=== PATIENT | female | born 1960 | race Hispanic/Latino ===

== ENCOUNTER 2018-12-28 18:31 | Emergency (ER) | payer OTHER ==
--- OUTSIDE RECORDS SUMMARY | 2018-12-28 18:33 | XMS REPORT | Clinical Summary ---
:1960 Author Organization [facility] Address [address] [place] [address] Care Team Providers Name Role Phone Asked, No Pcp Primary Care Provider Unavailable Allergies Active Allergy Reactions Severity Noted Date Comments Morphine (Pf) GI Intolerance 06/29/2016 Medications No known medications Active Problems Problem Noted Date Cocaine abuse 07/01/2016 Bipolar I disorder, single manic episode, severe, with psychosis 06/30/2016 Social History Tobacco Use Types Packs/Day Years Used Date Never Smoker Tobacco Cessation: Counseling Given: Yes Alcohol Use Drinks/Week oz/Week Comments No Sex Assigned at Date Recorded Not on file Job Start Date Occupation Industry Not on file Not on file Not on file Travel History Travel Start Travel End No recent travel history available. Last Filed Vital Signs Not on file Plan of Treatment Not on file Results Not on fileafter 12/27/2017 Insurance Payer Benefit Plan / Group Subscriber ID Type Phone Address UHC MEDICAID [employer] COMM [employer]+ xxxxxxxxx HMO SAMIR OPTUM BEHAVIOR OPTUM(UBH) SAMIR xxxxxxxxx Behavioral Health TH MEDICAID [facility]ALTHSELECT xxxxxxxxx HMO Advance Directives Patient has advance care planning documents, and code status on file. For more information, please contact:Evelio [address] [place] [address] Code Status Date Activated Date Inactivated Comments Full Code 07/03/2016 11:18 AM 07/06/2016 8:33 PM Code Status decision reached by: Patient
[2018-12-28] MEDS ORDERED: IBUPROFEN 200 MG TAB PO ONE (19:12)
--- NOTE | 2018-12-28 22:44 | ER ---
Nurse's Notes [facility] Name: Janis Henderson Age: 58 yrs Sex: Female : 1960 Arrival Date: 12/28/2018 Time: 18:32 Bed External Waiting Private MD: Rishabh Leal E Diagnosis: Presentation: 12/28 18:54 Presenting complaint: Nonproductive cough, pain with cough, subjective fever, malaise, hb body aches, headache, and N/V x 2 days. Transition of care: patient was not received from another setting of care. Onset of symptoms was December 27, 2018. Risk Assessment: Do you want to hurt yourself or someone else? Patient reports no desire to harm self or others. Care prior to arrival: None. 18:54 Method Of Arrival: Ambulatory hb 18:54 Acuity: JUANCHO 3 hb Historical: - Allergies: 18:56 Morphine; hb - Immunization history:: Adult Immunizations up to date. - Social history:: Smoking status: Patient/guardian denies using tobacco. - Ebola Screening: : No symptoms or risks identified at this time. Assessment: 20:50 Reassessment: Pt was not located in [facility] when called for a room. Called pt's cell aa1 phone number on file to inform her we had her test results but pt did not answer. Asked pt to call ED for results once she receives message. 22:40 Reassessment: Spoke with pt by phone and notified that she is flu positive. Offered for aa1 pt to come back to ED to receive dose of Tamiflu now and prescription for Tamiflu to be filled however pt states she does not feel well enough to come back to the ED tonight and will come by in the morning to mushroom picker a prescription. Informed pt that due to her symptom onset it would be best if she could start the medication tonight. Pt states she will try to come by this evening but will most likely be in the morning. Vital Signs: 18:55 BP 140 / 90; Pulse 103; Resp 20; Temp 101.5(TE); Pulse Ox 97% on R/A; Pain 5/10; hb ED Course: 18:32 Patient arrived in ED. rg4 18:32 Rishabh Leal MD is Private Physician. rg4 18:55 Triage completed. hb 18:56 Arm band placed on. hb 19:01 Antipyretics given from triage as ordered by an ER provider. flu swab sent from triage. hb 20:43 Patient's name was called from ER lobby. No response. aj1 Administered Medications: 19:01 Drug: Motrin 600 mg Route: PO; hb Outcome: 22:43 Eloped from waiting room, before seeing physician Time discovered patient gone: December aa2018 at 20:45 22:45 Patient left the ED. aa1 Signatures: Ayala Green RN RN aj1 Laya Delgado RN RN aa1 Rocio De La O RN RN Ada Samayoa rg4 Corrections: (The following items were deleted from the chart) 22:43 22:43 Eloped from waiting room, before seeing physician denise aaLynn
[2018-12-28 22:49] VITALS: BP 140/90; TEMP 101.5; O2SAT 97
== END 2018-12-28 22:45 | disposition left against medical advice (07) ==
LOC: ER 18:31
DX: Z53.21 Procedure and treatment not carried out due to patient leaving prior to being seen by health care provider (principal)
CPT/HCPCS: 87804; 99282

== ENCOUNTER 2020-05-18 17:49 | Inpatient (IN) | payer OTHER ==
--- OUTSIDE RECORDS SUMMARY | 2020-05-18 17:52 | XMS REPORT | Summary of Care ---
:1960 Author Organization [facility] Address [address] [place] [address] Care Team Providers Name Role Phone Andrea Nogueira Primary Care Provider Hector Terrell DO Biology Instructor Reason for Visit Reason Comments Other cerebrovascular disease Encounter Details Date Type Department Care Team Description 02/29/2020 Telemedicine Visit [facility] Monster Tavera Cerebr ovascular disease (Primary Dx); Neurology-Kvng Huynh MD Type 2 diabetes mellitus with renal delvis festations not at goal n [address] [place] [phone] Allergies Active Allergy Reactions Severity Noted Date Comments Morphine Nausea and/or Vomiting Medium 11/13/2015 documented as of this encounter (statuses as of 03/04/2020) Medications Medication Sig Dispensed Refills Start Date End Date Status Blood-Glucose Meter Use as directed, 1 Kit 0 07/13/2016 Active (BLOOD GLUCOSE DX:E11.9 MONITORING) Kit lancets (BD ULTRA FINE Use as directed, 100 Each 3 07/13/2016 Active LANCETS) 33 gauge Misc TID, DX:E11.9 blood sugar diagnostic Use as directed, 100 Strip 3 07/13/2016 Active (BLOOD GLUCOSE TEST) TID, DX:E11.9 strip ALPRAZolam 2 mg tablet Take 1 mg by 0 Active mouth at bedtime as needed for Sleep. Levothyroxine 88 mcg Take 125 mcg by 0 Active capsule mouth daily. traZODone 150 mg tablet Take 150 mg by 0 Active mouth at bedtime as needed for Sleep. clopidogrel 75 mg Take 1 tablet by 30 tablet 5 05/12/2019 Active tabletIndications: mouth daily. Cerebrovascular accident (CVA), unspecified mechanism atorvastatin 40 mg Take 1 tablet by 30 tablet 2 05/12/2019 Active tabletIndications: mouth at Cerebrovascular bedtime. accident (CVA), unspecified mechanism liraglutide 0.6 mg/0.1 inject 0.6 mg 5 Syringe 10 05/12/2019 Active mL (18 mg/3 mL) under the skin injectionIndications: daily. Acute arterial ischemic stroke, multifocal, posterior circulation, left vortioxetine Take 10 mg by 0 Act jairon (TRINTELLIX) 10 mg Tab mouth daily. linaGLIPtin (TRADJENTA) Take 5 mg by 0 Active 5 mg tablet mouth daily. glipiZIDE 10 mg tablet Take 10 mg by 0 Active mouth 2 (two) times daily before breakfast and dinner. magnesium oxide 420 mg Take 400 mg by 30 tablet 0 11/27/2019 Active TabIndications: mouth 2 (two) Hypokalemia, SHEREEN (acute times daily. kidney injury) pantoprazole 20 mg EC Take 1 tablet by 30 tablet 0 11/27/2019 Active tabletIndications: mouth daily. Hypokalemia, SHEREEN (acute kidney injury) sucralfate (CARAFATE) 1 Take 1 tablet by 120 tablet 0 11/27/19 20 Active gram tabletIndications: mouth 4 (four) Hypokalemia, SHEREEN (acute times daily as kidney injury) needed for Indigestion. aspirin 81 mg chewable Take 1 tablet by 30 tablet 0 01/09/2020 Active tabletIndications: mouth daily. Chronic kidney disease, unspecified CKD stage, 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 losartan 50 mg Take 1 tablet by 30 tablet 0 01/09/2020 Active tabletIndications: mouth daily. Chronic kidney disease, unspecified CKD stage, 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 Insulin Detemir inject 20 Units 10 mL 1 01/09/2020 Active (LEVEMIR FLEXTOUCH under the skin 2 U-100 INSULN) 100 (two) times unit/mL (3 mL) daily. injectionIndications: Chronic kidney disease, unspecified CKD stage, 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 documented as of this encounter (statuses as of 03/04/2020) Active Problems Problem Noted Date Hypokalemia 11/26/2019 Stroke 05/07/2019 Obesity (BMI 30-39.9) 04/29/2017 Pain in both hands 11/10/2016 Trigger finger of right thumb 11/10/2016 Right carotid bruit 09/22/2016 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 06/22/2016 Primary hypothyroidism 03/01/2016 Thyroid cyst 03/01/2016 Thyroid nodule 03/01/2016 Dyslipidemia 03/01/2016 documented as of this encounter (statuses as of 03/04/2020) Resolved Problems Problem Noted Date Resolved Date Uncontrolled type 2 diabetes mellitus with proteinuria or 06/22/2016 albuminuria documented as of this encounter (statuses as of 03/04/2020) Immunizations Name Administration Dates Next Due Influenza Virus Vaccine Quad .5 mL IM 6+ MO 01/09/2020 documented as of this encounter Social History Tobacco Use Types Packs/Day Years Used Date Never Smoker Smokeless Tobacco: Never Used Alcohol Use Drinks/Week oz/Week Comments Yes 0 Standard drinks or equivalent 0.0 Occasional Drinker Sex Assigned at Date Recorded Not on file Job Start Date Occupation Industry Not on file Not on file Not on file Travel History Travel Start Travel End No recent travel history available. documented as of this encounter Last Filed Vital Signs Not on filedocumented in this encounter Progress Notes Monster Tavera MD - 02/29/2020 3:00 PM CDT TELEHEALTH NOTE Verbal consent obtained from Patient: Janis Henderson due to the COVID-19 pandemic for telehealth services provided below. Communication with patient was conducted via Video Call. Location of Patient: in her car Location of Provider: Clinic Date of Service: 02/29/2020 Chief Complaint: cerebravascular disease, and diabetes. HPI: Janis Henderson is a 59 year old female. The patient has not experienced any other focal neurological deficits. She said that she still does have some problem at times where she "walks a little funny". If she gets tired especially, she may notice some slurring of her speech as well. Her blood sugar she says are under better control. She had an admission in December related to hypokalemia. Dr. Soriano has been following her as well, and has done some testing in reference to her hard and says that her heart is in good shape. Past Medical History: Diagnosis Date Cataract Chronic neck and back pain DM (diabetes mellitus) Hyperlipidemia Hypothyroidism Current Outpatient Medications on File Prior to Visit Medication Sig Dispense Refill aspirin 81 mg chewable tablet Take 1 tablet by mouth daily. 30 tablet 0 Insulin Detemir (LEVEMIR FLEXTOUCH U-100 INSULN) 100 unit/mL (3 mL) injection inject 20 Units under the skin 2 (two) times daily. 10 mL 1 losartan 50 mg tablet Take 1 tablet by mouth daily. 30 tablet 0 magnesium oxide 420 mg Tab Take 400 mg by mouth 2 (two) times daily. 30 tablet 0 pantoprazole 20 mg EC tablet Take 1 tablet by mouth daily. 30 tablet 0 sucralfate (CARAFATE) 1 gram tablet Take 1 tablet by mouth 4 (four) times daily as needed for Indigestion. 120 tablet 0 glipiZIDE 10 mg tablet Take 10 mg by mouth 2 (two) times daily before breakfast and dinner. linaGLIPtin (TRADJENTA) 5 mg tablet Take 5 mg by mouth daily. vortioxetine (TRINTELLIX) 10 mg Tab Take 10 mg by mouth daily. liraglutide 0.6 mg/0.1 mL (18 mg/3 mL) injection inject 0.6 mg under the skin daily. 5 Syringe 10 atorvastatin 40 mg tablet Take 1 tablet by mouth at bedtime. 30 tablet 2 clopidogrel 75 mg tablet Take 1 tablet by mouth daily. 30 tablet 5 traZODone 150 mg tablet Take 150 mg by mouth at bedtime as needed for Sleep. ALPRAZolam 2 mg tablet Take 1 mg by mouth at bedtime as needed for Sleep. Levothyroxine 88 mcg capsule Take 125 mcg by mouth daily. blood sugar diagnostic (BLOOD GLUCOSE TEST) strip Use as directed, TID, DX:E11.9 100 Strip 3 Blood-Glucose Meter (BLOOD GLUCOSE MONITORING) Kit Use as directed, DX:E11.9 1 Kit 0 lancets (BD ULTRA FINE LANCETS) 33 gauge Misc Use as directed, TID, DX:E11.9 100 Each 3 No current facility-administered medications on file prior to visit. TELEHEALTH EXAM Alert, oriented times 3. Intact speech administrative receptionist/expression. Eye movements observed. No facial asymmetry Hearing intact to conversation. Arms/legs move symmetrically. No UE/LE ataxia. No tremors. ASSESSMENT/ PLAN Janis Henderson is a 59 year old female with PMH as above presenting with: ICD-10-CM ICD-9-CM 1. Cerebrovascular disease I67.9 437.9 2. 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 She is going to keep us posted if she has any other acute changes. She does understand that trying to prevent future strokes involves risk-management stratification. She is going to remain on Plavix. No further appointments need to be scheduled unless she has other symptoms as per the Dr. Negron directive. After visit summary (AVS ) documentation will be available through [facility] for this encounter. A total of 25 minutes was spent on the Video call, chart review. Medication treatment options/Sideeffects discussed. Workup/Plan of care discussed. Monster Tavera MD documented in this encounter Plan of Treatment Date Type Specialty Care Team Description 03/18/2020 Office Visit Surgery Michelle Carney MD [address] [facility] [address] [place] [address] [phone] Health Maintenance Due Date Last Done Comments PNEUMOCOCCAL 0-64 YEARS COMBINED 1968 SERIES (1 of 1 - PPSV23) DTaP,Tdap,and Td Vaccines (1 - 1973 Tdap) PAP SMEAR 04/27/2007 04/27/2004 Zoster Recombinant Vaccine 2012 (SHINGRIX) (1 of 2) URINE MICROALBUMIN 05/21/2017 05/21/2016, 04/02/2004 EYE EXAM 05/24/2017 05/24/2016 FOOT EXAM 06/22/2017 06/22/2016 Breast Cancer Screening 02/17/2020 02/16/2019 (MAMMOGRAM) HgA1C 05/26/2020 11/26/2019, 05/07/2019, 12/08/2018, Additional history exists LDL-C 01/06/2021 01/07/2020, 05/10/2019, 05/08/2019, Additional history exists CREATININE (SERUM) 01/08/2021 01/09/2020, 01/08/2020, 01/08/2020, Additional history exists COLONOSCOPY 12/08/2028 12/08/2018 HEPATITIS C (HCV) SCREEN Completed 10/29/2016 INFLUENZA VACCINE Completed 01/09/2020 documented as of this encounter Implants Implanted Type Area Delivery Merchandiser Device Shelf Model / Serial Identifier Expiration / Lot Date Lens LENS Left: Eye Yuniel 03/23/2021 [id number] / Implanted: Qty: 1 on 07/22/2016 by Troy Kwok MD at [facility] 2 [id number] / [id number] 2 documented as of this encounter Results Not on filedocumented in this encounter Visit Diagnoses Diagnosis Cerebrovascular disease - Primary Cerebrovascular disease, unspecified 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
--- OUTSIDE RECORDS SUMMARY | 2020-05-18 17:52 | XMS REPORT | Summary of Care ---
:1960 Author Organization [facility] - Health Address [address] [place] [id number] Care Team Providers Name Role Phone Andrea Nogueira Primary Care Provider Hector Terrell DO Body Shop Technician Encounter Details Date Type Department Care Team Description 02/14/2020 Orders Only [facility] Doctor Unassigned, No [address] [facility] [place] [address] [address] [place] [phone] Allergies Active Allergy Reactions Severity Noted Date Comments Morphine Nausea and/or Vomiting Medium 11/13/2015 documented as of this encounter (statuses as of 03/03/2020) Medications Medication Sig Dispensed Refills Start Date [...] as of this encounter (statuses as of 03/03/2020) Active Problems Problem Noted Date Hypokalemia 11/26/2019 Stroke 05/07/2019 Obesity (BMI 30-39.9) 04/29/2017 Pain in both hands 11/10/2016 Trigger finger of right thumb 11/10/2016 Right carotid bruit 09/22/2016 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 06/22/2016 Primary hypothyroidism 03/01/2016 Thyroid cyst 03/01/2016 Thyroid nodule 03/01/2016 Dyslipidemia 03/01/2016 documented as of this encounter (statuses as of 03/03/2020) Resolved Problems Problem Noted Date Resolved Date Uncontrolled type 2 diabetes mellitus with proteinuria or 06/22/2016 albuminuria documented as of this encounter (statuses as of 03/03/2020) Immunizations Name Administration Dates Next Due Influenza [...] Signs Not on filedocumented in this encounter Plan of Treatment Date Type Specialty Care Team Description 03/18/2020 Office Visit Surgery Michelle Carney MD [address] [facility] [address] [place] [address] [phone] Health Maintenance Due Date Last Done Comments [...] of this encounter Implants Implanted Type Area Photostat Operator Device Shelf Model / Serial Identifier Expiration / Lot Date Lens LENS Left: Eye Yuniel 03/23/2021 [id number] / Implanted: Qty: 1 on 07/22/2016 by Troy Kwok MD at [facility] 2 [id number] / [id number] 2 documented as of this encounter Procedures Procedure Name Priority Date/Time Associated Diagnosis Comme nts AUTHORIZATION FOR RELEASE Routine 02/14/2020 12:01 AM OF PHI CDT documented in this encounter Results Not on filedocumented in this encounter Insurance Payer Benefit Plan / Subscriber ID Effective Dates Phone Addre ss Type Group [facility] xxxxxxxxx 2015-Present Medicaid COMM PLAN - PLUS MANAGED MEDICAID documented as of this encounter
--- OUTSIDE RECORDS SUMMARY | 2020-05-18 17:52 | XMS REPORT | Summary of Care ---
:1960 Author Organization [facility] - Health Address [address] [place] [phone] Care Team Providers Name Role Phone Andrea Nogueira Primary Care Provider Hector Terrell DO Machine Clothing Man Encounter Details Date Type Department Care Team Description 03/11/2020 Orders Only [facility] Doctor Unassigned, No [address] [facility] [place] [address] [address] [place] [place] [phone] Allergies Active Allergy Reactions Severity Noted Date Comments Morphine Nausea and/or Vomiting Medium 11/13/2015 documented as of this encounter (statuses as of 03/11/2020) Medications Medication Sig Dispensed Refills Start Date [...] as of this encounter (statuses as of 03/11/2020) Active Problems Problem Noted Date Hypokalemia 11/26/2019 Stroke 05/07/2019 Obesity (BMI 30-39.9) 04/29/2017 Pain in both hands 11/10/2016 Trigger finger of right thumb 11/10/2016 Right carotid bruit 09/22/2016 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 COVID-19 Exposure Response Date Recorded In the last month, have you been in contact with No / Unsure 03/06/2020 3:00 PM CDT someone who was confirmed or suspected to have Coronavirus / COVID-19? documented as of this encounter Last Filed Vital Signs Not on filedocumented in this encounter Plan of Treatment Date Type Specialty Care Team Description 03/11/2020 Appointment Radiology Radiology [address] [place] [id number] 03/18/2020 Office Visit Surgery Michelle Carney MD [address] [facility] [address] [place] [address] [phone] Health Maintenance Due Date Last Done Comments [...] of this encounter Implants Implanted Type Area Data Management Specialist Device Shelf Model / Serial Identifier Expiration / Lot Date Lens LENS Left: Eye Yuniel 03/23/2021 [id number] / Implanted: Qty: 1 on 07/22/2016 by Troy Kwok MD at [facility] 2 [id number] / [id number] 2 documented as of this encounter Procedures Procedure Name Priority Date/Time Associated Diagnosis Comme nts ASSIGNMENT OF BENEFITS Routine 03/11/2020 1:16 PM CDT documented in this encounter Results Not on filedocumented in this encounter Insurance Payer Benefit Plan / Subscriber ID Effective Dates Phone Addre ss Type Group [facility] xxxxxxxxx 2015-Present Medicaid COMM PLAN - PLUS MANAGED MEDICAID documented as of this encounter
--- OUTSIDE RECORDS SUMMARY | 2020-05-18 17:52 | XMS REPORT | Continuity of Care Document ---
:1960 Author Organization [facility] t Address [address] [place] [address] Dr. S[address] [place] [address] Care Team Providers Name Role Phone Asked, Pcp Primary Care Physician Unavailable Brenna SOTELO, S Attending Clinician Doctor Unassigned, Name Attending Clinician Unavailable Jose Antonio ARIZA, S Attending Clinician Delvin ARIZA, L Attending Clinician Problems Condition Condition Condition Status Onset Resolution Last Treating Co mments Source Name Details Category Date Date Treatment Clinician Date Cocaine Cocaine Disease Active [place] abuse abuse 07-01 Methodi 00:00: st 00 Bipolar I Bipolar I Disease Active Julien ston disorder, disorder, 06-30 Meth darnell single single 00:00: st manic manic 00 episode, episode, severe, severe, with with psychosis psychosis Allergies, Adverse Reactions, Alerts Allergy Allergy Status Severity Reaction(s) Onset Inactive Treating Comm ents Source Name Type Date Date Clinician Morphine Propensi Active GI [place] n (Pf) ty to Intolerance 06-29 Metho di adverse 00:00: st reaction 00 s to drug Social History Social Habit Start Date Stop Date Quantity Comments Source Sex Assigned At [facility] ethodist Alcohol intake 2016-06-30 2016-06-30 Current [facility] thodist 00:00:00 00:00:00 non-drinker of alcohol (finding) Smoking Status Start Date Stop Date Source Never smoker [place] [facility] Medications This patient has no known medications. Procedures This patient has no known procedures. Encounters Start End Encounter Admission Attending Care Care Encounter Source Date/Time Date/Time Type Type Clinicians Facility Department ID 2020-05-15 2020-05-15 Telemedici Ceja [facility] [id number] 08:20:16 08:35:16 ne Visit Param Hodge [id number] Surgical [id number] Specialti [id number] [address] [place] 2020-05-13 2020-05-13 Orders Doctor PAYAL [id number] 00:00:00 00:00:00 Only Unassigned, GAMA [id number] [place] [id number] [id number] 2020-05-12 2020-05-12 Emergency [facility] [id number] 01:59:32 07:04:00 Nora Bob [id number] [place] [id number] [place] [id number] 2020-05-08 2020-05-08 [facility] [id number] 10:30:00 23:59:00 Encounter Florencio Bob [id number] [place] [id number] [place] [id number] 2020-05-08 2020-05-08 Orders Doctor MOE [id number] 00:00:00 00:00:00 Only UnassignedGAMA [id number] [place] [id number] [id number] [id number] 2020-05-05 2020-05-05 Telephone [facility] [id number] 00:00:00 00:00:00 Florencio Hodge [id number] Surgical [id number] Specialti [id number] es [address] [place] 2020-04-30 2020-04-30 Office [facility] [id number] 14:40:54 15:09:09 Visit [facility] [id number] Surgical [id number] Specialti [id number] Results This patient has no known results.
--- OUTSIDE RECORDS SUMMARY | 2020-05-18 17:52 | XMS REPORT | Clinical Summary ---
:1960 Author Organization [facility] Address [address] [place] [address] Care Team Providers Name Role Phone Asked, [...] Not on file Results Not on fileafter 05/18/2019 Insurance Payer Benefit Plan / Subscriber ID Effective Phone Address T ype Group Dates UHC MEDICAID UNITEDHC COMM xxxxxxxxx 2016-Pres HMO STAR+ SAMIR ent OPTUM OPTUM(UBH) SAMIR xxxxxxxxx 2016-Pres B ehavioral [facility] Health MEDICAID UHC UNITEDHC xxxxxxxxx 2016-Pres HMO HEALTHSELECT ent Advance Directives For more information, please contact: [phone] Type Date Recorded Patient Web Feeder Explanati on Advance Directives, Living Will and Medical Power of Sorter U[employer]ol[employer] Code Status Date Activated Date Inactivated Comments Full Code 07/03/2016 11:18 AM 07/06/2016 8:33 PM Code Status decision reached by: Patient
--- OUTSIDE RECORDS SUMMARY | 2020-05-18 17:53 | XMS REPORT | Summary of Care ---
:1960 Author Organization [facility] - Health Address [address] [id number] Care Team Providers Name Role Phone Andrea Nogueira Primary Care Provider Hector Terrell DO Manager Education Encounter Details Date Type Department Care Team Description 04/29/2020 Orders Only [facility] Doctor Unassigned, No [address] [facility] [place] [address] [address] [place] [address] Allergies Active Allergy Reactions Severity Noted Date Comments Morphine Nausea and/or Vomiting Medium 11/13/2015 documented as of this encounter (statuses as of 04/29/2020) Medications Medication Sig Dispensed Refills Start Date [...] as of this encounter (statuses as of 04/29/2020) Active Problems Problem Noted Date Hypokalemia 11/26/2019 Stroke 05/07/2019 Obesity (BMI 30-39.9) 04/29/2017 Pain in both hands 11/10/2016 Trigger finger of right thumb 11/10/2016 Right carotid bruit 09/22/2016 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 06/22/2016 Primary hypothyroidism 03/01/2016 Thyroid cyst 03/01/2016 Thyroid nodule 03/01/2016 Dyslipidemia 03/01/2016 documented as of this encounter (statuses as of 04/29/2020) Resolved Problems Problem Noted Date Resolved Date Uncontrolled type 2 diabetes mellitus with proteinuria or 06/22/2016 albuminuria documented as of this encounter (statuses as of 04/29/2020) Immunizations Name Administration Dates Next Due Influenza [...] filedocumented in this encounter Plan of Treatment Health Maintenance Due Date Last Done Comments PNEUMOCOCCAL 0-64 YEARS COMBINED 1968 SERIES (1 of 1 - PPSV23) DTaP,Tdap,and Td Vaccines (1 - 1973 Tdap) PAP SMEAR 04/27/2007 04/27/2004 Zoster Recombinant Vaccine 2012 (SHINGRIX) (1 of 2) URINE MICROALBUMIN 05/21/2017 05/21/2016, 04/02/2004 EYE EXAM 05/24/2017 05/24/2016 FOOT EXAM 06/22/2017 06/22/2016 HgA1C 05/26/2020 11/26/2019, 05/07/2019, 12/08/2018, Additional history exists INFLUENZA VACCINE (#1) 2020 01/09/2020 Depression Screening 08/24/2020 08/24/2019 LDL-C 01/06/2021 01/07/2020, 05/10/2019, 05/08/2019, Additional history exists CREATININE (SERUM) 01/08/2021 01/09/2020, 01/08/2020, 01/08/2020, Additional history exists Breast Cancer Screening 03/11/2021 03/11/2020, 02/16/2019 (MAMMOGRAM) COLONOSCOPY 12/08/2028 12/08/2018 HEPATITIS C (HCV) SCREEN Completed 10/29/2016 documented as of this encounter Implants Implanted Type Area Legal Writing Professor Device Shelf Model / Serial Identifier Expiration / Lot Date Lens LENS Left: Eye Yuniel 03/23/2021 [id number] / Implanted: Qty: 1 on 07/22/2016 by Troy Kwok MD at [facility] 2 [id number] / [id number] documented as of this encounter Procedures Procedure Name Priority Date/Time Associated Diagnosis Comme nts CONSENT/REFUSAL FOR Routine 04/29/2020 3:54 PM CDT DIAGNOSIS AND TREATMENT documented in this encounter Results Not on filedocumented in this encounter Insurance Payer Benefit Plan / Subscriber ID Effective Dates Phone Addre ss Type Group [facility] xxxxxxxxx 2015-Present Medicaid COMM PLAN - PLUS MANAGED MEDICAID documented as of this encounter
--- OUTSIDE RECORDS SUMMARY | 2020-05-18 17:53 | XMS REPORT | Summary of Care ---
:1960 Author Organization [facility] - [facility] Address [address] [place] [id number] Care Team Providers Name Role Phone Andrea Nogueira Primary Care Provider Hector Terrell DO Pasta Maker Reason for Referral Radiology Services (STAT) Status Reason Specialty Diagnoses / Referred By Referred To Procedures Contact Contact New Request Diagnostic Diagnoses Acute pain of left shoulder Dennis, K Radiology Procedures XR SHOULDER 2+ VW LEFT Crissy, PAC [address] [facility] [address] [place] [address] Reason for Visit Reason Comments Shoulder Pain Auth/Cert Status Reason Specialty Diagnoses / Referred By Referred To Procedures Contact Contact Emergency Medicine [facility] Em ergency Dept [address] [place] [address] Fax: Encounter Details Date Type Department Care Team Description 04/29/2020 Emergency ADC-Emergency Dennis, K Crissy, Subluxatio n of left shoulder joint, initial encounter (Primary Dx); Department PAC Acute pain of left shoulder; [address] [place] [address] Dr de la o [address] [place] [address] [facility] [address] [place] [address] Allergies Active Allergy Reactions Severity Noted Date [...] mellitus with renal manifestations not at goal ibuprofen 600 mg Take 1 tablet by 30 tablet 0 04/29/2020 Active tabletIndications: mouth every 6 Subluxation of left (six) hours as shoulder joint, initial needed for Pain encounter (scale 4-6). traMADol 50 mg Take 1 tablet by 20 tablet 0 04/29/2020 Active tabletIndications: mouth every 6 acute pain (six) hours as needed for Pain (scale 4-6). Indications: acute pain documented as of this encounter (statuses as [...] been in contact with No / Unsure 04/29/2020 3:54 PM CDT someone who was confirmed or suspected to have Coronavirus / COVID-19? documented as of this encounter Last Filed Vital Signs Vital Sign Reading Time Taken Comments Blood Pressure 156/96 04/29/2020 7:20 PM CDT Pulse 74 04/29/2020 7:20 PM CDT Temperature 37.3 C (99.1 F) 04/29/2020 4:19 PM CDT Respiratory Rate 16 04/29/2020 7:20 PM CDT Oxygen Saturation 100% 04/29/2020 7:20 PM CDT Inhaled Oxygen Concentration - - Weight 90.7 kg (200 lb) 04/29/2020 4:19 PM CDT Height 165.1 cm (5' 5") 04/29/2020 4:19 PM CDT Body Mass Index 33.28 04/29/2020 4:19 PM CDT documented in this encounter Discharge Instructions AttachmentsThe following attachments cannot be sent through Care Everywhere. Shoulder Instability, Understanding (Palestinian)documented in this encounter Plan of Treatment Health [...] of this encounter Implants Implanted Type Area Cathode Builder Device Shelf Model / Serial Identifier Expiration / Lot Date Lens LENS Left: Eye Yuniel 03/23/2021 [id number] / Implanted: Qty: 1 on 07/22/2016 by Troy Kwok MD at [facility] 2 [id number] / [id number] documented as of this encounter Procedures Procedure Name Priority Date/Time Associated Diagnosis Comme nts BASIC METABOLIC STAT 04/29/2020 7:23 PM Muscle twitch Resu lts for this PANEL (NA, K, CL, CDT procedure are in CO2, GLUCOSE, BUN, the resul ts CREATININE, CA) section. XR SHOULDER 2+ VW STAT 04/29/2020 5:21 PM Acute pain of le ft Results for this LEFT CDT shoulder procedure are i n the results section. NOTICE OF PRIVACY Routine 04/29/2020 3:54 PM PRACTICES CDT documented in this encounter Results BASIC METABOLIC PANEL (NA, K, CL, CO2, GLUCOSE, BUN, CREATININE, CA) (04/29/2020 7:23 PM CDT) NA 134 (L) 135 - 145 [facility] mmol/L [facility] K 3.2 (L) 3.5 - 5.0 [facility] mmol/L [facility] CL 98 98 - 108 mmol/L [facility] CO2 TOTAL 27 23 - 31 mmol/L [facility] AGAP 9 2 - 16 [facility] BUN 17 7 - 23 mg/dL [facility] GLUCOSE 309 (H) 70 - 110 mg/dL [facility] CREATININE 1.19 (H) 0.50 - 1.04 [facility] mg/dL [facility] CALCIUM 8.9 8.6 - 10.6 [facility] mg/dL [facility] eGFR Calculation 46.8 mL/min/1.73m2 [facility] ([facility] Croatian) eGFR Calculation 56.7 mL/min/1.73m2 [place] Specimen Blood - ARM, RIGHT Narrative Performed At Association of Glomerular Filtration Rate (GFR) [facility] and Staging of Kidney Disease* + + +- + | GFR (mL/min/1.73 m2) | With Kidney Damage | Without Kidney Damage + + +- + | >90 | Stage one | Normal + + +- + | 60-89 | Stage two | Decreased GFR + + +- + | 30-59 | Stage three | Stage three + + +- + | 15-29 | Stage four | Stage four + + +- + | <15 (or dialysis) | Stage five | Stage five + + +- + *Each stage assumes the associated GFR level has been in effect for at least three months. Stages 1 to 5, with or without kidney disease, indicate chronic kidney disease. Notes: Determination of stages one and two (with eGFR >59mL/min/1.73 m2) requires estimation of kidney damage for at least three months as defined by structural or functional abnormalities of the kidney, manifested by either: Pathological abnormalities or Markers of kidney damage (including abnormalities in the composition of the blood or urine or abnormalities in imaging tests). Performing Organization Address City/State/Zipcode Phone Number [facility] CLIA: [id number], [address] [place], [place] [address] XR SHOULDER 2+ VW LEFT (04/29/2020 5:21 PM CDT) Specimen Impressions Performed At PACS/VR/DOSE Inferior humeral head subluxation which may relate to joint effusion or capsular ligamentous incompetency. Rotator cuff calcium hydroxyapatite depo sition consistent with calcific tendinopathy. Preliminary Report Dictated by Resident: Cristi Ash I, Mathieu Samayoa MD., have reviewed this study and a gree with the above report. Narrative Performed At EXAM: XR SHOULDER 2+ VW LEFT PACS/VR/DOSE HISTORY: pain COMPARISON: None FINDINGS: Radiographs of the left shoulder demonst rate no acute fracture. Calcium deposits are seen adjacent to the dixie l head. Inferior humeral head subluxation is present. Osteopenia is pr esent. Procedure Note [facility], Radiant Results Inft User - 2019 6:20 PM CDT EXAM: XR SHOULDER 2+ VW LEFT HISTORY: pain COMPARISON: None FINDINGS: Radiographs of the left shoulder demonst rate no acute fracture. Calcium deposits are seen adjacent to the dixie l head. Inferior humeral head subluxation is present. Osteopenia is pr esent. IMPRESSION Inferior humeral head subluxation which may relate to joint effusion or capsular ligamentous incompetency. Rotator cuff calcium hydroxyapatite depo sition consistent with calcific tendinopathy. Preliminary Report Dictated by Resident: Cristi Ash I, Mathieu Samayoa MD., have reviewed is study and agree with the above report. Performing Organization Address City/State/Zipcode Phone Number PACS/VR/DOSE documented in this encounter Visit Diagnoses Diagnosis Subluxation of left shoulder joint, init ial encounter - Primary Acute pain of left shoulder Muscle twitch Abnormal involuntary movements documented in this encounter Administered Medications Medication Order MAR Action Action Date Dose Rate Site KCL (KLOR-CON M20) tablet 40 mEq Given 04/29/2020 8:00 PM CDT 40 mEq 40 mEq, Oral, ONCE, 1 dose, 04/29/20 at 2100, SHON traMADol (ULTRAM) tablet 100 mg Given 04/29/2020 7:19 PM CDT 100 mg 100 mg, Oral, ONCE, 1 dose, Tue04/29/20 at 2015, Routine documented in this encounter Insurance Payer Benefit Plan / Subscriber ID Effective Dates Phone Addre ss Type Group [facility] STAR xxxxxxxxx 2015-Present Medicaid COMM PLAN - PLUS MANAGED MEDICAID documented as of this encounter
--- OUTSIDE RECORDS SUMMARY | 2020-05-18 17:53 | XMS REPORT | Summary of Care ---
:1960 Author Organization [facility] Address [address] [place] [address] Care Team Providers Name Role Phone JeroAndrea Primary Care Provider Hector Terrell DO Cycle Repairer Reason for Visit Radiology Services (Routine) Status Reason Specialty Diagnoses / Referred By Referred To Procedures Contact Contact New Request Diagnostic Diagnoses Visit for screening mammogram Imelda Andrea Radiology Procedures BI SELF-REFERRED SCREENING TOMOSYNTHESIS BILATERAL BI SELF-REFERRED SCREENING TOMOSYNTHESIS RIGHT [address] [facility] [address] [place] [address] Encounter Details Date Type Department Care Team Description 03/11/2020 Hospital Encounter [facility] [place] [facility] Radiolog y Arrived [facility] [address] [facility] [place] [address] [place] [phone] Allergies Active Allergy Reactions Severity Noted Date Comments Morphine Nausea and/or Vomiting Medium 11/13/2015 documented as of this encounter (statuses as of 03/12/2020) Medications Medication Sig Dispensed Refills Start Date [...] as of this encounter (statuses as of 03/12/2020) Active Problems Problem Noted Date Hypokalemia 11/26/2019 Stroke 05/07/2019 Obesity (BMI 30-39.9) 04/29/2017 Pain in both hands 11/10/2016 Trigger finger of right thumb 11/10/2016 Right carotid bruit 09/22/2016 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 documented as of this encounter Last Filed Vital Signs Not on filedocumented in this encounter Plan of Treatment Date Type Specialty Care Team Description 03/18/2020 Office Visit Surgery Michelle Carney MD [address] [facility] [address] [place] [address] [phone] Health Maintenance Due Date Last Done Comments [...] of this encounter Implants Implanted Type Area Asphalt Plant Laborer Device Shelf Model / Serial Identifier Expiration / Lot Date Lens LENS Left: Eye Yuniel 03/23/2021 [id number] / Implanted: Qty: 1 on 07/22/2016 by Troy Kwok MD at [facility] 2 [id number] / [id number] documented as of this encounter Procedures Procedure Name Priority Date/Time Associated Comments Diagnosis BI SELF-REFERRED Routine 03/11/2020 2:45 Visit for screening Results for this SCREENING PM CDT mammogram procedure are i n TOMOSYNTHESIS the results BILATERAL section. documented in this encounter Results BI SELF-REFERRED SCREENING TOMOSYNTHESIS BILATERAL (03/11/2020 2:45 PM CDT) Specimen Narrative Performed At This result has an attachment that is no t available. Examination: PACS BI SELF-REFERRED SCREENING TOMOSYNTHESIS BILATERAL History: Patient is 59 year old and is seen for: Self referre d. Computer-aided detection (CAD) utilized. Comparisons: 02/16/2019 BI SCREENING MAMMOGRAM BILATER AL Findings: The breasts are almost entirely fatty. Left There is a focal asymmetry seen in the upper outer stephania drant of the left breast in the middle depth. Compared to the previous s tudy, there are no significant changes. Bilateral There are vascular calcifications seen in both breasts . Impression: No signs of malignancy. Recommendation: Annual mammographic follow-up - Left Annual mammographic follow-up - Right BI-RADS Category: Both 2 - Benign Performing Organization Address City/State/[facility] [email or web address] Phone Number PACS documented in this encounter Visit Diagnoses Diagnosis Visit for screening mammogram Other screening mammogram documented in this encounter Insurance Payer Benefit Plan / Subscriber ID Effective Dates Phone Addre ss Type Group [facility] STAR xxxxxxxxx 2015-Present Medicaid COMM PLAN - PLUS MANAGED MEDICAID documented as of this encounter
--- OUTSIDE RECORDS SUMMARY | 2020-05-18 17:54 | XMS REPORT | Summary of Care ---
:[address] [facility] Address [address] [place] [address] Care Team Providers Name Role Phone Andrea Nogueira Primary Care Provider Hector Terrell DO Scratch Finisher Reason for Referral MRI/CAT Scan (Routine) Status Reason Specialty Diagnoses / Referred By Referred To Procedures Contact Contact New Request Diagnostic Diagnoses Cerebrovascular accident (CVA) due to thrombosis of left vertebral artery Florencio Hargrove Radiology Procedures MR SHOULDER LEFT WO CONTRAST MD Perez [address] [place] [place] [address] Reason for Visit Reason Comments New Patient lft shoulder dislocation / h fu Encounter Details Date Type Department Care Team Description 04/30/2020 Office Visit [facility] Florencio Hargrove Cerebrovascu lar accident Orthopaedic Surgery- MD Perez (CVA) due to thrombosis Paulino Miranda [address] of left vertebral artery [address] (Primary Dx) [address] [place] [address] Allergies Active Allergy Reactions Severity Noted Date Comments Morphine Nausea and/or Vomiting Medium 11/13/2015 documented as of this encounter (statuses as of 05/02/2020) Medications Medication Sig Dispensed Refills Start Date [...] as of this encounter (statuses as of 05/02/2020) Active Problems Problem Noted Date Hypokalemia 11/26/2019 Stroke 05/07/2019 Obesity (BMI 30-39.9) 04/29/2017 Pain in both hands 11/10/2016 Trigger finger of right thumb 11/10/2016 Right carotid bruit 09/22/2016 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 06/22/2016 Primary hypothyroidism 03/01/2016 Thyroid cyst 03/01/2016 Thyroid nodule 03/01/2016 Dyslipidemia 03/01/2016 documented as of this encounter (statuses as of 05/02/2020) Resolved Problems Problem Noted Date Resolved Date Uncontrolled type 2 diabetes mellitus with proteinuria or 06/22/2016 albuminuria documented as of this encounter (statuses as of 05/02/2020) Immunizations Name Administration Dates Next Due Influenza [...] been in contact with No / Unsure 05/02/2020 9:15 AM CDT someone who was confirmed or suspected to have Coronavirus / COVID-19? documented as of this encounter Last Filed Vital Signs Vital Sign Reading Time Taken Comments Blood Pressure 146/86 04/30/2020 2:51 PM states did n ot take BP CDT Rx today. Pulse 75 04/30/2020 2:51 PM CDT Temperature - - Respiratory Rate - - Oxygen Saturation - - Inhaled Oxygen - - Concentration Weight 90.7 kg (200 lb) 04/30/2020 2:47 PM CDT Height 165.1 cm (5' 5") 04/30/2020 2:47 PM CDT Body Mass Index 33.28 04/30/2020 2:47 PM CDT documented in this encounter Progress Notes Florencio Hargrove MD - 04/30/2020 3:15 PM CDT Cc: Chief Complaint Patient presents with New Patient lft shoulder dislocation / hfu Vitals: 04/30/20 1447 BP: (!) 149/87 Pulse: 78 Weight: 90.7 kg (200 lb) Height: 65" (165.1 cm) [facility] [address] [place] [address] Incident occurred: yesterday Incident location: unknown Injury mechanism: none Pain location: left shoulder DME status: sling Radiology status: epic Stated no specific injury, shoulder is dislocated and went to ER, did not put shoulder back in place. All Vitals taken, allergies and all medications reviewed, fall risk assessed. Pain level 10. Sophie Randy 04/30/2020 2:48 PM Janis Henderson is a 59 year old female. Shoulder Pain The pain is present in the left shoulder. This is a new problem. The current episode started yesterday. There has been no history of extremity trauma. The problem occurs constantly. The problem has been waxing and waning. The quality of the pain is described as aching and burning. The pain is at a severity of 6/10. The pain is moderate. Associated symptoms include an inability to bear weight and a limited range of motion. The symptoms are aggravated by activity. She has tried NSAIDS and movement forthe symptoms. The treatment provided no relief. Allergies Janis is allergic to morphine. Medications Outpatient Medications Prior to Visit Medication Sig Dispense Refill ibuprofen 600 mg tablet Take 1 tablet by mouth every 6 (six) hours as needed for Pain (scale 4-6). 30 tablet 0 traMADol 50 mg tablet Take 1 tablet by mouth every 6 (six) hours as needed for Pain (scale 4-6).Indications: acute pain 20 tablet 0 aspirin 81 mg chewable tablet Take 1 [...] directed, TID, DX:E11.9 100 Each 3 No facility-administered medications prior to visit. Histories Past Medical History: Diagnosis Date Cataract Chronic neck and back pain DM (diabetes mellitus) Hyperlipidemia Hypothyroidism Past Surgical History: Procedure Laterality Date CERVICAL EPIDURAL STEROID INJECTION N/A 11/17/2015 Surgeon: Kraig Faulkner MD; Location: [facility] CERVICAL EPIDURAL STEROID INJECTION N/A 11/24/2015 Surgeon: Kraig Faulkner MD; Location: [facility] OR [facility] CERVICAL EPIDURAL STEROID INJECTION N/A 12/01/2015 Surgeon: Kraig Faulkner MD; Location: [facility] OR [facility] SECTION X 3 CHOLECYSTECTOMY KNEE ARTHROSCOPY Right X 2 LAPAROSCOPIC APPENDECTOMY ORAL SURGERY PROCEDURE [place] teeth extraction PHACOEMULSIFICATION OF CATARACT WITH INTRAOCULAR LENS IMPLANT Left 07/22/2016 Surgeon: Troy Kwok MD; Location: [facility] Social History Socioeconomic History Marital status: Spouse name: Not on file Number of children: Not on file Years of education: Not on file Highest education level: Not on file Occupational History Not on file Social Needs Financial resource strain: Not on file Food insecurity: Worry: Not on file Inability: Not on file Transportation needs: Medical: Not on file Non-medical: Not on file Tobacco Use Smoking status: Never Smoker Smokeless tobacco: Never Used Substance and Sexual Activity Alcohol use: Yes Alcohol/week: 0.0 standard drinks Comment: Occasional Drinker Drug use: No Sexual activity: Not on file Lifestyle Physical activity: Days per week: Not on file Minutes per session: Not on file Stress: Not on file Relationships Social connections: Talks on phone: Not on file Gets together: Not on file Attends episcopalian service: Not on file Active member of club or organization: Not on file Attends meetings of clubs or organizations: Not on file Relationship status: Not on file Intimate partner violence: Fear of current or ex partner: Not on file Emotionally abused: Not on file Physically abused: Not on file Forced sexual activity: Not on file Other Topics Concern Not on file Social History Narrative , 3 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 HENT: Negative. Eyes: Negative. Respiratory: Negative. Cardiovascular: Negative. Gastrointestinal: Negative. Genitourinary: Negative. Musculoskeletal: Positive for gait problem and joint swelling. Skin: Negative. Psychiatric/Behavioral: Negative. Endocrine: Endocrine negative Vital Signs BP (!) 149/87 | Pulse 78 | Ht 65" (165.1 cm) | Wt 90.7 kg (200 lb) | BMI 33.28 kg/m Physical Exam Musculoskeletal: Positive Lang Positive Neer General: Well-developed well-nourished oriented to person place and time HEENT normocephalic atraumatic atraumatic pupils equal round reactive to light extraocular muscles intact Cervical thoracic and lumbar spine without focal deficit normal kyphosis and lordosis Chest clear to auscultation and percussion Cardiovascular regular rate and rhythm without gallop rub or murmur soft without organomegaly Normal bowel sounds Neurologic: Focal myotome or dermatomal deficits Vascular: Intact symmetrical bilateral upper and lower extremities Skin without stasis varicosities or breakdown Extremities without cyanosis clubbing or edema Lymphatics no peripheral lymphedema Psych normal mood and affect. Neurovascular function is intact. To include brisk capillary refill warm pink skin active motor function and sensory function intact. Nursing note and vitals reviewed. EXAM: XR SHOULDER 2+ VW LEFT HISTORY: pain COMPARISON: None FINDINGS: Radiographs of the left shoulder demonstrate no acute fracture. Calcium deposits are seen adjacent to the humeral head. Inferior humeral head subluxation is present. Osteopenia is present. IMPRESSION Inferior humeral head subluxation which may relate to joint effusion or capsular ligamentous incompetency. Rotator cuff calcium hydroxyapatite deposition consistent with calcific tendinopathy. Preliminary Report Dictated by Resident: Cristi Ash I, Mathieu Samayoa MD., have reviewed this study and agree with the above report. Assessment/Plan Left Shoulder Pain MRI of the left shoulder. Follow up within ten days for results. documented in this encounter Plan of Treatment Date Type Specialty Care Team Description 05/08/2020 Appointment Radiology Florencio Hargrove MD [address] [phone] 05/14/2020 Appointment Radiology Florencio Hargrove MD [address] [phone] Name Type Priority Associated Diagnoses Order S chedule MR SHOULDER LEFT WO IMAGING Routine Cerebrovascular accid ent Expected: CONTRAST (CVA) due to thrombosis of 0 04/30/2020, Expires: left vertebral artery 2020 Health Maintenance Due Date Last Done Comments [...] 01/06/2021 01/07/2020, 05/10/2019, 05/08/2019, Additional history exists Breast Cancer Screening 03/11/2021 03/11/2020, 02/16/2019 (MAMMOGRAM) CREATININE (SERUM) 04/29/2021 04/29/2020, 01/09/2020, 01/08/2020, Additional history exists COLONOSCOPY 12/08/2028 12/08/2018 HEPATITIS C (HCV) SCREEN Completed 10/29/2016 documented as of this encounter Implants Implanted Type Area Steam And Gas Turbine Assembler Device Shelf Model / Serial Identifier Expiration / Lot Date Lens LENS Left: Eye Yuniel 03/23/2021 [id number] / Implanted: Qty: 1 on 07/22/2016 by Troy Kwok MD at [facility] 2 [id number] / [id number] 2 documented as of this encounter Results Not on filedocumented in this encounter Visit Diagnoses Diagnosis Cerebrovascular accident (CVA) due to th rombosis of left vertebral artery - Primary documented in this encounter Insurance Payer Benefit Plan / Subscriber ID Effective Dates Phone Addre ss Type Group [facility] xxxxxxxxx 2015-Present Medicaid COMM PLAN - PLUS MANAGED MEDICAID documented as of this encounter
--- OUTSIDE RECORDS SUMMARY | 2020-05-18 17:54 | XMS REPORT | Summary of Care ---
:1960 Author Organization [facility] Address [address] [place] [address] Care Team Providers Name Role Phone Andrea Nogueira Primary Care Provider Hector Terrell DO Electrophysiology Scientist Reason for Referral MRI/CAT Scan (Routine) Status Reason Specialty Diagnoses / Referred By Referred To Procedures Contact Contact New Request Diagnostic Diagnoses Chronic left shoulder pain Florencio Hargrove Radiology Procedures MR SHOULDER LEFT WO KELSIE Todd MD [address] [place] [address] [place] [address] Reason for Visit Reason Comments Orders LT Shoulder MRI - [facility] Encounter Details Date Type Department Care Team Description 05/02/2020 Telephone [facility] Orthopaedic Florencio Hargrove (LT Shoulder MRI Surgery- Paulino Todd MD - [facility]) [address], [address] [place] [address] [place], [place] [phone] [address] Allergies Active Allergy Reactions Severity Noted [...] been in contact with No / Unsure 04/30/2020 3:51 PM CDT someone who was confirmed or suspected to have Coronavirus / COVID-19? documented as of this encounter Last Filed Vital Signs Not on filedocumented in this encounter Plan of Treatment Date Type Specialty Care Team Description 05/14/2020 Appointment Radiology Florencio Hargrove MD [address] [phone] Name Type Priority Associated Diagnoses Order S chedule MR SHOULDER LEFT WO IMAGING Routine Chronic left shoulder Expected: 05/02/2020, CONTRAST pain Expires: 2020 Health Maintenance Due Date Last Done [...] of this encounter Implants Implanted Type Area Washing Machine Loader Device Shelf Model / Serial Identifier Expiration / Lot Date Lens LENS Left: Eye Yuniel 03/23/2021 [id number] / Implanted: Qty: 1 on 07/22/2016 by Troy Kwok MD at [facility] 2 [id number] / [id number] 2 documented as of this encounter Results Not on filedocumented in this encounter Visit Diagnoses Diagnosis Chronic left shoulder pain - Primary Pain in joint, shoulder region documented in this encounter Insurance Payer Benefit Plan / Subscriber ID Effective Dates Phone Addre ss Type Group [facility] xxxxxxxxx 2015-Present Medicaid COMM PLAN - PLUS MANAGED MEDICAID documented as of this encounter
--- OUTSIDE RECORDS SUMMARY | 2020-05-18 17:55 | XMS REPORT | Summary of Care ---
:[address] [facility] Address [address] [place] [address] Care Team Providers Name Role Phone Andrea Nogueira Primary Care Provider Hector Terrell DO Mechanical Engineering Teacher Reason for Visit Reason Comments Notification The patient is requesting pa in medication. She is not scheduled for an MRI until 05/14/20 and she's out Encounter Details Date Type Department Care Team Description 05/05/2020 Telephone [facility] Orthopaedic Florencio Hargrove otification (The Surgery- Paulino Todd MD patient is requesting [address], [address] pain medication. She is [address] [place] [address] [place], [place] until 05/14/20 and she's [phone] [address] out ) [phone] Allergies Active Allergy Reactions Severity Noted Date Comments Morphine Nausea and/or Vomiting Medium 11/13/2015 documented as of this encounter (statuses as of 05/06/2020) Medications Medication Sig Dispensed Refills Start Date [...] for Pain (scale 4-6). Indications: acute pain diclofenac 75 mg EC Take 1 tablet by 60 tablet 1 05/06/2020 Active tabletIndications: mouth 2 (two) Chronic left shoulder times daily with pain meals. 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 06/22/2016 Primary hypothyroidism 03/01/2016 Thyroid cyst 03/01/2016 Thyroid nodule 03/01/2016 Dyslipidemia 03/01/2016 documented as of this encounter (statuses as of 05/06/2020) Resolved Problems Problem Noted Date Resolved Date Uncontrolled type 2 diabetes mellitus with proteinuria or 06/22/2016 albuminuria documented as of this encounter (statuses as of 05/06/2020) Immunizations Name Administration Dates Next Due Influenza [...] 05/08/2020 Appointment Radiology Florencio Hargrove MD [address] [phone] Health Maintenance Due Date Last Done Comments [...] of this encounter Implants Implanted Type Area Head Of Global Strategic Partnerships Device Shelf Model / Serial Identifier Expiration / Lot Date Lens LENS Left: Eye Yuniel 03/23/2021 [id number] / Implanted: Qty: 1 on 07/22/2016 by Troy Kwok MD at [facility] 2 [id number] / [id number] 2 documented as of this encounter Results Not on filedocumented in this encounter Visit Diagnoses Diagnosis Chronic left shoulder pain - Primary Pain in joint, shoulder region documented in this encounter Insurance Payer Benefit Plan / Subscriber ID Effective Dates Phone Addre ss Type Group [facility] xxxxxxxxx 2015-Present Medicaid COMM PLAN - PLUS MANAGED MEDICAID documented as of this encounter
--- OUTSIDE RECORDS SUMMARY | 2020-05-18 17:55 | XMS REPORT | Summary of Care ---
:1960 Author Organization [facility] - Health Address [address] [place] [address] Care Team Providers Name Role Phone Andrea Nogueira Primary Care Provider Hector Terrell DO Roughener Encounter Details Date Type Department Care Team Description 05/08/2020 Orders Only [facility] Doctor Unassigned, No [address] [facility] [place] [address] [address] [phone] Allergies Active Allergy Reactions Severity Noted Date Comments Morphine Nausea and/or Vomiting Medium 11/13/2015 documented as of this encounter (statuses as of 05/08/2020) Medications Medication Sig Dispensed Refills Start Date [...] as of this encounter (statuses as of 05/08/2020) Active Problems Problem Noted Date Hypokalemia 11/26/2019 Stroke 05/07/2019 Obesity (BMI 30-39.9) 04/29/2017 Pain in both hands 11/10/2016 Trigger finger of right thumb 11/10/2016 Right carotid bruit 09/22/2016 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 06/22/2016 Primary hypothyroidism 03/01/2016 Thyroid cyst 03/01/2016 Thyroid nodule 03/01/2016 Dyslipidemia 03/01/2016 documented as of this encounter (statuses as of 05/08/2020) Resolved Problems Problem Noted Date Resolved Date Uncontrolled type 2 diabetes mellitus with proteinuria or 06/22/2016 albuminuria documented as of this encounter (statuses as of 05/08/2020) Immunizations Name Administration Dates Next Due Influenza [...] 05/08/2020 Appointment Radiology Florencio Hargrove MD [address] [phone] Health Maintenance Due Date Last Done [...] of this encounter Implants Implanted Type Area Applications Support Analyst Device Shelf Model / Serial Identifier Expiration / Lot Date Lens LENS Left: Eye Yuniel 03/23/2021 [id number] / Implanted: Qty: 1 on 07/22/2016 by Troy Kwok MD at [facility] 2 [id number] / [id number] 2 documented as of this encounter Procedures Procedure Name Priority Date/Time Associated Diagnosis Comme nts ASSIGNMENT OF BENEFITS Routine 05/08/2020 10:29 AM CDT documented in this encounter Results Not on filedocumented in this encounter Insurance Payer Benefit Plan / Subscriber ID Effective Dates Phone Addre ss Type Group [facility] xxxxxxxxx 2015-Present Medicaid COMM PLAN - PLUS MANAGED MEDICAID documented as of this encounter
--- OUTSIDE RECORDS SUMMARY | 2020-05-18 17:55 | XMS REPORT | Summary of Care ---
:1960 Author Organization [facility] Address [address] [place] [address] Care Team Providers Name Role Phone Andrea Nogueira Primary Care Provider Hector Terrell DO Filling Layer Up Reason for Referral MRI/CAT Scan (Routine) Status Reason Specialty Diagnoses / Referred By Referred To Procedures Contact Contact New Request Diagnostic Diagnoses Cerebrovascular accident (CVA) due to thrombosis of left vertebral artery Florencio Hargrove Radiology Procedures MR SHOULDER LEFT WO CONTRAST MD Perez [address] [place] [place] [address] Reason for Visit Reason Comments New Patient lft shoulder dislocation / h fu Encounter Details Date Type Department Care Team Description 04/30/2020 Office Visit [facility] Florencio Hargrove Cerebrovascu lar accident Orthopaedic Surgery- MD Perez (CVA) due to thrombosis Paulino Miranda [address] of left vertebral artery [address] (Primary Dx[address] [place] [phone] Allergies Active Allergy Reactions [...] kg (200 lb) Height: 65" (165.1 cm) [facility] [address] [place] [address] Incident occurred: yesterday Incident location: unknown Injury [...] N/A 11/17/2015 Surgeon: Kraig Faulkner MD; Location: [facility] CERVICAL EPIDURAL STEROID INJECTION N/A 11/24/2015 Surgeon: Kraig Faulkner MD; Location: [facility] CERVICAL EPIDURAL STEROID INJECTION N/A 12/01/2015 Surgeon: Kraig Faulkner MD; Location: [facility] SECTION X 3 CHOLECYSTECTOMY KNEE ARTHROSCOPY Right X 2 LAPAROSCOPIC APPENDECTOMY ORAL SURGERY PROCEDURE [place] teeth extraction PHACOEMULSIFICATION OF CATARACT WITH INTRAOCULAR LENS IMPLANT Left 07/22/2016 Surgeon: Troy Kwok MD; Location: [facility] Social History Socioeconomic History Marital status: Spouse [...] file Gets together: Not on file Attends voodoo service: Not on file Active member of [...] Appointment Radiology Florencio Hargrove MD [address] [phone] 05/14/2020 Appointment Radiology Florencio Hargrove MD [address] [address] [phone] Name Type Priority Associated Diagnoses Order S [...] of this encounter Implants Implanted Type Area Formulation Technician Device Shelf Model / Serial Identifier Expiration / Lot Date Lens LENS Left: Eye Yuniel 03/23/2021 [id number] / Implanted: Qty: 1 on 07/22/2016 by Troy Kwok MD at [facility] 2 [id number] / [id number] 2 documented as of this encounter Results Not on filedocumented in this encounter Visit Diagnoses Diagnosis Cerebrovascular accident (CVA) due to th rombosis of left vertebral artery - Primary documented in this encounter Insurance Payer Benefit Plan / Subscriber ID Effective Dates Phone Addre ss Type Group [facility] xxxxxxxxx 2015-Present Medicaid COMM PLAN - PLUS MANAGED MEDICAID documented as of this encounter
--- OUTSIDE RECORDS SUMMARY | 2020-05-18 17:55 | XMS REPORT | Summary of Care ---
:1960 Author Organization [facility] Address [address] [place] [address] Care Team Providers Name Role Phone Andrea Nogueira Primary Care Provider Hector Terrell DO Non Clinical Advisor Reason for Referral MRI/CAT Scan (Routine) Status Reason Specialty Diagnoses / Referred By Referred To Procedures Contact Contact Closed Diagnostic Diagnoses Chronic left shoulder pain Chronic left shoulder pain Florencio Hargrove Radiology Procedures MR SHOULDER LEFT WO CONTRAST CHG MRI, JOINT UPPER EXTREM MR SHOULDER LEFT WO CONTRAST MD Perez [address] [place] [address] Reason for Visit MRI/CAT Scan (Routine) Status Reason Specialty Diagnoses / Referred By Referred To Procedures Contact Contact Closed Diagnostic Diagnoses Chronic left shoulder pain Chronic left shoulder pain Florencio Hargrove Radiology Procedures MR SHOULDER LEFT WO CONTRAST CHG MRI, JOINT UPPER EXTREM MR SHOULDER LEFT WO CONTRAST MD Perez [address] [place] [address] [place] [address] Encounter Details Date Type Department Care Team Description 05/08/2020 Hospital Encounter [facility] Paola Hargrove, Jewel COTTON MD [address] [place] [address] Dr [place] [address] [address] [phone] [place] [phone] Allergies Active Allergy Reactions Severity Noted Date Comments Morphine Nausea and/or Vomiting Medium 11/13/2015 documented as of this encounter (statuses as of 05/09/2020) Medications Medication Sig Dispensed Refills Start Date [...] as of this encounter (statuses as of 05/09/2020) Active Problems Problem Noted Date Hypokalemia 11/26/2019 Stroke 05/07/2019 Obesity (BMI 30-39.9) 04/29/2017 Pain in both hands 11/10/2016 Trigger finger of right thumb 11/10/2016 Right carotid bruit 09/22/2016 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 06/22/2016 Primary hypothyroidism 03/01/2016 Thyroid cyst 03/01/2016 Thyroid nodule 03/01/2016 Dyslipidemia 03/01/2016 documented as of this encounter (statuses as of 05/09/2020) Resolved Problems Problem Noted Date Resolved Date Uncontrolled type 2 diabetes mellitus with proteinuria or 06/22/2016 albuminuria documented as of this encounter (statuses as of 05/09/2020) Immunizations Name Administration Dates Next Due Influenza [...] of this encounter Implants Implanted Type Area Knockdown Man Device Shelf Model / Serial Identifier Expiration / Lot Date Lens LENS Left: Eye Yuniel 03/23/2021 [id number] / Implanted: Qty: 1 on 07/22/2016 by Troy Kwok MD at [facility] 2 [id number] / [id number] documented as of this encounter Procedures Procedure Name Priority Date/Time Associated Diagnosis Comme nts MR SHOULDER LEFT WO Routine 05/08/2020 11:32 AM Chronic left R esults for this CONTRAST CDT shoulder pain procedure are in the results section. documented in this encounter Results MR SHOULDER LEFT WO CONTRAST (05/08/2020 11:32 AM CDT) Specimen Narrative Performed At HISTORY: Pain in the left shoulder. PACS/VR/DOSE TECHNIQUE: MR imaging of the left shoulder was done in multiple projections using 1.5T MR unit and standard protocol . FINDINGS: Comparison is made with 04/29/20 left shoulder radiographs. Small glenohumeral joint effusion noted. Small amount of fluid is seen in the subdeltoid/subacromial bursa. Supraspinatus tendon showed abnormal morphology as wel l as signal intensity due to swelling of the tendon, partial thickness tear in the deep fibers of the tendon as well as calcifications wit hin the tendon. Infraspinatus tendon is also diffusely s wollen. Minimal swelling of the upper subscapularis tendon fibers noted. Long head of the biceps tendon is locate d in the intertubercular groove region surrounded by fluid. Its superior anchor show degenerative signal without tear. The rest of the labrum is intact. Several subchondral degenerative cystic lesions are seen in the head of the humerus around greater tuberosity region surrounded by marrow edema. Impingement noted on the subscapularis t endon in the subcoracoid recess region. AC joint showed hypertrophic deg enerative arthrosis without impingement. Impingement is noted, however, by downslo ping lateral edge of the acromion. CONCLUSIONS: 1. Partial thickness tear in the deep fi bers of anterior supraspinatus, diffuse swelling of the supraspinatus, i nfraspinatus and upper subscapularis tendon fibers with spotty calcifications noted in the anterior supraspinatus secondary to founder and president vignesh calcific tendinitis. 2. Small left glenohumeral joint effusion, mild degene rative changes in the inferior glenohumeral joint, hypertrophic degenerative AC joint arthrosis without impingement. 3. Mild impingement on the subscapularis in the subcor acoid recess region and mild impingement by downsloping late ral edge of the acromion. Procedure Note [facility], Radiant Results Inft User - 2019 11:41 AM CDT HISTORY: Pain in the left shoulder. TECHNIQUE: MR imaging of the left should er was done in multiple projections using 1.5T MR unit and standard protocol . FINDINGS: Comparison is made with 04/29/20 left shoulder radiographs. Small glenohumeral joint effusion noted. Small amount of fluid is seen in the subdeltoid/subacromial bursa. Supraspinatus tendon showed abnormal mor phology as well as signal intensity due to swelling of the tendon, partial t hickness tear in the deep fibers of the tendon as well as calcifications wit hin the tendon. Infraspinatus tendon is also diffusely s wollen. Minimal swelling of the upper subscapularis tendon fibers noted. Long head of the biceps tendon is locate d in the intertubercular groove region surrounded by fluid. Its superior anchor show degenerative signal without tear. The rest of the labrum is intact. Several subchondral degenerative cystic lesions are seen in the head of the humerus around greater tuberosity region surrounded by marrow edema. Impingement noted on the subscapularis t endon in the subcoracoid recess region. AC joint showed hypertrophic deg enerative arthrosis without impingement. Impingement is noted, howev er, by downsloping lateral edge of the acromion. CONCLUSIONS: 1. Partial thickness tear in the deep fi bers of anterior supraspinatus, diffuse swelling of the supraspinatus, i nfraspinatus and upper subscapularis tendon fibers with spotty calcifications noted in the anterior supraspinatus secondary to founder and president vignesh calcific tendinitis. 2. Small left glenohumeral joint effusio n, mild degenerative changes in the inferior glenohumeral joint, hypertrophi c degenerative AC joint arthrosis without impingement. 3. Mild impingement on the subscapularis in the subcoracoid recess region and mild impingement by downsloping late ral edge of the acromion. Performing Organization Address City/State/Zipcode Phone Number PACS/VR/DOSE documented in this encounter Visit Diagnoses Diagnosis Chronic left shoulder pain Pain in joint, shoulder region documented in this encounter Insurance Payer Benefit Plan / Subscriber ID Effective Dates Phone Addre ss Type Group [facility] xxxxxxxxx 2015-Present Medicaid COMM PLAN - PLUS MANAGED MEDICAID documented as of this encounter
--- OUTSIDE RECORDS SUMMARY | 2020-05-18 17:56 | XMS REPORT | Summary of Care ---
:1960 Author Organization [facility] Address [address] [place] [address] Care Team Providers Name Role Phone Hector Terrell DO Gym Teacher Atmichael Primary Care Provider Reason for Visit Reason Comments Shoulder Pain Encounter Details Date Type Department Care Team Description 05/15/2020 Telemedicine Visit [facility] Terrance Hargrove MD [address] [place] [address] Calcific tendinitis Orthopaedic Surgery- Param Ceja, DEEPAK [address] [place] [address] of left shoulder [place] (Primary Dx) [address] [place] [address] Allergies Active Allergy Reactions Severity Noted Date Comments Morphine Nausea and/or Vomiting Medium 11/13/2015 documented as of this encounter (statuses as of 05/15/2020) Medications Medication Sig Dispensed Refills Start Date [...] left shoulder times daily with pain meals. cefdinir 300 mg Take 1 capsule 14 capsule 0 05/12/2020 Active capsuleIndications: by mouth 2 (two) Acute cystitis without times daily. hematuria benzonatate 200 mg Take 1 capsule 21 capsule 0 05/12/2020 Active capsuleIndications: by mouth 3 COVID-19 virus (three) times infection daily as needed for Cough. 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 documented as of this encounter Last Filed Vital Signs Not on filedocumented in this encounter Progress Notes Param Ceja PAC - 05/15/2020 8:00 AM CDT TELEHEALTH NOTE Verbal consent obtained from Patient: Janis Henderson for telehealth services provided below. Communication with patient was conducted via Video Call. Location of Patient: Home Location of Provider: Office Date of Service: 05/15/2020 Chief Complaint: She tested positive for covid 19 so she is quarantined and we are doing a telehealth visit today, he had an MRI that was performed last we will review the results today The last office visit she saw Dr. Hargrove x-rays revealed Inferior humeral head subluxation which may relate to joint effusion or capsular ligamentous incompetency. Rotator cuff calcium hydroxyapatite deposition consistent with calcific tendinopathy. MRI was ordered HPI: Janis Henderson is a 59 year old female with Past Medical History: Diagnosis Date Cataract Chronic neck and back pain CVA (cerebral vascular accident) DM (diabetes mellitus) Hyperlipidemia Hypothyroidism Social history: No smoking Family history: Noncontributory MEDICATIONS: No outpatient medications have been marked as taking for the 05/15/20 encounter (Appointment) with Param Ceja PAC. ROS Review of Systems Constitutional: Fever, Covid 19 positive HENT: Negative. Eyes: Negative. Respiratory: Cough Cardiovascular: Negative. Gastrointestinal: Negative. Genitourinary: Negative. Musculoskeletal: Positive for left shoulder pain Skin: Negative. Neurological: Negative. Psychiatric/Behavioral: Negative. Endocrine: Negative TELEHEALTH EXAM Gen.-No acute distress, Neck voice sounds normal Pulmonary-breathing does not sound strained Psychiatric- normal sounding affect Neurological- answers questions appropriately Musculoskeletal HISTORY: Pain in the left shoulder. TECHNIQUE: MR imaging of the left shoulder was done in multiple projections using 1.5T MR unit and standard protocol. FINDINGS: Comparison is made with 04/29/2020 left shoulder radiographs. Small glenohumeral joint effusion noted. Small amount of fluid is seen in the subdeltoid/subacromial bursa. Supraspinatus tendon showed abnormal morphology as well as signal intensity due to swelling of the tendon, partial thickness tear in the deep fibers of the tendon as well as calcifications within the tendon. Infraspinatus tendon is also diffusely swollen. Minimal swelling of the upper subscapularis tendon fibers noted. Long head of the biceps tendon is located in the intertubercular groove region surrounded by fluid. Its superior anchor show degenerative signal without tear. The rest of the labrum is intact. Several subchondral degenerative cystic lesions are seen in the head of the humerus around greater tuberosity region surrounded by marrow edema. Impingement noted on the subscapularis tendon in the subcoracoid recess region. AC joint showed hypertrophic degenerative arthrosis without impingement. Impingement is noted, however, by downsloping lateral edge of the acromion. CONCLUSIONS: 1. Partial thickness tear in the deep fibers of anterior supraspinatus, diffuse swelling of the supraspinatus, infraspinatus and upper subscapularis tendon fibers with spotty calcifications noted in the anterior supraspinatus secondary to chronic calcific tendinitis. 2. Small left glenohumeral joint effusion, mild degenerative changes in the inferior glenohumeral joint, hypertrophic degenerative AC joint arthrosis without impingement. 3. Mild impingement on the subscapularis in the subcoracoid recess region and mild impingement by downsloping lateral edge of the acromion. ASSESSMENT/ PLAN Janis Henderson is a 59 year old female with PMH as above presenting with: She has calcific tendinitis she does not have severe arthritic change or complete rotator cuff tear MRI results were reviewed with Dr. Hargrove in the next step for her would be a cortisone injection in her shoulder but she cannot do that right now because she is sick with Covid 19 once she is recovered with 2 negative tests if her shoulder still hurting her she can come in for a cortisone injection. There are no diagnoses linked to this encounter. After visit summary (AVS ) documentation will be available through [facility] for this encounter. A total of 10 minutes was spent on the Video Call with the patient. DEEPAK Loza documented in this encounter Plan of Treatment Health [...] this encounter Implants Implanted Type Area Data Manager Device Shelf Model / Serial Identifier Expiration / Lot Date Lens LENS Left: Eye Yuniel 03/23/2021 [id number] / Implanted: Qty: 1 on 07/22/2016 by Troy Kwok MD at [facility] 2 [id number] / [id number] documented as of this encounter Results Not on filedocumented in this encounter Visit Diagnoses Diagnosis Calcific tendinitis of left shoulder - P rimary Calcifying tendinitis of shoulder documented in this encounter Additional Health Concerns Infection Onset Date Last Indicated Resolved Time COVID-19 Confirmed 05/12/2020 05/12/2020 documented as of this encounter Insurance Payer Benefit Plan / Subscriber ID Effective Dates Phone Addre ss Type Group [facility] xxxxxxxxx 2015-Present Medicaid COMM PLAN - PLUS MANAGED MEDICAID documented as of this encounter
--- OUTSIDE RECORDS SUMMARY | 2020-05-18 17:56 | XMS REPORT | Summary of Care ---
:1960 Author Organization [facility] Address [address] [place] [id number] Care Team Providers Name Role Phone Hector Terrell DO Modeling Agent [facility] Primary [facility] Provider Reason for Referral Radiology Services (STAT) Status Reason Specialty Diagnoses / Referred By Referred To Procedures Contact Contact New Request Diagnostic Diagnoses Suspected Covid-19 Virus Infection Nora Brady Radiology Procedures XR CHEST 1 VW COVID XR CHEST 1 VW MD Candice [address] [address] Reason for Visit Reason Comments Cough Fever Auth/Cert Status Reason Specialty Diagnoses / Referred By Referred To Procedures Contact Contact Emergency Medicine [facility] Em ergency Dept [address] [place], [place] [address] Fax: Encounter Details Date Type Department Care Team Description 05/12/2020 Emergency ADC-Emergency Nora Brady, Acute cys titis without hematuria (Primary Dx); Department Suspected Covid-19 Virus Infection; [address] [place] [address] Dr de la o 301 [facility] COVID-19 virus infection [id number] [place] [address] [phone] Allergies Active Allergy Reactions Severity Noted Date Comments Morphine Nausea and/or Vomiting Medium 11/13/2015 documented as of this encounter (statuses as of 05/12/2020) Medications Medication Sig Dispensed Refills Start Date [...] as of this encounter (statuses as of 05/12/2020) Active Problems Problem Noted Date Hypokalemia 11/26/2019 Stroke 05/07/2019 Obesity (BMI 30-39.9) 04/29/2017 Pain in both hands 11/10/2016 Trigger finger of right thumb 11/10/2016 Right carotid bruit 09/22/2016 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 06/22/2016 Primary hypothyroidism 03/01/2016 Thyroid cyst 03/01/2016 Thyroid nodule 03/01/2016 Dyslipidemia 03/01/2016 documented as of this encounter (statuses as of 05/12/2020) Resolved Problems Problem Noted Date Resolved Date Uncontrolled type 2 diabetes mellitus with proteinuria or 06/22/2016 albuminuria documented as of this encounter (statuses as of 05/12/2020) Immunizations Name Administration Dates Next Due Influenza [...] Sign Reading Time Taken Comments Blood Pressure 167/99 05/12/2020 1:57 AM CDT Pulse 109 05/12/2020 1:57 AM CDT Temperature 37 C (98.6 F) 05/12/2020 6:16 AM CDT Respiratory Rate 18 05/12/2020 1:57 AM CDT Oxygen Saturation 97% 05/12/2020 1:57 AM CDT Inhaled Oxygen Concentration - - Weight 90.7 kg (200 lb) 05/12/2020 1:57 AM CDT Height 165.1 cm (5' 5") 05/12/2020 1:57 AM CDT Body Mass Index 33.28 05/12/2020 1:57 AM CDT documented in this encounter Discharge Instructions Nora Mojica MD - 05/12/2020 DIAGNOSIS Diagnoses that have been ruled out: None Diagnoses that are still under consideration: None Final diagnoses: Suspected Covid-19 Virus Infection Acute cystitis without hematuria COVID-19 virus infection NO LIFE-THREATENING FINDINGS ON TODAY'S EXAM. PROCEDURES IN THE ER TODAY: Orders Placed This Encounter Procedures XR CHEST 1 VW COVID URINALYSIS COVID-19 (ID NOW RAPID TESTING) MEDICATIONS ADMINISTERED IN THE ER TODAY AND DISCHARGE MEDICATIONS: Orders Placed This Encounter Medications acetaminophen (TYLENOL) tablet 1,000 mg cefTRIAXone (ROCEPHIN) injection 1,000 mg guaiFENesin 100 mg/5 mL solution 200 mg cefdinir 300 mg capsule benzonatate 200 mg capsule FOLLOW-UP RECOMMENDATIONS: RECOMMEND FOLLOW-UP WITH A PRIMARY CARE PROVIDER OR SPECIALIST IN 2-5 DAYS, ESPECIALLY IF NO IMPROVEMENT IN SYMPTOMS. MAY FOLLOW-UP WITH A PROVIDER OF YOUR CHOICE, SUCH : 1. A PHYSICIAN OF YOUR CHOICE 2. [facility], . LOCATIONS IN [facility] 3. [facility], [address], [place]; [phone] OR, IF YOU WISH TO FOLLOW-UP WITHIN THE [facility], MAY TRY THESE OPTIONS (CLINIC APPOINTMENTS AVAILABLE ON [id number] BASIS): 1. SCHEDULE AN APPOINTMENT ONLINE AT [facility] 2. OR CALL THE [facility] AT OR 3. OR CALL YOUR [facility] PHYSICIAN'S OFFICE DIRECTLY IF YOU ARE ALREADY AN ESTABLISHED [facility] PATIENT. RETURN TO ER FOR WORSENING OF SYMPTOMS AttachmentsThe following attachments cannot be sent through Care Everywhere. Urinary Tract Infections (UTIs), Understanding (Equatorial [place])Coronavirus Disease 2019: Caring for Yourself and Others ([place])Coronavirus Disease 2019 (COVID- 19) ([place])documented in this encounter Plan of Treatment Date Type Specialty Care Team Description 05/15/2020 Office Visit Orthopedic Surgery Terrance Hargrove MD [address] [phone] Health Maintenance Due Date Last Done [...] of this encounter Implants Implanted Type Area Lamp Stack Developer Device Shelf Model / Serial Identifier Expiration / Lot Date Lens LENS Left: Eye Yuniel 03/23/2021 [id number] / Implanted: Qty: 1 on 07/22/2016 by Troy Kwok MD at [facility] 2 [id number] / [id number] documented as of this encounter Procedures Procedure Name Priority Date/Time Associated Comments Diagnosis URINALYSIS STAT 05/12/2020 4:39 AM Suspected Covid-19 Re sults for this CDT Virus Infection procedure ar e in the results section. COVID-19 (ID NOW STAT 05/12/2020 4:31 AM Suspected Covid-1 9 Results for this RAPID TESTING) CDT Virus Infection procedure are in the results section. XR CHEST 1 VW COVID STAT 05/12/2020 3:55 AM Suspected Covi d-19 Results for this CDT Virus Infection procedure ar e in the results section. NOTICE OF PRIVACY Routine 05/12/2020 1:13 AM PRACTICES CDT CONSENT/REFUSAL FOR Routine 05/12/2020 1:12 AM DIAGNOSIS AND CDT TREATMENT documented in this encounter Results URINALYSIS (05/12/2020 4:39 AM CDT) Pathologist Sig nature APPEARANCE Hazy (A) Clear [facility] COLOR Yellow Yellow [facility] PH 5.0 4.8 - 8.0 [facility] SP GRAVITY 1.021 1.003 - 1.030 [facility] GLU U QUAL 500 mg/dL (A) Normal [facility] BLOOD 1+ (A) Negative [facility] KETONES Negative Negative [facility] PROTEIN 500 mg/dL (A) Negative [facility] UROBILIN Normal Normal [facility] BILIRUBIN Negative Negative [facility] NITRITE Positive (A) Negative [facility] LEUK ZOE Negative Negative [facility] RBC/HPF 6 (H) 0 - 3 HPF [facility] WBC/HPF 12 (H) 0 - 5 HPF [facility] BACTERIA Few (A) Negative [facility] MUCOUS Slight (A) Negative LPF [facility] SQ EPITH 1 HPF [facility] Specimen Urine - URINE, CLEAN CATCH Performing Organization Address City/[facility]/Zipcode Phone Number [facility] CLIA: [id number], [address] [place] [phone] COVID-19 (ID NOW RAPID TESTING) (05/12/2020 4:31 AM CDT) SARS-CoV-2 Rapid ID Positive (A) Not Detected [facility] Specimen Swab - NASOPHARYNGEAL SWAB Narrative Performed At ID NOW COVID-19 Assay is an isothermal nucleic [facility] acid amplification test intended for the qualitative detection of nucleic acid from SARS-CoV-2 viral RNA in nasopharyngeal (COMMUNITY OUTREACH WORKER) specimens. It is used under Emergency Use Authorization (EUA) by FDA. The limit of detection (LOD) of the assay is 125 Genome Equivalents/mL. A positive result is indicative of the presence of SARS-CoV-2 RNA. Clinical correlation with patient history and other diagnostic information is necessary to determine patient infection status. A negative (Not Detected) result does not preclude SARS-CoV-2 infection. In patients with clinical symptoms and other tests that are consistent with SARS-CoV-2 infection, negative results should be treated as presumptive negative and a new specimen should be tested with alternative PCR molecular test. Invalid: Please collect a new specimen for repeat patient testing if clinically indicated. Performing Organization Address City/[facility]/Zipcode Phone Number [facility] CLIA: [id number], [address] [place], [place] [address] XR CHEST 1 VW COVID (05/12/2020 3:55 AM CDT) Specimen Impressions Performed At PACS/VR/DOSE No acute cardiac pulmonary abnormality. Disclaimer: Generally, the findings on c hest imaging in COVID-19 are not specific, and overlap with other infecti ons, including influenza, H1N1, SARS and MERS. According to the Centers for Disease Control (CDC) and the [employer], viral testing remains the only specific method of diagnosis even if CXR or CT findings are suggestiv e of COVID-19. Preliminary Report Dictated by Resident: Darell Bell MD., have reviewed this study and agree with the above report. Narrative Performed At PROCEDURE: CHEST XRAY , PACS/VR/DOSE CLINICAL INDICATION: Fever, Cough, SOB COMPARISON: Chest x-ray 10/05/2019 FINDINGS: The lungs are clear. No focal consolidat ion, pleural effusion or pneumothorax The cardiac silhouette is normal in size . No acute bony abnormality. Cholecystectomy clips are seen. Procedure Note [facility], Radiant Results Inft User - 2019 7:03 AM CDT PROCEDURE: CHEST XRAY , CLINICAL INDICATION: Fever, Cough, SOB COMPARISON: Chest x-ray 10/05/2019 FINDINGS: The lungs are clear. No focal consolidat ion, pleural effusion or pneumothorax The cardiac silhouette is normal in size . No acute bony abnormality. Cholecystectomy clips are seen. IMPRESSION No acute cardiac pulmonary abnormality. Disclaimer: Generally, the findings on c hest imaging in COVID-19 are not specific, and overlap with other infecti ons, including influenza, H1N1, SARS and MERS. According to the Centers for Disease Con trol (CDC) and the [employer], viral testing remains the only specific method of diagnosis even if CXR or CT findings are suggestiv e of COVID-19. Preliminary Report Dictated by Resident: Darell Bell MD., have r eviewed this study and agree with the above report. Performing Organization Address City/State/Zipcode Phone Number PACS/VR/DOSE documented in this encounter Visit Diagnoses Diagnosis Acute cystitis without hematuria - Prima ry Acute cystitis Suspected Covid-19 Virus Infection COVID-19 virus infection documented in this encounter Administered Medications Medication Order MAR Action Action Date Dose Rate Site acetaminophen (TYLENOL) tablet Given 05/12/2020 4:32 AM CDT 1,0 00 mg 1,000 mg 1,000 mg, Oral, ONCE, 1 dose, 05/12/20 at 0445, Routine cefTRIAXone (ROCEPHIN) Given 05/12/2020 7:03 AM 1,000 mg Right Dorsogluteal-IM injection 1,000 mg CDT 1,000 mg, Intramuscular, ONCE, 1 dose, 05/12/20 at 0715, SHON, Reason for Anti-Infective: Documented Infection, Documented Infection Site: Urine, Duration of Therapy: Other (see Comments) guaiFENesin 100 mg/5 mL solution 200 mg Given 05/12/2020 7:02 AM CDT 200 mg 200 mg, Oral, ONCE, 1 dose, 05/12/20 at 0730, Routine documented in this encounter Additional Health Concerns Infection Onset Date Last Indicated Resolved Time COVID-19 Rule Out 05/12/2020 05/12/2020 05/12/2020 5: 31 AM CDT COVID-19 Confirmed 05/12/2020 05/12/2020 documented as of this encounter Insurance Payer Benefit Plan / Subscriber ID Effective Dates Phone Addre ss Type Group [facility] xxxxxxxxx 2015-Present Medicaid COMM PLAN - PLUS MANAGED MEDICAID documented as of this encounter
--- OUTSIDE RECORDS SUMMARY | 2020-05-18 17:56 | XMS REPORT | Summary of Care ---
:1960 Author Organization [facility] - Health Address [address] [place] [address] Care Team Providers Name Role Phone Hector Terrell DO Front Desk Imelda Primary Care Provider Encounter Details Date Type Department Care Team Description 05/13/2020 Orders Only [facility] Doctor Unassigned, No [address] [facility] [place] [address] [address] [phone] Allergies Active Allergy Reactions Severity Noted Date Comments Morphine Nausea and/or Vomiting Medium 11/13/2015 documented as of this encounter (statuses as of 05/13/2020) Medications Medication Sig Dispensed Refills Start Date [...] as of this encounter (statuses as of 05/13/2020) Active Problems Problem Noted Date Hypokalemia 11/26/2019 Stroke 05/07/2019 Obesity (BMI 30-39.9) 04/29/2017 Pain in both hands 11/10/2016 Trigger finger of right thumb 11/10/2016 Right carotid bruit 09/22/2016 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 06/22/2016 Primary hypothyroidism 03/01/2016 Thyroid cyst 03/01/2016 Thyroid nodule 03/01/2016 Dyslipidemia 03/01/2016 documented as of this encounter (statuses as of 05/13/2020) Resolved Problems Problem Noted Date Resolved Date Uncontrolled type 2 diabetes mellitus with proteinuria or 06/22/2016 albuminuria documented as of this encounter (statuses as of 05/13/2020) Immunizations Name Administration Dates Next Due Influenza [...] Date Type Specialty Care Team Description 05/15/2020 Telemedicine Visit Orthopedic Surgery Florencio Hargrove MD [address] [place] [address] Param Ceja, DEEPAK [address] [place] [address] Health Maintenance Due Date Last Done Comments [...] of this encounter Implants Implanted Type Area Inclusion Internship Device Shelf Model / Serial Identifier Expiration / Lot Date Lens LENS Left: Eye Yuniel 03/23/2021 [id number] / Implanted: Qty: 1 on 07/22/2016 by Troy Kwok MD at [facility] 2 [id number] / [id number] 2 documented as of this encounter Procedures Procedure Name Priority Date/Time Associated Diagnosis Comme nts REFERRAL- Routine 05/13/2020 12:01 AM CDT REQUEST/RESPONSE documented in this encounter Results Not on filedocumented in this encounter Additional Health Concerns Infection Onset Date Last Indicated Resolved Time COVID-19 Confirmed 05/12/2020 05/12/2020 documented as of this encounter Insurance Payer Benefit Plan / Subscriber ID Effective Dates Phone Addre ss Type Group [facility] xxxxxxxxx 2015-Present Medicaid COMM PLAN - PLUS MANAGED MEDICAID documented as of this encounter
--- NOTE | 2020-05-18 18:48 | RAD REPORT ---
EXAM DESCRIPTION: Lupe Single View05/18/2020 6:28 pm CLINICAL HISTORY: Shortness of breath COMPARISON: 2017 FINDINGS: Moderate bilateral patchy lung opacities The heart is normal size IMPRESSION: Moderate bilateral patchy lung opacities probably pneumonia
[2020-05-18 19:17] LABS: Absolute Lymphocytes (CBC) 1.1 K/uL (0.7-4.9); Basophils % 0.5 % (0-1.3); Hematocrit 28.5 % (36.0-45.0); Lymphocytes % 20.8 % (15.3-44.8)
[2020-05-18 19:20] LABS: Protime INR 1.18
[2020-05-18] MEDS ORDERED: METHYLPREDNISOLONE 125 MG INJ ONE (19:31)
[2020-05-18] MEDS ORDERED: AZITHROMYCIN 250 MG TAB ONE (19:31)
[2020-05-18] MEDS ORDERED: CEFTRIAXONE/SWI 1gm 1 GM/10 ML SYR ONE (19:31)
[2020-05-18 19:34] LABS: ALT/SGPT 23 U/L (12-78); AST/SGOT 42 U/L (15-37); Albumin 2.4 g/dL (3.4-5.0); Alkaline Phosphatase 121 U/L (45-117); BUN Blood Urea Nitrogen 14 mg/dL (7-18); Bicarbonate 26 mmol/L (21-32); Bilirubin Direct 0.2 mg/dL (0-0.2); Bilirubin Total 0.5 mg/dL (0.2-1.0); Glucose Level 179 mg/dL (74-106); Magnesium 1.8 mg/dL (1.8-2.4); NT PRO-BNP 614 pg/mL (<125); Potassium 3.2 mmol/L (3.5-5.1); Protein, Total 7.1 g/dL (6.4-8.2); Sodium Level 135 mmol/L (136-145); Troponin (Emerg Dept Use Only) < 0.02 ng/mL (0.0-0.045)
--- NOTE | 2020-05-18 19:43 | ER ---
Nurse's Notes [facility] Name: Janis Henderson Age: 59 yrs Sex: Female : 1960 Arrival Date: 05/18/2020 Time: 17:59 Bed 8 Private MD: Diagnosis: Viral Respiratory Infection;Hypoxia Presentation: 05/18 18:00 Chief complaint: EMS states: DX WITH COVID RECENTLY, NOW WITH INCREASED DYSPNEA. bp Coronavirus screen: Patient reports a cough. Patient reports shortness of breath or difficulty breathing. Patient reports a measured and/or subjective temperature greater than 100.4F. Patient reports contact with known and/or suspected case of COVID-19. Patient instructed to continue to wear a mask when interacting with others. Patient moved to private room, placed in contact and droplet isolation with eye protection until further assessment. Ebola Screen: No symptoms or risks identified at this time. Initial Sepsis Screen: Does the patient meet any 2 criteria? No. Patient's initial sepsis screen is negative. Does the patient have a suspected source of infection? No. Patient's initial sepsis screen is negative. Risk Assessment: Do you want to hurt yourself or someone else? Patient reports no desire to harm self or others. Onset of symptoms is unknown. 18:00 Method Of Arrival: EMS: [facility] bp 18:00 Acuity: JUANCHO 2 bp Triage Assessment: 18:00 General: Appears distressed, uncomfortable, obese, Behavior is cooperative, appropriate bp for age, anxious. Pain: Denies pain. EENT: No deficits noted. Neuro: Level of Consciousness is awake, alert, obeys commands, Oriented to person, place, time, situation, Appropriate for age Wax Ball Knock Out Worker are weak on left RESIDUAL LEFT PARASTHESIA FROM CVA. Cardiovascular: Rhythm is regular. Respiratory: Reports shortness of breath cough that is. GI: No signs and/or symptoms were reported involving the gastrointestinal system. : No signs and/or symptoms were reported regarding the genitourinary system. Derm: No deficits noted. Musculoskeletal: No deficits noted. Historical: - Allergies: 18:03 Morphine; bp - Home Meds: 20:00 levothyroxine oral [Active]; atorvastatin 40 mg oral tab [Active]; losartan 25 mg oral mg2 tab [Active]; Tradjenta 5 mg oral tab [Active]; sucralfate 1 gram Oral tab [Active]; Plavix 75 mg Oral tab [Active]; - PMHx: 18:03 Anxiety; chronic neck/back pain; Depression; Diabetes - NIDDM; Hypertension; bp Hypothyroidism; VASCULAR DEMENTIA; CVA; - PSHx: 20:00 Appendectomy; Cholecystectomy; knee sx; ; mg2 - Immunization history:: Adult Immunizations up to date. - Social history:: Smoking status: Patient denies any tobacco usage or history of. Screenin:03 Abuse screen: Denies threats or abuse. Denies injuries from another. Nutritional bp screening: No deficits noted. Tuberculosis screening: No symptoms or risk factors identified. Fall Risk None identified. Assessment: 18:00 General: SEE TRIAGE NOTE. bp 19:42 Reassessment: Patient appears in no apparent distress at this time. Patient and/or mg2 family updated on plan of care and expected duration. Pain level reassessed. Patient is alert, oriented x 3, equal unlabored respirations, skin warm/dry/pink. 21:31 Reassessment: Patient appears in no apparent distress at this time. Patient and/or mg2 family updated on plan of care and expected duration. Pain level reassessed. Patient is alert, oriented x 3, equal unlabored respirations, skin warm/dry/pink. Vital Signs: 18:00 BP 156 / 80; Pulse 89; Resp 20; Temp 99.7; Pulse Ox 96% on R/A; bp 18:00 Pulse Ox 85% on R/A; bp 19:42 BP 138 / 87; Pulse 88; Resp 18; Temp 99.5; Pulse Ox 95% on 2 lpm NC; mg2 20:30 BP 155 / 68; Pulse 80; Resp 18; Pulse Ox 97% on 2 lpm NC; mg2 21:30 BP 155 / 79; Pulse 80; Resp 18; Pulse Ox 97% on 2 lpm NC; mg2 ED Course: 17:59 Patient arrived in ED. bp 18:00 Arm band placed on. bp 18:00 Oxygen administration via nasal cannula \T\ 3L/min. bp 18:01 Triage completed. bp 18:03 Patient has correct armband on for positive identification. Bed in low position. Call bp light in reach. Side rails up X2. 18:05 Marcello Leal PA is PHCP. neha 18:05 Edward Horan MD is Attending Physician. [facility] 18:18 Jose David Rodarte, RN is Primary Nurse. bp 18:23 XRAY Chest (1 view) Sent. ls4 18:28 XRAY Chest (1 view) In Process Unspecified. EDMS 18:58 Initial lab(s) drawn, by ED staff, sent to lab. EKG done, by ED staff, reviewed by Marcello DIAZ. 19:00 Inserted saline lock: 22 gauge in right forearm, using aseptic technique. Blood bp collected. 19:42 David Murillo is Hospitalizing Provider. [facility] 21:31 Door closed. Assisted to bedside commode. mg2 21:31 No provider procedures requiring assistance completed. Patient admitted, IV remains in mg2 place. 05/19 05:05 Inserted saline lock: 20 gauge in right antecubital area, using aseptic technique. ds4 Blood collected. 07:13 Primary Nurse role handed off by Jose David Rodarte RN sv 08:05 Cristiana Crisostomo RN is Primary Nurse. 19:09 Primary Nurse role handed off by Cristiana Crisostomo, CICI Administered Medications: 05/18 19:41 Drug: SOLU-Medrol 125 mg Route: IVP; Site: right forearm; [facility] 05/19 02:48 Follow up: Response: No adverse reaction mg2 05/18 19:41 Drug: Rocephin - (cefTRIAXone) 1 grams Route: IVPB; Infused Over: 30 mins; Site: right mg2 forearm; 05/19 02:47 Follow up: Response: No adverse reaction; IV Status: Completed infusion mg2 05/18 19:41 Drug: AZITHromycin 500 mg Route: PO; [facility] [place] 05/19 02:47 Follow up: Response: No adverse reaction mg2 Outcome: 05/18 19:42 Decision to Hospitalize by Provider. [facility] 22:00 Admitted to ER Hold. Please see [facility] for further documentation. [facility] [place] 05/19 23:18 Patient left the ED. bb Signatures: Dispatcher [employer] EDMS Cristiana Crisostomo, RN RN Marcello Chaparro PA PA Trinh Crowe RN RN bb Linwood Nichols ds4 Jaqueline Robles Jose David Knott, RN Khai Yanez RN RN [facility] [place] Nasreen Lopez RN RN ls4
--- NOTE | 2020-05-18 19:43 | EDPHYS ---
Physician Documentation [facility] Name: Janis Henderson Age: 59 yrs Sex: Female : 1960 Arrival Date: 05/18/2020 Time: 17:59 Bed 8 Private MD: ED Physician Edward Horan HPI: 05/18 18:07 This 59 yrs old Female presents to ER via EMS with complaints of General jmm Weakness, COVID +. 18:07 The patient or guardian reports cough. Onset: The symptoms/episode began/occurred jmm gradually, 4 day(s) ago. Modifying factors: The symptoms are alleviated by nothing. the symptoms are aggravated by nothing. Associated signs and symptoms: Pertinent positives:. This is a 59 year old female with a history of dm, cva that presents to the ED with complaints of cough, shortness of breath worsening over the past 4 days. Patient recently diagnosed with COVID 19. is currently being hospitalized. . Historical: - Allergies: 18:03 Morphine; bp - Home Meds: 20:00 levothyroxine oral [Active]; atorvastatin 40 mg oral tab [Active]; losartan 25 mg oral mg2 tab [Active]; Tradjenta 5 mg oral tab [Active]; sucralfate 1 gram Oral tab [Active]; Plavix 75 mg Oral tab [Active]; - PMHx: 18:03 Anxiety; chronic neck/back pain; Depression; Diabetes - NIDDM; Hypertension; bp Hypothyroidism; VASCULAR DEMENTIA; CVA; - PSHx: 20:00 Appendectomy; Cholecystectomy; knee sx; ; mg2 - Immunization history:: Adult Immunizations up to date. - Social history:: Smoking status: Patient denies any tobacco usage or history of. ROS: 18:07 Cardiovascular: Negative for chest pain, palpitations, and edema. jmm 18:07 Constitutional: Positive for body aches, fever. 18:07 Respiratory: Positive for cough, shortness of breath. 18:07 All other systems are negative. Exam: 18:07 Constitutional: This is a well developed, well nourished patient who is awake, alert, jmm and in no acute distress. Head/Face: atraumatic. Eyes: EOMI, no conjunctival erythema appreciated ENT: Moist Mucus Membranes Neck: Trachea midline, Supple Chest/axilla: Normal chest wall appearance and motion. Cardiovascular: Regular rate and rhythm. No edema appreciated Respiratory: Normal respirations, no respiratory distress appreciated Back: Normal ROM Skin: General appearance color normal MS/ Extremity: Moves all extremities, no obvious deformities appreciated, no edema noted to the lower extremities 18:07 Neuro: Orientation: is normal, Mentation: is normal, Memory: is normal. 18:07 Psych: Behavior/mood is pleasant, cooperative. Vital Signs: 18:00 BP 156 / 80; Pulse 89; Resp 20; Temp 99.7; Pulse Ox 96% on R/A; bp 18:00 Pulse Ox 85% on R/A; bp 19:42 BP 138 / 87; Pulse 88; Resp 18; Temp 99.5; Pulse Ox 95% on 2 lpm NC; mg2 20:30 BP 155 / 68; Pulse 80; Resp 18; Pulse Ox 97% on 2 lpm NC; mg2 21:30 BP 155 / 79; Pulse 80; Resp 18; Pulse Ox 97% on 2 lpm NC; mg2 MDM: 18:09 Patient medically screened. [facility] 18:24 Data reviewed: vital signs, nurses notes. Counseling: I had a detailed discussion with neha the patient and/or guardian regarding: the historical points, exam findings, and any diagnostic results supporting the discharge/admit diagnosis, the need for outpatient follow up, to return to the emergency department if symptoms worsen or persist or if there are any questions or concerns that arise at home. ED course: Patient will be admitted due to hypoxia. 19:41 ED course: I discussed the patient with Dr. Murillo whom will accepted admission. [facility] 05/18 18:07 Order name: Basic Metabolic Panel; Complete Time: 19:35 [facility] 05/18 18:07 Order name: CBC with Diff; Complete Time: 19:33 [facility] 05/18 18:07 Order name: LFT's; Complete Time: 19:35 [facility] 05/18 18:07 Order name: Magnesium; Complete Time: 19:35 [facility] 05/18 18:07 Order name: NT PRO-BNP; Complete Time: 19:35 [facility] 05/18 18:07 Order name: PT-INR; Complete Time: 19:33 [facility] 05/18 18:07 Order name: Troponin (emerg Dept Use Only); Complete Time: 19:35 [facility] 05/18 18:07 Order name: Procalcitonin; Complete Time: 19:43 [facility] 05/18 18:07 Order name: Blood Culture Adult (2) [facility] 05/18 18:07 Order name: Lactate; Complete Time: 19:33 [facility] 05/19 02:46 Order name: Glucose, Ancillary Testing; Complete Time: 02:51 [facility] 05/19 05:29 Order name: CBC with Automated Diff; Complete Time: 15:23 [facility] 05/19 05:30 Order name: Protime (+INR); Complete Time: 15:23 [facility] 05/19 05:31 Order name: Basic Metabolic Panel; Complete Time: 15:23 [facility] 05/18 18:07 Order name: XRAY Chest (1 view); Complete Time: 18:50 [facility] 05/19 05:31 Order name: Phosphorus; Complete Time: 15:23 [facility] 05/19 05:31 Order name: Magnesium; Complete Time: 15:23 [facility] 05/19 07:53 Order name: Glucose, Ancillary Testing; Complete Time: 15:23 [facility] 05/19 09:25 Order name: C-Reactive Protein; Complete Time: 15:23 [facility] 05/19 12:08 Order name: Glucose, Ancillary Testing; Complete Time: 15:23 [facility] 05/19 12:25 Order name: Urine Dipstick--Ancillary (enter results) [place] 05/19 13:13 Order name: Urine Dipstick-Ancillary; Complete Time: 15:23 [facility] 05/19 13:54 Order name: Urinalysis; Complete Time: 15:23 [facility] 05/19 13:57 Order name: Urine Microscopic Only; Complete Time: 15:23 [facility] 05/19 16:55 Order name: Glucose, Ancillary Testing; Complete Time: 17:32 [facility] 05/19 21:52 Order name: CT; Complete Time: 21:56 [facility] 05/19 22:52 Order name: RAD; Complete Time: 23:06 [facility] 05/18 18:07 Order name: EKG; Complete Time: 18:08 [facility] 05/18 18:07 Order name: Cardiac monitoring; Complete Time: 18:18 [facility] 05/18 18:07 Order name: EKG - Nurse/Tech; Complete Time: 18:57 [facility] 05/18 18:07 Order name: IV Saline Lock; Complete Time: 19:14 [facility] 05/18 18:07 Order name: Labs collected and sent; Complete Time: 19:14 [facility] 05/18 18:07 Order name: O2 Per Protocol; Complete Time: 18:18 [facility] 05/18 18:07 Order name: O2 Sat Monitoring; Complete Time: 18:18 [facility] Administered Medications: 19:41 Drug: SOLU-Medrol 125 mg Route: IVP; Site: right forearm; [facility] 05/19 02:48 Follow up: Response: No adverse reaction [facility] 05/18 19:41 Drug: Rocephin - (cefTRIAXone) 1 grams Route: IVPB; Infused Over: 30 mins; Site: right mg2 forearm; 05/19 02:47 Follow up: Response: No adverse reaction; IV Status: Completed infusion [facility] 05/18 19:41 Drug: AZITHromycin 500 mg Route: PO; [facility] 05/19 02:47 Follow up: Response: No adverse reaction mg2 Disposition: 05/20 06:14 Co-signature as Attending Physician, Edward Horan MD I agree with the assessment and [facility] plan of care. Disposition: 05/18/20 19:42 Hospitalization ordered by David Murillo for Inpatient Admission. Preliminary diagnosis are Viral Respiratory Infection, Hypoxia. - Bed requested for Telemetry/MedSurg (Inpatient). - Status is Inpatient Admission. bb - Condition is Stable. - Problem is new. - Symptoms are unchanged. Signatures: Dispatcher [employer] EDEdward Wallace MD MD cha Mickail, Joel, PA PA jmm Ballard, Brenda, RN RN bb Garcia, Cindy, RN RN Jose David Rodarte RN RN Khai Shaver RN RN mg2 Corrections: (The following items were deleted from the chart) 05/18 22:00 19:42 Hospitalization Ordered by David Murillo for Inpatient Admission. Preliminary cg diagnosis is Viral Respiratory Infection; Hypoxia. Bed requested for Telemetry/MedSurg (Inpatient). Status is Inpatient Admission. Condition is Stable. Problem is new. Symptoms are unchanged. [facility] 05/19 21:06 05/18 22:00 05/18/2020 19:42 Hospitalization Ordered by David Murillo for Inpatient cg Admission. Preliminary diagnosis is Viral Respiratory Infection; Hypoxia. Bed requested for [facility] ER HOLD. Status is Inpatient Admission. Condition is Stable. Problem is new. Symptoms are unchanged. 05/19 21:29 21:06 05/18/2020 19:42 Hospitalization Ordered by David Murillo for Inpatient cg Admission. Preliminary diagnosis is Viral Respiratory Infection; Hypoxia. Bed requested for Telemetry/MedSurg (Inpatient). Status is Inpatient Admission. Condition is Stable. Problem is new. Symptoms are unchanged. cg 23:18 21:29 05/18/2020 19:42 Hospitalization Ordered by David Murillo for Inpatient bb Admission. Preliminary diagnosis is Viral Respiratory Infection; Hypoxia. Bed requested for Telemetry/MedSurg (Inpatient). Status is Inpatient Admission. Condition is Stable. Problem is new. Symptoms are unchanged. cg
--- NOTE | 2020-05-18 22:32 | P.HP ---
Certification for Inpatient Patient admitted to: Inpatient With expected LOS: >2 Midnights Practitioner: I am a practitioner with admitting privileges, knowledge of patient current condition, hospital course, and medical plan of care. Services: Services provided to patient in accordance with Admission requirements found in Title 42 Section 412.3 of the Code of Federal Regulations Patient History Date of Service: 05/18/20 Reason for admission: Cough and shortness of breath History of Present Illness: 59-year-old woman with a history of diabetes mellitus presented emergency de partment with a complaint of progressive shortness of breath and nonproductive cough as well as intermittent fever. Patient tested positive for COVID 19 1 week ago. Chest x-ray in the ED demonstrated bilateral infiltrate. Patient was hypoxic with oxygen saturation of 85% on presentation. Allergies Morphine Allergy (Uncoded 10/01/15 15:37) Unknown Home Medications: Acetaminophen [Tylenol Extra Strength*] 500 mg PO Q6HP PRN 10/04/13 Insulin Glargine Human [Lantus*] 22 unit SQ BEDTIME 10/04/13 Levothyroxine Sodium [Tirosint] 13 mcg PO DAILY 10/04/13 Metformin HCl [Glucophage] 1,000 mg PO BID 10/04/13 Ciprofloxacin HCl [Cipro] 500 mg PO BID #10 tablet 10/06/13 Hydrocodone 7.5/APAP 325 [[place] 7.5/325 mg*] 1 tab PO Q4HP PRN #30 tab 10/06/13 Ondansetron [Zofran (Odt)*] 4 mg PO Q6H PRN #20 tab 10/06/13 metroNIDAZOLE [Flagyl*] 500 mg PO Q8H #15 tablet 10/06/13 - Past Medical/Surgical History Diabetic: Yes -: Appendicitis -: DMII -: Hypothyroid -: 3 C-sections, 1980, 84, 89 -: [place], 1986 -: 2 knee surgeries, 1979 -: [place], 10/04/13 - Family History Family History: Reviewed- Non-Contributory - Social History Alcohol use: No CD- Drugs: No Caffeine use: Yes Review of Systems Other: Except as documented, all other systems reviewed and negative. Physical Examination - Physical Exam General: Alert, In no apparent distress, Oriented x3 HEENT: PERRLA, Mucous membr. moist/pink, Sclerae nonicteric Neck: Supple, JVD not distended Respiratory: Clear to auscultation bilaterally, Normal air movement Cardiovascular: No edema, Regular rate/rhythm, Normal S1 S2 Capillary refill: <2 Seconds Gastrointestinal: Normal bowel sounds, Non-distended, No tenderness Musculoskeletal: No swelling, No erythema Integumentary: No rashes Neurological: Normal strength at 5/5 x4 extr, Cranial nerves 3-12 intact - Studies Laboratory Data (last 24 hrs) 05/18/20 19:00: PT 13.9 H, INR 1.18 05/18/20 19:00: WBC 5.1, Hgb 9.9 L, Hct 28.5 L, Plt Count 206 05/18/20 19:00: Sodium 135 L, Potassium 3.2 L, BUN 14, Creatinine 1.27, Glucose 179 H, Magnesium 1.8, Total Bilirubin 0.5, AST 42 H, ALT 23, Alkaline Phosphatase 121 H Assessment and Plan - Problems (Diagnosis) (1) Pneumonia due to COVID-19 virus Current Visit: Yes Status: Acute (2) DM type 2 (diabetes mellitus, type 2) Current Visit: Yes Status: Acute (3) Acute respiratory failure with hypoxia Current Visit: Yes Status: Acute (4) Anemia Current Visit: Yes Status: Acute - Plan Admit to the medical floor. Supplemental oxygen. Start IV dexamethasone. Pulmonary Consult Intermittent lasix Lantus insulin and insulin sliding scale for glucose management. Monitor CBC, renal function and electrolytes. Potassium replacement. Assess for home oxygen on discharge. - Advance Directives Does patient have a Living Will: No Does patient have a Durable POA for Healthcare: No
[2020-05-18] MEDS ORDERED: ACETAMINOPHEN 500 MG TAB PO PRN (22:44)
[2020-05-19] MEDS ORDERED: dexAMETHasone 10 MG/ML VIAL IV SCH (01:00)
[2020-05-19] MEDS ORDERED: dexAMETHasone 4 MG/ML VIAL ONE (02:39)
[2020-05-19] MEDS: INSULIN -REGULAR HUMAN 50 UNIT/0.5 ML ML SQ SCH ×5 (04:47→23:35)
[2020-05-19 05:28] LABS: Absolute Lymphocytes (CBC) 0.7 K/uL (0.7-4.9); Basophils % 0.2 % (0-1.3); Hematocrit 30.7 % (36.0-45.0); Lymphocytes % 17.2 % (15.3-44.8); MPV 10.2 fL (7.6-11.3); Protime INR 1.1; RBC Red Blood Cell Count 3.79 M/uL (3.86-4.86)
[2020-05-19 05:31] LABS: Phosphorus 3.2 mg/dL (2.5-4.9); Potassium 3.8 mmol/L (3.5-5.1)
[2020-05-19] MEDS ORDERED: POTASSIUM 25 MEQ EFFERV TAB PO ONE (06:36)
[2020-05-19] MEDS ORDERED: POTASSIUM 25 MEQ EFFERV TAB ONE (06:58)
[2020-05-19] MEDS ORDERED: ONDANSETRON 4 MG/2 ML VIAL ONE ×2 (07:31→07:32)
[2020-05-19] MEDS: ONDANSETRON 4 MG/2 ML VIAL IV PRN ×2 (07:40→23:19)
[2020-05-19] MEDS ORDERED: ENOXAPARIN 100 MG/ML SYR SQ ONE ×2 (08:24→20:45)
[2020-05-19] MEDS ORDERED: METHYLPREDNISOLONE 40 MG INJ ONE ×2 (08:24→20:44)
[2020-05-19] MEDS ORDERED: INSULIN -REGULAR HUMAN 50 UNIT/0.5 ML ML ONE ×3 (08:24→17:27)
[2020-05-19] MEDS ORDERED: PROMETHAZINE INJ 25 MG/ML AMP ONE (08:35)
[2020-05-19] MEDS ORDERED: PROMETHAZINE INJ 25 MG/ML AMP IV ONE (08:40)
[2020-05-19] MEDS: METHYLPREDNISOLONE 40 MG INJ IV SCH ×2 (08:42→21:00)
[2020-05-19] MEDS: THIAMINE 200 MG/2 ML INJ IVP SCH (08:42)
[2020-05-19] MEDS: ZINC SULFATE 220 MG CAP PO SCH (08:42)
[2020-05-19] MEDS: ASCORBIC ACID 500 MG TABLET PO SCH ×3 (08:42→21:00)
[2020-05-19] MEDS: VITAMIN D 1000 UNIT TAB PO SCH (08:42)
[2020-05-19] MEDS: ENOXAPARIN 100 MG/ML SYR SQ SCH ×2 (08:42→22:00)
[2020-05-19] MEDS ORDERED: PROMETHAZINE INJ 25 MG/ML AMP IV PRN (08:44)
[2020-05-19] MEDS ORDERED: INSULIN GLARGINE 100 UNITS/ML SQ ONE (08:44)
[2020-05-19] MEDS ORDERED: ENOXAPARIN 40 MG/0.4 ML SQ SCH (09:00)
--- NOTE | 2020-05-19 11:11 | P.PN ---
Subjective Date of Service: 05/19/20 Chief Complaint: Cough and shortness of breath Subjective: Improving <Hardy Reyes - Last Filed: 05/19/20 11:05> Date of Service: 05/19/20 <Jose Spear - Last Filed: 05/19/20 15:18> Review of Systems 10-point ROS is otherwise unremarkable Respiratory: Cough, Shortness of Breath Gastrointestinal: Nausea, Vomiting <Hardy Reyes - Last Filed: 05/19/20 11:05> Physical Examination - Vital Signs Temperature: 96.5 F Blood Pressure: 159/83 Pulse: 71 Respirations: 13 Pulse Ox (%): 82 - Physical Exam General: Alert, In no apparent distress, Oriented x3 HEENT: Atraumatic, Normocephalic, PERRLA, Other (Mucous membranes dry) Neck: Supple Respiratory: Clear to auscultation bilaterally, Normal air movement Cardiovascular: No edema, Normal S1 S2 Capillary refill: <2 Seconds Gastrointestinal: Normal bowel sounds, Soft and benign Musculoskeletal: No swelling, No contractures, No erythema Integumentary: No significant lesion, No erythema Neurological: Normal gait, Normal speech, Normal strength at 5/5 x4 extr - Studies Laboratory Data (last 24 hrs) 05/18/20 19:00: PT 13.9 H, INR 1.18 05/18/20 19:00: WBC 5.1, Hgb 9.9 L, Hct 28.5 L, Plt Count 206 05/18/20 19:00: Sodium 135 L, Potassium 3.2 L, BUN 14, Creatinine 1.27, Glucose 179 H, Magnesium 1.8, Total Bilirubin 0.5, AST 42 H, ALT 23, Alkaline Phosphatase 121 H <Hardy Reyes - Last Filed: 05/19/20 11:05> - Studies Laboratory Data (last 24 hrs) 05/18/20 19:00: PT 13.9 H, INR 1.18 05/18/20 19:00: WBC 5.1, Hgb 9.9 L, Hct 28.5 L, Plt Count 206 05/18/20 19:00: Sodium 135 L, Potassium 3.2 L, BUN 14, Creatinine 1.27, Glucose 179 H, Magnesium 1.8, Total Bilirubin 0.5, AST 42 H, ALT 23, Alkaline Phosph atase 121 H <Jose Spear - Last Filed: 05/19/20 15:18> Assessment & Plan Discharge Plan: Home Plan to discharge in: 24 Hours - Code Status/Comfort Care Code Status Assessed: No Physician Review Additional Text: Assessment Acute respiratory failure with hypoxia secondary to COVID pneumonia Nausea, vomiting, dehydration secondary to COVID Diabetes mellitus type 8-vglejee-kptblteyl Plan Acute respiratory failure with hypoxia secondary to COVID pneumonia: Patient doing well this morning on 3-4 L per nasal cannula. Continue with mild shortness of breath. Will continue with MATH protocol including steroids, supplements, full anticoagulation with Lovenox 1 milligram/kilogram twice daily. Will have patient evaluated for home oxygen. Nausea, vomiting, dehydration secondary to COVID: Continue with as needed Zofran and Phenergan. Diet as tolerated. Will re-evaluate later today, possible discharge if we can set up home oxygen and she is doing well. is admitted on the 4th floor. Diabetes mellitus type 1-gpqpclo-ezrzqfeil: Have started with Lantus 10 units subcutaneous once daily in addition to sliding scale therapy. Critical Care: No Time Spent Managing Pts Care (In Minutes): 55 <Hardy Reyes - Last Filed: 05/19/20 11:05> Physician Review Additional Text: Patient was seen and examined and findings were discussed Agree with the assessment and plan as documented by the BECKY <Jose Spear - Last Filed: 05/19/20 15:18>
[2020-05-19 13:13] LABS: Urine Blood 2+ (NEG); Urine Glucose 3+ (NEG); Urine Protein 3+ (NEG); Urine Specific Gravity 1.025 (1.005-1.030); Urine pH 5.5 (5.0-7.0)
[2020-05-19 13:19] LABS: Urine Appearance CLEAR; Urine Bilirubin NEGATIVE (NEG); Urine Blood 2+ (NEG); Urine Color YELLOW; Urine Glucose 3+ (NEG); Urine Protein 3+ (NEG); Urine Specific Gravity 1.025 (1.005-1.030)
[2020-05-19 13:53] LABS: Urine Microscopic Reflex ORDER UMIC
[2020-05-19 13:56] LABS: Urine Bacteria NONE SEEN /HPF (<20); Urine Culture Reflex Order NOT NEEDED
[2020-05-19 13:57] LABS: Urine Mucus 1+ /HPF (NONE SEEN)
[2020-05-19] MEDS ORDERED: HYDROCODONE/APAP 7.5/325 MG TAB PO PRN (17:14)
[2020-05-19] MEDS ORDERED: MELATONIN 3 MG TABLET PO ONE (20:58)
[2020-05-19] MEDS ORDERED: ASCORBIC ACID 500 MG TABLET ONE (20:59)
[2020-05-19] MEDS ORDERED: MELATONIN 3 MG TABLET PO SCH (21:00)
--- NOTE | 2020-05-19 21:44 | RAD REPORT ---
EXAM DESCRIPTION: CT - Head Brain Wo Cont - 05/19/2020 9:38 pm CLINICAL HISTORY: DIZZINESS Headache, drowsiness COMPARISON: No comparisons TECHNIQUE: All CT scans are performed using dose optimization technique as appropriate and may inclu de automated exposure control or mA/KV adjustment according to patient size. FINDINGS: No intracranial hemorrhage, hydrocephalus or extra-axial fluid collection.No areas of brai n edema or evidence of midline shift. The paranasal sinuses and mastoids are clear. The calvarium is intact. Mild vertebral atherosclerosis . IMPRESSION: No acute intracranial abnormality.
--- NOTE | 2020-05-19 22:50 | RAD REPORT ---
EXAM DESCRIPTION: RAD - Shoulder Right 2 View - 05/19/2020 10:20 pm CLINICAL HISTORY: fall, shoulder pain COMPARISON: No comparisons FINDINGS: Diffuse osteopenia is seen. Mild AC joint and glenohumeral joint arthritic changes are pre sent. No acute fracture seen. Moderate opacities are identified in the right lung.
[2020-05-20 01:16] VITALS: BMI 33.5
[2020-05-20 06:12] LABS: Absolute Lymphocytes (CBC) 0.9 K/uL (0.7-4.9); Basophils % 0.2 % (0-1.3); Hematocrit 30.6 % (36.0-45.0); Lymphocytes % 6.8 % (15.3-44.8); MPV 10.1 fL (7.6-11.3)
[2020-05-20 06:41] LABS: C-Reactive Protein 40.8 mg/L (<3.00); Ferritin 364.3 ng/mL (8-388); Potassium 3.2 mmol/L (3.5-5.1)
[2020-05-20] MEDS: INSULIN -REGULAR HUMAN 50 UNIT/0.5 ML ML SQ SCH ×2 (07:30→11:25)
[2020-05-20] MEDS: ENOXAPARIN 100 MG/ML SYR SQ SCH (07:32)
[2020-05-20] MEDS: VITAMIN D 1000 UNIT TAB PO SCH (07:32)
[2020-05-20] MEDS: ZINC SULFATE 220 MG CAP PO SCH (07:32)
[2020-05-20] MEDS: THIAMINE 200 MG/2 ML INJ IVP SCH (07:32)
[2020-05-20] MEDS: METHYLPREDNISOLONE 40 MG INJ IV SCH (07:32)
[2020-05-20] MEDS: ASCORBIC ACID 500 MG TABLET PO SCH ×2 (07:32→13:40)
[2020-05-20] MEDS ORDERED: POTASSIUM CL SA 10 MEQ TAB PO ONE (08:00)
[2020-05-20] MEDS ORDERED: INSULIN GLARGINE 100 UNITS/ML SQ SCH (08:00)
[2020-05-20 08:59] LABS: Blood Morphology Comment NOT SEEN (NOT SEEN); Platelet Estimate ADEQ; Urine White Blood Cell Casts OK
[2020-05-20 12:00] VITALS: BP 118/65; TEMP 97.3
[2020-05-20 12:26] VITALS: O2SAT 92
--- NOTE | 2020-05-20 13:37 | P.DS ---
Admission Date: 05/18/20 Discharge Date: 05/21/20 Disposition: ROUTINE DISCHARGE Discharge Condition: GOOD Reason for Admission: Cough and shortness of breath Brief History of Present Illness: 59-year-old woman with a history of diabetes mellitus presented emergency department with a complaint of progressive shortness of breath and nonproductive cough as well as intermittent fever. Patient tested positive for COVID 19 1 week ago. Chest x-ray in the ED demonstrated bilateral infiltrate. Patient was hypoxic with oxygen saturation of 85% on presentation. Hospital Course: Acute respiratory failure with hypoxia secondary to COVID pneumonia Nausea, vomiting, dehydration secondary to COVID Diabetes mellitus type 4-qsbleho-azfrrneqo Course Patient was admitted and was started on IV steroids along with oxygen supplementation and other nutritional supplements . Pulmonology was also consulted. Patient was also started on anticoagulation. Oxygen supplementat ion was weaned down and social media strategist were consulted for home oxygen. Acute respiratory failure with hypoxia secondary to COVID pneumonia: Patient doing well this morning on 3-4 L per nasal cannula. Continue with mild shortness of breath. Will continue with MATH protocol including steroids, supplements, full anticoagulation with Lovenox 1 milligram/kilogram twice daily. Will have patient evaluated for home oxygen. Nausea, vomiting, dehydration secondary to COVID: Continue with as needed Zofran and Phenergan. Diet as tolerated. Will re-evaluate later today, possible discharge if we can set up home oxygen and she is doing well. is admitted on the 4th floor. Diabetes mellitus type 4-euyeibp-kcgmprtjj: Have started with Lantus 10 units subcutaneous once daily in addition to sliding scale therapy. Patient responded well to the treatment and wanted to go home and is being discharged home today in a stable condition with advice to follow up with PCP in 1 week and also with pulmonology in 1-2 weeks Vital Signs/Physical Exam: Temp Pulse Resp BP Pulse Ox 97.3 F 65 20 118/65 97 05/20/20 12:00 05/20/20 12:00 05/20/20 12:05/20/20 12:05/20/20 12:00 General: Alert, In no apparent distress HEENT: Atraumatic, Normocephalic Neck: Supple Respiratory: Clear to auscultation bilaterally Cardiovascular: Regular rate/rhythm, Normal S1 S2 Capillary refill: <2 Seconds Gastrointestinal: Soft and benign, W/out hepatosplenomegaly Musculoskeletal: No clubbing, No swelling Integumentary: No rashes, No breakdown Lymphatics: No axilla or inguinal lymphadenopathy Laboratory Data at Discharge: WBC 13.4 K/uL (4.3-10.9) H D 05/20/20 05:46 Hgb 10.6 g/dL (12.0-15.0) L 05/20/20 05:46 Hct 30.6 % (36.0-45.0) L 05/20/20 05:46 Plt Count 261 K/uL (152-406) 05/20/20 05:46 PT 13.0 SECONDS (9.5-12.5) H 05/19/20 05:07 INR 1.10 05/19/20 05:07 Sodium 131 mmol/L (136-145) L 05/20/20 05:46 Potassium 3.2 mmol/L (3.5-5.1) L 05/20/20 05:46 BUN 27 mg/dL (7-18) H 05/20/20 05:46 Creatinine 1.36 mg/dL (0.55-1.3) H 05/20/20 05:46 Glucose 355 mg/dL (74-106) H 05/20/20 05:46 Phosphorus 3.2 mg/dL (2.5-4.9) 05/19/20 05:07 Magnesium 2.0 mg/dL (1.8-2.4) 05/19/20 05:07 Total Bilirubin 0.5 mg/dL (0.2-1.0) 05/18/20 19:00 AST 42 U/L (15-37) H 05/18/20 19:00 ALT 23 U/L (12-78) 05/18/20 19:00 Alkaline Phosphatase 121 U/L (45-117) H 05/18/20 19:00 Home Medications: Atorvastatin Calcium 1 tab PO BEDTIME 05/19/20 Clopidogrel Bisulfate [Plavix] 1 tab PO DAILY 05/19/20 Levothyroxine [Synthroid*] 1 tab PO DAILY 05/19/20 Linagliptin [Tradjenta] 1 tab PO DAILY 05/19/20 Losartan Potassium 1 tab PO DAILY 05/19/20 Sucralfate [Carafate*] 1 tab PO QID 05/19/20 Trazodone [Desyrel*] 1 tab PO BEDTIME 05/19/20 Vortioxetine Hydrobromide [Trintellix] 1 tab PO DAILY 05/19/20 Ascorbic Acid [Vitamin C*] 500 mg PO TID #30 tablet 05/20/20 Benzonatate [Tessalon Perle] 100 mg PO TID #20 cap 05/20/20 Cholecalciferol (Vitamin D3) [Vitamin D 1000 Iu Tab*] 2,000 unit PO DAILY #30 tab 05/20/20 Guaif/Dm [Robitussin Dm] 10 ml PO Q4H PRN #120 ucup 05/20/20 Methylprednisolone [Medrol dosepack] 4 mg PO DIRECTED #1 rosangela 05/20/20 Zinc Sulfate [Zinc Sulfate*] 220 mg PO DAILY #30 cap 05/20/20 New Medications: Methylprednisolone [Medrol dosepack] 4 mg PO DIRECTED #1 rosangela Guaif/Dm [Robitussin Dm] 10 ml PO Q4H PRN #120 ucup PRN Reason: Cough Benzonatate [Tessalon Perle] 100 mg PO TID #20 cap Ascorbic Acid [Vitamin C*] 500 mg PO TID #30 tablet Cholecalciferol (Vitamin D3) [Vitamin D 1000 Iu Tab*] 2,000 unit PO DAILY #30 tab Zinc Sulfate [Zinc Sulfate*] 220 mg PO DAILY #30 cap Followup: Walter Javier MD [ACTIVE - CAN ADMIT] - Time spent managing pt's care (in minutes): 40
[2020-05-20] MEDS ORDERED: BENZONATATE 100 MG CAP PO PRN (14:00)
[2020-05-20] MEDS ORDERED: GUAIFENESIN/CODEINE 5ML UCUP PO PRN (14:00)
== END 2020-05-20 14:28 | disposition home or self-care (01) | DRG 177 ==
LOC: ER 17:49 → ERHOLD 21:57 → 4TH 05-19 22:40
PROVIDERS: ADMIT Internal Medicine; ATTEND Family Medicine
PROC: 8E0ZXY6 Isolation (ICD-10-PCS; principal; 2020-05-18)
DX: U07.1 COVID-19 (principal); J12.89 Other viral pneumonia; J96.01 Acute respiratory failure with hypoxia; E11.9 Type 2 diabetes mellitus without complications; D64.9 Anemia, unspecified; E86.0 Dehydration; E03.9 Hypothyroidism, unspecified; Z79.4 Long term (current) use of insulin; Z88.5 Allergy status to narcotic agent; Z79.891 Long term (current) use of opiate analgesic; Z79.899 Other long term (current) drug therapy; Z79.890 Hormone replacement therapy; Z90.49 Acquired absence of other specified parts of digestive tract
CPT/HCPCS: 36415; 70450; 71045; 80048; 80076; 81003; 81015; 82728; 82947; 83605; 83735; 83880; 84100; 84132; 84145; 84484; 85025; 85610; 86140; 87040; 93005; 96365; 96366; 96375; 99285; J0696; J1650; J1815; J2405; J2550; J2920; J2930; J3411

== ENCOUNTER 2020-05-23 21:31 | Inpatient (IN) | payer OTHER ==
--- OUTSIDE RECORDS SUMMARY | 2020-05-23 21:33 | XMS REPORT | Continuity of Care Document ---
:1960 Author Organization [facility] t Address [address] [place] [address] [address] [place] [address] Care Team Providers Name Role Phone Asked, Pcp Primary Care Physician Unavailable Brenna SOTELO, S Attending Clinician Doctor Unassigned, Name Attending Clinician Unavailable Jose Antonio ARIZA, S Attending Clinician Delvin ARIZA, L Attending Clinician Problems Condition Condition Condition Status Onset Resolution Last Treating Co mments Source Name Details Category Date Date Treatment Clinician Date Cocaine Cocaine Disease Active [place] abuse abuse 07-01 Methodi 00:00: st 00 [...] Date Quantity Comments Source Sex Assigned At [facility] ethodist Alcohol intake 2016-06-30 2016-06-30 Current [facility] thodist 00:00:00 00:00:00 non-drinker of alcohol (finding) Smoking Status Start Date Stop Date Source Never smoker [facility] Medications This patient has no known medications. Procedures This patient has no known procedures. Encounters Start End Encounter Admission Attending Care Care Encounter Source Date/Time Date/Time Type Type Clinicians Facility Department ID 2020-05-15 2020-05-15 Tele[facility] Ce[facility] [id number] 08:20:16 08:35:16 ne Visit Param Hodge [id number] Surgical [id number] Specialti [id number] [address] [place] 2020-05-13 2020-05-13 Orders Doctor PAYAL [id number] 00:00:00 00:00:00 Only Unassigned, GAMA [id number] [place] [id number] 2020-05-12 2020-05-12 Emergency [facility] [id number] 01:59:32 07:04:00 Nora Bob [id number] [place] [id number] [place] [id number] 2020-05-08 2020-05-08 [facility] [id number] 10:30:00 23:59:00 Encounter Florencio Bob [id number] [place] [id number] [place] [id number] 2020-05-08 2020-05-08 Orders Doctor MOE [id number] 00:00:00 00:00:00 Only UnassignedGAMA [id number] [place] [id number] 2020-05-05 2020-05-05 Telephone [facility] [id number] 00:00:00 00:00:00 Florencio Hodge [id number] Surgical [id number] Specialti [id number] [address] [place] 2020-04-30 2020-04-30 Office [facility] [id number] 14:40:54 15:09:09 Visit [facility] [id number] Surgical [id number] Specialti [id number] [address] Results This patient has no known results.
--- OUTSIDE RECORDS SUMMARY | 2020-05-23 21:33 | XMS REPORT | Clinical Summary ---
:1960 Author Organization [facility] Address [address] [place] [address] Care Team Providers Name Role Phone Asked, [...] Not on file Results Not on fileafter 05/23/2019 Insurance Payer Benefit Plan / Subscriber ID Effective Phone Address T ype Group Dates UHC MEDICAID UNITED[employer] COMM xxxxxxxxx 2016-Pres HMO STAR+ SAMIR ent OPTUM OPTUM(UBH) SAMIR xxxxxxxxx 2016-Pres [facility] Health MEDICAID UHC UNITEDHC xxxxxxxxx 2016-Pres HMO [employer] ent Advance Directives For more information, please contact: [phone] Type Date Recorded Patient Cable Installer Explanati on Advance Directives, Living Will and Medical Power of Registered Nurse Maternity Code Status Date Activated Date Inactivated Comments Full Code 07/03/2016 11:18 AM 07/06/2016 8:33 PM Code Status decision reached by: Patient
[2020-05-23 21:57] LABS: Absolute Lymphocytes (CBC) 1.4 K/uL (0.7-4.9); Hematocrit 34.1 % (36.0-45.0); Lymphocytes % 8.9 % (15.3-44.8); MPV 9.4 fL (7.6-11.3); RBC Red Blood Cell Count 4.27 M/uL (3.86-4.86)
[2020-05-23 22:03] LABS: Protime INR 1.1
[2020-05-23] MEDS ORDERED: ONDANSETRON 4 MG/2 ML VIAL ONE (22:03)
[2020-05-23] MEDS ORDERED: NA CHLORIDE 0.9% 1,000 ML ONE (22:04)
[2020-05-23] MEDS ORDERED: ALBUTEROL INHALER 60 PUFF/8 GM IH ONE (22:04)
[2020-05-23 22:55] LABS: ALT/SGPT 26 U/L (12-78); AST/SGOT 28 U/L (15-37); Albumin 2.3 g/dL (3.4-5.0); Alkaline Phosphatase 91 U/L (45-117); BUN Blood Urea Nitrogen 19 mg/dL (7-18); Bicarbonate 24 mmol/L (21-32); Bilirubin Direct 0.2 mg/dL (0-0.2); Bilirubin Total 0.7 mg/dL (0.2-1.0); CKMB Creatine Kinase MB 2.7 ng/mL (0.3-3.6); Creatine Phosphokinase 238 U/L (26-192); Glucose Level 222 mg/dL (74-106); Lipase 85 U/L (73-393); Magnesium 1.8 mg/dL (1.8-2.4); NT PRO-BNP 632 pg/mL (<125); Protein, Total 7.1 g/dL (6.4-8.2); Sodium Level 135 mmol/L (136-145); Troponin (Emerg Dept Use Only) < 0.02 ng/mL (0.0-0.045)
[2020-05-23] MEDS ORDERED: AZITHROMYCIN 500 MG INJ IVPB ONE (22:56)
[2020-05-23] MEDS ORDERED: CEFTRIAXONE/SWI 1gm 1 GM/10 ML SYR ONE (22:56)
[2020-05-23] MEDS ORDERED: NA CHLORIDE 0.9% 250 ML ONE (22:56)
[2020-05-23 22:58] LABS: Potassium 2.5 mmol/L (3.5-5.1)
--- NOTE | 2020-05-23 23:33 | ER ---
Nurse's Notes [facility] Name: Janis Henderson Age: 59 yrs Sex: Female : 1960 Arrival Date: 05/23/2020 Time: 21:[address] Private MD: Diagnosis: COVID Pneumonia;Hypoxia;Hypokalemia Presentation: 05/23 21:35 Chief complaint: EMS states: they were toned out for report of pt with respiratory bb distress, COVID positive, pt sats 78% on their arrival. Coronavirus screen: Client reports previous positive COVID test result. Ebola Screen: No symptoms or risks identified at this time. Risk Assessment: Do you want to hurt yourself or someone else? Patient reports no desire to harm self or others. Onset of symptoms was May 23, 2020. 21:35 Method Of Arrival: EMS: [facility] bb 21:35 Acuity: JUANCHO 2 bb 21:38 Care prior to arrival: Oxygen administered. via nasal cannula. bb 21:39 Initial Sepsis Screen: Does the patient meet any 2 criteria? Yes Does the patient have bb a suspected source of infection? Yes: Productive cough/pneumonia. Triage Assessment: 21:45 Respiratory: Onset: The symptoms/episode began/occurred gradually, the patient has rr5 moderate shortness of breath. Historical: - Allergies: 21:38 Morphine; bb - Home Meds: 21:38 atorvastatin 40 mg Oral tab [Active]; Glipizide Oral [Active]; levothyroxine oral bb [Active]; Lexapro Oral [Active]; lisinopril Oral [Active]; losartan 25 mg Oral tab [Active]; Plavix 75 mg Oral tab [Active]; sucralfate 1 gram Oral tab [Active]; Tradjenta 5 mg Oral tab [Active]; Xanax Oral [Active]; - PMHx: 21:38 Anxiety; chronic neck/back pain; CVA; Depression; Diabetes - NIDDM; Hypertension; bb Hypothyroidism; VASCULAR DEMENTIA; COVID; - PSHx: 21:38 Appendectomy; Cholecystectomy; knee sx; ; bb - Immunization history:: Adult Immunizations unknown. - Social history:: Smoking status: Patient denies any tobacco usage or history of. Screenin:03 Abuse screen: Denies threats or abuse. Denies injuries from another. Nutritional rr5 screening: No deficits noted. Tuberculosis screening: No symptoms or risk factors identified. Fall Risk IV access (20 points). Total Ramirez Fall Scale indicates No Risk (0-24 pts). Assessment: 21:45 General: Appears in no apparent distress. uncomfortable, ill, Behavior is calm, rr5 cooperative, appropriate for age. Pain: Denies pain. Neuro: Level of Consciousness is awake, alert, obeys commands, Oriented to person, place, time, situation. Cardiovascular: Capillary refill < 3 seconds Patient's skin is warm and dry. Rhythm is sinus rhythm. Respiratory: Airway is patent Respiratory effort is even, labored, Respiratory pattern is regular, symmetrical, tachypnea Breath sounds with wheezes. GI: Reports nausea, vomiting. : No signs and/or symptoms were reported regarding the genitourinary system. EENT: No signs and/or symptoms were reported regarding the EENT system. Derm: Skin is intact, is healthy with good turgor, Skin temperature is warm. Musculoskeletal: Circulation, motion, and sensation intact. Capillary refill < 3 seconds. 22:30 Reassessment: Patient appears in no apparent distress at this time. Patient is alert, rr5 oriented x 3, equal unlabored respirations, skin warm/dry/pink. Patient states symptoms have improved. 23:10 Reassessment: Patient appears in no apparent distress at this time. assisted to bedside rr5 commode positive BM small in amount soft formed brown. 23:40 Reassessment: Patient appears in no apparent distress at this time. Patient is alert, rr5 oriented x 3, equal unlabored respirations, skin warm/dry/pink. back from CT scan. 05/24 00:50 Reassessment: Patient appears in no apparent distress at this time. Patient is alert, rr5 oriented x 3, equal unlabored respirations, skin warm/dry/pink. for admission awaiting for in patient orders. 01:15 Reassessment: follow up to hospitalist for the in patient orders. rr5 01:20 Reassessment: Patient appears in no apparent distress at this time. assisted on bedside rr5 commode. positive urine scanty in amount. Vital Signs: 05/23 21:41 BP 156 / 77; Pulse 83; Resp 27; Temp 98.9; Pulse Ox 90% ; Weight 91.17 kg; rv 21:41 Pulse Ox 90% on 4 lpm NC; rr5 22:04 BP 162 / 77; Pulse 89; Resp 29; Pulse Ox 94% on 6 lpm NC; rr5 23:00 BP 151 / 92; Pulse 80; Resp 23; Pulse Ox 93% on 6 lpm NC; rr5 05/24 00:00 BP 145 / 98; Pulse 83; Resp 24; Temp 98.7; Pulse Ox 92% on 6 lpm NC; rr5 01:25 BP 165 / 81; Pulse 77; Resp 23; Temp 99; Pulse Ox 95% on 6 lpm NC; rr5 05/23 21:41 increased to 6 liters rr5 ED Course: 21:33 Patient arrived in ED. cf2 21:35 Norm Spears MD is Attending Physician. mh7 21:36 Triage completed. bb 21:38 Arm band placed on Patient placed in an exam room, on a stretcher, on oxygen, on pulse bb oximetry. 21:45 Inserted saline lock: 18 gauge in left wrist, using aseptic technique. Blood collected. rv 21:45 Initial lab(s) drawn, by ED staff, sent to lab. First set of blood cultures drawn rv mignon mccabe. 21:50 Patient has correct armband on for positive identification. Placed in gown. Bed in low rr5 position. Call light in reach. Side rails up X2. library monitor on. Pulse ox on. NIBP on. 22:03 Mignon Jackson RN is Primary Nurse. rr5 22:17 Notified ED physician of a critical lab result(s). D dimer 3388. rr5 22:38 Chest Single View XRAY In Process Unspecified. EDMS 22:58 Notified ED physician of a critical lab result(s). Potassium of 2.5. Dr Spears notified.bb 23:30 Jes Springer MD is Hospitalizing Provider. mh7 23:46 No provider procedures requiring assistance completed. Patient admitted, IV remains in rr5 place. intact, No redness/swelling at site. 05/24 00:23 CT Chest For PE Angio In Process Unspecified. EDMS Administered Medications: 05/23 22:30 Drug: Albuterol HFA Inhaler 2 puffs Route: Inhalation; rr5 05/24 01:32 Follow up: Response: Marked relief of symptoms rr5 05/23 22:50 Drug: Rocephin - (cefTRIAXone) 1 grams Route: IVPB; Infused Over: 30 mins; Site: left rr5 wrist; 23:05 Follow up: Response: No adverse reaction; IV Status: Completed infusion; IV Intake: [id number] 23:07 Dru mg of (Zithromax 500 mg, NS 0.9% 250 ml) Route: IVPB; Infused Over: 1 hrs; rr5 Site: left wrist; 05/24 00:21 Follow up: Response: No adverse reaction; IV Status: Completed infusion; IV Intake: rr5 250ml 05/23 23:37 Drug: Decadron - Dexamethasone 10 mg Route: IVP; Site: left wrist; rv 05/24 00:22 Follow up: Response: No adverse reaction rr5 05/23 23:37 Drug: Potassium Chloride 40 mEq Route: PO; rv 05/24 00:22 Follow up: Response: No adverse reaction rr5 Intake: 05/23 23:05 IV: 10ml; Total: 10ml. rr5 05/24 00:21 IV: 250ml; Total: 260ml. rr5 Outcome: 05/23 23:31 Decision to Hospitalize by Provider. [facility] 05/24 01:25 Admitted to ICU accompanied by nurse, via stretcher, room 8, with oxygen, on monitor, rr5 with chart, Report called to neeraj Condition: stable Instructed on the need for admit. 02:02 Patient left the ED. rr5 Signatures: Dispatcher [employer] Trinh Gonzalez RN RN Miguel Angel Morales RN RN Mignon Jackson RN RN rr5 Florentino Khalil 2 Norm Spears MD MD 7
--- NOTE | 2020-05-23 23:33 | EDPHYS ---
Physician Documentation [facility] Name: Janis Henderson Age: 59 yrs Sex: Female : 1960 Arrival Date: 05/23/2020 Time: 21:[address] Private MD: ED Physician Norm Spears HPI: 05/23 22:10 This 59 yrs old Female presents to ER via EMS with complaints of Breathing mh7 Difficulty. 22:10 The patient has shortness of breath at rest. Onset: The symptoms/episode began/occurred mh7 today. Duration: The symptoms are continuous, and are steadily getting worse. The patient's shortness of breath is aggravated by nothing, is alleviated by nothing. Associated signs and symptoms: Pertinent positives: non-productive cough, nausea, Pertinent negatives: chest pain, diaphoresis, dizziness, fever, hemoptysis, loss of consciousness, numbness in extremities, visual changes, vomiting. Severity of symptoms: At their worst the symptoms were severe just prior to arrival, today, in the emergency department the symptoms have improved moderately. The patient has experienced a previous episode, approximately 4 days ago. The patient has been recently been admitted at [facility], was discharged earlier this week. Patient tested positive for COVID 19 this week and was admitted for SOB. She was discharged 3 days ago from the hospital. She had worsening SOB today. EMS was called and found patient O2 sat of 78%. Symptoms improved with oxygen.. Historical: - Allergies: 21:38 Morphine; bb - Home Meds: 21:38 atorvastatin 40 mg Oral tab [Active]; Glipizide Oral [Active]; levothyroxine oral bb [Active]; Lexapro Oral [Active]; lisinopril Oral [Active]; losartan 25 mg Oral tab [Active]; Plavix 75 mg Oral tab [Active]; sucralfate 1 gram Oral tab [Active]; Tradjenta 5 mg Oral tab [Active]; Xanax Oral [Active]; - PMHx: 21:38 Anxiety; chronic neck/back pain; CVA; Depression; Diabetes - NIDDM; Hypertension; bb Hypothyroidism; VASCULAR DEMENTIA; COVID; - PSHx: 21:38 Appendectomy; Cholecystectomy; knee sx; ; bb - Immunization history:: Adult Immunizations unknown. - Social history:: Smoking status: Patient denies any tobacco usage or history of. ROS: 22:10 Constitutional: Negative for fever, chills, and weight loss, Eyes: Negative for injury, mh7 pain, redness, and discharge, ENT: Negative for injury, pain, and discharge, Neck: Negative for injury, pain, and swelling, Cardiovascular: Negative for chest pain, palpitations, and edema, Back: Negative for injury and pain, : Negative for injury, bleeding, discharge, and swelling, MS/Extremity: Negative for injury and deformity, Skin: Negative for injury, rash, and discoloration, Neuro: Negative for headache, weakness, numbness, tingling, and seizure, Psych: Negative for depression, anxiety, suicide ideation, homicidal ideation, and hallucinations, Allergy/Immunology: Negative for hives, rash, and allergies, Endocrine: Negative for neck swelling, polydipsia, polyuria, polyphagia, and marked weight changes, Hematologic/Lymphatic: Negative for swollen nodes, abnormal bleeding, and unusual bruising. Exam: 22:10 Head/Face: Normocephalic, atraumatic. Eyes: Pupils equal round and reactive to light, mh7 extra-ocular motions intact. Lids and lashes normal. Conjunctiva and sclera are non-icteric and not injected. Cornea within normal limits. Periorbital areas with no swelling, redness, or edema. ENT: Nares patent. No nasal discharge, no septal abnormalities noted. Tympanic membranes are normal and external auditory canals are clear. Oropharynx with no redness, swelling, or masses, exudates, or evidence of obstruction, uvula midline. Mucous membranes moist. Neck: Trachea midline, no thyromegaly or masses palpated, and no cervical lymphadenopathy. Supple, full range of motion without nuchal rigidity, or vertebral point tenderness. No Meningismus. Chest/axilla: Normal chest wall appearance and motion. Nontender with no deformity. No lesions are appreciated. Cardiovascular: Regular rate and rhythm with a normal S1 and S2. No gallops, murmurs, or rubs. Normal PMI, no JVD. No pulse deficits. 22:10 Abdomen/GI: Soft, non-tender, with normal bowel sounds. No distension or tympany. No guarding or rebound. No evidence of tenderness throughout. Back: No spinal tenderness. No costovertebral tenderness. Full range of motion. Skin: Warm, dry with normal turgor. Normal color with no rashes, no lesions, and no evidence of cellulitis. MS/ Extremity: Pulses equal, no cyanosis. Neurovascular intact. Full, normal range of motion. Neuro: Awake and alert, GCS 15, oriented to person, place, time, and situation. Cranial nerves II-XII grossly intact. Motor strength 5/5 in all extremities. Sensory grossly intact. Cerebellar exam normal. Normal gait. Psych: Awake, alert, with orientation to person, place and time. Behavior, mood, and affect are within normal limits. 22:10 Constitutional: The patient appears alert, awake, obviously ill, uncomfortable. 22:10 Respiratory: mild respiratory distress is noted, Respirations: tachypnea, that is moderate, Breath sounds: rhonchi, that are moderate, are scattered, Respiratory rate: 29 23:38 ECG was reviewed by the Attending Physician. [facility] Vital Signs: 21:41 BP 156 / 77; Pulse 83; Resp 27; Temp 98.9; Pulse Ox 90% ; Weight 91.17 kg; rv 21:41 Pulse Ox 90% on 4 lpm NC; rr5 22:04 BP 162 / 77; Pulse 89; Resp 29; Pulse Ox 94% on 6 lpm NC; rr5 23:00 BP 151 / 92; Pulse 80; Resp 23; Pulse Ox 93% on 6 lpm NC; rr5 08/01 00:00 BP 145 / 98; Pulse 83; Resp 24; Temp 98.7; Pulse Ox 92% on 6 lpm NC; rr5 01:25 BP 165 / 81; Pulse 77; Resp 23; Temp 99; Pulse Ox 95% on 6 lpm NC; rr5 05/23 21:41 increased to 6 liters rr5 MDM: 21:35 Patient medically screened. [facility] 23:29 Differential diagnosis: Anemia asthma, Bronchitis CHF exacerbation, Chronic Obstructive 7 Pulmonary Disease Myocardial Infarction pneumonia, Pneumothorax pulmonary edema, Pulmonary Embolism. Antibiotic administration: Rocephin and Zithromax given. Data reviewed: vital signs, nurses notes, EMS record, old medical records, lab test result(s), CBC, electrolytes, EKG, radiologic studies, plain films. Data interpreted: Pulse oximetry: on 6L(s) per nasal canula, is 93 %. Interpretation: hypoxia. Plan: O2 by NC applied. Counseling: I had a detailed discussion with the patient and/or guardian regarding: the historical points, exam findings, and any diagnostic results supporting the discharge/admit diagnosis, the presence of at least one elevated blood pressure reading (>120/80) during this emergency department visit, lab results, radiology results, the need for further work-up and treatment in the hospital. 05/24 06:05 Response to treatment: the patient's symptoms have markedly improved after treatment. 05/23 21:36 Order name: Blood Culture Adult (2) 05/23 21:36 Order name: BMP; Complete Time: 23:22 05/23 21:36 Order name: CBC with Diff; Complete Time: 22:18 05/23 21:36 Order name: Ckmb; Complete Time: 23:22 05/23 21:36 Order name: CPK; Complete Time: 23:22 05/23 21:36 Order name: D-Dimer; Complete Time: 22:18 [facility] 05/23 21:36 Order name: Hepatic Function; Complete Time: 23:22 05/23 21:36 Order name: Lipase; Complete Time: 23:22 05/23 21:36 Order name: Magnesium; Complete Time: 23:22 05/23 21:36 Order name: NT PRO-BNP; Complete Time: 23:22 05/23 21:36 Order name: PT-INR; Complete Time: 22:18 05/23 21:36 Order name: Ptt, Activated; Complete Time: 22:18 [facility] 05/23 21:36 Order name: Troponin (emerg Dept Use Only); Complete Time: 23:22 [facility] 05/24 01:16 Order name: Comprehensive Metabolic Panel [facility] 05/24 01:16 Order name: Comprehensive Metabolic Panel [facility] 05/24 01:16 Order name: Lactate EDVT 05/24 01:16 Order name: Lactate EDMS 05/24 01:16 Order name: Lipid Profile EDMS 05/24 01:16 Order name: Lipid Profile [facility]VT 05/24 01:16 Order name: Magnesium EDMS 05/24 01:16 Order name: Magnesium EDMS 05/24 01:16 Order name: NT PRO-BNP [facility] 05/24 01:16 Order name: NT PRO-BNP EDMS 05/24 01:16 Order name: Phosphorus [facility] 05/24 01:16 Order name: Phosphorus [facility] 05/24 01:16 Order name: Protime (+INR) [facility] 05/24 01:16 Order name: Protime (+INR) [facility] 05/24 01:16 Order name: PTT, Activated Partial Thromb [facility] 05/24 01:16 Order name: PTT, Activated Partial Thromb [facility] 05/24 01:16 Order name: Troponin I [facility] 05/23 21:36 Order name: EKG; Complete Time: 21:37 [facility] 05/23 21:36 Order name: Cardiac monitoring; Complete Time: 22:08 [facility] 05/23 21:36 Order name: EKG - Nurse/Tech; Complete Time: 22:08 [facility] 05/23 21:36 Order name: IV Saline Lock; Complete Time: 22:08 [facility] 05/23 21:36 Order name: Labs collected and sent; Complete Time: 22:08 [facility] 05/23 21:36 Order name: O2 Per Protocol; Complete Time: 22:08 [facility] 05/23 21:36 Order name: O2 Sat Monitoring; Complete Time: 22:08 [facility] 05/23 21:36 Order name: Chest Single View XRAY [facility] 05/23 23:23 Order name: CT Chest For PE Angio [facility] 05/24 01:16 Order name: Troponin I [facility] 05/24 01:16 Order name: Troponin I [facility] 05/24 01:16 Order name: Troponin I [facility] 05/24 01:16 Order name: NPO EDVT EC/31 23:38 Rate is 86 beats/min. Rhythm is regular, Normal Sinus Rhythm. QRS [place] is Normal. [place] mh7 interval is normal. QRS interval is normal. QT interval is prolonged at 485 msec. No Q waves. T waves are Inverted in leads I, II, aVL, V4, V5, V6. No ST changes noted. Clinical impression: Abnormal EKG without significant change. Administered Medications: 22:30 Drug: Albuterol HFA Inhaler 2 puffs Route: Inhalation; 5 05/24 01:32 Follow up: Response: Marked relief of symptoms [facility] 05/23 22:50 Drug: Rocephin - (cefTRIAXone) 1 grams Route: IVPB; Infused Over: 30 mins; Site: left rr5 wrist; 23:05 Follow up: Response: No adverse reaction; IV Status: Completed infusion; IV Intake: [id number] 23:07 Dru mg of (Zithromax 500 mg, NS 0.9% 250 ml) Route: IVPB; Infused Over: 1 hrs; rr5 Site: left wrist; 05/24 00:21 Follow up: Response: No adverse reaction; IV Status: Completed infusion; IV Intake: rr5 250ml 05/23 23:37 Drug: Decadron - Dexamethasone 10 mg Route: IVP; Site: left wrist; rv 05/24 00:22 Follow up: Response: No adverse reaction rr5 05/23 23:37 Drug: Potassium Chloride 40 mEq Route: PO; rv 05/24 00:22 Follow up: Response: No adverse reaction rr5 Disposition: 06:05 Co-signature as Attending Physician, Norm Spears MD. [facility] Disposition: 05/23/20 23:31 Hospitalization ordered by Jes Springer for Inpatient Admission. Preliminary diagnosis are COVID Pneumonia, Hypoxia, Hypokalemia. - Bed requested for Intensive Care Unit. - Status is Inpatient Admission. rr5 - Condition is Fair. - Problem is an ongoing problem. - Symptoms have improved. Signatures: Dispatcher [employer] EDMS Cori Medina RN RN Trinh Hester RN RN Miguel Angel Morales, RN CICI Sathish Jackson RN RN 5 Norm Spears MD MD 7 Corrections: (The following items were deleted from the chart) 05/23 23:44 23:31 Hospitalization Ordered by Jes Springer MD for Inpatient Admission. Preliminary diagnosis is COVID Pneumonia; Hypoxia; Hypokalemia. Bed requested for Telemetry/MedSurg (Inpatient). Status is Inpatient Admission. Condition is Fair. Problem is an ongoing problem. Symptoms have improved. 7 05/24 02:02 05/23 23:44 05/23/2020 23:31 Hospitalization Ordered by Jes Springer MD for Inpatient rr5 Admission. Preliminary diagnosis is COVID Pneumonia; Hypoxia; Hypokalemia. Bed requested for Intensive Care Unit. Status is Inpatient Admission. Condition is Fair. Problem is an ongoing problem. Symptoms have improved.
[2020-05-23] MEDS ORDERED: dexAMETHasone 10 MG/ML VIAL ONE (23:40)
[2020-05-23] MEDS ORDERED: POTASSIUM CL SA 10 MEQ TAB PO ONE (23:44)
[2020-05-24] MEDS ORDERED: ONDANSETRON 4 MG/2 ML VIAL IV PRN (01:05)
[2020-05-24] MEDS ORDERED: ACETAMINOPHEN 500 MG TAB PO PRN (01:05)
[2020-05-24] MEDS ORDERED: ALBUTEROL INHALER 60 PUFF/8 GM IH PRN (04:34)
[2020-05-24] MEDS ORDERED: KCL 20 MEQ/100 mL IVPB 20 MEQ/100 ML BAG IV SCH ×2 (05:00→09:00)
[2020-05-24 05:38] LABS: Absolute Lymphocytes (CBC) 0.7 K/uL (0.7-4.9); MPV 9.4 fL (7.6-11.3); RBC Red Blood Cell Count 3.84 M/uL (3.86-4.86)
[2020-05-24 06:20] LABS: ALT/SGPT 20 U/L (12-78); AST/SGOT 21 U/L (15-37); Alkaline Phosphatase 85 U/L (45-117); BUN Blood Urea Nitrogen 17 mg/dL (7-18); Bicarbonate 27 mmol/L (21-32); Bilirubin Total 0.4 mg/dL (0.2-1.0); Ferritin 481.2 ng/mL (8-388); Glucose Level 298 mg/dL (74-106); Magnesium 1.9 mg/dL (1.8-2.4); NT PRO-BNP 583 pg/mL (<125); Phosphorus 3.6 mg/dL (2.5-4.9); Potassium 3.2 mmol/L (3.5-5.1); Protein, Total 6.6 g/dL (6.4-8.2); Sodium Level 135 mmol/L (136-145); Troponin I < 0.02 ng/mL (0.0-0.045)
[2020-05-24] MEDS ORDERED: POTASSIUM 25 MEQ EFFERV TAB PO ONE (08:00)
[2020-05-24] MEDS ORDERED: POTASSIUM CL SA 10 MEQ TAB PO ONE (08:57)
[2020-05-24] MEDS ORDERED: dexAMETHasone 10 MG/ML VIAL IV SCH (09:00)
[2020-05-24] MEDS: FUROSEMIDE 40 MG/4 ML VIAL IV SCH ×2 (09:15→17:11)
[2020-05-24] MEDS: ZINC SULFATE 220 MG CAP PO SCH (09:20)
[2020-05-24] MEDS: CEFTRIAXONE/SWI 1gm 1 GM/10 ML SYR IV SCH ×2 (09:20→20:23)
[2020-05-24] MEDS: ENOXAPARIN 40 MG/0.4 ML SQ SCH (09:20)
[2020-05-24 10:36] LABS: Blood Morphology Comment NOT SEEN (NOT SEEN); Platelet Estimate INCR
[2020-05-24] MEDS ORDERED: D50W 25 GM/50 ML SYRINGE/VIAL IV PRN (15:05)
[2020-05-24] MEDS ORDERED: GLUCAGON 1 MG/VIAL IM PRN (15:05)
[2020-05-24] MEDS: dexAMETHasone 4 MG/ML VIAL IV SCH (17:11)
[2020-05-24] MEDS: INSULIN -REGULAR HUMAN 50 UNIT/0.5 ML ML SQ SCH ×2 (17:12→20:23)
[2020-05-24] MEDS: AZITHROMYCIN IV 500 MG in NA CHLORIDE 0.9% 250 ML IVPB SCH (20:23)
[2020-05-24] MEDS ORDERED: TRAZODONE 150 MG TAB PO SCH (23:54)
--- NOTE | 2020-05-25 00:32 | P.HP ---
Certification for Inpatient Patient admitted to: Inpatient With expected LOS: >2 Midnights Patient will require the following post-hospital care: None Practitioner: I am a practitioner with admitting privileges, knowledge of patient current condition, hospital course, and medical plan of care. Services: Services provided to patient in accordance with Admission requirements found in Title 42 Section 412.3 of the Code of Federal Regulations Patient History Date of Service: 05/24/20 Reason for admission: Recurrent respiratory failure from COVID-19 pneumonia History of Present Illness: Patient is a 59-year-old female came to the hospital with difficulty breathing. Patient was recently discharged from the hospital on home oxygen. She continued to get worse when she got home so she came back into the ER for further evaluation. In the emergency room patient was satting 80% on room air. We started oxygen and her O2 sats are improved at 92%. She is requiring 6 L of oxygen to keep for signs okay. She will need further evaluation at this time and she will be admitted to ICU. Continue IV steroids. Allergies Morphine Allergy (Mild, Uncoded 05/24/20 01:38) Itching/Hives/Rash Home Medications: Atorvastatin Calcium 1 tab PO BEDTIME 05/19/20 Levothyroxine [Synthroid*] 1 tab PO DAILY 05/19/20 Linagliptin [Tradjenta] 1 tab PO DAILY 05/19/20 Losartan Potassium 25 mg PO DAILY 05/19/20 Vortioxetine Hydrobromide [Trintellix] 1 tab PO DAILY 05/19/20 Methylprednisolone [Medrol dosepack] 4 mg PO DIRECTED #1 rosangela 05/20/20 ALPRAZolam [Xanax*] 1 mg PO TID 05/24/20 Benzonatate [Tessalon Perle] 200 mg PO TID 05/24/20 Clopidogrel Bisulfate [Plavix*] 75 mg PO DAILY 05/24/20 Insulin Detemir [Levemir Flextouch] 20 units SQ BIDWM 05/24/20 Trazodone [Desyrel] 150 mg PO BEDTIME 05/24/20 glipiZIDE [Glipizide] 10 mg PO BIDWM 05/24/20 - Past Medical/Surgical History Has patient received pneumonia vaccine in the past: No Diabetic: Yes -: Anxiety -: CVA -: Hypothyroid -: Depression -: HTN -: Diabetes -: Neuropathy -: Vascular dementia -: Chronic neck/back pain -: 3 C-sections, 1980, 84, 89 -: Vicki, 1986 -: 2 knee surgeries, 1979 -: Sherrie lagunas, 10/04/13 - Family History Father Family History: Reviewed- Non-Contributory - Social History Smoking Status: Never smoker Alcohol use: No CD- Drugs: No Caffeine use: Yes Place of Residence: Home Review of Systems 10-point ROS is otherwise unremarkable Physical Examination - Vital Signs Temperature: 97.7 F Blood Pressure: 155/68 Pulse: 63 Respirations: 20 Pulse Ox (%): 93 - Physical Exam General: Alert, In no apparent distress, Oriented x3 HEENT: Atraumatic, PERRLA, Mucous membr. moist/pink, EOMI, Sclerae nonicteric Neck: Supple, 2+ carotid pulse no bruit, No LAD, Without JVD or thyroid abnormality Respiratory: Diminished, Crackles/rales, Expiratory wheezes Cardiovascular: Regular rate/rhythm, Normal S1 S2, Systolic murmur Gastrointestinal: Normal bowel sounds, Soft and benign, Non-distended, No tenderness Musculoskeletal: No clubbing, No swelling, No tenderness Integumentary: No rashes Neurological: Normal gait, Normal speech, Normal strength at 5/5 x4 extr, Normal tone, Normal affect Lymphatics: No axilla or inguinal lymphadenopathy Assessment & Plan - Problems (Diagnosis) (1) Acute respiratory failure with hypoxia Current Visit: No Status: Acute (2) DM type 2 (diabetes mellitus, type 2) Current Visit: No Status: Acute (3) Pneumonia due to COVID-19 virus Current Visit: No Status: Acute - Plan 1. Continue with IV antibiotics 2. COVID-19 pneumonia treatment at this time 3. Repeat chest x-ray if symptoms are progressively worsening 4. O2 per protocol 5. Pulmonary consultation 6. Continue with albuterol inhaler therapy; IV dexamethasone; zinc and vitamin-C 7. O2 per protocol 8. Monitor LFTs 9. Repeat labs including D-dimer, ferritin, and CRP and LFTs 10. GI and DVT prophylaxis Discharge Plan: Home Plan to discharge in: Greater than 2 days - Advance Directives Does patient have a Living Will: No Does patient have a Durable POA for Healthcare: No - Code Status/Comfort Care Code Status Assessed: Yes Code Status: Full Code Critical Care: No Time Spent Managing PTS Care (In Minutes): 45
[2020-05-25] MEDS: dexAMETHasone 4 MG/ML VIAL IV SCH ×3 (00:39→16:22)
[2020-05-25] MEDS: FUROSEMIDE 40 MG/4 ML VIAL IV SCH (00:39)
[2020-05-25] MEDS: ALPRAZOLAM 1 MG TABLET PO SCH ×4 (00:39→20:30)
[2020-05-25 07:39] LABS: Absolute Lymphocytes (CBC) 0.8 K/uL (0.7-4.9); Basophils % 0.5 % (0-1.3); Hematocrit 29.1 % (36.0-45.0); Lymphocytes % 9.2 % (15.3-44.8); MPV 9.6 fL (7.6-11.3)
[2020-05-25 07:47] LABS: Protime INR 1.04
[2020-05-25 07:51] LABS: ALT/SGPT 17 U/L (12-78); AST/SGOT 16 U/L (15-37); Albumin 1.9 g/dL (3.4-5.0); Alkaline Phosphatase 75 U/L (45-117); BUN Blood Urea Nitrogen 22 mg/dL (7-18); Bicarbonate 26 mmol/L (21-32); Bilirubin Total 0.3 mg/dL (0.2-1.0); Glucose Level 253 mg/dL (74-106); HDL Cholesterol 41 mg/dL (40-60); LDL Cholesterol, Calculated 79 (<130); Magnesium 1.9 mg/dL (1.8-2.4); NT PRO-BNP 744 pg/mL (<125); Phosphorus 3.4 mg/dL (2.5-4.9); Potassium 3.3 mmol/L (3.5-5.1); Protein, Total 6.1 g/dL (6.4-8.2); Sodium Level 137 mmol/L (136-145); Troponin I < 0.02 ng/mL (0.0-0.045)
[2020-05-25] MEDS ORDERED: INSULIN DETEMIR 20 UNIT SQ SCH (08:00)
[2020-05-25] MEDS: INSULIN GLARGINE 100 UNITS/ML SQ SCH ×2 (08:00→16:19)
[2020-05-25] MEDS: glipiZIDE 5 MG TAB PO SCH ×2 (08:00→16:24)
[2020-05-25] MEDS ORDERED: HOME MED 1 EA UNK (Losartan Potassium [Losartan Potassium] 1 TAB) PO SCH (09:00)
[2020-05-25] MEDS ORDERED: HOME MED 1 EA UNK (Vortioxetine Hydrobromide [Trintellix] 1 TAB) PO SCH (09:00)
[2020-05-25] MEDS: CEFTRIAXONE/SWI 1gm 1 GM/10 ML SYR IV SCH ×2 (09:00→20:31)
[2020-05-25] MEDS: HOME MED 1 EA UNK (Vortioxetine Hydrobromide [Trintellix] 10 MG) PO SCH (09:00)
[2020-05-25] MEDS: INSULIN -REGULAR HUMAN 50 UNIT/0.5 ML ML SQ SCH ×4 (09:12→20:31)
[2020-05-25] MEDS: ZINC SULFATE 220 MG CAP PO SCH (09:52)
[2020-05-25] MEDS: ENOXAPARIN 40 MG/0.4 ML SQ SCH (09:52)
[2020-05-25] MEDS: LOSARTAN POTASSIUM 50 MG TABLET PO SCH (09:53)
[2020-05-25] MEDS: CLOPIDOGREL 75 MG TABLET PO SCH (09:53)
[2020-05-25] MEDS: LEVOTHYROXINE SOD 0.125 MG TAB PO SCH (09:54)
[2020-05-25] MEDS: BENZONATATE 100 MG CAP PO SCH ×3 (09:54→20:30)
[2020-05-25] MEDS ORDERED: POTASSIUM CL SA 10 MEQ TAB PO ONE (15:36)
[2020-05-25] MEDS: AZITHROMYCIN IV 500 MG in NA CHLORIDE 0.9% 250 ML IVPB SCH (20:30)
[2020-05-25] MEDS: ATORVASTATIN 40 MG TAB PO SCH (20:31)
[2020-05-25] MEDS: TRAZODONE 50 MG TABLET PO SCH (20:31)
[2020-05-26] MEDS: dexAMETHasone 4 MG/ML VIAL IV SCH ×3 (01:46→22:44)
--- NOTE | 2020-05-26 02:49 | P.PN ---
Subjective Date of Service: 05/25/20 Patient very lethargic this morning.; she received trazodone 150 mg last night. She says that was normal home dosage. However because she is so lethargic this morning, I will cut her doses down. Review of Systems 10-point ROS is otherwise unremarkable Physical Examination - Vital Signs Temperature: 97.4 F Blood Pressure: 115/65 Pulse: 86 Respirations: 18 Pulse Ox (%): 95 - Physical Exam General: Alert, In no apparent distress, Oriented x3 Respiratory: Diminished, Rhonchi/gurgles Cardiovascular: Regular rate/rhythm, Normal S1 S2, No murmurs Gastrointestinal: Normal bowel sounds, Soft and benign, Non-distended, No tenderness Musculoskeletal: No clubbing, No swelling Neurological: Normal strength at 5/5 x4 extr, Sensation intact, Cranial nerves 3-12 intact Assessment & Plan - Problems (Diagnosis) (1) Acute respiratory failure with hypoxia Current Visit: No Status: Acute (2) DM type 2 (diabetes mellitus, type 2) Current Visit: No Status: Acute (3) Pneumonia due to COVID-19 virus Current Visit: No Status: Acute - Plan 1. Continue with current plan of care with IV steroids and IV antibiotics. Appreciate Pulmonary consultation. Continue with supportive care with pain, vitamin-C,. Continue with oxygen per protocol. Appreciate Pulmonary consultation. Albuterol inhaler papular and. Continue with IV dexamethasone as well. Anticipate transfer to the floor if patient keeps improving over the next 24-48 hr and we can wean oxygen flow rate. 2. GI and DVT prophylax Plan to discharge in: 48 Hours - Advance Directives Does patient have a Living Will: No Does patient have a Durable POA for Healthcare: No - Code Status/Comfort Care Code Status: Full Code Critical Care: No Time Spent Managing PTS Care (In Minutes): 30
--- NOTE | 2020-05-26 03:00 | P.PN ---
Subjective Date of Service: 05/26/20 Patient continues to improve. No new complaints. Weaning down oxygenation. Out of bed and ambulate and recheck oxygen today. When able to maintain O2 sats greater than 94% then possible discharge. She is still not awake as I would like; may need to wean back off the anxiolytics Review of Systems 10-point ROS is otherwise unremarkable Physical Examination - Vital Signs Temperature: 97.4 F Blood Pressure: 115/65 Pulse: 86 Respirations: 18 Pulse Ox (%): 95 - Physical Exam General: Alert, In no apparent distress, Oriented x3 Respiratory: Diminished, Rhonchi/gurgles Cardiovascular: Regular rate/rhythm, Normal S1 S2, No murmurs Gastrointestinal: Normal bowel sounds, Soft and benign, Non-distended, No tenderness Musculoskeletal: No clubbing, No swelling, No tenderness Neurological: Sensation intact, Cranial nerves 3-12 intact - Studies Medications List Reviewed: Yes Assessment & Plan - Problems (Diagnosis) (1) Acute respiratory failure with hypoxia Current Visit: No Status: Acute (2) DM type 2 (diabetes mellitus, type 2) Current Visit: No Status: Acute (3) Pneumonia due to COVID-19 virus Current Visit: No Status: Acute - Plan Patient's symptoms slowly improving. Will do ambulation and see if patient's O2 sats decreased. It able to maintain O2 sats greater than 94% at 4-5 L then we can possibly discharge. If patient's oxygen saturations drop on ambulation or exertion then we will continue with hospital care but patient may be able to go to medical-surgical floor. 1. Continue with IV steroids and IV antibiotics. Continue with supportive care with zinc & vitamin-C. Continue with oxygen per protocol. Appreciate Pulmonary consultation. Albuterol inhaler. Continue with IV dexamethasone as well- slowly start weaning down as long as oxygenation and CRP levels are stable. Anticipate transfer to the floor if patient keeps improving over the next 24hr and we can wean oxygen flow rate. 2. GI and DVT prophylax - Advance Directives Does patient have a Living Will: No Does patient have a Durable POA for Healthcare: No - Code Status/Comfort Care Code Status: Full Code Critical Care: No Time Spent Managing PTS Care (In Minutes): 30
[2020-05-26] MEDS: INSULIN -REGULAR HUMAN 50 UNIT/0.5 ML ML SQ SCH ×4 (07:30→23:00)
[2020-05-26] MEDS: INSULIN GLARGINE 100 UNITS/ML SQ SCH ×2 (08:11→18:01)
[2020-05-26] MEDS: glipiZIDE 5 MG TAB PO SCH ×2 (08:14→17:57)
[2020-05-26] MEDS: CEFTRIAXONE/SWI 1gm 1 GM/10 ML SYR IV SCH ×2 (09:00→22:47)
[2020-05-26] MEDS: HOME MED 1 EA UNK (Vortioxetine Hydrobromide [Trintellix] 10 MG) PO SCH (09:00)
[2020-05-26] MEDS: ENOXAPARIN 40 MG/0.4 ML SQ SCH (09:00)
[2020-05-26] MEDS: ZINC SULFATE 220 MG CAP PO SCH (09:00)
[2020-05-26] MEDS: LOSARTAN POTASSIUM 50 MG TABLET PO SCH (09:00)
[2020-05-26] MEDS: LEVOTHYROXINE SOD 0.125 MG TAB PO SCH (09:00)
[2020-05-26] MEDS: BENZONATATE 100 MG CAP PO SCH ×3 (09:00→22:47)
[2020-05-26] MEDS: CLOPIDOGREL 75 MG TABLET PO SCH (09:00)
[2020-05-26] MEDS: ALPRAZOLAM 1 MG TABLET PO SCH ×3 (09:00→22:48)
--- NOTE | 2020-05-26 11:14 | RAD REPORT ---
EXAM DESCRIPTION: Chest Single View CLINICAL HISTORY: 59 years Female SOB COMPARISON: None TECHNIQUE: AP view of the chest was obtained. FINDINGS: Cardiac size is within normal limits. Central vessels are obscured. Extensive airspace opacities lung villafana bilaterally with ill-defined nodularity noted. No effusion on right. Possible small effusion on left. No pneumothorax. IMPRESSION: Extensive bilateral infiltrates with nodular component noted. Inflammatory process is qu estioned. Underlying neoplasm not excluded. Electronically signed by: Stephanie Garcia MD 05/24/2020 12:30 AM CDT Due to temporary technical issues with the PACS/Fluency reporting system, reports are being signed by the in house radiologist without review as a courtesy to ensure prompt reporting. The interpreting r adiologist is fully responsible for the content of the report.
--- NOTE | 2020-05-26 11:32 | RAD REPORT ---
EXAM DESCRIPTION: Chest For Pe Angio CLINICAL HISTORY: 59 years Female PE COMPARISON: None TECHNIQUE: Images were obtained in axial, sagittal, and coronal planes. Intravenous contrast was adm inistered. 3-D MIP imaging was performed. This exam was performed according to our departmental dose-optimization program which includes use of Automated Exposure Control, adjustment of the mA and/or kV according to patient size and/or use o f iterative reconstruction technique. . FINDINGS: No filling defects pulmonary arteries bilaterally. Aortic root is dilated measuring 4 cm i n anterior posterior dimension. No evidence for dissection. No pericardial or pleural effusions bilaterally. 1.6 cm lymph node aorticopulmonary window. 1.8 cm right paratracheal lymph node. Extensive airspace attenuation lung villafana bilaterally with peripheral distribution. Ill-defined nodu larity noted. No acute osseous abnormality. Prior cholecystectomy. Spleen is enlarged measuring 13 cm in anterior posterior dimension. IMPRESSION: No evidence for pulmonary embolus. Dilated aortic root with no evidence for aortic dissection. Extensive bilateral infiltrates. The findings could be consistent with but not specific for atypical pneumonia including viral infection. Electronically signed by: Stephanie Garcia MD 05/24/2020 12:37 AM CDT Due to temporary technical issues with the PACS/Fluency reporting system, reports are being signed by the in house radiologist without review as a courtesy to ensure prompt reporting. The interpreting r adiologist is fully responsible for the content of the report.
[2020-05-26] MEDS: TRAZODONE 50 MG TABLET PO SCH (22:44)
[2020-05-26] MEDS: ATORVASTATIN 40 MG TAB PO SCH (22:44)
[2020-05-26] MEDS: AZITHROMYCIN IV 500 MG in NA CHLORIDE 0.9% 250 ML IVPB SCH (22:48)
[2020-05-27] MEDS: ALBUTEROL INHALER 60 PUFF/8 GM IH SCH ×5 (04:43→18:00)
[2020-05-27 05:00] VITALS: BMI 33.3
[2020-05-27] MEDS: INSULIN -REGULAR HUMAN 50 UNIT/0.5 ML ML SQ SCH ×4 (07:30→21:08)
[2020-05-27] MEDS: glipiZIDE 5 MG TAB PO SCH ×3 (08:00→18:21)
[2020-05-27] MEDS ORDERED: FUROSEMIDE 20 MG/ 2ML VIAL IV ONE (08:35)
[2020-05-27] MEDS: ALPRAZOLAM 1 MG TABLET PO SCH ×3 (09:00→20:47)
[2020-05-27] MEDS: HOME MED 1 EA UNK (Vortioxetine Hydrobromide [Trintellix] 10 MG) PO SCH (09:00)
[2020-05-27] MEDS: BENZONATATE 100 MG CAP PO SCH ×3 (09:00→20:47)
[2020-05-27 09:06] LABS: Albumin 1.8 g/dL (3.4-5.0); Bilirubin Total 0.2 mg/dL (0.2-1.0); C-Reactive Protein 11.4 mg/L (<3.00); Ferritin 214.9 ng/mL (8-388); Magnesium 1.9 mg/dL (1.8-2.4); Phosphorus 2.5 mg/dL (2.5-4.9); Potassium 3.8 mmol/L (3.5-5.1); Protein, Total 5.9 g/dL (6.4-8.2)
[2020-05-27] MEDS: ENOXAPARIN 40 MG/0.4 ML SQ SCH (10:20)
[2020-05-27] MEDS: dexAMETHasone 4 MG/ML VIAL IV SCH ×2 (10:21→20:48)
[2020-05-27] MEDS: CEFTRIAXONE/SWI 1gm 1 GM/10 ML SYR IV SCH ×2 (10:21→20:47)
[2020-05-27] MEDS: LEVOTHYROXINE SOD 0.125 MG TAB PO SCH (10:22)
[2020-05-27] MEDS: ZINC SULFATE 220 MG CAP PO SCH (10:22)
[2020-05-27] MEDS: LOSARTAN POTASSIUM 50 MG TABLET PO SCH (10:22)
[2020-05-27] MEDS: CLOPIDOGREL 75 MG TABLET PO SCH (10:22)
[2020-05-27] MEDS: INSULIN GLARGINE 100 UNITS/ML SQ SCH ×2 (10:24→17:36)
--- NOTE | 2020-05-27 11:37 | P.PN ---
Subjective Date of Service: 05/27/20 Chief Complaint: Recurrent respiratory failure from COVID-19 pneumonia Subjective: Improving (Patient is more alert and awake. She is responding appropriately to questions. However, she still very lethargic. Her drowsiness has improved. She has been weaned down O2 to 3L via NC.) Physical Examination - Vital Signs Temperature: 97.4 F Blood Pressure: 104/66 Pulse: 65 Respirations: 11 Pulse Ox (%): 90 - Physical Exam General: In no apparent distress, Cooperative, Other (Lethargic) HEENT: Atraumatic, Normocephalic, EOMI Neck: Supple Respiratory: Crackles/rales Cardiovascular: No edema, Normal pulses, Regular rate/rhythm, Normal S1 S2 Gastrointestinal: Normal bowel sounds, Soft and benign, Non-distended, No tenderness Musculoskeletal: No clubbing, No swelling, No contractures, No erythema, No tenderness, No warmth Integumentary: No rashes, No breakdown, No significant lesion, No tenderness/swelling, No erythema, No warmth, No cyanosis Neurological: Normal speech, Sensation intact, Normal affect - Studies Medications List Reviewed: Yes Assessment & Plan - Problems (Diagnosis) (1) Acute respiratory failure with hypoxia Current Visit: No Status: Acute (2) DM type 2 (diabetes mellitus, type 2) Current Visit: No Status: Acute (3) Pneumonia due to COVID-19 virus Current Visit: No Status: Acute Physician Review Additional Text: Assessment Patient is a 59-year-old female with a past medical history uncontrolled type 2 diabetes currently admitted in the ICU with acute hypoxemic respiratory failure secondary to COVID 19 pneumonia. SHE IS PROGRESSING WELL AND HAS BEEN WEAN DOWN OXYGEN. Today is the 1st day where patient's clinical status has looked favorable. She is still severely hyperglycemic and requiring uptitration of her insulin regimen Acute hypoxemic respiratory failure COVID 19 PNA Insulin dependent diabetes mellitus PLAN: Patient will need 1 more day of hospitalization given high risk for readmissions Continue supplemental oxygen via nasal cannula, wean down oxygen as tolerated Home oxygen has been set up already Continue dexamethasone and antibiotics Also Continue vitamin-B 1 and vitamin C along with zinc Switch from a prophylactic Lovenox to full dose oral systemic anti coagulation Recheck inflammatory markers, d-dimers and BNP. Adjust as indicated Adjustment insulin regimen for dexamethasone-induced hyperglycemia
[2020-05-27] MEDS ORDERED: NPH (HUMAN) 100 UNITS/ML INSULIN SQ ONE (12:00)
[2020-05-27 12:26] LABS: C-Reactive Protein 12.3 mg/L (<3.00)
[2020-05-27] MEDS: APIXABAN 5 MG TABLET PO SCH (13:53)
[2020-05-27] MEDS ORDERED: POTASSIUM CL SA 10 MEQ TAB PO ONE (20:00)
[2020-05-27] MEDS: AZITHROMYCIN IV 500 MG in NA CHLORIDE 0.9% 250 ML IVPB SCH (20:46)
[2020-05-27] MEDS: TRAZODONE 50 MG TABLET PO SCH (20:47)
[2020-05-27] MEDS: POTASS/SODIUM PHOSPHATE 1 PKT POWD.PACK PO SCH ×2 (20:48→22:41)
[2020-05-27] MEDS: ATORVASTATIN 40 MG TAB PO SCH (20:48)
[2020-05-28] MEDS: POTASS/SODIUM PHOSPHATE 1 PKT POWD.PACK PO SCH (00:26)
[2020-05-28] MEDS ORDERED: POTASS/SODIUM PHOSPHATE 1 PKT POWD.PACK ONE (00:35)
[2020-05-28] MEDS: ALBUTEROL INHALER 60 PUFF/8 GM IH SCH ×2 (00:37→05:24)
[2020-05-28 05:51] VITALS: BP 141/70; TEMP 97.3
[2020-05-28 06:00] LABS: Phosphorus 3.7 mg/dL (2.5-4.9); Potassium 3.9 mmol/L (3.5-5.1)
[2020-05-28] MEDS: INSULIN -REGULAR HUMAN 50 UNIT/0.5 ML ML SQ SCH (07:30)
[2020-05-28] MEDS: INSULIN GLARGINE 100 UNITS/ML SQ SCH (08:00)
[2020-05-28] MEDS: glipiZIDE 5 MG TAB PO SCH (08:00)
[2020-05-28] MEDS: CLOPIDOGREL 75 MG TABLET PO SCH (08:16)
[2020-05-28] MEDS: LOSARTAN POTASSIUM 50 MG TABLET PO SCH (08:16)
[2020-05-28] MEDS: CEFTRIAXONE/SWI 1gm 1 GM/10 ML SYR IV SCH (08:16)
[2020-05-28] MEDS: APIXABAN 5 MG TABLET PO SCH (08:16)
[2020-05-28] MEDS: LEVOTHYROXINE SOD 0.125 MG TAB PO SCH (08:16)
[2020-05-28] MEDS: BENZONATATE 100 MG CAP PO SCH (08:16)
[2020-05-28] MEDS: dexAMETHasone 4 MG/ML VIAL IV SCH (08:16)
[2020-05-28] MEDS: ZINC SULFATE 220 MG CAP PO SCH (08:17)
[2020-05-28] MEDS: HOME MED 1 EA UNK (Vortioxetine Hydrobromide [Trintellix] 10 MG) PO SCH (08:17)
[2020-05-28] MEDS: ALPRAZOLAM 1 MG TABLET PO SCH (08:17)
--- NOTE | 2020-05-28 09:16 | RAD REPORT ---
EXAM DESCRIPTION: CHEST, ONE VIEW XR CLINICAL HISTORY: Picc line placement COMPARISON: 05/23/2020 TECHNIQUE: AP Chest. FINDINGS: Left subclavian PICC line is positioned in the inferior aspect of the superior vena cava. No pneumothorax. Significant scattered patchy bilateral parenchymal opacities are stable. No pneumothorax or pleural f luid. Heart is normal in size. Normal cardiomediastinal contours. No pulmonary edema. Unremarkable soft tissues. Bones appear intact. IMPRESSION: 1. Left subclavian PICC line placed without complication. 2. Stable multifocal bilateral pulmonary infiltrates. Electronically signed by: Thu Ronquillo DO 05/27/2020 2:59 AM CDT Due to temporary technical issues with the PACS/Fluency reporting system, reports are being signed by the in house radiologist without review as a courtesy to ensure prompt reporting. The interpreting r adiologist is fully responsible for the content of the report.
[2020-05-28 09:22] VITALS: O2SAT 90
--- NOTE | 2020-05-28 11:00 | P.DS ---
Admission Date: 05/24/20 Discharge Date: 05/28/20 Reason for Admission: Recurrent respiratory failure from COVID-19 pneumonia - Problems (1) Acute respiratory failure with hypoxia Current Visit: No Status: Acute (2) DM type 2 (diabetes mellitus, type 2) Current Visit: No Status: Acute (3) Pneumonia due to COVID-19 virus Current Visit: No Status: Acute Hospital Course: Patient is a 59-year-old female with type II DM, neurovascular dementia and anxiety who was admitted for acute hypoxemic respiratory failure secondary to COVID 19 pneumonia. She was in the ICU. She responded to systemic steroids, full-dose anti coagulation and multi-vitamins. Her oxygen requirement has gone down. She will still need to be discharge on home oxygen. Vital Signs/Physical Exam: Temp Pulse Resp BP Pulse Ox 97.3 F 61 18 141/70 H 94 05/28/20 04:00 05/28/20 04:00 05/28/20 04:00 05/28/20 04:00 05/28/20 04:00 General: Alert, In no apparent distress, Cooperative HEENT: Atraumatic, Normocephalic, EOMI Neck: Supple Respiratory: Clear to auscultation bilaterally, Normal air movement Musculoskeletal: No clubbing, No swelling, No contractures, No erythema, No tenderness, No warmth Integumentary: No rashes, No breakdown, No significant lesion, No tenderness/swelling, No erythema, No warmth, No cyanosis Neurological: Normal speech, Sensation intact, Normal affect Laboratory Data at Discharge: WBC 9.0 K/uL (4.3-10.9) D 05/25/20 07:20 Hgb 10.2 g/dL (12.0-15.0) L 05/25/20 07:20 Hct 29.1 % (36.0-45.0) L 05/25/20 07:20 Plt Count 405 K/uL (152-406) 05/25/20 07:20 PT 12.3 SECONDS (9.5-12.5) 05/25/20 07:20 INR 1.04 05/25/20 07:20 APTT 27.3 SECONDS (24.3-36.9) 05/25/20 07:20 Sodium 141 mmol/L (136-145) 05/28/20 05:20 Potassium 3.9 mmol/L (3.5-5.1) 05/28/20 05:20 BUN 22 mg/dL (7-18) H 05/28/20 05:20 Creatinine 0.88 mg/dL (0.55-1.3) 05/28/20 05:20 Glucose 198 mg/dL (74-106) H 05/28/20 05:20 Phosphorus 3.7 mg/dL (2.5-4.9) 05/28/20 05:20 Magnesium 1.9 mg/dL (1.8-2.4) 05/27/20 08:10 Total Bilirubin 0.2 mg/dL (0.2-1.0) 05/27/20 08:10 AST 12 U/L (15-37) L 05/27/20 08:10 ALT 14 U/L (12-78) 05/27/20 08:10 Alkaline Phosphatase 66 U/L (45-117) 05/27/20 08:10 Troponin I < 0.02 ng/mL (0.0-0.045) 05/27/20 04:40 Triglycerides 146 mg/dL (<150) 05/25/20 07:20 Cholesterol 149 mg/dL (<200) 05/25/20 07:20 HDL Cholesterol 41 mg/dL (40-60) 05/25/20 07:20 Cholesterol/HDL Ratio 3.63 05/25/20 07:20 Lipase 85 U/L (73-393) 05/23/20 21:45 Home Medications: Atorvastatin Calcium 40 mg PO BEDTIME 05/19/20 Levothyroxine [Synthroid*] 0.125 mg PO DAILY 05/19/20 Linagliptin [Tradjenta] 5 mg PO DAILY 05/19/20 Losartan Potassium 25 mg PO DAILY 05/19/20 Vortioxetine Hydrobromide [Trintellix] 10 mg PO DAILY 05/19/20 ALPRAZolam [Xanax*] 1 mg PO TID 05/24/20 Benzonatate [Tessalon Perle*] 200 mg PO TID 05/24/20 Clopidogrel Bisulfate [Plavix*] 75 mg PO DAILY 05/24/20 Insulin Detemir [Levemir Flextouch] 20 units SQ BIDWM 05/24/20 Trazodone [Desyrel*] 150 mg PO BEDTIME 05/24/20 glipiZIDE [Glipizide] 10 mg PO BIDWM 05/24/20 Apixaban [Eliquis] 5 mg PO BID #28 tablet 05/28/20 Ascorbic Acid [Vitamin C] 500 mg PO DAILY #14 tablet 05/28/20 Trazodone [Desyrel*] 50 mg PO BEDTIME tablet 05/28/20 Zinc Sulfate [Zinc Sulfate*] 220 mg PO DAILY #14 cap 05/28/20 predniSONE [Deltasone] 20 mg PO BID #14 tab 05/28/20 New Medications: Apixaban [Eliquis] 5 mg PO BID #28 tablet predniSONE [Deltasone] 20 mg PO BID #14 tab Ascorbic Acid [Vitamin C] 500 mg PO DAILY #14 tablet Zinc Sulfate [Zinc Sulfate*] 220 mg PO DAILY #14 cap Followup: Stephanie Nogueira MD [COURTESY - CAN ADMIT] -
== END 2020-05-28 11:20 | disposition home or self-care (01) | DRG 177 ==
LOC: ER 21:31 → ERHOLD 05-24 01:19 → 3RD-ICU 05-24 01:23 → 4TH 05-27 18:30
PROVIDERS: ADMIT Hospitalist; ATTEND Internal Medicine
PROC: 02HV33Z Insertion of Infusion Device into Superior Vena Cava, Percutaneous Approach (ICD-10-PCS; principal; 2020-05-27)
DX: U07.1 COVID-19 (principal); J12.89 Other viral pneumonia; J96.01 Acute respiratory failure with hypoxia; F03.90 Unspecified dementia, unspecified severity, without behavioral disturbance, psychotic disturbance, mood disturbance, and anxiety; F41.9 Anxiety disorder, unspecified; I10 Essential (primary) hypertension; E03.9 Hypothyroidism, unspecified; E11.65 Type 2 diabetes mellitus with hyperglycemia; T38.0X5A Adverse effect of glucocorticoids and synthetic analogues, initial encounter; Z99.81 Dependence on supplemental oxygen; Z88.5 Allergy status to narcotic agent; Z79.890 Hormone replacement therapy; Z79.02 Long term (current) use of antithrombotics/antiplatelets; Z79.4 Long term (current) use of insulin; Z79.899 Other long term (current) drug therapy; Z86.73 Personal history of transient ischemic attack (TIA), and cerebral infarction without residual deficits; Z90.49 Acquired absence of other specified parts of digestive tract
CPT/HCPCS: 36415; 36569; 71045; 71275; 80048; 80053; 80061; 80076; 82550; 82553; 82728; 82947; 83605; 83615; 83690; 83735; 83880; 84100; 84132; 84145; 84484; 85025; 85379; 85610; 85730; 86140; 87040; 93005; 94760; 96365; 96375; 99285; J0456; J0696; J1100; J1650; J1815; J1940; J2405; J3480; J7030; J7050; Q9967

== ENCOUNTER 2020-05-29 15:22 | Inpatient (IN) | payer OTHER ==
--- OUTSIDE RECORDS SUMMARY | 2020-05-29 15:25 | XMS REPORT | Continuity of Care Document ---
:1960 Author Organization [facility] t Address [address] [place] [address] [address]. [address] [place] [address] Care Team Providers Name Role Phone Asked, Pcp Primary Care Physician Unavailable Brenna SOTELO, S Attending Clinician Doctor Unassigned, Name Attending Clinician Unavailable Jose Antonio ARIZA, S Attending Clinician Delvin ARIZA, L Attending Clinician Problems Condition Condition Condition Status Onset Resolution Last Treating Co mments Source Name Details Category Date Date Treatment Clinician Date Cocaine Cocaine Disease Active [place] abuse abuse 07-01 Methodi 00:00: st 00 [...] Date Quantity Comments Source Sex Assigned At [facility] ethodist Alcohol intake 2016-06-30 2016-06-30 Current [facility] thodist 00:00:00 00:00:00 non-drinker of alcohol (finding) Smoking Status Start Date Stop Date Source [facility] smoker [place] [facility] Medications This patient has no known medications. Procedures This patient has no known procedures. Encounters Start End Encounter Admission Attending Care Care Encounter Source Date/Time Date/Time Type Type Clinicians Facility Department ID 2020-05-15 2020-05-15 Telemedici Ceja [facility] [id number] 08:20:16 08:35:16 ne Visit Param Hodge [id number] Surgical [id number] Specialti [id number] [address] [place] 2020-05-13 2020-05-13 Orders Doctor PAYAL [id number] 00:00:00 00:00:00 Only Unassigned, GAMA [id number] [place] [id number] 2020-05-12 2020-05-12 Emergency [facility] [id number] 01:59:32 07:04:00 Nora Bob [id number] [place] [id number] [place] [id number] 2020-05-08 2020-05-08 [facility] [id number] 10:30:00 23:59:00 Encounter Florencio Bob [id number] [place] [id number] [place] [id number] 2020-05-08 2020-05-08 Orders Doctor MOE [id number] 00:00:00 00:00:00 Only UnassignedGAMA [id number] [place] [id number] 2020-05-05 2020-05-05 Telephone [facility] [id number] 00:00:00 00:00:00 Florencio Hodge [id number] Surgical [id number] Specialti [id number] [address] [place] 2020-04-30 2020-04-30 Office [facility] [id number] 14:40:54 15:09:09 Visit [facility] [id number] Surgical [id number] Specialti [id number] [address] Results This patient has no known results.
--- OUTSIDE RECORDS SUMMARY | 2020-05-29 15:25 | XMS REPORT | Clinical Summary ---
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
--- NOTE | 2020-05-29 16:00 | RAD REPORT ---
EXAM DESCRIPTION: CT - Ct Stroke Brain Wo Cont - 05/29/2020 3:36 pm CLINICAL HISTORY: r/o stroke Headache, drowsiness, CVA COMPARISON: Head Brain Wo Cont dated 05/19/2020 TECHNIQUE: All CT scans are performed using dose optimization technique as appropriate and may inclu de automated exposure control or mA/KV adjustment according to patient size. FINDINGS: No intracranial hemorrhage, hydrocephalus or extra-axial fluid collection.No areas of brai n edema or evidence of midline shift. The paranasal sinuses and mastoids are clear. The calvarium is intact. IMPRESSION: No acute intracranial abnormality. The findings were discussed with Dr. Blackburn on 05/29/20 at 3:55 pm by telephone.
[2020-05-29 16:02] LABS: Absolute Lymphocytes (CBC) 2.3 K/uL (0.7-4.9); Hematocrit 32.5 % (36.0-45.0); Lymphocytes % 12.8 % (15.3-44.8); MPV 9.2 fL (7.6-11.3); RBC Red Blood Cell Count 3.93 M/uL (3.86-4.86)
[2020-05-29 16:10] LABS: Protime INR 1.04
[2020-05-29] MEDS ORDERED: NA CHLORIDE 0.9% 250 ML ONE (16:19)
[2020-05-29] MEDS ORDERED: ALTEPLASE 100 ML IV ONE (16:19)
[2020-05-29 16:22] LABS: Potassium 3.3 mmol/L (3.5-5.1)
--- NOTE | 2020-05-29 16:41 | ER ---
Nurse's Notes [facility] Name: Janis Henderson Age: 59 yrs Sex: Female : 1960 Arrival Date: 05/29/2020 Time: 15:27 Bed 26 Private MD: Diagnosis: CVA: dysarthria, aphasia, right sided weakness Presentation: 05/29 15:20 Chief complaint: EMS states: CODE STROKE called. AMS and R sided weakness with facial ss droop that began at 1400 today. Coronavirus screen: Client presents with at least one sign or symptom that may indicate coronavirus-19. Standard/surgical mask placed on the client. Provider contacted for isolation considerations. Ebola Screen: Patient denies exposure to infectious person. Patient denies travel to an Ebola-affected area in the 21 days before illness onset. Initial Sepsis Screen: Does the patient meet any 2 criteria? No. Patient's initial sepsis screen is negative. Initial Sepsis Screen: Does the patient have a suspected source of infection? No. Patient's initial sepsis screen is negative. Risk Assessment: Do you want to hurt yourself or someone else? Patient reports no desire to harm self or others. Onset of symptoms was May 29, 2020 at 14:00. 15:20 Method Of Arrival: EMS: [facility] 15:20 Acuity: JUANCHO 1 ss Triage Assessment: 05/30 12:50 General: Behavior is calm, cooperative. ks7 Historical: - Allergies: 05/29 16:02 Morphine; hb - Home Meds: 16:03 Xanax Oral [Active]; Plavix 75 mg Oral tab [Active]; sucralfate 1 gram Oral tab hb [Active]; Tradjenta 5 mg Oral tab [Active]; losartan 25 mg Oral tab [Active]; lisinopril Oral [Active]; levothyroxine oral [Active]; Glipizide Oral [Active]; Lexapro Oral [Active]; atorvastatin 40 mg Oral tab [Active]; - PMHx: 16:02 CVA; VASCULAR DEMENTIA; Hypertension; Diabetes - NIDDM; Depression; COVID; chronic hb neck/back pain; Anxiety; Hypothyroidism; - PSHx: 16:02 Appendectomy; Cholecystectomy; knee sx; ; hb - Immunization history:: Adult Immunizations up to date. - Social history:: Smoking status: unknown. Screenin:30 Patient has been NPO before screening. The patient is alert, able to follow commands. ss The patient exhibits slurred or garbled speech. The patient failed the bedside swallow screening. The patient will be kept NPO until cleared by Speech Therapy or Physician. 15:45 Abuse screen: Denies threats or abuse. Denies injuries from another. Nutritional ss screening: swallow screening failed. Tuberculosis screening: Never had TB. Fall Risk Fall in past 12 months (25 points). Secondary diagnosis (15 points) CVA, IV access (20 points). Ambulatory Aid- None/Bed Rest/Nurse Assist (0 pts). Gait- Normal/Bed Rest/Wheelchair (0 pts) Mental Status- Oriented to own ability (0 pts). Assessment: 15:20 Reassessment: CODE STROKE CALLED. PT TO CT WITH TAWNYA BOLANOS. hb 15:20 General: Appears uncomfortable. General: NIHSS score 4 on arrival. Pt is COVID positive ss x 1 week. Is on home O2 VIA NC as needed. Pain: Denies pain. Neuro: Level of Consciousness is awake, obeys commands, Oriented to person, place, time. Cardiovascular: Capillary refill < 3 seconds is brisk in bilateral fingers. Respiratory: Airway is patent Respiratory effort is even, unlabored, Respiratory pattern is regular, symmetrical. EENT: Oral mucosa is moist. Derm: Skin is intact, is healthy with good turgor, Skin is pink, warm \T\ dry. normal. Musculoskeletal: Range of motion: intact in all extremities. 15:20 Neuro: Level of Consciousness is awake, obeys commands, Systems Security Consultant are equal bilaterally ss Speech is slurred, Facial droop on right. 17:09 Reassessment: Daughter Leslie Wayne [phone]. hb 17:42 Reassessment: Pt to MRI at this time VIA stretcher. ss 18:06 Reassessment: SEE IV TPA VS and NEURO FLOWSHEET on paper chart for additional NIHSS ss scores. 18:15 Reassessment: Pt back from MRI. NIHSS 4. Respirations remain even and unlabored. ss Awaiting ICU room assignment at this time. Pain: Denies pain. Neuro: Level of Consciousness is awake, alert, obeys commands, Oriented to person, place, time, situation, Systems Security Consultant are equal bilaterally Moves all extremities. Speech is slurred, Facial droop on right, Pupils are PERRLA. 18:15 Reassessment: Patient denies pain at this time. Patient states feeling better. ss 19:00 Reassessment: NIHSS 3 at this time. Pt reports she is feeling better. Speech seems to ss have improved minimally. No aphasia noted at this time. Systems Security Consultant equal. Respirations remain even and unlabored. Awaiting room assignment. Report given to CICI Larios and CICI Bower. SEE NIHSS and VS FLOWSHEET for additional NIHSS score. GI: Patient currently denies diarrhea, nausea, vomiting. 19:15 Reassessment: PT is laying on her side. Facial droop and mild slurring remains. Pt is jb4 A\T\Ox4. denies pain. Asked if she needed anything at this time, pt reports not needing anything. Updated on POC. NIHS score of 3. Lungs CTA BRENDEN. Pt remains A-febrile. No s/s of distress noted. Respirations remain even and unlabored. IV site remain clean, dry, and intact. 05/30 12:43 Reassessment: Patient and/or family updated on plan of care and expected duration. Pain ks7 level reassessed. Patient is alert, oriented x 3, equal unlabored respirations, skin warm/dry/pink. pt resting comfortably in room. no s/s of distress. call light within reach. Neuro: Level of Consciousness is awake, alert, obeys commands, Oriented to person, place, time, situation, Systems Security Consultant are equal bilaterally Moves all extremities. no arm drift, no leg drift. Speech is slurred, Facial droop on right, Pupils are PERRLA, able to feel sensation to all extremities and face bilaterally. pt reports R leg sensation dull compared to L leg.. 13:15 Reassessment: No changes from previously documented assessment. Patient is alert, ks7 oriented x 3, equal unlabored respirations, skin warm/dry/pink. Neuro: Level of Consciousness is awake, alert, obeys commands, Oriented to person, place, time, situation, Systems Security Consultant are equal bilaterally Moves all extremities. Speech is slurred, Facial droop on right, Pupils are PERRLA, Intact. 14:13 Reassessment: pt asking to call her : Jacky : [phone] will call. she does ks7 not know where her cell phone is. 14:15 Reassessment: No changes from previously documented assessment. Patient and/or family ks7 updated on plan of care and expected duration. Pain level reassessed. Patient is alert, oriented x 3, equal unlabored respirations, skin warm/dry/pink. Neuro: Level of Consciousness is awake, alert, obeys commands, Oriented to person, place, time, situation, Systems Security Consultant are equal bilaterally Moves all extremities. Speech is slurred, Facial droop on right, Pupils are PERRLA, Intact. 14:22 Reassessment: called Jacky, , he will bring pt her phone. ks7 14:52 Reassessment: pedrito care done, diaper changed. ks7 15:28 Reassessment: no access to [employer]. pt given 75 mg Plavix PO and 1 mg xanax PO. ks7 Vital Signs: 05/29 15:59 BP 142 / 77; Pulse 70; Resp 16; Temp 98.2(O); Pulse Ox 89% on R/A; ss 16:09 Weight 90 kg (M); sv 16:21 BP 145 / 74; Pulse 70; Resp 15; Pulse Ox 98% on 2 lpm NC; Pain 0/10; ss 16:36 BP 150 / 86; Pulse 79; Resp 17; Pulse Ox 95% on 2 lpm NC; Pain 0/10; ss 16:51 BP 129 / 62; Pulse 70; ss 17:06 BP 145 / 84; Pulse 78; Pain 0/10; ss 17:21 BP 153 / 79; Pulse 70; Pulse Ox 96% on 2 lpm NC; Pain 0/10; ss 08/07 12:45 BP 119 / 67; Pulse 75; Resp 18; Temp 98(O); Pulse Ox 99% on R/A; Pain 0/10; ks7 13:22 BP 135 / 74; Pulse 74; Resp 18; Temp 98.2(O); Pulse Ox 96% on R/A; Pain 0/10; ks7 14:00 BP 135 / 74; Pulse 70; Resp 18; Pulse Ox 98% on R/A; Pain 0/10; ks7 14:15 BP 131 / 74; Pulse 77; Resp 18; Temp 98.5(O); Pulse Ox 95% on R/A; Pain 0/10; ks7 NIH Stroke Scale Scores: 05/29 16:18 NIHSS Score: 8 kdr 16:21 NIHSS Score: 4 ss 17:21 NIHSS Score: 5 ss 19:00 NIHSS Score: 3 ss ED Course: 15:27 Patient arrived in ED. sv 15:32 Patient moved back from CT. ss 15:34 Bill Blackburn MD is Attending Physician. kdr 15:59 Arm band placed on right wrist. ss 16:00 Patient has correct armband on for positive identification. Placed in gown. Bed in low sv position. Call light in reach. Side rails up X2. quality assurance monitor body on. Pulse ox on. NIBP on. 16:03 Triage completed. ss 16:14 Basic Metabolic Panel Sent. sv 16:14 CBC with Diff Sent. sv 16:14 Protime (+inr) Sent. sv 16:14 Ptt, Activated Sent. sv 16:19 Inserted saline lock: 22 gauge in right upper arm, using aseptic technique. Blood ss collected. 16:20 Inserted saline lock: 22 gauge in right forearm, using aseptic technique. Blood ss collected. 16:29 Tawnya Kitchen, CICI is Primary Nurse. sv 16:38 Prince Figueroa MD is Hospitalizing Provider. kdr 18:07 No provider procedures requiring assistance completed. Patient admitted, IV remains in ss place. 05/30 12:42 Report received from Anna BOLANOS. ks 13:17 Diet: Patient given a heart healthy meal tray. Tolerated well pt able to independently ks7 feed herself. Administered Medications: 05/29 16:21 Drug: Alteplase (Bolus for Stroke) - Activase 0.09 mg/kg {Co-Signature: anjel (Cristiana Crisostomo RN).} Route: IV Thrombolytics; Infused Over: 1 mins; 17:32 Follow up: Response: No adverse reaction; No change in condition 05/30 03:31 Follow up: Response: No adverse reaction 05/29 16:22 Drug: ACTIvase {Co-Signature: anjel (Cristiana Crisostomo RN).} Route: IV Thrombolytics; Rate: ss calculated rate; Infused Over: 60 mins; 17:32 Follow up: Response: No adverse reaction; No change in condition 05/30 03:31 Follow up: Response: No adverse reaction 03:31 Follow up: Response: No adverse reaction Outcome: 05/29 16:20 Instructed on the need for admit. 17:30 Decision to Hospitalize by Provider. 05/30 12:50 Condition: stable ks7 19:33 Admitted to Med/surg accompanied by tech, via stretcher, room 203. vc 19:34 Patient left the ED. NIH Stroke Scale - NIH Stroke Score Date: 05/29/2020 Time: 16:18 Total Score = 8 1a. Level of Consciousness (LOC) - 0(Alert) 1b. Level of Consciousness (LOC) (Year \T\ Age) - 0(Both) 1c. LOC Commands (Open \T\ Closes Eyes/Business Law Professor) - 0(Both) 2. Best Gaze (Lateral Gaze Paresis) - 0(Normal) 3. Visual Field Loss - 0(No visual loss) 4. Facial Palsy - 2(Partial paralysis) 5a. Left Arm: Motor (10-second hold) - 0(No drift) 5b. Right Arm: Motor (10-second hold) - 0(No drift) 6a. Left Leg: Motor (5-second hold - always test supine) - 2(Drift, some effort against gravity) 6b. Right Leg: Motor (5-second hold - always test supine) - 2(Drift, some effort against gravity) 7. Limb Ataxia (finger/nose \T\ heel/jordan - test with eyes open) - 0(Absent) 8. Sensory Loss (pinprick arms/legs/face) - 0(Normal) 9. Best Language: Aphasia (description/naming/reading) - 1(Mild to moderate aphasia) 10. Dysarthria (speech clarity - read or repeat words) - 1(Mild to Moderate) 11. Extinction and Inattention (visual/tactile/auditory/spatial/personal) - 0(No abnormality) Initials: [facility] NIH Stroke Scale - NIH Stroke Score Date: 05/29/2020 Time: 16:21 Total Score = 4 1a. Level of Consciousness (LOC) - 0(Alert) 1b. Level of Consciousness (LOC) (Year \T\ Age) - 0(Both) 1c. LOC Commands (Open \T\ Closes Eyes/Business Law Professor) - 0(Both) 2. Best Gaze (Lateral Gaze Paresis) - 0(Normal) 3. Visual Field Loss - 0(No visual loss) 4. Facial Palsy - 2(Partial paralysis) 5a. Left Arm: Motor (10-second hold) - 0(No drift) 5b. Right Arm: Motor (10-second hold) - 0(No drift) 6a. Left Leg: Motor (5-second hold - always test supine) - 0(No drift) 6b. Right Leg: Motor (5-second hold - always test supine) - 0(No drift) 7. Limb Ataxia (finger/nose \T\ heel/jordan - test with eyes open) - 0(Absent) 8. Sensory Loss (pinprick arms/legs/face) - 0(Normal) 9. Best Language: Aphasia (description/naming/reading) - 0(No aphasia) 10. Dysarthria (speech clarity - read or repeat words) - 2(Severe) 11. Extinction and Inattention (visual/tactile/auditory/spatial/personal) - 0(No abnormality) Initials: NIH Stroke Scale - NIH Stroke Score Date: 05/29/2020 Time: 17:21 Total Score = 5 1a. Level of Consciousness (LOC) - 0(Alert) 1b. Level of Consciousness (LOC) (Year \T\ Age) - 0(Both) 1c. LOC Commands (Open \T\ Closes Eyes/Business Law Professor) - 0(Both) 2. Best Gaze (Lateral Gaze Paresis) - 0(Normal) 3. Visual Field Loss - 0(No visual loss) 4. Facial Palsy - 2(Partial paralysis) 5a. Left Arm: Motor (10-second hold) - 0(No drift) 5b. Right Arm: Motor (10-second hold) - 0(No drift) 6a. Left Leg: Motor (5-second hold - always test supine) - 0(No drift) 6b. Right Leg: Motor (5-second hold - always test supine) - 0(No drift) 7. Limb Ataxia (finger/nose \T\ heel/jordan - test with eyes open) - 0(Absent) 8. Sensory Loss (pinprick arms/legs/face) - 0(Normal) 9. Best Language: Aphasia (description/naming/reading) - 1(Mild to moderate aphasia) 10. Dysarthria (speech clarity - read or repeat words) - 2(Severe) 11. Extinction and Inattention (visual/tactile/auditory/spatial/personal) - 0(No abnormality) Initials: NIH Stroke Scale - NIH Stroke Score Date: 05/29/2020 Time: 19:00 Total Score = 3 1a. Level of Consciousness (LOC) - 0(Alert) 1b. Level of Consciousness (LOC) (Year \T\ Age) - 0(Both) 1c. LOC Commands (Open \T\ Closes Eyes/Business Law Professor) - 0(Both) 2. Best Gaze (Lateral Gaze Paresis) - 0(Normal) 3. Visual Field Loss - 0(No visual loss) 4. Facial Palsy - 2(Partial paralysis) 5a. Left Arm: Motor (10-second hold) - 0(No drift) 5b. Right Arm: Motor (10-second hold) - 0(No drift) 6a. Left Leg: Motor (5-second hold - always test supine) - 0(No drift) 6b. Right Leg: Motor (5-second hold - always test supine) - 0(No drift) 7. Limb Ataxia (finger/nose \T\ heel/jordan - test with eyes open) - 0(Absent) 8. Sensory Loss (pinprick arms/legs/face) - 0(Normal) 9. Best Language: Aphasia (description/naming/reading) - 1(Mild to moderate aphasia) 10. Dysarthria (speech clarity - read or repeat words) - 0(Normal) 11. Extinction and Inattention (visual/tactile/auditory/spatial/personal) - 0(No abnormality) Initials: Signatures: Cristiana Crisostomo RN RN Bill Blackburn MD MD kdr Smirch, Shelby, RN RN Rocio De La O RN RN hb Bryson, James, RN RN jb4 Habalo, Winsy Becky Burch RN RN Diane Peterson RN RN ks7 Cristiana Crisostomo RN sv Corrections: (The following items were deleted from the chart) 05/29 17:33 15:20 Acuity: JUANCHO 2 [facility] 18:01 16:41 Decision to Hospitalize by Provider. kdr 05/30 14:16 14:13 Reassessment: pt asking to call her : Jacky [phone]. will nd7 call. she does not know where her cell phone is. ks7 14:17 14:12 Pulse 77bpm; Resp 18bpm; Pulse Ox 95% RA; Temp 98.5F Oral; Pain 0/10; ks7 ks7 14:22 14:13 Reassessment: pt asking to call her : Jacky will call. she does ks7 not know where her cell phone is. ks7
--- NOTE | 2020-05-29 16:41 | EDPHYS ---
Physician Documentation [facility] Name: Janis Henderson Age: 59 yrs Sex: Female : 1960 Arrival Date: 05/29/2020 Time: 15:27 Bed 26 Private MD: ED Physician Bill Blackburn HPI: 05/29 18:48 This 59 yrs old Female presents to ER via EMS with complaints of Altered kdr Mental Status, Weakness. 18:49 The patient presents to the emergency department with weakness of the right upper kdr extremity, right lower extremity, right side of the face, a speech or higher order brain function problem, aphasia, that is moderate. Onset: The symptoms/episode began/occurred suddenly, just prior to arrival, at 14:00. Context: occurred at home, occurred while the patient was at rest. Associated signs and symptoms: The patient has no apparent associated signs or symptoms. Severity of symptoms: At their worst the symptoms were mild moderate in the emergency department the symptoms are unchanged. Patient's baseline: Neuro: Since family is not present, the patient's baseline was indeterminante. Current symptoms: confusion, paralysis or paresis, of the right cheek, right jaw, right zygomatic area, right side of the nose, right arm and right leg, that is mild. The patient has experienced a previous episode. The patient has been recently seen by a physician: The patient has been recently been admitted at [facility], was discharged yesterday. Historical: - Allergies: 16:02 Morphine; hb - Home Meds: 16:03 Xanax Oral [Active]; Plavix 75 mg Oral tab [Active]; sucralfate 1 gram Oral tab hb [Active]; Tradjenta 5 mg Oral tab [Active]; losartan 25 mg Oral tab [Active]; lisinopril Oral [Active]; levothyroxine oral [Active]; Glipizide Oral [Active]; Lexapro Oral [Active]; atorvastatin 40 mg Oral tab [Active]; - PMHx: 16:02 CVA; VASCULAR DEMENTIA; Hypertension; Diabetes - NIDDM; Depression; COVID; chronic hb neck/back pain; Anxiety; Hypothyroidism; - PSHx: 16:02 Appendectomy; Cholecystectomy; knee sx; ; hb - Immunization history:: Adult Immunizations up to date. - Social history:: Smoking status: unknown. ROS: 18:49 Constitutional: Difficult to obtain as the patinet was confused and uncopperative kdr Exam: 16:18 ECG was reviewed by the Attending Physician. kdr 18:49 Constitutional: This is a well developed, well nourished patient who is awake, alert, kdr and in no acute distress. Eyes: Pupils equal round and reactive to light, extra-ocular motions intact. Lids and lashes normal. Conjunctiva and sclera are non-icteric and not injected. Cornea within normal limits. Periorbital areas with no swelling, redness, or edema. Neck: Trachea midline, no thyromegaly or masses palpated, and no cervical lymphadenopathy. Supple, full range of motion without nuchal rigidity, or vertebral point tenderness. No Meningismus. Chest/axilla: Normal chest wall appearance and motion. Nontender with no deformity. No lesions are appreciated. Cardiovascular: Regular rate and rhythm with a normal S1 and S2. No gallops, murmurs, or rubs. Normal PMI, no JVD. No pulse deficits. Respiratory: Lungs have equal breath sounds bilaterally, clear to auscultation and percussion. No rales, rhonchi or wheezes noted. No increased work of breathing, no retractions or nasal flaring. Abdomen/GI: Soft, non-tender, with normal bowel sounds. No distension or tympany. No guarding or rebound. No evidence of tenderness throughout. Back: No spinal tenderness. No costovertebral tenderness. Full range of motion. Skin: Warm, dry with normal turgor. Normal color with no rashes, no lesions, and no evidence of cellulitis. MS/ Extremity: Pulses equal, no cyanosis. Neurovascular intact. Full, normal range of motion. Psych: Awake, alert, with orientation to person, place and time. Behavior, mood, and affect are within normal limits. 18:49 Neuro: Orientation: to person, place, time, Not oriented to situation, Mentation: responsive to voice lucid, slow to respond, confused, Cranial nerves: facial droop noted on right, with forehead spared. Cerebellar function: dysmetria is noted on both sides, weak but accomplishes with some asasistance, Motor: moves all fours, strength is 5/5 in the right arm and left arm, strength is 4/5 in the right leg and left leg. Vital Signs: 15:59 BP 142 / 77; Pulse 70; Resp 16; Temp 98.2(O); Pulse Ox 89% on R/A; ss 16:09 Weight 90 kg (M); sv 16:21 BP 145 / 74; Pulse 70; Resp 15; Pulse Ox 98% on 2 lpm NC; Pain 0/10; ss 16:36 BP 150 / 86; Pulse 79; Resp 17; Pulse Ox 95% on 2 lpm NC; Pain 0/10; ss 16:51 BP 129 / 62; Pulse 70; ss 17:06 BP 145 / 84; Pulse 78; Pain 0/10; ss 17:21 BP 153 / 79; Pulse 70; Pulse Ox 96% on 2 lpm NC; Pain 0/10; ss 08/07 12:45 BP 119 / 67; Pulse 75; Resp 18; Temp 98(O); Pulse Ox 99% on R/A; Pain 0/10; ks7 13:22 BP 135 / 74; Pulse 74; Resp 18; Temp 98.2(O); Pulse Ox 96% on R/A; Pain 0/10; ks7 14:00 BP 135 / 74; Pulse 70; Resp 18; Pulse Ox 98% on R/A; Pain 0/10; ks7 14:15 BP 131 / 74; Pulse 77; Resp 18; Temp 98.5(O); Pulse Ox 95% on R/A; Pain 0/10; ks7 NIH Stroke Scale Scores: 05/29 16:18 NIHSS Score: 8 kdr 16:21 NIHSS Score: 4 ss 17:21 NIHSS Score: 5 ss 19:00 NIHSS Score: 3 ss MDM: 16:14 ED course: To the extent that t-PA may have been delayed, it was due to our attempt to kdr determine if the current abnormal speech as secondary to the residual from prior CVA or new onset. No family was present. 16:41 Patient medically screened. kdr 18:49 Data reviewed: vital signs, nurses notes, old medical records, lab test result(s), EKG, kdr radiologic studies. Counseling: I had a detailed discussion with the patient and/or guardian regarding: the historical points, exam findings, and any diagnostic results supporting the discharge/admit diagnosis, lab results, radiology results, the need for further work-up and treatment in the hospital. 08 15:34 Order name: Basic Metabolic Panel sv 05/29 15:34 Order name: CBC with Diff sv 05/29 15:34 Order name: Protime (+inr) sv 05/29 15:34 Order name: Ptt, Activated sv 05/29 15:57 Order name: Glucose, Ancillary Testing; Complete Time: 16:13 EDMS 05/29 16:09 Order name: CBC with Automated Diff EDMS 05/29 16:22 Order name: Basic Metabolic Panel EDMS 05/29 16:34 Order name: Protime (+INR) EDMS 05/29 16:34 Order name: PTT, Activated Partial Thromb EDMS 05/29 19:25 Order name: Manual Differential EDMS 05/30 09:49 Order name: CBC with Automated Diff EDMS 05/30 09:55 Order name: Magnesium EDMS 05/30 10:00 Order name: Basic Metabolic Panel EDMS 05/30 10:05 Order name: D-Dimer EDMS 05/29 15:33 Order name: CT Stroke Brain w/o Contrast bd 05/29 15:34 Order name: Stroke CXR 1 View sv 05/29 15:34 Order name: EKG; Complete Time: 15:35 sv 05/29 15:34 Order name: Accucheck; Complete Time: 16:14 sv 05/29 15:34 Order name: Cardiac monitoring; Complete Time: 16:14 sv 05/29 15:34 Order name: EKG - Nurse/Tech; Complete Time: 16:13 sv 05/29 15:57 Order name: MRI - Brain Wo Cont bd 05/29 16:01 Order name: CT; Complete Time: 16:13 EDMS 05/29 16:49 Order name: RAD EDMS 05/29 18:22 Order name: MRI EDMS 05/30 09:26 Order name: CT EDMS 05/30 12:00 Order name: US EDMS 05/30 12:03 Order name: US EDMS 05/30 17:02 Order name: Glucose, Ancillary Testing EDMS 05/29 15:34 Order name: IV Saline Lock; Complete Time: 16:13 sv 05/29 15:34 Order name: Labs collected and sent; Complete Time: 16:13 sv 05/29 15:34 Order name: NPO; Complete Time: 16:13 sv 05/29 15:34 Order name: O2 Per Protocol; Complete Time: 16:14 sv 05/29 15:34 Order name: O2 Sat Monitoring; Complete Time: 16:14 sv 05/29 15:34 Order name: Stroke Swallow Screen; Complete Time: 17:32 sv EC:18 Rate is 74 beats/min. Rhythm is regular, Normal Sinus Rhythm with No ectopy. QRS [place] kdr is Normal. VT interval is normal. QRS interval is normal. QT interval is normal. No Q waves. Clinical impression: NSR w/ Non-specific ST/T Changes. Administered Medications: 16:21 Drug: Alteplase (Bolus for Stroke) - Activase 0.09 mg/kg {Co-Signature: anjel (Cristiana Crisostomo RN).} Route: IV Thrombolytics; Infused Over: 1 mins; 17:32 Follow up: Response: No adverse reaction; No change in condition 05/30 03:31 Follow up: Response: No adverse reaction 05/29 16:22 Drug: ACTIvase {Co-Signature: anjel (Cristiana Crisostomo RN).} Route: IV Thrombolytics; Rate: ss calculated rate; Infused Over: 60 mins; 17:32 Follow up: Response: No adverse reaction; No change in condition 05/30 03:31 Follow up: Response: No adverse reaction 03:31 Follow up: Response: No adverse reaction Disposition: 05/29/20 16:41 Hospitalization ordered by [place] for Inpatient Admission. Preliminary diagnosis is CVA: dysarthria, aphasia, right sided weakness. - Bed requested for Telemetry/MedSurg (Inpatient). - Status is Inpatient Admission. vc - Condition is Fair. - Problem is new. - Symptoms have improved. NIH Stroke Scale - NIH Stroke Score Date: 05/29/2020 Time: 16:18 Total Score = 8 1a. Level of Consciousness (LOC) - 0(Alert) 1b. Level of Consciousness (LOC) (Year \T\ Age) - 0(Both) 1c. LOC Commands (Open \T\ Closes Eyes/Bench Grinder) - 0(Both) 2. Best Gaze (Lateral Gaze Paresis) - 0(Normal) 3. Visual Field Loss - 0(No visual loss) 4. Facial Palsy - 2(Partial paralysis) 5a. Left Arm: Motor (10-second hold) - 0(No drift) 5b. Right Arm: Motor (10-second hold) - 0(No drift) 6a. Left Leg: Motor (5-second hold - always test supine) - 2(Drift, some effort against gravity) 6b. Right Leg: Motor (5-second hold - always test supine) - 2(Drift, some effort against gravity) 7. Limb Ataxia (finger/nose \T\ heel/jordan - test with eyes open) - 0(Absent) 8. Sensory Loss (pinprick arms/legs/face) - 0(Normal) 9. Best Language: Aphasia (description/naming/reading) - 1(Mild to moderate aphasia) 10. Dysarthria (speech clarity - read or repeat words) - 1(Mild to Moderate) 11. Extinction and Inattention (visual/tactile/auditory/spatial/personal) - 0(No abnormality) Initials: [facility] NIH Stroke Scale - NIH Stroke Score Date: 05/29/2020 Time: 16:21 Total Score = 4 1a. Level of Consciousness (LOC) - 0(Alert) 1b. Level of Consciousness (LOC) (Year \T\ Age) - 0(Both) 1c. LOC Commands (Open \T\ Closes Eyes/Bench Grinder) - 0(Both) 2. Best Gaze (Lateral Gaze Paresis) - 0(Normal) 3. Visual Field Loss - 0(No visual loss) 4. Facial Palsy - 2(Partial paralysis) 5a. Left Arm: Motor (10-second hold) - 0(No drift) 5b. Right Arm: Motor (10-second hold) - 0(No drift) 6a. Left Leg: Motor (5-second hold - always test supine) - 0(No drift) 6b. Right Leg: Motor (5-second hold - always test supine) - 0(No drift) 7. Limb Ataxia (finger/nose \T\ heel/jordan - test with eyes open) - 0(Absent) 8. Sensory Loss (pinprick arms/legs/face) - 0(Normal) 9. Best Language: Aphasia (description/naming/reading) - 0(No aphasia) 10. Dysarthria (speech clarity - read or repeat words) - 2(Severe) 11. Extinction and Inattention (visual/tactile/auditory/spatial/personal) - 0(No abnormality) Initials: NIH Stroke Scale - NIH Stroke Score Date: 05/29/2020 Time: 17:21 Total Score = 5 1a. Level of Consciousness (LOC) - 0(Alert) 1b. Level of Consciousness (LOC) (Year \T\ Age) - 0(Both) 1c. LOC Commands (Open \T\ Closes Eyes/Bench Grinder) - 0(Both) 2. Best Gaze (Lateral Gaze Paresis) - 0(Normal) 3. Visual Field Loss - 0(No visual loss) 4. Facial Palsy - 2(Partial paralysis) 5a. Left Arm: Motor (10-second hold) - 0(No drift) 5b. Right Arm: Motor (10-second hold) - 0(No drift) 6a. Left Leg: Motor (5-second hold - always test supine) - 0(No drift) 6b. Right Leg: Motor (5-second hold - always test supine) - 0(No drift) 7. Limb Ataxia (finger/nose \T\ heel/jordan - test with eyes open) - 0(Absent) 8. Sensory Loss (pinprick arms/legs/face) - 0(Normal) 9. Best Language: Aphasia (description/naming/reading) - 1(Mild to moderate aphasia) 10. Dysarthria (speech clarity - read or repeat words) - 2(Severe) 11. Extinction and Inattention (visual/tactile/auditory/spatial/personal) - 0(No abnormality) Initials: NIH Stroke Scale - NIH Stroke Score Date: 05/29/2020 Time: 19:00 Total Score = 3 1a. Level of Consciousness (LOC) - 0(Alert) 1b. Level of Consciousness (LOC) (Year \T\ Age) - 0(Both) 1c. LOC Commands (Open \T\ Closes Eyes/Bench Grinder) - 0(Both) 2. Best Gaze (Lateral Gaze Paresis) - 0(Normal) 3. Visual Field Loss - 0(No visual loss) 4. Facial Palsy - 2(Partial paralysis) 5a. Left Arm: Motor (10-second hold) - 0(No drift) 5b. Right Arm: Motor (10-second hold) - 0(No drift) 6a. Left Leg: Motor (5-second hold - always test supine) - 0(No drift) 6b. Right Leg: Motor (5-second hold - always test supine) - 0(No drift) 7. Limb Ataxia (finger/nose \T\ heel/jordan - test with eyes open) - 0(Absent) 8. Sensory Loss (pinprick arms/legs/face) - 0(Normal) 9. Best Language: Aphasia (description/naming/reading) - 1(Mild to moderate aphasia) 10. Dysarthria (speech clarity - read or repeat words) - 0(Normal) 11. Extinction and Inattention (visual/tactile/auditory/spatial/personal) - 0(No abnormality) Initials: ss Signatures: Dispatcher [employer] EDCristiana Rivero, CICI BOLANOS sv Bill Blackburn MD MD [facility] Tawnya Kitchen RN RN Francine Samayoa RN RN cg Rocio De La O RN RN Michelle Menjivar Vanessa, RN RN Bethany Carter Cristiana Crisosotmo RN sv Corrections: (The following items were deleted from the chart) 05/29 18:53 16:41 Hospitalization Ordered by [place] [facility] for Inpatient Admission. cg Preliminary diagnosis is CVA: dysarthria, aphasia, right sided weakness. Bed requested for Telemetry/MedSurg (observation). Status is Inpatient Admission. Condition is Fair. Problem is new. Symptoms have improved. kdr 05/30 17:09 05/29 18:53 05/29/2020 16:41 Hospitalization Ordered by [place] [facility] for eb Inpatient Admission. Preliminary diagnosis is CVA: dysarthria, aphasia, right sided weakness. Bed requested for [facility] ER HOLD. Status is Inpatient Admission. Condition is Fair. Problem is new. Symptoms have improved. cg 05/30 19:34 17:09 05/29/2020 16:41 Hospitalization Ordered by [place] [facility] for vc Inpatient Admission. Preliminary diagnosis is CVA: dysarthria, aphasia, right sided weakness. Bed requested for Telemetry/MedSurg (Inpatient). Status is Inpatient Admission. Condition is Fair. Problem is new. Symptoms have improved. eb
[2020-05-29] MEDS ORDERED: ONDANSETRON 4 MG/2 ML VIAL ONE (16:43)
--- NOTE | 2020-05-29 16:48 | RAD REPORT ---
EXAM DESCRIPTION: RAD - Chest Single View - 05/29/2020 4:20 pm CLINICAL HISTORY: code stroke Chest pain. COMPARISON: Chest Single View dated 05/27/2020; Chest Single View dated 05/23/2020; Chest Single View d ated 05/18/2020; CHEST PA AND LAT 2 VIEW dated 07/25/2014 FINDINGS: Portable technique limits examination quality. Moderate bilateral interstitial lung opacities are again seen, essentially unchanged since comparativ e study. The heart is normal in size. No displaced fractures.
--- NOTE | 2020-05-29 18:20 | RAD REPORT ---
EXAM DESCRIPTION: MRI - Brain Wo Cont - 05/29/2020 6:03 pm CLINICAL HISTORY: r/o stroke Headache, drowsiness, CVA symptomology COMPARISON: Ct Stroke Brain Wo Cont dated 05/29/2020 TECHNIQUE: Multi-sequence, multiplanar MR imaging of the brain was performed without contrast. FINDINGS: Numerous small infarcts are present involving the distribution of the left middle cerebral artery, largest in the left frontotemporal region measuring 9 mm. These infarcts demonstrate diffusi on-weighted signal compatible with acute timeframe.Additional area infarct is present in the left pos terior cerebral artery territory measuring approximately 26 mm and also demonstrating acute timeframe . Additional micro infarct is present in the left temporoparietal region measuring 4 mm as well as th e right medial temporal lobe measuring 5 mm, also acute timeframe infarcts. No acute hemorrhage is seen. No hydrocephalus or midline shift. Midline structures are normally formed. Mastoid air cells and paranasal sinuses are clear. IMPRESSION: Numerous scattered areas of nonhemorrhagic acute infarction identified as detailed, not restricted to a single vascular territory. This favors the possibility of an embolic source of the in farcts or small vessel disease. The microinfarction pattern is greatest in the distribution of the left middle cerebral artery territ ory.
--- NOTE | 2020-05-29 18:50 | P.HP ---
Certification for Inpatient Patient admitted to: Inpatient With expected LOS: >2 Midnights Practitioner: I am a practitioner with admitting privileges, knowledge of patient current condition, hospital course, and medical plan of care. Services: Services provided to patient in accordance with Admission requirements found in Title 42 Section 412.3 of the Code of Federal Regulations Patient History Date of Service: 05/29/20 Reason for admission: CVA History of Present Illness: Patient is a 59 year old female with a PMH of uncontrolled type 2 diabetes, hyperlipidemia and vascular dementia for returns to the hospital 24 hr after discharge following a hospitalization for acute hypoxemic respiratory failure due to COVID 19 pneumonia. Patient was discharged on systemic steroids and apixaban. She returns to the hospital brought in by EMS after she was found down on the site. Patient was minimally responsive with a right-sided weakness. Initial assessment and vital signs by EMS are unclear. Evaluation in the ER was positive for aphasia and facial drooping. CT head was negative for intra cranial hemorrhage. She received tPA. Embolic stroke was confirmed on MRI of the brain. During my evaluation, patient had expressive aphasia. Her strength and mental status at baseline. She admitted to me that she was not compliant with her home medications Allergies Morphine Allergy (Mild, Uncoded 05/24/20 01:38) Itching/Hives/Rash Home Medications: Atorvastatin Calcium 40 mg PO BEDTIME 05/19/20 Levothyroxine [Synthroid*] 0.125 mg PO DAILY 05/19/20 Linagliptin [Tradjenta] 5 mg PO DAILY 05/19/20 Losartan Potassium 25 mg PO DAILY 05/19/20 Vortioxetine Hydrobromide [Trintellix] 10 mg PO DAILY 05/19/20 ALPRAZolam [Xanax*] 1 mg PO TID 05/24/20 Benzonatate [Tessalon Perle*] 200 mg PO TID 05/24/20 Clopidogrel Bisulfate [Plavix*] 75 mg PO DAILY 05/24/20 Insulin Detemir [Levemir Flextouch] 20 units SQ BIDWM 05/24/20 Trazodone [Desyrel*] 150 mg PO BEDTIME 05/24/20 glipiZIDE [Glipizide] 10 mg PO BIDWM 05/24/20 Apixaban [Eliquis] 5 mg PO BID #28 tablet 05/28/20 Ascorbic Acid [Vitamin C] 500 mg PO DAILY #14 tablet 05/28/20 Trazodone [Desyrel*] 50 mg PO BEDTIME tablet 05/28/20 Zinc Sulfate [Zinc Sulfate*] 220 mg PO DAILY #14 cap 05/28/20 predniSONE [Deltasone] 20 mg PO BID #14 tab 05/28/20 - Past Medical/Surgical History Diabetic: Yes -: Anxiety -: CVA -: Hypothyroid -: Depression -: HTN -: Diabetes -: Neuropathy -: Vascular dementia -: Chronic neck/back pain -: 3 C-sections, 1980, 84, 89 -: Vicki, 1986 -: 2 knee surgeries, 1979 -: [place]rie [place], 10/04/13 - Social History Alcohol use: No CD- Drugs: No Caffeine use: Yes Physical Examination - Physical Exam General: Cooperative, Other (tearful) HEENT: Atraumatic, Normocephalic, PERRLA, Other (facial drooping, CN V and CN VII abnormal), EOMI Respiratory: Normal air movement, Crackles/rales (bilateral crackles) Cardiovascular: Normal pulses, Regular rate/rhythm, Normal S1 S2 Gastrointestinal: Normal bowel sounds, Soft and benign, Non-distended, No ascites, No tenderness Musculoskeletal: No clubbing, No swelling, No contractures, No erythema, No tenderness, No warmth Integumentary: No rashes, No breakdown, No significant lesion, No tenderness/swelling, No erythema, No warmth, No cyanosis Neurological: Other (expressive aphasia. 5/5 strenght in all extremities) - Studies Laboratory Data (last 24 hrs) 05/29/20 15:50: PT 12.3, INR 1.04, APTT 28.2 05/29/20 15:50: WBC 17.9 H D, Hgb 10.8 L, Hct 32.5 L, Plt Count 398 05/29/20 15:50: Sodium 140, Potassium 3.3 L, BUN 21 H, Creatinine 0.97, Glucose 201 H Assessment and Plan - Problems (Diagnosis) (1) Acute embolic stroke Current Visit: Yes Status: Acute (2) Type 2 diabetes mellitus with hyperglycemia Current Visit: Yes Status: Acute (3) Hyperlipidemia associated with type 2 diabetes mellitus Current Visit: Yes Status: Acute (4) Vascular dementia Current Visit: Yes Status: Acute (5) DM type 2 (diabetes mellitus, type 2) Current Visit: No Status: Acute (6) Pneumonia due to COVID-19 virus Current Visit: No Status: Acute - Plan Assessment Pateint is a 59 year old female with vascular dementia, uncontrolled type II diabetes mellitus, recent COVID 19 who returns to the hospital with acute right sided hemiparesis and aphasia. She received tPA in the ER and will be admitted to the ICU. Last LDL 79, A1c 9.8 1. Embolic stroke 2. S/P TPA 3. Recent COVID 19 pneumonia 4. Type II DM with hyperglycemia 5. Vascular dementia PLAN ADMIT TO ICU FOR NEURO ACUTE CHECKS EVERY 15 MIN Monitor blood pressure with target goal of 140-160 No anti coagulation in the next 24 hr Check for lipid panel Ideally, patient should have ARPAN due to concern of ventricular emboli. Neurology has been consulted Order [employer], PT/OT SW consult for placement into rehab - Advance Directives Does patient have a Living Will: No Does patient have a Durable POA for Healthcare: No
[2020-05-29 19:24] LABS: Blood Morphology Comment NOT SEEN (NOT SEEN); Platelet Estimate ADEQ
[2020-05-29 22:32] VITALS: BMI 33.0
[2020-05-30] MEDS ORDERED: DIPHENHYDRAMINE 25 MG TAB/CAP PO ONE (03:00)
--- NOTE | 2020-05-30 09:25 | RAD REPORT ---
EXAM DESCRIPTION: CT - [id number] - 05/30/2020 9:07 am CLINICAL HISTORY: Trauma, head and neck injury. CVA COMPARISON: Brain Wo Cont dated 05/29/2020 TECHNIQUE: Axial 5 mm thick images of the head were obtained. Axial 2 mm thick images of the cervical spine were obtained with sagittal and coronal reconstruction images generated and reviewed. All CT scans are performed using dose optimization technique as appropriate and may include automated exposure control or mA/KV adjustment according to patient size. FINDINGS: CT HEAD WITHOUT CONTRAST: No acute hemorrhage, hydrocephalus or extra-axial collection is identified.Numerous areas of mildly d iminished density scattered throughout the brain parenchyma compatible with recently diagnosed areas of small infarctions. Vertebral arteries are atherosclerotic. The paranasal sinuses and mastoids are clear.The calvarium is intact. CT CERVICAL SPINE WITHOUT CONTRAST: No fracture or subluxation.Mild disc thinning with small posterior disc bulges lower cervical spine.N o prevertebral soft tissues swelling is identified. IMPRESSION: Multiple small vague areas of diminished density predominant left cerebrum compatible wi th recent infarction pattern seen on MRI brain from preceding day.No acute hemorrhage, midline shift or other new intracranial abnormality. Mild lower cervical degenerative changes are present without acute cervical spine finding.
[2020-05-30 09:47] LABS: Absolute Lymphocytes (CBC) 2.3 K/uL (0.7-4.9); Basophils % 0.7 % (0-1.3); Hematocrit 32.6 % (36.0-45.0); Lymphocytes % 16.8 % (15.3-44.8); MPV 9.1 fL (7.6-11.3); RBC Red Blood Cell Count 3.94 M/uL (3.86-4.86)
[2020-05-30 10:00] LABS: Potassium 3.8 mmol/L (3.5-5.1)
--- NOTE | 2020-05-30 11:58 | RAD REPORT ---
EXAM DESCRIPTION: US - Extrem Venous W Compress Te - 05/30/2020 11:48 am CLINICAL HISTORY: RO DVT Bilateral leg edema and swelling. COMPARISON: No comparisons TECHNIQUE: Real-time sonographic interrogation of the left and right lower extremity deep venous sys tems was performed. FINDINGS: Normal compressibility, flow augmentation, phasic flow and spontaneous flow is identified in both the left and right lower extremity deep venous systems. IMPRESSION: No sonographic evidence of left or right lower extremity deep venous thrombosis.
--- NOTE | 2020-05-30 12:02 | RAD REPORT ---
EXAM DESCRIPTION: US - UPPER EXTREMITY VENOUS BILAT - 05/30/2020 11:48 am CLINICAL HISTORY: Arm pain and swelling COMPARISON: None. TECHNIQUE: Real-time sonographic evaluation of the bilateral upper extremity deep venous system was performed. FINDINGS: The right upper extremity venous system demonstrates no evidence of venous thrombosis. The re is note made of a clot in the proximal left radial vein. Elsewhere, no left upper extremity venous thrombosis seen. IMPRESSION: Small thrombus is seen in the proximal left brachials vein.
--- NOTE | 2020-05-30 12:51 | P.PN ---
Subjective Date of Service: 05/30/20 Chief Complaint: CVA Subjective: Improving (Patient passed swallow evaluation. She still has a facial droop.) Physical Examination - Vital Signs Temperature: 97.7 F Blood Pressure: 111/67 Pulse: 66 Respirations: 15 Pulse Ox (%): 94 - Physical Exam General: In no apparent distress, Cooperative HEENT: Atraumatic, Normocephalic, EOMI Neck: Supple Respiratory: Crackles/rales (BILATERAL crackles, no wheezing) Cardiovascular: No edema, Normal pulses, Regular rate/rhythm, Normal S1 S2 Gastrointestinal: Normal bowel sounds, Soft and benign, Non-distended, No tenderness Musculoskeletal: No clubbing, No swelling, No contractures, No erythema, No tenderness, No warmth Integumentary: No rashes, No breakdown, No significant lesion, No tenderness/swelling, No erythema, No warmth, No cyanosis Neurological: Normal speech, Sensation intact, Normal affect - Studies Laboratory Data (last 24 hrs) 05/29/20 15:50: PT 12.3, INR 1.04, APTT 28.2 05/29/20 15:50: WBC 17.9 H D, Hgb 10.8 L, Hct 32.5 L, Plt Count 398 05/29/20 15:50: Sodium 140, Potassium 3.3 L, BUN 21 H, Creatinine 0.97, Glucose 201 H Assessment & Plan - Problems (Diagnosis) (1) Acute embolic stroke Current Visit: Yes Status: Acute (2) Type 2 diabetes mellitus with hyperglycemia Current Visit: Yes Status: Acute (3) Hyperlipidemia associated with type 2 diabetes mellitus Current Visit: Yes Status: Acute (4) Vascular dementia Current Visit: Yes Status: Acute (5) DM type 2 (diabetes mellitus, type 2) Current Visit: No Status: Acute (6) Pneumonia due to COVID-19 virus Current Visit: No Status: Acute Physician Review Additional Text: Assessment Patient is a 59 year old female with a PMH of uncontrolled type II diabetes me llitus, vascular dementia and recently COVID 19 PNA readmitted 1 day after discharge as she returned with acute right sided hemiparesis, altered mental status and aphasia. She received tPA. MRI brain showed diffuse embolic stroke. D-dimer > 16,000. She passed her swallow evaluation Embolic stroke recent COVID 19 PNA and respiratory failure Type II diabetes mellitus with hyperglycemia Vascular dementia PLAN: Continue telemetry monitoring Started on diet Continue VITAMIN MANAGER assessment while in house She is pending PT/OT evaluation Neurology recommends plavix and apixaban, most likely long-term She will also need a steroid taper to curb the current inflammatory state Venous doppler of all extremities Resume COVID regimen: prednisone, apixaban, vitamin B1 and C, and zinc Resume insulin slding scale and schedule insulin Patient will need home health for Speech therapy, PT/OT. I discussed this case with the social work. Lana working on it.
[2020-05-30] MEDS: CLOPIDOGREL 75 MG TABLET PO SCH (14:50)
[2020-05-30] MEDS: ALPRAZOLAM 1 MG TABLET PO SCH ×2 (15:10→21:40)
[2020-05-30] MEDS: ASCORBIC ACID 500 MG TABLET PO SCH ×2 (15:10→21:40)
[2020-05-30] MEDS ORDERED: CLOPIDOGREL 75 MG TABLET ONE (15:16)
[2020-05-30] MEDS ORDERED: ALPRAZOLAM 1 MG TABLET ONE (15:16)
[2020-05-30] MEDS: INSULIN GLARGINE 100 UNITS/ML SQ SCH (17:00)
[2020-05-30] MEDS ORDERED: INSULIN DETEMIR 20 UNIT SQ SCH (17:00)
[2020-05-30] MEDS ORDERED: INSULIN GLARGINE 100 UNITS/ML SQ ONE (17:14)
[2020-05-30] MEDS ORDERED: INSULIN GLARGINE 100 UNITS/ML SQ SCH ×2 (21:00)
[2020-05-30] MEDS: ATORVASTATIN 40 MG TAB PO SCH (21:40)
[2020-05-30] MEDS: predniSONE 20 MG TAB PO SCH (21:40)
[2020-05-30] MEDS: APIXABAN 5 MG TABLET PO SCH (21:40)
[2020-05-30] MEDS: TRAZODONE 150 MG TAB PO SCH (21:40)
--- NOTE | 2020-05-30 22:58 | CON ---
Reason For Consultation: Consultation called because of stroke and COVID-19 positive. History Of Present Illness: Ms. Henderson is a 59-year-old right-handed patient, who was just discharged from the hospital being COVID-19 positive and was treated with anticoagulation while hospi talized and discharged to continue anticoagulation, but apparently did not. Around 2 p.m. on 020, she developed right-sided face drooping, slurred speech, and had some right lower extremity and upper extremity weakness and numbness. She came to [facility], arrived at 1527 hour within an hour and half. She was evaluated by head CT scan, found to have no acute ischemic or hemorrhagic change and her NIH stroke scale was 8. She was given tPA and allowed to have some permissive hyperte nsion, and she was admitted for stroke workup. Subsequent brain MRI identified multiple acute stroke s and there were numerous small infarcts in the left middle cerebral artery, the largest in the left frontotemporal region measuring 9 mm. There were additional infarcts in the left posterior cerebral artery territory measuring 26 mm and other lateral infarcts in the left temporoparietal region measur ing 4 mm and right mesial temporal lobe measuring 5 mm. All appeared to be acute infarcts. The etio logy of strokes are very likely related to COVID-19 and the patient following the regimen of anticoag ulation was recommended prior to her discharge. However, today, small thrombus was seen in the possi ble left brachialis vein when Doppler was done and the left upper extremity swelling on the right. S he had no thrombus identified in the right or left lower extremity. She was put on Eliquis 5 mg twic e daily along with Plavix 75 mg twice daily. Past Medical History: Vascular dementia, hypertension, diabetes mellitus, depression, COVID-19 posit jairon, anxiety, hypothyroidism, chronic neck and lower back pain. Past Surgical History: Appendectomy, cholecystectomy, knee surgery, . Allergies: MORPHINE. Medications: At home, Xanax as needed, Plavix 75 mg daily, sucralfate 1 g daily, Tradjenta 5 mg gisell y, losartan 25 mg daily, levothyroxine daily, glipizide, Lexapro, and atorvastatin 40 mg daily. Family History: Noncontributory. Review of Systems: As noted. She has right face numbness and weakness, slurred speech, dysarthria, and mild right arm a nd leg weakness, and she has received tPA. Physical Examination: Vital Signs: Blood pressure is 111 to 165/67 to 98, pulse 65 to 75, temperature 98.2, oxygen saturat ion 97% on room air. Weight 198 pounds, height 5 feet 5 inches, BMI 33. General: Ms. Henderson is resting comfortably in bed, in no acute distress. HEENT: She is normocephalic, atraumatic. Sclerae anicteric. Oropharynx is moist and pink. Neck: Supple. Chest: Clear. Heart: Regular. Extremities: No significant edema, cyanosis, or clubbing except left upper extremity with mild edema . Neurologic: She has moderate right facial drooping with a central seventh appearance. She has decre ased light touch in the right face compared to the left side. She has some difficulty with labial, l ingual, and guttural sounds. She has no difficulty with comprehension, slight difficulty with expres alissa. Otherwise intact cranial nerves. She did pass her bedside swallow evaluation. Motor examinat ion, subtle weakness in the right upper and lower extremity, rated at 4/5 compared to 5/5 on the left side. Sensation is slight decrease in the right upper and lower extremities to light touch. She wilson s a stocking-glove loss to light touch and temperature and depressed reflexes in upper and lower extr emities. She has intact coordination in the upper and lower extremities. She will be ambulated with physical therapy. She is working with speech therapy currently. Laboratory Studies: White blood cell count 13.5, hemoglobin 11.2, platelets 346, and neutrophils 74. 5. Coagulation shows elevated D-dimer of 16,861, possibly related to the left upper extremity clot. INR 1.04. Chemistries showed glucose elevated at 209, sodium 140, potassium 3.8, chloride 109, carb on dioxide 26, BUN 17, creatinine 0.82, magnesium slightly low at 1.7, calcium of 8.2. Assessment: Ms. Henderson is a 59-year-old patient with COVID-19 positive related strokes involving mul tiple vascular territories and the left brachial vein clot, likely secondary COVID-19. She is now pl aced on steroid 200 mg daily to reduce inflammatory affect in addition to Eliquis 5 mg twice daily an d Plavix 75 mg daily along with Lipitor 40 mg at bedtime, and she also should be on folic acid in add ition to continuing her comorbid condition medications. She will require speech therapy to help with recovery and physical therapy as well for coordination, strength, and balance improvement. She may be discharged once she is stable hemodynamically and demonstrating good balance, coordination, gait, and swallowing, and then followup by telemedicine with Dr. Felder in 2 weeks. DEBORA/NOE Voice ID: [id number] Report ID: [id number]
[2020-05-31] MEDS: LEVOTHYROXINE SOD 0.125 MG TAB PO SCH (06:06)
[2020-05-31] MEDS ORDERED: GLUCAGON 1 MG/VIAL IM PRN ×2 (08:17→14:17)
[2020-05-31] MEDS ORDERED: D50W 25 GM/50 ML SYRINGE/VIAL IV PRN ×2 (08:17→14:17)
[2020-05-31] MEDS ORDERED: HOME MED [FAMOTIDINE 20 MG TAB] PO SCH (09:00)
[2020-05-31] MEDS ORDERED: CHOLECALCIFEROL 25 MCG PO SCH (09:00)
[2020-05-31] MEDS: VORTIOXETINE HYDROBROMIDE 10 MG PO SCH (09:00)
[2020-05-31] MEDS: INSULIN -REGULAR HUMAN 50 UNIT/0.5 ML ML SQ SCH ×4 (09:34→20:50)
[2020-05-31] MEDS: ALPRAZOLAM 1 MG TABLET PO SCH ×3 (09:34→20:49)
[2020-05-31] MEDS: INSULIN GLARGINE 100 UNITS/ML SQ SCH (09:34)
[2020-05-31] MEDS: CLOPIDOGREL 75 MG TABLET PO SCH (09:35)
[2020-05-31] MEDS: APIXABAN 5 MG TABLET PO SCH ×2 (09:35→20:48)
[2020-05-31] MEDS: ZINC SULFATE 220 MG CAP PO SCH (09:35)
[2020-05-31] MEDS: LOSARTAN POTASSIUM 50 MG TABLET PO SCH (09:35)
[2020-05-31] MEDS: VITAMIN D 1000 UNIT TAB PO SCH (09:35)
[2020-05-31] MEDS: predniSONE 20 MG TAB PO SCH ×2 (09:35→20:48)
[2020-05-31] MEDS: ASCORBIC ACID 500 MG TABLET PO SCH ×3 (09:35→20:48)
--- NOTE | 2020-05-31 11:54 | P.PN ---
Subjective Date of Service: 05/31/20 Chief Complaint: CVA Subjective: Improving (No acute events overnight. Still has mild expressive aphasia and word-finding difficulty. Strenght preserved.) Physical Examination - Vital Signs Temperature: 96.9 F Blood Pressure: 133/60 Pulse: 74 Respirations: 16 Pulse Ox (%): 94 - Physical Exam General: Alert, In no apparent distress, Cooperative HEENT: Atraumatic, Normocephalic, EOMI Neck: Supple Respiratory: Clear to auscultation bilaterally, Normal air movement Cardiovascular: No edema, Normal pulses, Regular rate/rhythm, Normal S1 S2 Gastrointestinal: Normal bowel sounds, Soft and benign, Non-distended, No tenderness Musculoskeletal: No clubbing, No swelling, No contractures, No erythema, No t enderness, No warmth Integumentary: No rashes, No breakdown, No significant lesion, No tenderness/swelling, No erythema, No warmth, No cyanosis Neurological: Normal strength at 5/5 x4 extr, Normal tone, Normal affect, Other (expressive aphasia) Assessment & Plan - Problems (Diagnosis) (1) Acute embolic stroke Current Visit: Yes Status: Acute (2) Type 2 diabetes mellitus with hyperglycemia Current Visit: Yes Status: Acute (3) Hyperlipidemia associated with type 2 diabetes mellitus Current Visit: Yes Status: Acute (4) Vascular dementia Current Visit: Yes Status: Acute (5) DM type 2 (diabetes mellitus, type 2) Current Visit: No Status: Acute (6) Pneumonia due to COVID-19 virus Current Visit: No Status: Acute Physician Review Additional Text: Assessment Patient is a 59 year old female with a PMH of uncontrolled type II diabetes mellitus, vascular dementia and recently COVID 19 PNA readmitted 1 day after discharge as she returned with acute right sided hemiparesis, altered mental status and aphasia. She received tPA. MRI brain showed diffuse embolic stroke. D-dimer > 16,000. She passed her swallow evaluation. She is pending arrangements for outpatient FINANCIAL REPORT SERVICE SALES AGENT/PT/OT. She is also very hyperglycemic Embolic stroke Recent COVID 19 PNA and respiratory failure DVT Type II diabetes mellitus with hyperglycemia Vascular dementia PLAN: Insulin regimen adjusted based on sliding scale Neurology recommends plavix and apixaban, most likely long-term Venous doppler showing left brachial vein DVT She will also need a steroid taper to curb the current inflammatory state Resume COVID regimen: prednisone, apixaban, vitamin B1 and C, and zinc Patient requires FINANCIAL REPORT SERVICE SALES AGENT/PT/OT. However, her insurance (Medicaid) cannot secure these services I discussed this case with CM today. It does not seem like patient will qualify for home health for FINANCIAL REPORT SERVICE SALES AGENT/PT/OT or rehab In this case, the plan will be optimize while in-house until cleared by PT/OT/FINANCIAL REPORT SERVICE SALES AGENT
[2020-05-31] MEDS ORDERED: INSULIN -REGULAR HUMAN 100 UNIT in NA CHLORIDE 0.9% 100 ML IV SCH (14:30)
[2020-05-31 19:01] LABS: Potassium 4.6 mmol/L (3.5-5.1)
[2020-05-31] MEDS ORDERED: predniSONE 20 MG TAB ONE (20:21)
[2020-05-31] MEDS ORDERED: ALPRAZOLAM 0.25 MG TABLET ONE (20:22)
[2020-05-31] MEDS: TRAZODONE 150 MG TAB PO SCH (20:48)
[2020-05-31] MEDS: ATORVASTATIN 40 MG TAB PO SCH (20:50)
[2020-05-31] MEDS ORDERED: INSULIN GLARGINE 100 UNITS/ML SQ ONE (21:53)
[2020-06-01] MEDS: LEVOTHYROXINE SOD 0.125 MG TAB PO SCH (05:38)
--- NOTE | 2020-06-01 07:53 | EKG ---
Test Date: 2020-05-29 Test Time: 15:51:35 Hydraulic Hammer Operator: VIVIAN MEASUREMENT RESULTS: Intervals: Rate: 74 WI: 130 QRSD: 82 QT: 430 QTc: 477 [place]: P: 46 WI: 130 QRS: -18 T: 132 INTERPRETIVE STATEMENTS: Normal sinus rhythm Nonspecific T wave abnormality Prolonged QT Abnormal ECG Compared to ECG 05/29/2020 15:44:05 Possible ischemia no longer present T-wave abnormality still present Electronically Signed On 06-01-20 07:49:59 CDT by Esdras Damico
[2020-06-01] MEDS ORDERED: D50W 25 GM/50 ML SYRINGE/VIAL IV PRN (08:40)
[2020-06-01] MEDS ORDERED: GLUCAGON 1 MG/VIAL IM PRN (08:40)
[2020-06-01] MEDS: CLOPIDOGREL 75 MG TABLET PO SCH (08:56)
[2020-06-01] MEDS: predniSONE 20 MG TAB PO SCH ×2 (08:56→21:31)
[2020-06-01] MEDS: LOSARTAN POTASSIUM 50 MG TABLET PO SCH (08:57)
[2020-06-01] MEDS: ALPRAZOLAM 1 MG TABLET PO SCH ×3 (08:57→21:31)
[2020-06-01] MEDS: ZINC SULFATE 220 MG CAP PO SCH (08:57)
[2020-06-01] MEDS: VITAMIN D 1000 UNIT TAB PO SCH (08:57)
[2020-06-01] MEDS: APIXABAN 5 MG TABLET PO SCH ×2 (08:57→21:31)
[2020-06-01] MEDS: ASCORBIC ACID 500 MG TABLET PO SCH ×3 (08:58→21:31)
[2020-06-01] MEDS: INSULIN -REGULAR HUMAN 50 UNIT/0.5 ML ML SQ SCH ×4 (08:58→21:33)
[2020-06-01] MEDS: INSULIN GLARGINE 100 UNITS/ML SQ SCH ×2 (10:36→21:33)
[2020-06-01] MEDS: VORTIOXETINE HYDROBROMIDE 10 MG PO SCH (16:20)
[2020-06-01] MEDS ORDERED: INSULIN GLARGINE 100 UNITS/ML SQ ONE (21:30)
[2020-06-01] MEDS: ATORVASTATIN 40 MG TAB PO SCH (21:31)
[2020-06-01] MEDS: TRAZODONE 150 MG TAB PO SCH (21:31)
[2020-06-02] MEDS: LEVOTHYROXINE SOD 0.125 MG TAB PO SCH (05:35)
[2020-06-02] MEDS: VORTIOXETINE HYDROBROMIDE 10 MG PO SCH (09:16)
[2020-06-02] MEDS: ALPRAZOLAM 1 MG TABLET PO SCH ×3 (09:16→21:36)
[2020-06-02] MEDS: LOSARTAN POTASSIUM 50 MG TABLET PO SCH (09:16)
[2020-06-02] MEDS: predniSONE 20 MG TAB PO SCH ×2 (09:16→21:36)
[2020-06-02] MEDS: INSULIN GLARGINE 100 UNITS/ML SQ SCH ×2 (09:16→21:35)
[2020-06-02] MEDS: INSULIN -REGULAR HUMAN 50 UNIT/0.5 ML ML SQ SCH ×4 (09:16→21:35)
[2020-06-02] MEDS: ZINC SULFATE 220 MG CAP PO SCH (09:16)
[2020-06-02] MEDS: ASCORBIC ACID 500 MG TABLET PO SCH ×3 (09:16→21:36)
[2020-06-02] MEDS: VITAMIN D 1000 UNIT TAB PO SCH (09:16)
[2020-06-02] MEDS: CLOPIDOGREL 75 MG TABLET PO SCH (09:16)
[2020-06-02] MEDS: APIXABAN 5 MG TABLET PO SCH ×2 (09:16→21:36)
--- NOTE | 2020-06-02 12:57 | P.PN ---
Subjective Date of Service: 06/02/20 Chief Complaint: CVA Physical Examination - Vital Signs Temperature: 97.1 F Blood Pressure: 180/77 Pulse: 58 Respirations: 14 Pulse Ox (%): 91 Assessment & Plan Discharge Plan: Home Plan to discharge in: 24 Hours Physician Review Additional Text: Impression: Acute right-sided blake paresis secondary to embolic stroke status post tPA Left brachial vein DVT Recent COVID 19 bilateral pneumonia with respiratory failure Diabetes mellitus type 2 with hyperglycemia Vascular dementia Hypothyroidism Hypertension Hyperlipidemia Plan: Acute right-sided blake paresis secondary to embolic stroke status post tPA: Will have physical therapy continue to evaluate and monitor patient. Continue with physical therapy, occupational therapy and speech therapy. Patient passed her swallow evaluation. Encourage oral intake. Will monitor ambulation. Social work to help arrange for home health and physical therapy at discharge. Patient will continue with Plavix and Eliquis. Patient continues with blood pressure control and statin medication. Anticipate discharge within the next day if arrangements for home health and physical therapy can be arranged. Left brachial vein DVT: Patient will continue with Eliquis Recent COVID 19 bilateral pneumonia with respiratory failure: Patient will continue with steroid taper. Overall stable this time. Wean off oxygen. Diabetes mellitus type 2 with hyperglycemia: Will monitor Accu-Cheks. Will optimize diabetic control. Vascular dementia: Continue with above recommendation. Follow up with neurology to further address. Hypothyroidism: Continue with medication Hypertension: Will adjust losartan for better control. Hyperlipidemia: Continue with medication Time Spent Managing Pts Care (In Minutes): 55
[2020-06-02 15:06] LABS: Potassium 4.5 mmol/L (3.5-5.1)
[2020-06-02] MEDS: TRAZODONE 150 MG TAB PO SCH ×2 (21:00→21:34)
[2020-06-02] MEDS: ATORVASTATIN 40 MG TAB PO SCH (21:36)
[2020-06-02 23:11] VITALS: O2SAT 91
[2020-06-03 04:15] LABS: Basophils % 0.4 % (0-1.3); Hematocrit 29.7 % (36.0-45.0); Lymphocytes % 17.2 % (15.3-44.8); MPV 9.6 fL (7.6-11.3); RBC Red Blood Cell Count 3.59 M/uL (3.86-4.86)
[2020-06-03 04:27] LABS: Magnesium 1.9 mg/dL (1.8-2.4)
[2020-06-03] MEDS: LEVOTHYROXINE SOD 0.125 MG TAB PO SCH (06:17)
[2020-06-03] MEDS: INSULIN -REGULAR HUMAN 50 UNIT/0.5 ML ML SQ SCH ×2 (08:56→12:07)
[2020-06-03] MEDS: INSULIN GLARGINE 100 UNITS/ML SQ SCH (08:56)
[2020-06-03] MEDS: ALPRAZOLAM 1 MG TABLET PO SCH (08:58)
[2020-06-03] MEDS: LOSARTAN POTASSIUM 50 MG TABLET PO SCH (08:58)
[2020-06-03] MEDS: ZINC SULFATE 220 MG CAP PO SCH (08:58)
[2020-06-03] MEDS: APIXABAN 5 MG TABLET PO SCH (08:58)
[2020-06-03] MEDS: CLOPIDOGREL 75 MG TABLET PO SCH (08:58)
[2020-06-03] MEDS: predniSONE 20 MG TAB PO SCH (08:58)
[2020-06-03] MEDS: ASCORBIC ACID 500 MG TABLET PO SCH (08:58)
[2020-06-03] MEDS: VITAMIN D 1000 UNIT TAB PO SCH (08:59)
[2020-06-03] MEDS ORDERED: AMLODIPINE 5 MG TAB PO SCH (09:00)
[2020-06-03] MEDS: VORTIOXETINE HYDROBROMIDE 10 MG PO SCH (09:57)
--- NOTE | 2020-06-03 11:37 | P.DS ---
Admission Date: 05/29/20 Discharge Date: 06/03/20 Primary Care Provider: Dr. Leal Disposition: DC HOME/HOME HEALTH CARE Discharge Condition: GOOD Reason for Admission: CVA Consultations: Neurology-Dr. Felder Procedures: MRI Brain: FINDINGS: Numerous small infarcts are present involving the distribution of the left middle cerebral artery, largest in the left frontotemporal region measuring 9 mm. These infarcts demonstrate diffusion-weighted signal compatible with acute timeframe.Additional area infarct is present in the left posterior cerebral artery territory measuring approximately 26 mm and also demonstrating acute timeframe. Additional micro infarct is present in the left temporoparietal region measuring 4 mm as well as the right medial temporal lobe measuring 5 mm, also acute timeframe infarcts. No acute hemorrhage is seen. No hydrocephalus or midline shift. Midline structures are normally formed. Mastoid air cells and paranasal sinuses are clear. IMPRESSION: Numerous scattered areas of nonhemorrhagic acute infarction identified as detailed, not restricted to a single vascular territory. This favors the possibility of an embolic source of the infarcts or small vessel disease. The microinfarction pattern is greatest in the distribution of the left middle cerebral artery territory. Doppler: FINDINGS: The right upper extremity venous system demonstrates no evidence of venous thrombosis. There is note made of a clot in the proximal left radial vein. Elsewhere, no left upper extremity venous thrombosis seen. IMPRESSION: Small thrombus is seen in the proximal left brachials vein. Medical Problem List: Acute right-sided blake paresis secondary to embolic stroke status post tPA Left brachial vein DVT Recent COVID 19 bilateral pneumonia with respiratory failure Diabetes mellitus type 2 with hyperglycemia Vascular dementia Hypothyroidism Hypertension Hyperlipidemia Depression with anxiety Brief History of Present Illness: 59-year-old female recently discharged for COVID 19 and was treated wi th anti coagulation therapy while hospitalized. She apparently was discharged on anti coagulation therapy. Upon evaluation in the ER patient was found to have right sided facial drooping, slurred speech and right lower extremity and upper extremity weakness. CT found to have no acute hemorrhage. TPA was given. Patient admitted for further evaluation of stroke. MRI of brain showed multiple acute strokes and numerous small infarcts in the left middle cerebral artery. Hospital Course: Patient was evaluated for acute right-sided blake paresis secondary to embolic stroke. Patient received tPA upon initial evaluation. Patient also seen by neurology. The patient has done well then the course of her stay. Physical therapy, occupational therapy and speech therapy have continue to work with patient. Neurology recommends that the patient continue with Plavix and 5 mg daily and Eliquis 5 mg 1 pill twice daily. Patient will also continue with blood pressure control including Norvasc 5 mg daily and losartan 25 mg daily. Patient also takes Lipitor 40 mg daily for hyperlipidemia. At discharge patient has ambulated well with physical therapy. She will be continue with current medication. Home health and physical therapy has been arranged prior to discharge. During the course of her stay patient was also found to have a left brachial vein DVT. As mentioned above patient will continue with Eliquis as directed. Patient with recent COVID 19 bilateral pneumonia with respiratory failure. Patient has done well. Patient off oxygen at this time. Repeat testing shows negative result. Patient will continue with steroid taper at discharge. At discharge she may continue with prednisone 10 mg daily for the next 7 days. Recommend follow up with pulmonology as previously directed. Patient with diabetes mellitus type 2 with hyperglycemia. Patient insulin- dependent. Diabetic control will need to be optimize. At discharge she will continue with her current regimen. This includes Levemir 20 units subcu twice daily, glipizide 10 mg 1 pill twice daily, Tradjenta 5 mg daily. Recommend to maintain blood sugar less than 140 fasting less than 200 after meals. Further adjustment can be done by her PCP.May need to hold glipizide if patient has hypoglycemia episodes. Patient with hypothyroidism. At discharge she will continue with her medication Synthroid 125 mcg daily. Patient with hypertension. Additional medication was added. This includes Norvasc. At discharge she will continue with Norvasc 5 mg daily and losartan 25 mg daily. Recommend to maintain blood pressure less 150/80. Further adjustment can be done by her PCP. Patient with hyperlipidemia. At discharge she will continue with current medication Lipitor 40 mg daily. Patient with GERD. At discharge she may continue with Pepcid 20 mg daily. Patient with depression with anxiety. At discharge she may continue with her current medications ofTrintellix 10 mg daily and trazodone 150 mg at bedtime. Vital Signs/Physical Exam: Temp Pulse Resp BP Pulse Ox 97.3 F 65 18 150/72 H 94 06/03/20 08:00 06/03/20 08:59 06/03/20 08:00 06/03/20 08:59 06/03/20 08:00 General: Alert HEENT: Other (Right facial droop noted patient with improved speech.) Neck: Supple Respiratory: Clear to auscultation bilaterally Cardiovascular: Normal pulses, Regular rate/rhythm Gastrointestinal: Normal bowel sounds Neurological: Abnormal strength (Patient continues to increase strength on the right side. Patient currently using walker.) Laboratory Data at Discharge: WBC 11.7 K/uL (4.3-10.9) H 06/03/20 03:44 Hgb 10.2 g/dL (12.0-15.0) L 06/03/20 03:44 Hct 29.7 % (36.0-45.0) L 06/03/20 03:44 Plt Count 260 K/uL (152-406) D 06/03/20 03:44 PT 12.3 SECONDS (9.5-12.5) 05/29/20 15:50 INR 1.04 05/29/20 15:50 APTT 28.2 SECONDS (24.3-36.9) 05/29/20 15:50 Sodium 139 mmol/L (136-145) 06/03/20 03:49 Potassium 4.0 mmol/L (3.5-5.1) 06/03/20 03:49 BUN 35 mg/dL (7-18) H 06/03/20 03:49 Creatinine 1.33 mg/dL (0.55-1.3) H 06/03/20 03:49 Glucose 326 mg/dL (74-106) H 06/03/20 03:49 Magnesium 1.9 mg/dL (1.8-2.4) 06/03/20 03:49 Home Medications: Atorvastatin Calcium 40 mg PO BEDTIME 05/19/20 Levothyroxine [Synthroid*] 0.125 mg PO DAILY 05/19/20 Linagliptin [Tradjenta] 5 mg PO DAILY 05/19/20 Losartan Potassium 25 mg PO DAILY 05/19/20 Vortioxetine Hydrobromide [Trintellix] 10 mg PO DAILY 05/19/20 ALPRAZolam [Xanax*] 1 mg PO TID 05/24/20 Benzonatate [Tessalon Perle*] 200 mg PO TID PRN 05/24/20 Insulin Detemir [Levemir Flextouch] 20 units SQ BIDWM 08/01/20 Trazodone [Desyrel*] 150 mg PO BEDTIME 05/24/20 glipiZIDE [Glipizide] 10 mg PO BIDWM 05/24/20 Zinc Sulfate [Zinc Sulfate*] 220 mg PO DAILY #14 cap 05/28/20 Cholecalciferol (Vitamin D3) [Vitamin D3] 25 mcg PO DAILY 05/30/20 Famotidine [Pepcid*] 20 mg PO DAILY 05/30/20 Amlodipine [Norvasc*] 5 mg PO DAILY #30 tab 06/03/20 Apixaban [Eliquis] 5 mg PO BID #60 tablet 06/03/20 Ascorbic Acid [Vitamin C*] 500 mg PO DAILY #30 06/03/20 Clopidogrel Bisulfate [Plavix*] 75 mg PO DAILY #30 tablet 06/03/20 predniSONE [Deltasone*] 10 mg PO DAILY #7 tab 06/03/20 New Medications: predniSONE [Deltasone*] 10 mg PO DAILY #7 tab Apixaban [Eliquis] 5 mg PO BID #60 tablet Amlodipine [Norvasc*] 5 mg PO DAILY #30 tab Clopidogrel Bisulfate [Plavix*] 75 mg PO DAILY #30 tablet Ascorbic Acid [Vitamin C*] 500 mg PO DAILY #30 Patient Discharge Instructions: 1. Recommend follow up with PCP in 1 week to follow up this hospitalization. 2. Patient was evaluated for acute right-sided blake paresis secondary to embolic stroke. Patient received tPA upon initial evaluation. Patient also seen by neurology. The patient has done well then the course of her stay. Physical therapy, occupational therapy and speech therapy have continue to work with patient. Neurology recommends that the patient continue with Plavix and 5 mg daily and Eliquis 5 mg 1 pill twice daily. Pat ient will also continue with blood pressure control including Norvasc 5 mg daily and losartan 25 mg daily. Patient also takes Lipitor 40 mg daily for hyperlipidemia. At discharge patient has ambulated well with physical therapy. She will be continue with current medication. Home health and physical therapy has been arranged prior to discharge. 3. During the course of her stay patient was also found to have a left brachial vein DVT. As mentioned above patient will continue with Eliquis as directed. 4. Patient with recent COVID 19 bilateral pneumonia with respiratory failure. Patient has done well. Patient off oxygen at this time. Repeat testing shows negative result. Patient will continue with steroid taper at discharge. At discharge she may continue with prednisone 10 mg daily for the next 7 days. Recommend follow up with pulmonology as previously directed. 5. Patient with diabetes mellitus type 2 with hyperglycemia. Patient insulin-dependent. Diabetic control will need to be optimize. At discharge she will continue with her current regimen. This includes Levemir 20 units subcu twice daily, glipizide 10 mg 1 pill twice daily, Tradjenta 5 mg daily. Recommend to maintain blood sugar less than 140 fasting less than 200 after meals. Further adjustment can be done by her PCP.May need to hold glipizide if patient has hypoglycemia episodes. Patient with hypothyr oidism. At discharge she will continue with her medication Synthroid 125 mcg daily. 6. Patient with hypertension. Additional medication was added. This includes Norvasc. At discharge she will continue with Norvasc 5 mg daily and losartan 25 mg daily. Recommend to maintain blood pressure less 150/80. Further adjustment can be done by her PCP. 7. Patient with hyperlipidemia. At discharge she will continue with current medication Lipitor 40 mg daily. 8. Patient with GERD. At discharge she may continue with Pepcid 20 mg daily. 9. Patient with depression with anxiety. At discharge she may continue with her current medications ofTrintellix 10 mg daily and trazodone 150 mg at bedtime. Diet: ADA Activity: Fall precautions Time spent managing pt's care (in minutes): 55
[2020-06-03 13:52] VITALS: BP 181/78; TEMP 97.5
--- NOTE | 2020-06-16 15:36 | P.PN ---
Subjective Date of Service: 06/01/20 Primary Care Provider: Dr. Leal Chief Complaint: CVA Subjective: No new changes (Patient is undergoing PT/OT/NEONATAL INTENSIVE CARE UNIT NURSE while in-house. She is staying an additional day pending arrangements for home health services. Her insurance is out of network with several services out there) Physical Examination - Vital Signs Temperature: 97.5 F Blood Pressure: 181/78 Pulse: 68 Respirations: 17 Pulse Ox (%): 93 - Physical Exam General: Alert, In no apparent distress, Cooperative HEENT: Other (facial drooping) Respiratory: Clear to auscultation bilaterally, Normal air movement Cardiovascular: No edema, Normal pulses, Regular rate/rhythm, Normal S1 S2 Musculoskeletal: No clubbing, No swelling, No contractures, No erythema, No tenderness, No warmth Integumentary: No rashes, No breakdown, No significant lesion, No tenderness/swelling, No erythema Neurological: Other (mild expressive aphasia, facial drooping) Assessment & Plan - Problems (Diagnosis) (1) Acute embolic stroke Status: Acute (2) Type 2 diabetes mellitus with hyperglycemia Status: Acute (3) Hyperlipidemia associated with type 2 diabetes mellitus Status: Acute (4) Vascular dementia Status: Acute (5) DM type 2 (diabetes mellitus, type 2) Status: Acute (6) Pneumonia due to COVID-19 virus Status: Acute Physician Review Additional Text: Impression: Acute right-sided blake paresis secondary to embolic stroke status post tPA Left brachial vein DVT Recent COVID 19 bilateral pneumonia with respiratory failure Diabetes mellitus type 2 with hyperglycemia Vascular dementia Hypothyroidism Hypertension Hyperlipidemia Plan: Acute right-sided blake paresis secondary to embolic stroke status post tPA: Patient is undergoing PT/OT/NEONATAL INTENSIVE CARE UNIT NURSE while in house Currently on plavix and eliquis 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 Will optimize diabetic control. Vascular dementia: Continue with above recommendation. Follow up with neurology to further address . Hypothyroidism: Continue with medication Hypertension: Will adjust losartan for better control. Hyperlipidemia: Continue with medication
== END 2020-06-03 13:24 | disposition home health service (06) | DRG 61 ==
LOC: ER 15:22 → ERHOLD 17:07 → 2ND 05-30 18:31 → ERHOLD 05-31 14:54 → 2ND 06-01 08:11
PROVIDERS: ADMIT Internal Medicine; ATTEND Family Medicine
DX: I63.9 Cerebral infarction, unspecified (principal); U07.1 COVID-19; J12.89 Other viral pneumonia; G81.91 Hemiplegia, unspecified affecting right dominant side; I82.622 Acute embolism and thrombosis of deep veins of left upper extremity; R47.01 Aphasia; F41.8 Other specified anxiety disorders; E03.9 Hypothyroidism, unspecified; F01.50 Vascular dementia, unspecified severity, without behavioral disturbance, psychotic disturbance, mood disturbance, and anxiety; E78.5 Hyperlipidemia, unspecified; E11.65 Type 2 diabetes mellitus with hyperglycemia; K21.9 Gastro-esophageal reflux disease without esophagitis; Z86.19 Personal history of other infectious and parasitic diseases; Z88.5 Allergy status to narcotic agent; Z79.890 Hormone replacement therapy; Z79.02 Long term (current) use of antithrombotics/antiplatelets; Z79.4 Long term (current) use of insulin; Z79.899 Other long term (current) drug therapy; Z79.52 Long term (current) use of systemic steroids; Z86.73 Personal history of transient ischemic attack (TIA), and cerebral infarction without residual deficits; Z90.49 Acquired absence of other specified parts of digestive tract; R29.708 NIHSS score 8; R47.81 Slurred speech; R29.810 Facial weakness; R20.0 Anesthesia of skin
CPT/HCPCS: 36415; 70450; 70551; 71045; 72125; 80048; 82947; 83735; 85025; 85379; 85610; 85730; 92507; 92523; 92977; 93005; 93970; 97112; 97116; 97161; 97530; 99291; J1815; J2405; J2997; J7050; J7512; U0002

== ENCOUNTER 2021-04-30 17:38 | Emergency (ER) | payer OTHER ==
--- OUTSIDE RECORDS SUMMARY | 2021-04-30 17:42 | XMS REPORT | Continuity of Care Document ---
:1960 Author Organization [facility] t Address [address] [place] [address] Care Team Providers Name Role Phone Chi Attending Clinician Problems This patient has no known problems. Allergies, Adverse Reactions, Alerts This patient has no known allergies or adverse reactions. Medications This patient has no known medications. Procedures This patient has no known procedures. Encounters Start End Encounter Admission Attending Care Care Encounter Source Date/Time Date/Time Type Type Clinicians Facility Department ID 2021-02-16 2021-02-16 [facility] GOMEZFRANDY [id number] 08:12:34 08:27:34 [id number] [employer] [id number] 2021-02-05 2021-02-05 Telephone ROMEL Mireles [id number] 00:00:00 00:00:00 [facility] [id number] [employer] [id number] Results This patient has no known results.
--- NOTE | 2021-04-30 18:08 | RAD REPORT ---
EXAM DESCRIPTION: CT - Head Brain Wo Cont - 04/30/2021 6:01 pm CLINICAL HISTORY: s/p fall Trauma, head injury COMPARISON: Ct Stroke Brain Wo Cont dated 05/29/2020; Head Brain Wo Cont dated 05/19/2020 TECHNIQUE: All CT scans are performed using dose optimization technique as appropriate and may inclu de automated exposure control or mA/KV adjustment according to patient size. FINDINGS: No intracranial hemorrhage, hydrocephalus or extra-axial fluid collection.No areas of brai n edema or evidence of midline shift. The paranasal sinuses and mastoids are clear. The calvarium is intact. Vertebral atherosclerosis. IMPRESSION: No acute intracranial abnormality.
--- NOTE | 2021-04-30 18:36 | RAD REPORT ---
EXAM DESCRIPTION: RAD - Chest Single View - 04/30/2021 6:29 pm CLINICAL HISTORY: COUGH Chest pain. COMPARISON: Chest Single View dated 05/29/2020; Chest Single View dated 05/27/2020; Chest Single View da katherine 05/23/2020; Chest Single View dated 05/18/2020 FINDINGS: Portable technique limits examination quality. The lungs are grossly clear. The heart is normal in size. No displaced fractures. IMPRESSION: No acute intrathoracic process suspected.
--- NOTE | 2021-04-30 18:56 | RAD REPORT ---
EXAM DESCRIPTION: CT - Chest Abd Pelvis Wo Con - 04/30/2021 6:38 pm CLINICAL HISTORY: Chest and abdomen pain. Abdominal distention;Pain COMPARISON: Chest For Pe Angio dated 05/23/2020 TECHNIQUE: A limited noncontrast study was performed. All CT scans are performed using dose optimization technique as appropriate and may include automated exposure control or mA/KV adjustment according to patient size. FINDINGS: The lungs are mildly emphysematous but clear.No pleural or pericardial effusion.No intrath oracic adenopathy. The liver, spleen, pancreas, adrenal glands and kidneys are within normal limits. Cholecystectomy cli ps. No bowel obstruction, free air, free fluid or abscess. Normal appendix. Moderate fat containing umbil ical hernia. No pathologic lymphadenopathy in the abdomen or pelvis. No fracture evident. IMPRESSION: No acute abnormality detected.
[2021-04-30 18:58] LABS: Urine Blood 1+ (Negative); Urine Glucose 1+ (Negative); Urine Protein 3+ (Negative); Urine Specific Gravity 1.015 (1.005-1.030); Urine pH 6.5 (5.0-7.0)
[2021-04-30 19:11] LABS: Protime INR 0.98
[2021-04-30 19:21] LABS: Absolute Lymphocytes (CBC) 2.4 K/uL (0.7-4.9); Basophils % 0.3 % (0-1.3); Hematocrit 34.7 % (36.0-45.0); Lymphocytes % 20.5 % (15.3-44.8); MPV 10.3 fL (7.6-11.3); RBC Red Blood Cell Count 4.26 M/uL (3.86-4.86)
[2021-04-30] MEDS ORDERED: NA CHLORIDE 0.9% 1,000 ML ONE (19:21)
[2021-04-30 19:34] LABS: ALT/SGPT 16 U/L (12-78); AST/SGOT 16 U/L (15-37); Albumin 2.9 g/dL (3.4-5.0); Alkaline Phosphatase 93 U/L (45-117); BUN Blood Urea Nitrogen 29 mg/dL (7-18); Bicarbonate 29 mmol/L (21-32); Bilirubin Direct < 0.1 mg/dL (0-0.2); Bilirubin Total 0.3 mg/dL (0.2-1.0); Glucose Level 296 mg/dL (74-106); NT PRO-BNP 227 pg/mL (<125); Protein, Total 7.5 g/dL (6.4-8.2); Sodium Level 137 mmol/L (136-145); Troponin (Emerg Dept Use Only) < 0.02 ng/mL (0.0-0.045)
[2021-04-30 19:51] LABS: Blood Morphology Comment NOT SEEN (NOT SEEN); Platelet Estimate ADEQ; White Blood Cell Scan OK (OK)
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
--- NOTE | 2021-04-30 19:54 | EDPHYS ---
Physician Documentation [facility] Name: Janis Henderson Age: 60 yrs Sex: Female : 1960 Arrival Date: 04/30/2021 Time: 17:40 Bed 28 Private MD: ED Physician Edward Horan HPI: 04/30 19:45 This 60 yrs old Female presents to ER via Wheelchair with complaints of Fall helen Injury, Head Injury-Adult, Chest Pain. 19:45 Details of fall: The patient fell from an upright position, while standing. Onset: The helen symptoms/episode began/occurred just prior to arrival. Associated injuries: The patient sustained injury to the head, injury to the chest, specifically the anterior aspect of right upper chest and right breast, contusion. Severity of symptoms: At their worst the symptoms were mild, in the emergency department the symptoms are unchanged. 20:05 The complaints affect the left side of the back of head, left occipital area, left base helen of the skull, right side of the back of head, right occipital area and right base of the skull. Historical: - Allergies: 17:57 Morphine; sv - PMHx: 17:57 CVA; speech deficit/mild weakness; Depression; COVID; chronic neck/back pain; sv Hypertension; Diabetes - NIDDM; Anxiety; Hypothyroidism; VASCULAR DEMENTIA; Psoriasis; - PSHx: 17:57 section; R knee; sv - Immunization history:: Client reports receiving the 2nd dose of the Covid vaccine, Client reports receiving the 1st dose of the Covid vaccine. - Social history:: Smoking status: Patient denies any tobacco usage or history of. - Immunization history: Last tetanus immunization: unknown. - Family history:: not pertinent. ROS: 19:45 Constitutional: Negative for fever, chills, and weight loss, Eyes: Negative for injury, helen pain, redness, and discharge, ENT: Negative for injury, pain, and discharge, Neck: Negative for injury, pain, and swelling, Cardiovascular: Negative for chest pain, palpitations, and edema, Abdomen/GI: Negative for abdominal pain, nausea, vomiting, diarrhea, and constipation, Back: Negative for injury and pain, : Negative for injury, bleeding, discharge, and swelling, MS/Extremity: Negative for injury and deformity, Skin: Negative for injury, rash, and discoloration, Neuro: Negative for headache, weakness, numbness, tingling, and seizure, Psych: Negative for depression, anxiety, suicide ideation, homicidal ideation, and hallucinations, Allergy/Immunology: Negative for hives, rash, and allergies, Endocrine: Negative for neck swelling, polydipsia, polyuria, polyphagia, and marked weight changes, Hematologic/Lymphatic: Negative for swollen nodes, abnormal bleeding, and unusual bruising. 19:45 Respiratory: Positive for cough, with no reported sputum. Exam: 19:45 Constitutional: This is a well developed, well nourished patient who is awake, alert, helen and in no acute distress. Eyes: Pupils equal round and reactive to light, extra-ocular motions intact. Lids and lashes normal. Conjunctiva and sclera are non-icteric and not injected. Cornea within normal limits. Periorbital areas with no swelling, redness, or edema. ENT: Nares patent. No nasal discharge, no septal abnormalities noted. Tympanic membranes are normal and external auditory canals are clear. Oropharynx with no redness, swelling, or masses, exudates, or evidence of obstruction, uvula midline. Mucous membranes moist. Neck: Trachea midline, no thyromegaly or masses palpated, and no cervical lymphadenopathy. Supple, full range of motion without nuchal rigidity, or vertebral point tenderness. No Meningismus. Cardiovascular: Regular rate and rhythm with a normal S1 and S2. No gallops, murmurs, or rubs. Normal PMI, no JVD. No pulse deficits. Respiratory: Lungs have equal breath sounds bilaterally, clear to auscultation and percussion. No rales, rhonchi or wheezes noted. No increased work of breathing, no retractions or nasal flaring. Abdomen/GI: Soft, non-tender, with normal bowel sounds. No distension or tympany. No guarding or rebound. No evidence of tenderness throughout. Back: No spinal tenderness. No costovertebral tenderness. Full range of motion. Female : Normal external genitalia. Skin: Warm, dry with normal turgor. Normal color with no rashes, no lesions, and no evidence of cellulitis. MS/ Extremity: Pulses equal, no cyanosis. Neurovascular intact. Full, normal range of motion. Neuro: Awake and alert, GCS 15, oriented to person, place, time, and situation. Cranial nerves II-XII grossly intact. Motor strength 5/5 in all extremities. Sensory grossly intact. Cerebellar exam normal. Normal gait. Psych: Awake, alert, with orientation to person, place and time. Behavior, mood, and affect are within normal limits. 19:45 Head/face: Noted is contusion. 19:45 Chest/axilla: Inspection: normal, no acute changes, Palpation: tenderness, that is mild, that is moderate, of the anterior aspect of right upper chest and right breast, Axilla: are normal, no abscess, no cellulitis, no mass, no palpable nodes, no rash, Breasts: are normal, no acute changes, Lymph nodes: lymphadenopathy is not appreciated. Vital Signs: 17:56 BP 161 / 98; Pulse 88; Resp 16; Temp 97.8; Pulse Ox 99% ; Weight 90.72 kg; Height 5 ft. sv 5 in. (165.10 cm); Pain 8/10; 19:08 BP 148 / 84; Pulse 69; Resp 18 S; Pulse Ox 98% on R/A; ca1 20:02 BP 165 / 87; Pulse 71; Resp 16; Pulse Ox 100% on R/A; ca1 17:56 Body Mass Index 33.28 (90.72 kg, 165.10 cm) sv Sharon Coma Score: 17:56 Eye Response: spontaneous(4). Verbal Response: oriented(5). Motor Response: obeys sv commands(6). Total: 15. 20:05 Eye Response: spontaneous(4). Verbal Response: oriented(5). Motor Response: obeys helen commands(6). Total: 15. 20:08 Eye Response: spontaneous(4). Verbal Response: oriented(5). Motor Response: obeys helen commands(6). Total: 15. Trauma Score (Adult): 17:56 Eye Response: spontaneous(1); Verbal Response: oriented(1); Motor Response: obeys sv commands(2); Systolic BP: > 89 mm Hg(4); Respiratory Rate: 10 to 29 per min(4); Shon Score: 15; Trauma Score: 12 MDM: 18:04 Patient medically screened. [facility] 19:48 Differential diagnosis: closed head injury, contusion, sprain, strain. Data reviewed: [facility] vital signs, nurses notes, lab test result(s), EKG, radiologic studies, CT scan, plain films. Data interpreted: clinical research monitor: rate is 69 beats/min, Pulse oximetry: on room air is 98 %. Test interpretation: by ED physician or midlevel provider: ECG, plain radiologic studies. Counseling: I had a detailed discussion with the patient and/or guardian regarding: the historical points, exam findings, and any diagnostic results supporting the discharge/admit diagnosis, lab results, radiology results, the need for outpatient follow up, for definitive care, an skull grinder, a neurologist. 04/30 18:12 Order name: Basic Metabolic Panel; Complete Time: 19:44 [facility] 04/30 18:12 Order name: CBC with Diff [facility] 04/30 18:12 Order name: LFT's; Complete Time: 19:44 [facility] 04/30 18:12 Order name: Magnesium; Complete Time: 19:44 [facility] 04/30 18:12 Order name: NT PRO-BNP; Complete Time: 19:44 [facility] 04/30 18:12 Order name: PT-INR; Complete Time: 19:44 [facility] 04/30 17:53 Order name: CT Head Brain wo Cont; Complete Time: 19:44 04/30 18:12 Order name: Troponin (emerg Dept Use Only); Complete Time: 19:44 [facility] 04/30 18:12 Order name: XRAY Chest (1 view); Complete Time: 19:44 [facility] 04/30 18:12 Order name: CT Chest Abdomen Pelvis W/O Contrast; Complete Time: 19:44 [facility] 04/30 18:13 Order name: Urine Culture [facility] 04/30 18:58 Order name: Urine Dipstick-Ancillary; Complete Time: 19:44 [facility] 04/30 19:49 Order name: INCENTIVE SPIROMETRY [facility] 04/30 19:51 Order name: CBC Smear Scan [facility] 04/30 18:12 Order name: EKG; Complete Time: 18:12 [facility] 04/30 18:12 Order name: Cardiac monitoring; Complete Time: 18:59 [facility] 04/30 18:12 Order name: EKG - Nurse/Tech; Complete Time: 18:59 [facility] 04/30 18:12 Order name: IV Saline Lock; Complete Time: 18:59 [facility] 04/30 18:12 Order name: Labs collected and sent; Complete Time: 18:59 [facility] 04/30 18:12 Order name: O2 Per Protocol; Complete Time: 18:13 [facility] 04/30 18:12 Order name: O2 Sat Monitoring; Complete Time: 18:13 helen 04/30 18:12 Order name: Urine Dipstick-Ancillary (obtain specimen); Complete Time: 18:59 helen Administered Medications: 18:59 Drug: NS 0.9% 1000 ml Route: IV; Rate: 125 ml/hr; Site: right antecubital; ca1 20:05 Follow up: Response: No adverse reaction; IV Status: Order to discontinue infusion; pt ca1 discharged; IV Intake: 125ml 19:59 Drug: Potassium Effervescent Tablet 25 mEq Route: PO; ca1 20:15 Follow up: Response: No adverse reaction ca1 19:59 Drug: HYDROcodone-acetaminophen 5 mg-325 mg 2 tabs {Note: rass 0.} Route: PO; ca1 20:14 Follow up: Response: No adverse reaction; Pain is decreased; RASS: Alert and Calm (0) ca1 Disposition Summary: 04/30/21 19:53 Discharge Ordered Location: Home helen Problem: new helen Symptoms: have improved helen Condition: Stable helen Diagnosis - Fall due to bumping against object helen - Unspecified injury of head, initial encounter helen - Chest pain, unspecified - contusion , right side helen - Unspecified kidney failure - chronic helen - Hypokalemia helen Followup: helen - With: Private Physician - When: 2 - 3 days - Reason: Recheck today's complaints, Continuance of care, Re-evaluation by your physician Discharge Instructions: - Discharge Summary Sheet helen - Chest Wall Pain helen - Potassium Content of Foods helen - Head Injury, Adult helen - Fall Prevention in the Home, Adult helen - How to Use an Incentive Spirometer helen - Chest Wall Pain, [id number]-ki-[id number] helen - Fall Prevention in the Home, Adult, [id number] helen - Chronic Kidney Disease, Adult, [id number] helen - Hypokalemia helen Forms: - Medication Reconciliation Form helen - Thank You Letter helen - Antibiotic Education helen - Prescription Opioid Use helen Signatures: Dispatcher [employer] Cristiana Brooks, RN Edward Arthur MD MD cha Acob, Cheryl, RN RN ca1
[2021-04-30] MEDS ORDERED: HYDROCODONE/APAP 5/325 MG TAB ONE (20:19)
[2021-04-30] MEDS ORDERED: POTASSIUM 25 MEQ EFFERV TAB ONE (20:19)
[2021-04-30 20:22] VITALS: TEMP 97.8
[2021-04-30 20:25] VITALS: BP 165/87; O2SAT 100
--- NOTE | 2021-05-01 07:44 | EKG ---
Test Date: 2021-04-30 Test Time: 18:23:57 Hotel Staff Member: EVERARDO MEASUREMENT RESULTS: Intervals: Rate: 67 TX: 132 QRSD: 86 QT: 470 QTc: 496 [place]annon: P: 18 TX: 132 QRS: -8 T: 260 INTERPRETIVE STATEMENTS: Normal sinus rhythm Minimal voltage criteria for LVH, may be normal variant T wave abnormality, consider inferolateral ischemia Abnormal ECG Compared to ECG 05/29/2020 15:51:35 Left ventricular hypertrophy now present Possible ischemia now present Prolonged QT interval no longer present T-wave abnormality still present Electronically Signed On 05-01-21 07:42:37 CDT by Esdras Damico
== END 2021-04-30 20:15 | disposition home or self-care (01) ==
LOC: ER 17:38
DX: S00.83XA Contusion of other part of head, initial encounter (principal); S20.211A Contusion of right front wall of thorax, initial encounter; E87.6 Hypokalemia; E11.22 Type 2 diabetes mellitus with diabetic chronic kidney disease; I12.9 Hypertensive chronic kidney disease with stage 1 through stage 4 chronic kidney disease, or unspecified chronic kidney disease; N18.9 Chronic kidney disease, unspecified; W18.00XA Striking against unspecified object with subsequent fall, initial encounter; Z88.5 Allergy status to narcotic agent
CPT/HCPCS: 93005; 87088; 85025; 87086; 80048; 36415; 83735; 85610; 80076; 81003; 84484; 83880; 70450; 71250; 74176; 71045; 96360; 99284; J7030; G0390

== ENCOUNTER 2022-05-16 17:16 | Emergency (ER) | payer OTHER ==
--- OUTSIDE RECORDS SUMMARY | 2022-05-16 17:19 | XMS REPORT | Continuity of Care Document ---
:1960 Author Organization [facility] t Address [address] [place] [place] [address] Care Team Providers Name Role Phone Asked, Pcp Primary Care Physician Unavailable Chi ARIZA Attending Clinician Sadi GASPAR Attending Clinician Unavailable Sadi GASPAR Attending Clinician Unavailable MAIRA GONZALEZ Attending Clinician Unavailable SUSIE SHAH Attending Clinician Unavailable CHOLO HEARD Attending Clinician Unavailable CHOLO HEARD Attending Clinician Unavailable Perez SETH Attending Clinician Unavailable ED Attending Clinician Unavailable RADIOLOGY Attending Clinician Unavailable AN Attending Clinician Unavailable AN Admitting Clinician Unavailable Payers Payer Name Policy Type Policy Number Effective Date Expiration Date Candice iglesias [facility] STAR [id number] 2015 00:00:00 PLUS Problems Condition Condition Condition Status Onset Resolution Last Treating Co mments Source Name Details Category Date Date Treatment Clinician Date Hypokalemi Hypokalemi Disease Active 2019-0 U nivers a a 2-03 ity of 00:00: [place] [facility] Stroke Stroke Disease Active 2019- Univers 7-15 ity of 00:00: [place] 00 [facility] Obesity Obesity Disease Active 2017 Univers (BMI (BMI 7-07 ity of 30-39.9) 30-39.9) 00:00: [place] [facility] Pain in Pain in Disease Active Univers both hands both hands 1-18 it y of 00:00: [place] 00 [facility] Trigger Trigger Disease Active Univers finger of finger of 1-18 ity of right right 00:00: [place] thumb thumb 00 Medical Branch Right Right Disease Active 2015-10 Univers carotid carotid 1-30 ity of bruit bruit 00:00: [place] 00 Medical Branch Cocaine Cocaine Disease Active Methodi abuse abuse 07-01 00:00: Hospita 00 l Bipolar I Bipolar I Disease Active Met hodi disorder, disorder, 06-30 single single 00:00: Hospita manic manic 00 l episode, episode, severe, severe, with with psychosis psychosis Type 2 Type 2 Disease Active Univers diabetes diabetes 8-30 ity of mellitus mellitus 00:00: [place] with renal with renal 00 Me dical manifestat manifestat Br anch ions not ions not at goal at goal Primary Primary Disease Active Univers hypothyroi hypothyroi 03-01 it y of dism dism 00:00: [place] [facility] Thyroid Thyroid Disease Active Univers cyst cyst 03-01 ity of 00:00: [place] [facility] Thyroid Thyroid Disease Active Univers nodule nodule 03-01 ity of 00:00: [place] 00 Medical Branch Dyslipidem Dyslipidem Disease Active U nivers ia ia 03-01 ity of 00:00: [place] 00 [facility] Allergies, Adverse Reactions, Alerts Allergy Allergy Status Severity Reaction(s) Onset Inactive Treating Comm ents Source Name Type Date Date Clinician Morphine Propensi Active GI Method i (Pf) ty to Intolerance 06-29 adverse 00:00: Hospita reaction 00 l s to drug Morphine Propensi Active Nausea Univer s ty to and/or 121 ity of adverse Vomiting 00:00: [place] reaction 00 Medical s to Branch drug MORPHINE DRUG Active Med N/V Univers INGREDI 1-21 ity of 00:00: [place] 00 Medical Branch Social History Social Habit Start Date Stop Date Quantity Comments Source Alcohol intake 2016-06-30 2016-06-30 Current Zoroastrian 00:00:00 00:00:00 non-drinker of Hospital alcohol (finding) Sex Assigned At [birth year] [facility] [address] Ayala kes 00:[facility] Smoking Status Start Date Stop Date Source Never smoker [facility] Medications Ordered Filled Start Stop Current Ordering Indication Dosage Frequency Signature Comments Components Source Medication Medication Date Date Medication? Clinician (SIG) Name Name vanonid Yes [id number] Apply to Univers e 0.05 % 9-24 area(s) 2 ity of solution 00:00: (two) [place] 00 times Medical daily. Branch salicylic Yes [id number] Apply to Univers acid 4-26 area(s) ity of (KERALYT) 6 00:00[place]. [place] % gel 00 Apply to Medical scalp Branch daily. Let sit 20 Minutes prior to washing off. clobetasoL Yes [id number] Apply to Univers 0.05 % 4-26 area(s) 2 ity of external 00:00: (two) [place] solution 00 times Medical daily. Branch ketoconazol Yes [id number] Apply to Univers e 2 % 4-26 area(s) ity of shampoo 00:00: once [place] 00 as needed Medical for Branch Itching. fluocinonid No [id number] Apply to Univers e 0.05 % 4-19 09-24 area(s) 2 ity o f solution 00:00: 00:00 (two) [place] 00 :00 times Medical daily. Branch cefdinir 2019-0 Yes [id number] 300mg Take 1 Un julee 300 mg 7-20 capsule by ity of capsule 00:00: mouth 2 [place] 00 (two) Medical times Branch daily. benzonatate 2019-0 Yes [id number] 200mg Take 1 Univers 200 mg 7-20 capsule by ity of capsule 00:00: mouth 3 [place] (three) Medical times Branch daily as needed for Cough. diclofenac 2019-0 Yes [id number] 75mg Take 1 U nivers 75 mg EC 7-14 tablet by ity of tablet 00:00: mouth 2 [place] 00 (two) Medical times Branch daily with meals. ibuprofen 2020-0 Yes [id number] 600mg Take 1 Univers 600 mg 7-07 tablet by ity of tablet 00:00: mouth [place] 00 every 6 Medical (six) Branch hours as needed for Pain (scale 4-6). traMADol 50 2020-0 Yes [id number] 50mg Take 1 Univ ers mg tablet 7-07 tablet by ity o f 00:00: mouth [place] 00 every 6 Medical (six) Branch hours as needed for Pain (scale 4-6). Indication s: acute pain ALPRAZolam 2020-0 Yes 1mg Take 1 mg Un julee 2 mg tablet 3-18 by mouth ity of 18:00: at bedtime [place] 59 as needed Medical for Sleep. Branch Levothyroxi 2020-0 Yes 125ug Take 125 U nivers ne 88 mcg 3-18 mcg by ity of capsule 18:00: mouth [place] 59 daily. Medical Branch traZODone 2020-0 Yes 150mg Take 150 Uni vers 150 mg 3-18 mg by ity of tablet 18:00: mouth at [place] 59 bedtime as Medical needed for Branch Sleep. vortioxetin 2020-0 Yes 10mg Take 10 mg Univers e 3-18 by mouth ity of (TRINTELLIX 18:00: daily. [place] ) 10 mg [place] 59 Medical Branch linaGLIPtin 2020-0 Yes 5mg Take 5 mg U nivers (TRADJENTA) 3-18 by mouth ity of 5 mg tablet 18:00: [place]. [place] glipiZIDE 2020-0 Yes 10mg Take 10 mg Un julee 10 mg 3-18 by mouth 2 ity of tablet 18:00: (two) [place] 59 times Medical daily Branch before breakfast and dinner. aspirin 81 2020-0 Yes [id number] 81mg Take 1 U nivers mg chewable 3-18 tablet by ity of tablet 00:00: mouth [place] 00 daily. Medical Branch losartan 50 2020-0 Yes [id number] 50mg Take 1 Univers mg tablet 3-18 tablet by ity o f 00:00: mouth [place] 00 daily. Medical Branch Insulin 2020-0 Yes [id number] 20U inject 20 U nivers Detemir 3-18 Units ity of (LEVEMIR 00:00: [place] the [place] FLEXTOUCH 00 skin 2 Medical U-100 (two) Branch INSULN) 100 times unit/mL (3 daily. mL) injection magnesium 2020-0 Yes [id number] 400mg Take 400 Univers oxide 420 2-04 [id number] mg by ity of mg Tab 00:00: mouth 2 [place] 00 (two) Medical times Branch daily. pantoprazol 2020-0 Yes [id number] 20mg Take 1 Univers e 20 mg EC 2-04 [id number] tablet by it y of tablet 00:00: mouth [place] 00 daily. Medical Branch sucralfate Yes [id number] 1g Take 1 Univers (CARAFATE) 11-27 [id number] tablet by it y of 1 gram 00:00: mouth 4 [place] tablet 00 (four) Medical times Branch daily as needed for Indigestio n. clopidogrel Yes [id number] 75mg Take 1 Univers 75 mg 7-20 tablet by ity of tablet 00:00: mouth [place] 00 daily. Medical Branch atorvastati Yes [id number] 40mg Take 1 Univers n 40 mg 7-20 tablet by ity of tablet 00:00: mouth at [place] 00 bedtime. Medical Branch liraglutide Yes [id number] .6mg inject 0.6 Univers 0.6 mg/0.1 7-20 mg under ity o f mL (18 mg/3 00:00: [place] mL) 00 daily. Medical injection Branch Blood-Gluco Yes Use as Univ ers se Meter 9-20 directed, ity of (BLOOD 00:00: DX:E11.9 [place] GLUCOSE 00 Medical MONITORING) Branch Kit lancets (BD Yes Use as Univ ers ULTRA FINE 9-20 directed, ity of LANCETS) 33 00:00: TID, [place] gauge Misc 00 DX:E11.9 Medic al Branch blood sugar Yes Use as Univ ers diagnostic 9-20 directed, ity of (BLOOD 00:00: TID, [place] GLUCOSE 00 DX:E11.9 Medical TEST) strip Branch No known No No known Metho di medications 9-[address] 11:18: s Hosp[facility] 07 l No known No No known Metho di medications 9-[address] 11:18: s [facility]ospita 07 l Immunizations Ordered Filled Immunization Date Status Comments Sour e Immunization Name Name Influenza Virus 2020-01-09 Completed Universit y of Vaccine Quad .5 mL 00:00:[address] [facility] 6+ MO Branch Procedures This patient has no known procedures. Encounters Start End Encounter Admission Attending Care Care Encounter Source Date/Time Date/Time Type Type Clinicians Facility Department ID 2021-08-21 Emergency [facility] [id number] Univers 07:33:48 ity of [facility] 2021-08-21 Emergency [facility] [id number] Univers 05:20:42 ity of [facility] 2021-08-20 Emergency [facility] [id number] Univers 14:38:03 ity [facility] [place] [facility] 2021-07-02 2021-07-02 Telephone Chi [facility] [id number] Univers 00:00:00 00:00:00 Krfunmilayoa Y HEALTH [id number] ity of CLINICS [id number] [facility] [id number] [address] 2021-02-16 2021-02-16 Outpatient R [facility] [id number] Univers 14:00:00 14:00:00 [id number] ity [facility] [place] [facility] 2021-02-16 2021-02-16 Outpatient R SERGE GASPAR [facility] [id number] Univers 14:00:00 14:00:00 SERGE GASPAR i ty [facility] [place] [facility] 2021-02-16 2021-02-16 [facility] [id number] 08:12:34 08:27:34 ne Visit Johan Sen HEALTH [id number] CLINICS [id number] [facility] 2021-02-05 2021-02-05 Telephone Chi [facility] [id number] 00:00:00 00:00:00 Maureena Mckinley HEALTH [id number] CLINICS [id number] 2021-01-09 2021-01-09 Outpatient R [facility] [id number] Univers 14:30:00 14:30:00 [id number] ity [facility] [place] [facility] 2021-01-09 2021-01-09 [facility] [id number] Univers 14:30:00 14:30:00 [facility] 2020-12-09 2020-12-09 [facility] [id number] Univers 11:00:00 11:00:00 TERESSA [id number] [facility] 2020-09-22 2020-09-22 Outpatient NELIDA RODRÍGUEZ [facility] [id number] Univers 14:40:00 14:40:00 [facility] 2020-09-22 Outpatient NELIDA RODRÍGUEZ [facility] [id number] Univers 14:40:00 14:40:00 NELIDA HEARD [facility] 2020-09-05 2020-09-05 Outpatient NELIDA RODRÍGUEZ [facility] [id number] Univers 14:20:00 14:20:00 [facility] [id number] [facility] 2020-09-05 2020-09-05 Outpatient NELIDA RODRÍGUEZ [facility] [id number] Univers 14:20:00 14:20:00 NELIDA HEARD [facility] 2020-08-29 2020-08-29 Outpatient NELIDA HEARD [facility] [id number] Univers 14:40:00 14:40:00 NELIDA HEARD [facility] 2020-08-29 2020-08-29 Outpatient NELIDA RODRÍGUEZ [facility] [id number] Univers 14:40:00 14:40:00 NELIDA HEARD [facility] 2020-07-08 2020-07-08 Outpatient NELIDA RODRÍGUEZ [facility] [id number] Univers 15:40:00 15:40:00 NELIDA HEARD [id number] [facility] 2020-07-08 2020-07-08 Outpatient NELIDA RODRÍGUEZ [facility] [id number] Univers 15:40:00 15:40:00 NELIDA HEARD [facility] 2020-05-15 2020-05-15 Outpatient Vito SETH [facility] [id number] Univers 08:00:00 08:00:00 OMAR [id number] [facility] 2020-05-15 2020-05-15 Outpatient R DORINDA [facility] [id number] Univers 08:00:00 08:00:00 OMAR [facility] 2020-05-14 2020-05-14 Outpatient Vito SETH [facility] [id number] Univers 00:00:00 00:00:00 OMAR [id number] ity [facility] [place] [facility] 2020-05-08 2020-05-08 Outpatient DORINDA [facility] [id number] Univers 11:00:00 11:00:00 OMAR [id number] ity [facility] [place] [facility] 2020-05-08 2020-05-08 Outpatient R DORINDA [facility] [id number] Univers 00:00:00 00:00:00 OMAR y [facility] [place] [facility] 2020-04-30 2020-04-30 Outpatient R DORINDA [facility] [id number] Univers 15:15:00 15:15:00 OMAR ity [facility] [place] [facility] 2020-04-30 2020-04-30 Outpatient R DORINDA [facility] [id number] Univers 15:15:00 15:15:00 OMAR [facility] 2020-03-18 2020-03-18 Outpatient R WARD, [facility] [id number] Univers 13:30:00 13:30:00 DEAN [id number] ity [facility] [place] [facility] 2020-03-18 2020-03-18 Outpatient R WARD, [facility] [id number] Univers 13:30:00 13:30:00 DEAN [facility] 2020-03-11 2020-03-11 Outpatient R RADIOLOGY [facility] [id number] Univers 14:00:00 14:00:00 [id number] ity [facility] [place] [facility] 2020-03-11 2020-03-11 Outpatient R RADIOLOGY [facility] [id number] Univers 00:00:00 00:00:00 ity [facility] [place] [facility] 2020-02-29 2020-02-29 Outpatient R NELIDA HEARD [facility] [id number] Univers 15:00:00 15:00:00 NELIDA HEARD ity [facility] [place] [facility] 2020-02-29 2020-02-29 Outpatient R NELIDA HEARD [facility] [id number] Univers 15:00:00 15:00:00 [facility] 2020-01-22 2020-01-22 Outpatient R ED, [facility] [id number] Univers 15:30:00 15:30:00 DEAN [id number] [facility] 2020-01-22 2020-01-22 Outpatient Vito WARD [facility] [id number] Univers 15:30:00 15:30:00 DEAN [facility] 2019-10-05 2019-10-05 Emergency Mariaelena AN [facility] ERT [id number] Univers 16:23:57 17:39:00 GHASSAN [facility] 2019-08-24 2019-08-24 Outpatient NELIDA RODRÍGUEZ [facility] [id number] Univers 13:00:00 14:56:25 NELIDA HEARD [facility] Results Test Description Test Time Test Comments Results Result Comments Source SARS-COV2/RT-PCR ([facility]) 2020-05-30 14:44:00 Test Item Value Reference Range Interpretation Comme nts SARS-COV2/RT-PCR (test code = [id number]) Negative Not Detected, N egative, See external report for linked test SARS-COV-2 PERFORMING LAB (test code = BSC TOM [id number]) Negative result for this test determines that SARS-CoV-2 RNA was not present in the specimen above the Limit of Detection (LOD). However, Negative results do not preclude SARS-CoV-2 infection and should not be used as the sole basis for treatment or patient management decisions. Negative results mustbe combined with clinical observations, patient history, and epidemiological information. A false negative result may occur if a specimen is improperly collected, transported or handled. A false negative result should be considered if patient's recent exposures or clinical presentation indicate that COVID-19 (SARS-CoV-2) is likely and diagnostic tests for other causes of illness are negative. Re-testing should be considered in cases of suspected false negatives.The limit of detection for this assay is 800 copies/mL.This SARS CoV-2 test is a real-time RT-PCR test intended for the qualitative detection of nucleic acid from SARS-CoV-2 in a nasopharyngeal swab specimen collected from individuals susp ected of COVID-19 by their healthcare provider.This test has not been Food and Drug Administration (FDA) cleared or approved. This is a modified version of an approved Emergency Use Authorization (EUA) and is in the process of review by the FDA. Once authorized by the FDA, the issued EUA will be effective until the declaration that circumstances exist justifying the authorization of the emergency use of in vitro diagnostic tests for detection and/or diagnosis of COVID-19 is terminated under Section 564(b)(2) of the Act or the EUA is revoked under Section 564(g) of the Act.Fact Sheet for Healthcare Providers:https://www.[employer]/sites/default/files/product/documents/Fact_Shee d_YW_Dwowpryix_Szjs_VPZZ-SwF-5.pdfFact Sheet for Healthcare Patients:https://www.[employer]/sites/default/files/product/ documents/Gpnv_Atuwa_Xiryzjyw_Mrll_RVTM-SsK-0.pdfPerforming Laboratory:[facility] [place] [address]
--- NOTE | 2022-05-16 19:56 | EDPHYS ---
Physician Documentation [facility] Name: Janis Henderson Age: 61 yrs Sex: Female : 1960 Arrival Date: 05/16/2022 Time: 17:19 Bed 10 Private MD: Hector Terrell ED Physician Cristiana Linn HPI: 05/16 18:20 This 61 yrs old Female presents to ER via Ambulatory with complaints of jmm Shortness Of Breath, Sneezing, Diarrhea. 18:20 The patient has shortness of breath at rest. Onset: The symptoms/episode began/occurred jmm gradually, 5 day(s) ago. The patient's shortness of breath has no apparent modifying factors. Associated signs and symptoms: Pertinent positives: non-productive cough, Diarrhea. Historical: - Allergies: 18:17 Morphine; jl7 - Home Meds: 18:17 atorvastatin 40 mg Oral tab [Active]; Glipizide Oral [Active]; levothyroxine oral jl7 [Active]; lisinopril Oral [Active]; losartan 25 mg Oral tab [Active]; Plavix 75 mg Oral tab [Active]; Tradjenta 5 mg Oral tab [Active]; Xanax Oral [Active]; - PMHx: 18:17 Anxiety; chronic neck/back pain; COVID; CVA; speech deficit/mild weakness; Depression; jl7 Diabetes - NIDDM; Hypertension; Hypothyroidism; psoriasis; VASCULAR DEMENTIA; - Immunization history:: Client reports receiving the 2nd dose of the Covid vaccine. - Social history:: Smoking status: Patient denies any tobacco usage or history of. ROS: 18:20 Constitutional: Positive for body aches, chills. jmm 18:20 Respiratory: Positive for cough, shortness of breath. 18:20 Abdomen/GI: Positive for diarrhea. 18:20 All other systems are negative. Exam: 18:20 Constitutional: This is a well developed, well nourished patient who is awake, alert, jmm and in no acute distress. Head/Face: atraumatic. Eyes: EOMI, no conjunctival erythema appreciated ENT: Moist Mucus Membranes Neck: Trachea midline, Supple Chest/axilla: Normal chest wall appearance and motion. Cardiovascular: Regular rate and rhythm. No edema appreciated Respiratory: Normal respirations, no respiratory distress appreciated Abdomen/GI: Non distended Back: Normal ROM Skin: General appearance color normal MS/ Extremity: Moves all extremities, no obvious deformities appreciated, no edema noted to the lower extremities Neuro: Awake and alert Psych: Behavior is normal, Mood is normal, Patient is cooperative and pleasant Vital Signs: 18:16 BP 121 / 76; Pulse 71; Resp 18; Temp 97.9; Pulse Ox 99% ; Weight 90.72 kg; Height 5 ft. jl7 5 in. (165.10 cm); Pain 0/10; 20:12 BP 126 / 82; Pulse 74; Resp 18 S; Pulse Ox 100% on R/A; lg3 18:16 Body Mass Index 33.28 (90.72 kg, 165.10 cm) jl7 MDM: 19:11 Patient medically screened. [facility] 19:53 Data reviewed: vital signs, nurses notes. Counseling: I had a detailed discussion with neha the patient and/or guardian regarding: the historical points, exam findings, and any diagnostic results supporting the discharge/admit diagnosis, the need for outpatient follow up, to return to the emergency department if symptoms worsen or persist or if there are any questions or concerns that arise at home. 05/16 18:19 Order name: SARS-COV-2 RT PCR (Document "Date of Onset" if Symptomatic); Complete Time: 01:18 Administered Medications: No medications were administered Disposition Summary: 05/16/22 19:56 Discharge [facility]dered [facility] Condition: Stable [facility] Diagnosis - Viral Syndrome [facility]up: [facility] - With: Private Physician - When: 2 - 3 days - Reason: Recheck today's complaints, Continuance of care, Re-evaluation by your physician Forms: - Medication Reconciliation Form [facility] - Thank You Letter [facility] - Antibiotic Education [facility] - Prescription Opioid Use [facility] Signatures: Dispatcher [employer] EDMS Marcello Leal PA PA jmm Leal, Jahala RN RN jl7 Corrections: (The following items were deleted from the chart) 18:18 18:17 PSHx: section; 7 18:18 18:17 PSHx: R knee; 7
--- NOTE | 2022-05-16 19:56 | ER ---
Nurse's Notes [facility] Name: Janis Henderson Age: 61 yrs Sex: Female : 1960 Arrival Date: 05/16/2022 Time: 17:19 Bed 10 Private MD: Hector Terrell Diagnosis: Viral Syndrome Presentation: 05/16 18:16 Chief complaint: Patient states: SOB, sneezing x 2 days, diarrhea x 5 days. Coronavirus jl7 screen: Vaccine status: Patient reports receiving the 2nd dose of the covid vaccine. diarrhea, shortness of breath, Client presents with at least one sign or symptom that may indicate coronavirus-19. Standard/surgical mask placed on the client. Ebola Screen: No symptoms or risks identified at this time. Initial Sepsis Screen: Does the patient meet any 2 criteria? No. Patient's initial sepsis screen is negative. Does the patient have a suspected source of infection? No. Patient's initial sepsis screen is negative. Risk Assessment: Do you want to hurt yourself or someone else? Patient reports no desire to harm self or others. Onset of symptoms was May 10, 2022. Care prior to arrival: None. 18:16 Method Of Arrival: Ambulatory jl7 18:16 Acuity: JUANCHO 3 jl7 Triage Assessment: 18:17 General: Appears in no apparent distress. uncomfortable, Behavior is calm, cooperative, jl7 appropriate for age. Pain: Denies pain. Respiratory: Reports shortness of breath Airway is patent Respiratory effort is even, unlabored, Respiratory pattern is regular, symmetrical, Onset: The symptoms/episode began/occurred yesterday, the patient has mild shortness of breath. Historical: - Allergies: 18:17 Morphine; jl7 - Home Meds: 18:17 atorvastatin 40 mg Oral tab [Active]; Glipizide Oral [Active]; levothyroxine oral jl7 [Active]; lisinopril Oral [Active]; losartan 25 mg Oral tab [Active]; Plavix 75 mg Oral tab [Active]; Tradjenta 5 mg Oral tab [Active]; Xanax Oral [Active]; - PMHx: 18:17 Anxiety; chronic neck/back pain; COVID; CVA; speech deficit/mild weakness; Depression; jl7 Diabetes - NIDDM; Hypertension; Hypothyroidism; psoriasis; VASCULAR DEMENTIA; - Immunization history:: Client reports receiving the 2nd dose of the Covid vaccine. - Social history:: Smoking status: Patient denies any tobacco usage or history of. Screenin:09 Abuse screen: Denies threats or abuse. Denies injuries from another. Nutritional lg3 screening: No deficits noted. Tuberculosis screening: No symptoms or risk factors identified. Fall Risk None identified. Assessment: 20:09 General: Appears in no apparent distress. comfortable, Behavior is calm, cooperative. lg3 Pain: Denies pain. Neuro: No deficits noted. Level of Consciousness is awake, alert, obeys commands, Oriented to person, place, time, situation. Cardiovascular: No deficits noted. Denies chest pain, shortness of breath, Rhythm is regular. Respiratory: Reports cough that is Airway is patent Trachea midline Respiratory effort is even, unlabored, Respiratory pattern is regular, symmetrical, Breath sounds are clear bilaterally. GI: GI: No deficits noted. Abdomen is round non-distended, Bowel sounds present X 4 quads. Abd is soft and non tender X 4 quads. Reports diarrhea. : No deficits noted. No signs and/or symptoms were reported regarding the genitourinary system. EENT: No deficits noted. No signs and/or symptoms were reported regarding the EENT system. Derm: No deficits noted. No signs and/or symptoms reported regarding the dermatologic system. Skin is intact, is healthy with good turgor, Skin is dry, Skin temperature is warm. Musculoskeletal: No deficits noted. No signs and/or symptoms reported regarding the musculoskeletal system. Circulation, motion, and sensation intact. Range of motion: intact in all extremities. Vital Signs: 18:16 BP 121 / 76; Pulse 71; Resp 18; Temp 97.9; Pulse Ox 99% ; Weight 90.72 kg; Height 5 ft. jl7 5 in. (165.10 cm); Pain 0/10; 20:12 BP 126 / 82; Pulse 74; Resp 18 S; Pulse Ox 100% on R/A; lg3 18:16 Body Mass Index 33.28 (90.72 kg, 165.10 cm) jl7 ED Course: 17:19 Patient arrived in ED. as 17:19 Hector Terrell DO is Private Physician. as 18:02 [facility]al [facility] 18:02 Cristiana Linn is Attending Physician. [facility] 18:17 Triage completed. jl7 18:17 Arm band placed on right wrist. Patient placed in waiting room, Patient notified of jl7 wait time. 18:23 COVID swab sent to lab. 7 19:34 Janine Norton, RN is Primary Nurse. lg3 20:09 Patient has correct armband on for positive identification. Bed in low position. Call lg3 light in reach. Side rails up X 1. Client placed on continuous cardiac and pulse oximetry monitoring. NIBP monitoring applied. cafeteria monitor on. Door closed. Noise minimized. Warm blanket given. 20:09 No provider procedures requiring assistance completed. Patient did not have IV access lg3 during this emergency room visit. Administered Medications: No medications were administered Medication: 20:09 VIS not applicable for this client. lg3 Outcome: 19:56 Discharge ordered by MD. [facility] 20:11 Discharged to home ambulatory. lg3 20:11 Condition: stable 20:11 Discharge instructions given to patient, Instructed on discharge instructions, Demonstrated understanding of instructions. 20:13 Patient left the ED. lg3 Signatures: Marcello Leal PA PA Renee Carey Jahala, RN RN Janine Grant, RN RN lg3 Corrections: (The following items were deleted from the chart) 18:18 18:17 PSHx: section; [facility] jl7 18:18 18:17 PSHx: R knee; martha jl7
[2022-05-16 20:18] VITALS: TEMP 97.9
[2022-05-16 20:19] VITALS: BP 126/82; O2SAT 100
== END 2022-05-16 20:13 | disposition home or self-care (01) ==
LOC: ER 17:16
DX: B34.9 Viral infection, unspecified (principal); R19.7 Diarrhea, unspecified; Z20.822 Contact with and (suspected) exposure to COVID-19; I10 Essential (primary) hypertension; E11.9 Type 2 diabetes mellitus without complications; F32.A Depression, unspecified; Z86.16 Personal history of COVID-19; Z88.5 Allergy status to narcotic agent
CPT/HCPCS: 99284; U0003

== ENCOUNTER 2022-06-03 17:16 | Emergency (ER) | payer OTHER ==
--- OUTSIDE RECORDS SUMMARY | 2022-06-03 17:19 | XMS REPORT | Continuity of Care Document ---
:1960 Author Organization [facility] t Address [address] [place] [place] [address] Care Team Providers Name Role Phone Asked, No Pcp Primary Care Physician Unavailable Johan Mireles MD Attending Clinician SERGE GASPAR Attending Clinician Unavailable SERGE GASPAR Attending Clinician Unavailable PHUC GONZALEZ Attending Clinician Unavailable TERESSA SHAH Attending Clinician Unavailable NELIDA HEARD Attending Clinician Unavailable NELIDA HEARD Attending Clinician Unavailable OMAR SETH Attending Clinician Unavailable DEAN WARD Attending Clinician Unavailable RADIOLOGY Attending Clinician Unavailable GHASSAN AN Attending Clinician Unavailable GHASSAN AN Admitting Clinician Unavailable Payers Payer Name Policy Type Policy Number Effective Date Expiration Date [facility] [id number] 2015 00:00:00 PLUS Problems Condition Condition Condition Status Onset Resolution Last Treating Co mments Source Name Details Category Date Date Treatment Clinician Date Hypokalemi Hypokalemi Disease Active 2020-0 U nivers a a 2-03 ity of 00:00: [address] Stroke Stroke Disease Active 2019-0 Univers 7-15 ity of 00:00: [address] Obesity Obesity Disease Active 20170 Univers (BMI (BMI 7-07 ity of 30-39.9) 30-39.9) 00:00: [place] 00 [facility] Pain in Pain in Disease [...] cyst cyst 03-01 ity of 00:00: [place] 00 [facility] Thyroid Thyroid Disease Active Univers nodule nodule 03-01 ity of 00:00: [place] [facility] Dyslipidem Dyslipidem Disease Active U [...] Active Nausea Univer s ty to and/or 11-13 ity of adverse Vomiting 00:00: [place] reaction 00 Medical s to Branch drug MORPHINE DRUG Active Med N/V Univers INGREDI - ity of 00:00: [place] 00 [facility] Social History Social Habit Start Date Stop Date Quantity Comments Source Alcohol intake 2016-06-30 2016-06-30 Current [facility] 00:00:00 00:00:00 non-drinker of Hospital alcohol (finding) Sex Assigned At [birth year] DARINEL [place] Dios 00:00:00 [facility] Smoking Status Start Date Stop Date Source Never smoker [facility] Branch Medications Ordered Filled Start Stop Current Ordering Indication Dosage Frequency Signature Comments Components Source Medication Medication Date Date Medication? Clinician (SIG) Name Name fluocinonid Yes [id number] Apply to Univers e 0.05 % 9-24 area(s) 2 ity of solution 00:00: (two) [place] 00 times Medical daily. Branch salicylic Yes [id number] Apply to Univers acid 4-26 area(s) ity of (KERALYT) 6 00:00[place]. [place] % gel 00 Apply to Medical scalp Branch daily. Let sit 20 Minutes prior to washing off. clobetasoL Yes [id number] Apply to Univers 0.05 % 4-26 area(s) 2 ity of external 00:00: (two) [place] solution 00 times Medical daily. Branch ketoconazol Yes [id number] Apply to Univers e 2 % 4-26 area(s) ity of shampoo 00:00[place] once [place] 00 as needed Medical for Branch Itching. fluocinonid 2020- No [id number] Apply to Univers e 0.05 % 4-19 09-24 area(s) 2 ity o f solution 00:00: 00:00 (two) [place] 00 :00 times Medical daily. Branch cefdinir Yes [id number] 300mg Take 1 Un julee 300 mg 7-20 capsule by ity of capsule 00:00: mouth 2 (two) Medical times Branch daily. benzonatate 0 Yes [id number] 200mg Take 1 Univers 200 mg 7-20 capsule by ity of capsule 00:00: mouth 3 00 (three) Medical times Branch daily as needed for Cough. diclofenac Yes [id number] 75mg Take 1 U nivers 75 mg EC 7-14 tablet by ity of tablet 00:00: mouth 2 00 (two) Medical times Branch daily with meals. ibuprofen 2019-0 Yes [id number] 600mg Take 1 Univers 600 mg 7-07 [...] breakfast and dinner. aspirin 81 2020-0 Yes [id number] 81mg Take 1 U nivers mg chewable 3-18 tablet by ity of tablet 00:00: mouth [place] 00 daily. Medical Branch losartan 50 2020-0 Yes [id number] 50mg Take 1 Univers mg tablet 3-18 tablet by ity o f 00:00: mouth [place] 00 daily. Medical Branch Insulin 2020-0 Yes [id number] 20U inject 20 U nivers Detemir 3-18 Units ity of (LEVEMIR 00:00: [place] FLEXTOUCH 00 skin 2 Medical U-100 (two) Branch INSULN) 100 times unit/mL (3 daily. mL) injection magnesium 2020-0 Yes [id number] 400mg Take 400 Univers oxide 420 2-04 [id number] mg by ity of mg Tab 00:00: mouth 2 [place] 00 (two) Medical times Branch daily. pantoprazol Yes [id number] 20mg Take 1 Univers e 20 mg EC 11-27 [id number] tablet by it y of tablet 00:00: mouth [place] 00 daily. Medical Branch sucralfate Yes [id number] 1g Take 1 Univers (CARAFATE) 11-27 [id number] tablet by it y of 1 gram 00:00: mouth 4 [place] tablet 00 (four) Medical times Branch daily as needed for Indigestio n. clopidogrel Yes [id number] 75mg Take 1 Univers 75 mg 7-20 tablet by ity of tablet 00:00: mouth [place] 00 daily. Medical Branch atorvastati Yes [id number] 40mg Take 1 Univers n 40 mg 7-20 tablet by ity of tablet 00:00: mouth at [place] 00 bedtime. Medical Branch liraglutide Yes [id number] .6mg inject 0.6 Univers 0.6 mg/0.1 7-20 mg under ity o f mL (18 mg/3 00:00: the [place] mL) 00 daily. Medical injection Branch Blood-Gluco Yes Use as Univ ers se Meter 9-20 directed, ity of (BLOOD 00:00: DX:E11.9 [place] GLUCOSE 00 Medical MONITORING) Branch Kit lancets [...] Immunizations Ordered Filled Immunization Date Status Comments Sourc e Immunization Name Name Influenza Virus 2020-01-09 Completed Universit y of Vaccine Quad .5 mL 00:00:00 [place] Medical IM 6+ MO Branch Procedures This patient has no known procedures. Encounters Start End Encounter Admission Attending Care Care Encounter Source Date/Time Date/Time Type Type Clinicians Facility Department ID 2021-08-[address] [facility] [id number] Univers 07:33:48 ity of [facility] 2021-08-[address] [facility] [id number] Univers 05:20:42 ity of [facility] 2021-08-[address] [facility] [id number] Univers 14:38:03 ity [facility] 2021-07-02 2021-07-02 Telephone ROMEL Mireles [id number] Univers 00:00:00 00:00:00 [email or web address] [id number] ity [id number] [id number] [address] 2021-02-16 2021-02-[address] [facility] [id number] Univers 14:00:00 14:00:[id number] 2021-02-16 [address]GE GASPAR [facility] [id number] Univers 14:00:00 14:00:00 SERGE GASPAR i ty [facility] 2021-02-16 2021-02-16 Telemedici ROMEL Mireles [id number] 08:12:34 08:27:34 ne Visit [email or web address] [id number] CLINICS [id number] 2021-02-05 2021-02-05 Telephone ROMEL Mireles [id number] 00:00:00 00:00:00 [email or web address] [id number] CLINICS [id number] 2021-01-09 2021-01-[address] [facility] [id number] Univers 14:30:00 14:30:00 [id number] [facility] 2021-01-09 2021-01-[address] [facility] [id number] Univers 14:30:00 14:30:00 PHUC [facility] 2020-12-09 2020-12-[address] [facility] [id number] Univers 11:00:00 11:00:00 TERESSA [id number] [facility] 2020-09-22 2020-09-22 Outpatient NELIDA RODRÍGUEZ [facility] [id number] Univers 14:40:00 14:40:00 NELIDA HEARD [facility] 2020-09-22 2020-09-22 Outpatient NELIDA RODRÍGUEZ [facility] [id number] Univers 14:40:00 14:40:00 ENLIDA HEARD [facility] 2020-09-05 2020-09-05 Outpatient NELIDA RODRÍGUEZ [facility] [id number] Univers 14:20:00 14:20:00 NELIDA HEARD [id number] [facility] 2020-09-05 2020-09-05 Outpatient NELIDA RODRÍGUEZ [facility] [id number] Univers 14:20:00 14:20:00 NELIDA HEARD [facility] 2020-08-29 2020-08-[address] [facility] [id number] Univers 14:40:00 14:40:00 NELIDA HEARD [facility] 2020-08-29 2020-08-29 Outpatient NELIDA RODRÍGUEZ [facility] [id number] Univers 14:40:00 14:40:00 NELIDA HEARD [facility] 2020-07-08 2020-07-08 Outpatient NELIDA RODRÍGUEZ [facility] [id number] Univers 15:40:00 15:40:00 NELIDA HEARD [id number] [facility] 2020-07-08 2020-07-08 Outpatient NELIDA RODRÍGUEZ [facility] [id number] Univers 15:40:00 15:40:00 NELIDA HEARD [facility] 2020-05-15 2020-05-[address] [facility] [id number] Univers 08:00:00 08:00:00 OMAR [id number] [facility] 2020-05-15 2020-05-[address] [facility] [id number] Univers 08:00:00 08:00:00 OMAR ity [facility] 2020-05-14 2020-05-[address] [facility] [id number] Univers 00:00:00 00:00:00 OMAR [id number] ity [facility] 2020-05-08 2020-05-[address] [facility] [id number] Univers 11:00:00 11:00:00 OMAR [id number] ity [facility] 2020-05-08 2020-05-[address] [facility] [id number] Univers 00:00:00 00:00:00 OMAR ity [facility] 2020-04-30 2020-04-[address] [facility] [id number] Univers 15:15:00 15:15:00 OMAR ity [facility] 2020-04-30 2020-04-[address] [facility] [id number] Univers 15:15:00 15:15:00 OMAR [facility] 2020-03-18 2020-03-[address] [facility] [id number] Univers 13:30:00 13:30:00 DEAN [id number] ity [facility] 2020-03-18 2020-03-18 Outpatient R WARD, [facility] [id number] Univers 13:30:00 13:30:00 [facility] 2020-03-[facility] 2020-03-[address] [facility] [id number] Univers 14:00:00 14:00:00 [id number] ity [facility] 2020-03-11 2020-03-[address] [facility] [id number] Univers 00:00:00 00:00:00 ity of [facility] 2020-02-29 2020-02-29 [address] HEARD [facility] [id number] Univers 15:00:00 15:00:00 NELIDA HEARD [id number] ity [facility] 2020-02-29 2020-02-29 Outpatient R [address] HEARD [facility] [id number] Univers 15:00:00 15:00:00 NELIDA HEARDlashell [facility] 2020-01-22 2020-01-[address] [facility] [id number] Univers 15:30:00 15:30:00 DEAN [id number] [facility] 2020-01-22 2020-01-[address] [facility] [id number] Univers 15:30:00 15:30:00 DEAN [facility] 2019-10-05 2019-10-05 Emergency X [facility] ERT [id number] Univers 16:23:57 17:39:00 GHASSAN lashell [facility] 2019-08-24 2019-08-24 Outpatient NELIDA RODRÍGUEZ [facility] [id number] Univers 13:00:00 14:56:25 NELIDA HEARD lashell [facility] Results Test Description Test Time Test Comments Results Result Comments Source SARS-COV2/RT-PCR ([facility]) 2020-05-30 14:44:00 Test Item Value Reference Range Interpretation Comme nts SARS-COV2/RT-PCR (test code = [id number]) Negative Not Detected, N egative, See external report for linked test SARS-COV-2 PERFORMING LAB (test code = BSC TOM [id number]) Negative result for this test determines that SARS-CoV-2 RNA was not present in the specimen above the Limit of Detection (LOD). However, Negative results do not preclude SARS-CoV-2 infection and should not be used as the sole basis for treatment or patient management decisions. Negative results must be combined with clinical observations, patient history, and [...] a nasopharyngeal swab specimen collected from individuals suspected of COVID-19 by their healthcare provider.This test [...] justifying the authorization of the emergency use ofin vitro diagnostic tests for detection and/or diagnosis of COVID-19 is terminated under Section 564(b)(2) of the Act or the EUA is revoked under Section 564(g) of the Act.Fact Sheet for Healthcare Prov iders:https://www.[employer]/sites/default/files/product/documents/Fact_Sheet_HC _Veeuqsnnj_Ywpi_DPZM-NjE-0.pdfFact Sheet for Healthcare Patients:https://www.[employer]/sites/default/files/product/docume nts/Hjrr_Qtyxd_Jnlsiszy_Ewog_EZAW-UlY-2.pdfPerforming Laboratory:[facility] [place] [address]
--- NOTE | 2022-06-03 18:32 | RAD REPORT ---
EXAM DESCRIPTION: RAD - Ribs Left - 06/03/2022 6:20 pm CLINICAL HISTORY: Left chest Left-sided chest pain COMPARISON: Chest Single View dated 04/30/2021 FINDINGS: Osteopenia is noted. No displaced rib fracture is seen. No underlying pneumothorax.
--- NOTE | 2022-06-03 19:00 | EDPHYS ---
Physician Documentation [facility] Name: Janis Henderson Age: 61 yrs Sex: Female : 1960 Arrival Date: 06/03/2022 Time: 17:20 Bed Waiting Private MD: ED Physician Manas Haines HPI: 06/03 17:47 This 61 yrs old Female presents to ER via Ambulatory with complaints of Fall ms3 Injury. 17:47 Details of fall: The patient fell from an upright position, while standing. Onset: The ms3 symptoms/episode began/occurred acutely, 2 day(s) ago. Associated injuries: The patient sustained injury to the chest, specifically the anterior aspect of left upper chest, pain with breathing, tenderness. Severity of symptoms: At their worst the symptoms were a " 8" out of "10", in the emergency department the symptoms a " 8" out of "10". 61-year-old female with past medical history of anxiety, chronic neck and back pain, COVID, stroke, depression, diabetes presents 2 days status post tripping over her dog and falling striking her chest. Patient states she has developed left-sided chest pain that is been ongoing for 2 days and worse with breathing or palpation. Patient states the pain is not alleviated by anything. Patient denies nausea, vomiting, shortness of breath.. Historical: - Allergies: 17:32 Morphine; bm7 - Home Meds: 17:32 atorvastatin 40 mg Oral tab [Active]; Glipizide Oral [Active]; levothyroxine oral bm7 [Active]; lisinopril Oral [Active]; losartan 25 mg Oral tab [Active]; Plavix 75 mg Oral tab [Active]; Tradjenta 5 mg Oral tab [Active]; Xanax Oral [Active]; - PMHx: 17:32 Anxiety; chronic neck/back pain; COVID; CVA; speech deficit/mild weakness; Depression; bm7 Diabetes - NIDDM; Hypothyroidism; Hypertension; psoriasis; VASCULAR DEMENTIA; - Immunization history:: Adult Immunizations up to date, Client reports receiving the 2nd dose of the Covid vaccine, Client reports receiving the 1st dose of the Covid vaccine. - Social history:: Smoking status: Patient/guardian denies using tobacco products. ROS: 17:47 Constitutional: Negative for fever, and chills. Neck: Negative for injury, pain, and ms3 swelling, Respiratory: Negative for shortness of breath, cough, wheezing, and pleuritic chest pain, Abdomen/GI: Negative for abdominal pain, nausea, vomiting, diarrhea, and constipation, MS/Extremity: Negative for injury and deformity, Skin: Negative for injury, rash, and discoloration, Neuro: Negative for headache, weakness, numbness, tingling. 17:47 Cardiovascular: Positive for chest pain, with movement. 17:47 All other systems are negative. Exam: 17:47 Constitutional: This is a well developed, well nourished patient who is awake, alert, ms3 and in no acute distress. Head/Face: Normocephalic, atraumatic. Neck: Trachea midline, no cervical lymphadenopathy. Supple, full range of motion without nuchal rigidity, or vertebral point tenderness. No Meningismus. Cardiovascular: Regular rate and rhythm with a normal S1 and S2. No gallops, murmurs, or rubs. Normal PMI, no JVD. No pulse deficits. Respiratory: Lungs have equal breath sounds bilaterally, clear to auscultation and percussion. No rales, rhonchi or wheezes noted. No increased work of breathing, no retractions or nasal flaring. Abdomen/GI: Soft, non-tender, with normal bowel sounds. No distension or tympany. No guarding or rebound. No evidence of tenderness throughout. Skin: Warm, dry with normal turgor. Normal color with no rashes, no lesions, and no evidence of cellulitis. Psych: Awake, alert, with orientation to person, place and time. Behavior, mood, and affect are within normal limits. 17:47 Chest/axilla: Inspection: normal, Palpation: is normal, no crepitus, no acute changes, tenderness, that is moderate, of the anterior aspect of left upper chest, that totally reproduces the patient's complaints. Vital Signs: 17:30 BP 133 / 80; Pulse 90; Resp 18; Temp 97.7(TE); Pulse Ox 100% on R/A; Weight 90.72 kg bm7 (R); Height 5 ft. 5 in. (165.10 cm); Pain 8/10; 17:30 Body Mass Index 33.28 (90.72 kg, 165.10 cm) bm7 MDM: 17:47 Differential diagnosis: contusion, fracture, strain. ms3 18:59 Patient medically screened. ms3 18:59 Data reviewed: vital signs, nurses notes, radiologic studies, and as a result, I will ms3 discharge patient. Counseling: I had a detailed discussion with the patient and/or guardian regarding: the historical points, exam findings, and any diagnostic results supporting the discharge/admit diagnosis, radiology results, the need for outpatient follow up, to return to the emergency department if symptoms worsen or persist or if there are any questions or concerns that arise at home. 06/03 17:47 Order name: Ribs Left XRAY; Complete Time: 18:58 ms3 Administered Medications: No medications were administered Disposition Summary: 06/03/22 18:59 Discharge Ordered Location: Home ms3 Condition: Stable ms3 Diagnosis - Fall on same level, unspecified ms3 - Left rib pain ms3 Followup: ms3 - With: Abisai Colvin DO - When: 2 - 3 days - Reason: Re-evaluation by your physician Discharge Instructions: - Discharge Summary Sheet ms3 - Fall Prevention in the Home, Adult ms3 - Musculoskeletal Pain ms3 Forms: - Medication Reconciliation Form ms3 - Thank You Letter ms3 - Antibiotic Education ms3 - Prescription Opioid Use ms3 Signatures: Dispatcher [employer] EDManas Albarado DO DO ms3 Kari Gutierrez, RN RN bm7
--- NOTE | 2022-06-03 19:00 | ER ---
Nurse's Notes [facility] Name: Janis Henderson Age: 61 yrs Sex: Female : 1960 Arrival Date: 06/03/2022 Time: 17:20 Bed Waiting Private MD: Diagnosis: Fall on same level, unspecified;Left rib pain Presentation: 06/03 17:30 Chief complaint: Patient states: I have a have a problem with falling a lot and last bm7 night I tripped over the dog and landed on the floor on my chest and I wanted to come in and make sure everything was ok. Coronavirus screen: At this time, the client does not indicate any symptoms associated with coronavirus-19. Ebola Screen: No symptoms or risks identified at this time. Initial Sepsis Screen: Does the patient meet any 2 criteria? No. Patient's initial sepsis screen is negative. Does the patient have a suspected source of infection? No. Patient's initial sepsis screen is negative. Risk Assessment: Do you want to hurt yourself or someone else? Patient reports no desire to harm self or others. Onset of symptoms. Onset of symptoms was July 03, 2022. 17:30 Method Of Arrival: Ambulatory bm7 17:30 Acuity: JUANCHO 4 bm7 Triage Assessment: 17:32 General: Appears in no apparent distress. comfortable, Behavior is calm, cooperative, bm7 appropriate for age. Pain: Complains of pain in chest Pain does not radiate. Pain currently is 8 out of 10 on a pain scale. EENT: No deficits noted. No signs and/or symptoms were reported regarding the EENT system. Neuro: Level of Consciousness is awake, alert, obeys commands, Oriented to person, place, time, situation, Administrative Assistant Coordinator are equal bilaterally Moves all extremities. Gait is unsteady. Cardiovascular: No deficits noted. Denies chest pain, shortness of breath. Respiratory: No deficits noted. GI: No deficits noted. No signs and/or symptoms were reported involving the gastrointestinal system. : No deficits noted. No signs and/or symptoms were reported regarding the genitourinary system. Derm: No deficits noted. No signs and/or symptoms reported regarding the dermatologic system. Musculoskeletal: Reports pain in chest. Historical: - Allergies: 17:32 Morphine; bm7 - Home Meds: 17:32 atorvastatin 40 mg Oral tab [Active]; Glipizide Oral [Active]; levothyroxine oral bm7 [Active]; lisinopril Oral [Active]; losartan 25 mg Oral tab [Active]; Plavix 75 mg Oral tab [Active]; Tradjenta 5 mg Oral tab [Active]; Xanax Oral [Active]; - PMHx: 17:32 Anxiety; chronic neck/back pain; COVID; CVA; speech deficit/mild weakness; Depression; bm7 Diabetes - NIDDM; Hypothyroidism; Hypertension; psoriasis; VASCULAR DEMENTIA; - Immunization history:: Adult Immunizations up to date, Client reports receiving the 2nd dose of the Covid vaccine, Client reports receiving the 1st dose of the Covid vaccine. - Social history:: Smoking status: Patient/guardian denies using tobacco products. Vital Signs: 17:30 BP 133 / 80; Pulse 90; Resp 18; Temp 97.7(TE); Pulse Ox 100% on R/A; Weight 90.72 kg bm7 (R); Height 5 ft. 5 in. (165.10 cm); Pain 8/10; 17:30 Body Mass Index 33.28 (90.72 kg, 165.10 cm) bm7 ED Course: 17:20 Patient arrived in ED. ja2 17:32 Triage completed. bm7 17:32 Arm band placed on left wrist. bm7 17:43 Manas Haines DO is Attending Physician. ms3 18:22 Ribs Left XRAY In Process Unspecified. EDMS 18:58 Abisai Colvin DO is Referral Physician. ms3 19:15 Sakshi Avendano, RN is Primary Nurse. iw Administered Medications: No medications were administered Outcome: 18:59 Discharge ordered by . ms3 19:15 Patient left the ED. iw Signatures: Dispatcher [employer] EDMS Sakshi Avendano, CICI RN iw Manas Haines DO DO ms3 Kari Gutierrez RN RN bm7 Sophie Fonseca
[2022-06-03 21:13] VITALS: BP 133/80; TEMP 97.7; O2SAT 100
== END 2022-06-03 19:15 | disposition home or self-care (01) ==
LOC: ER 17:16
DX: R07.81 Pleurodynia (principal); W18.30XA Fall on same level, unspecified, initial encounter; E11.9 Type 2 diabetes mellitus without complications; I10 Essential (primary) hypertension; F01.50 Vascular dementia, unspecified severity, without behavioral disturbance, psychotic disturbance, mood disturbance, and anxiety; Z79.01 Long term (current) use of anticoagulants; Z79.4 Long term (current) use of insulin; Z88.5 Allergy status to narcotic agent
CPT/HCPCS: 99282

== ENCOUNTER 2023-02-15 14:42 | Inpatient (IN) | payer OTHER ==
--- OUTSIDE RECORDS SUMMARY | 2023-02-15 14:47 | XMS REPORT | Continuity of Care Document ---
:1960 Author Organization [facility] t Address [address] [place] [address] Care Team Providers Name Role Phone Hector Terrell DO Primary Care Physician ZEUS PANG Attending Clinician Unavailable AMIRA ARTEAGA Attending Clinician Unavailable SHERMAN ALDANA Attending Clinician Unavailable Kenia Gonzalez LCSW Attending Clinician Unavailable Amira Oh Attending Clinician Doctor Unassigned, [place] Attending Clinician Unavailable KATHRYN FERRER Attending Clinician Unavailable Kathryn Coleman Attending Clinician Johan Mireles MD Attending Clinician SERGE GASPAR Attending Clinician Unavailable SERGE GASPAR Attending Clinician Unavailable PHUC GONZALEZ Attending Clinician Unavailable NELIDA HEARD Attending Clinician Unavailable NELIDA HEARD Attending Clinician Unavailable OMAR SETH Attending Clinician Unavailable DEAN WARD Attending Clinician Unavailable RADIOLOGY Attending Clinician Unavailable GHASSAN AN Attending Clinician Unavailable GHASSAN AN Admitting Clinician Unavailable Payers Payer Name Policy Type Policy Number Effective Date Expiration Date S Formerly [facility] [id number] 2021 STARPLUS OON 00:00:00 EXCEPT [facility] STAR [id number] 2015 PLUS 00:00:00 Problems Condition Condition Condition Status Onset Resolution Last Treating Co mments Source Name Details Category Date Date Treatment Clinician Date Hypokalemi Hypokalemi Disease Active U nivers a a 2-03 ity of 00:00: Medical Branch Stroke Stroke Disease Active Univers 7-15 ity of 00:00: [place] 00 Medical Branch Obesity Obesity Disease Active Univers (BMI (BMI 7-07 ity of 30-39.9) 30-39.9) 00:00: Medical Branch Pain in Pain in Disease Active Univers both hands both hands 1-18 it y of 00:00: Medical Branch Trigger Trigger Disease Active Univers finger of finger of 1-18 ity of right right 00:00: [place] thumb thumb 00 Medical Branch Right Right Disease Active 2015-10 Univers carotid carotid 1-30 ity of bruit bruit 00:00: 00 Medical Branch Cocaine Cocaine Disease Active [...] 03-01 it y of dism dism 00:00: 00 Medical Branch Thyroid Thyroid Disease Active [...] Method i (Pf) ty to Intolerance 06-29 st adverse 00:00: [facility] reaction 00 l s to drug Morphine Propensi Active Nausea Univer s ty to and/or 11-13 ity of adverse Vomiting 00:00: [place] reaction 00 Medical s to Branch drug MORPHINE DRUG Active Med N/V Univers INGREDI 11-13 ity of 00:00: [place] 00 [facility] Social History Social Habit Start Date Stop Date Quantity Comments Source Gender identity [facility] Tobacco use and 2023-01-25 2023-01-25 Smokeless [facility] exposure 00:00:00 00:00:00 tobacco non-user Exposure to 2022-12-17 2022-12-27 Not sure University SARS-CoV-2 (event) 00:00:00 12:52:00 [facility] Alcohol intake 2016-06-30 2016-06-30 Current [facility] 00:00:00 00:00:00 non-drinker of Hospital alcohol (finding) Sex Assigned At [birth year] [facility] 00:[facility]:00 [facility] Smoking Status Start Date Stop Date Source Tobacco smoking consumption unknown [facility] Never smoked tobacco [facility] Medications Ordered Filled Start Stop Current Ordering Indication Dosage Frequency Signature Comments Components Source Medication Medication Date Date Medication? Clinician (SIG) Name Name methocarbam Yes [id number] 500mg Take 1 Univers oL 500 mg 3-06 tablet by ity o f tablet 00:00: mouth 2 (two) Medical times Branch daily as needed for Pain (scale 4-6). methocarbam Yes [id number] 500mg Take 1 Univers oL 500 mg 3-06 tablet by ity o f tablet 00:00: mouth 2 (two) Medical times Branch daily as needed for Pain (scale 4-6). methocarbam Yes [id number] 500mg Take 1 Univers oL 500 mg 3-06 tablet by ity o f tablet 00:00: mouth 2 (two) Medical times Branch daily as needed for Pain (scale 4-6). oseltamivir No 75mg 75 mg, Uni vers (TAMIFLU) 10-31 Oral, ity of capsule 75 01:30: 13:29 ONCE, 1 [place] as mg 00 :00 dose, On Medical 10/30/22 Branch at 1930, Routine oseltamivir 3-0 Yes [id number] 75mg Take 1 Univers (TAMIFLU) 1-07 capsule by ity of 75 mg 00:00: mouth in [place] capsule 00 the Medical morning Branch and 1 capsule in the evening. oseltamivir 3-0 Yes [id number] 75mg Take 1 Univers (TAMIFLU) 1-07 capsule by ity of 75 mg 00:00: mouth in [place] capsule 00 the Medical morning Branch and 1 capsule in the evening. oseltamivir 3-0 Yes [id number] 75mg Take 1 Univers (TAMIFLU) 1-07 capsule by ity of 75 mg 00:00: mouth in [place] capsule 00 the Medical morning Branch and 1 capsule in the evening. oseltamivir 2022-0 Yes [id number] 75mg Take 1 Univers (TAMIFLU) 1-07 capsule by ity of 75 mg 00:00: mouth in [place] capsule 00 the Medical morning Branch and 1 capsule in the evening. oseltamivir 2022-0 Yes [id number] 75mg Take 1 Univers (TAMIFLU) 1-07 capsule by ity of 75 mg 00:00: mouth in [place] capsule 00 the Medical morning Branch and 1 capsule in the evening. oseltamivir 2022-0 Yes [id number] 75mg Take 1 Univers (TAMIFLU) 1-07 capsule by ity of 75 mg 00:00: mouth in [place] capsule 00 the Medical morning Branch and 1 capsule in the evening. oseltamivir 2022-0 2023- No [id number] 75mg Take 1 Univers (TAMIFLU) 1-07 01-07 capsule by ity of 75 mg 00:00: 00:00 mouth in [place] capsule 00 :00 the Medical morning Branch and 1 capsule in the evening. fluocinonid 2020-0 Yes [id number] Apply to Univers e 0.05 % 9-24 area(s) 2 ity of solution 00:00: (two) [place] 00 times Medical daily. Branch fluocinonid 2020-0 Yes [id number] Apply to Univers e 0.05 % 9-24 area(s) 2 ity of solution 00:00: (two) [place] 00 times Medical daily. Branch fluocinonid 2021-0 Yes [id number] Apply to Univers e 0.05 % 9-24 area(s) 2 ity of solution 00:00: (two) [place] 00 times Medical daily. Branch fluocinonid 1-0 Yes [id number] Apply to Univers e 0.05 % 9-24 area(s) 2 ity of solution 00:00: (two) [place] 00 times Medical daily. Branch fluocinonid 1-0 Yes [id number] Apply to Univers e 0.05 % 9-24 area(s) 2 ity of solution 00:00: (two) [place] 00 times Medical daily. Branch fluocinonid 1-0 Yes [id number] Apply to Univers e 0.05 % 9-24 area(s) 2 ity of solution 00:00: (two) [place] 00 times Medical daily. Branch fluocinonid 1-0 Yes [id number] Apply to Univers e 0.05 % 9-24 area(s) 2 ity of solution 00:00: (two) [place] 00 times Medical daily. Branch salicylic 2020-0 Yes [id number] Apply to Univers acid 4-26 area(s) ity of (KERALYT) 6 00:00: daily. [place] % gel 00 Apply to Medical scalp Branch daily. Let sit 20 Minutes prior to washing off. clobetasoL 2020-0 Yes [id number] Apply to Univers 0.05 % 4-26 area(s) 2 ity of external 00:00: (two) [place] solution 00 times Medical daily. Branch ketoconazol 2020-0 Yes [id number] Apply to Univers e 2 % 4-26 area(s) ity of shampoo 00:00: once daily [place] 00 as needed Medical for Branch Itching. salicylic 1-0 Yes [id number] Apply to Univers acid 4-26 area(s) ity of (KERALYT) 6 00:00: daily. [place] % gel 00 Apply to Medical scalp Branch daily. Let sit 20 Minutes prior to washing off. clobetasoL 1-0 Yes [id number] Apply to Univers 0.05 % 4-26 area(s) 2 ity of external 00:00: (two) [place] solution 00 times Medical daily. Branch ketoconazol 2020-0 Yes [id number] Apply to Univers e 2 % 4-26 area(s) ity of shampoo 00:00: once daily [place] 00 as needed Medical for Branch Itching. salicylic 1-0 Yes [id number] Apply to Univers acid 4-26 area(s) ity of (KERALYT) 6 00:00: daily. [place] % gel 00 Apply to Medical scalp Branch daily. Let sit 20 Minutes prior to washing off. clobetasoL 1-0 Yes [id number] Apply to Univers 0.05 % 4-26 area(s) 2 ity of external 00:00: (two) [place] solution 00 times Medical daily. Branch ketoconazol 2020-0 Yes [id number] Apply to Univers e 2 % 4-26 area(s) ity of shampoo 00:00: once daily [place] 00 as needed Medical for Branch Itching. salicylic 2020-0 Yes [id number] Apply to Univers acid 4-26 area(s) ity of (KERALYT) 6 00:00: daily. [place] % gel 00 Apply to Medical scalp Branch daily. Let sit 20 Minutes prior to washing off. clobetasoL 2020-0 Yes [id number] Apply to Univers 0.05 % 4-26 area(s) 2 ity of external 00:00: (two) [place] solution 00 times Medical daily. Branch ketoconazol 2020-0 Yes [id number] Apply to Univers e 2 % 4-26 area(s) ity of shampoo 00:00: once daily [place] 00 as needed Medical for Branch Itching. salicylic 2020-0 Yes [id number] Apply to Univers acid 4-26 area(s) ity of (KERALYT) 6 00:00: daily. [place] % gel 00 Apply to Medical scalp Branch daily. Let sit 20 Minutes prior to washing off. clobetasoL 1-0 Yes [id number] Apply to Univers 0.05 % 4-26 area(s) 2 ity of external 00:00: (two) [place] solution 00 times Medical daily. Branch ketoconazol 2020-0 Yes [id number] Apply to Univers e 2 % 4-26 area(s) ity of shampoo 00:00: once daily [place] 00 as needed Medical for Branch Itching. salicylic 1-0 Yes [id number] Apply to Univers acid 4-26 area(s) ity of (KERALYT) 6 00:00: daily. [place] % gel 00 Apply to Medical scalp Branch daily. Let sit 20 Minutes prior to washing off. clobetasoL 2020-0 Yes [id number] Apply to Univers 0.05 % 4-26 area(s) 2 ity of external 00:00: (two) [place] solution 00 times Medical daily. Branch ketoconazol 0 Yes [id number] Apply to Univers e 2 % 4-26 area(s) ity of shampoo 00:00: once daily [place] 00 as needed Medical for Branch Itching. salicylic 2020-0 Yes [id number] Apply to Univers acid 4-26 area(s) ity of (KERALYT) 6 00:00: daily. [place] % gel 00 Apply to Medical scalp Branch daily. Let sit 20 Minutes prior to washing off. clobetasoL 0 Yes [id number] Apply to Univers 0.05 % 4-26 area(s) 2 ity of external 00:00: (two) [place] solution 00 times Medical daily. Branch ketoconazol 0 Yes [id number] Apply to Univers e 2 % 4-26 area(s) ity of shampoo 00:00: once daily [place] 00 as needed Medical for Branch Itching. fluocinonid 2020- No [id number] Apply to Univers e 0.05 % 4-19 09-24 area(s) 2 ity o f solution 00:00: 00:00 (two) [place] 00 :00 times Medical daily. Branch cefdinir 2020-0 Yes [id number] 300mg Take 1 Un julee 300 mg 7-20 capsule by ity of capsule 00:00: mouth 2 00 (two) Medical times Branch daily. benzonatate 2020-0 Yes [id number] 200mg Take 1 Univers 200 mg 7-20 capsule by ity of capsule 00:00: mouth 3 [place] 00 (three) Medical times Branch daily as needed for Cough. cefdinir 2020-0 Yes [id number] 300mg Take 1 Un [place] 300 mg 7-20 capsule by ity of capsule 00:00: mouth 2 00 (two) Medical times Branch daily. benzonatate 2020-0 Yes [id number] 200mg Take 1 Univers 200 mg 7-20 capsule by ity of capsule 00:00: mouth 3 (three) Medical times Branch daily as needed for Cough. cefdinir 2020-0 Yes [id number] 300mg Take 1 Un [place] 300 mg 7-20 capsule by ity of capsule 00:00: mouth 2 (two) Medical times Branch daily. benzonatate 2020-0 Yes [id number] 200mg Take 1 Univers 200 mg 7-20 capsule by ity of capsule 00:00: mouth 3 (three) Medical times Branch daily as needed for Cough. cefdinir 2020-0 Yes [id number] 300mg Take 1 Un [place] 300 mg 7-20 capsule by ity of capsule 00:00: mouth (two) Medical times Branch daily. benzonatate 2020-0 Yes [id number] 200mg Take 1 Univers 200 mg 7-20 capsule by ity of capsule 00:00: mouth (three) Medical times Branch daily as needed for Cough. cefdinir 2020-0 Yes [id number] 300mg Take 1 Un [place] 300 mg 7-20 capsule by ity of capsule 00:00: mouth (two) Medical times Branch daily. benzonatate 2020-0 Yes [id number] 200mg Take 1 Univers 200 mg 7-20 capsule by ity of capsule 00:00: mouth (three) Medical times Branch daily as needed for Cough. cefdinir 2020-0 Yes [id number] 300mg Take 1 Un [place] 300 mg 7-20 capsule by ity of capsule 00:00: mouth (two) Medical times Branch daily. benzonatate 2020-0 Yes [id number] 200mg Take 1 Univers 200 mg 7-20 capsule by ity of capsule 00:00: mouth (three) Medical times Branch daily as needed for Cough. cefdinir 2020-0 Yes [id number] 300mg Take 1 Un [place] 300 mg 7-20 capsule by ity of capsule 00:00: mouth (two) Medical times Branch daily. benzonatate 2020-0 Yes [id number] 200mg Take 1 Univers 200 mg 7-20 capsule by ity of capsule 00:00: mouth 3 (three) Medical times Branch daily as needed for Cough. diclofenac 2020-0 Yes [id number] 75mg Take 1 Univers 75 mg EC 7-14 [id number] tablet by ity of tablet 00:00: mouth (two) Medical times Branch daily with meals. diclofenac 2020-0 Yes [id number] 75mg Take 1 Univers 75 mg EC 7-14 [id number] tablet by ity of tablet 00:00: mouth (two) Medical times Branch daily with meals. diclofenac 2020-0 Yes [id number] 75mg Take 1 Univers 75 mg EC 7-14 [id number] tablet by ity of tablet 00:00: mouth (two) Medical times Branch daily with meals. diclofenac 2020-0 Yes [id number] 75mg Take 1 Univers 75 mg EC 7-14 [id number] tablet by ity of tablet 00:00: mouth (two) Medical times Branch daily with meals. diclofenac 2020-0 Yes [id number] 75mg Take 1 Univers 75 mg EC 7-14 [id number] tablet by ity of tablet 00:00: mouth (two) Medical times Branch daily with meals. diclofenac 2020-0 Yes [id number] 75mg Take 1 Univers 75 mg EC 7-14 [id number] tablet by ity of tablet 00:00: mouth (two) Medical times Branch daily with meals. diclofenac 2020-0 Yes [id number] 75mg Take 1 U nivers 75 mg EC 7-14 tablet by ity of tablet 00:00: mouth (two) Medical times Branch daily with meals. ibuprofen 2020-0 Yes [id number] 600mg Take 1 Univers 600 mg 7-07 tablet by ity of tablet 00:00: mouth 00 every 6 Medical (six) Branch hours as needed for Pain (scale 4-6). traMADol 50 2020-0 Yes [id number] 50mg Take 1 Univ ers mg tablet 7-07 tablet by ity o f 00:00: mouth [place] 00 every 6 Medical (six) Branch hours as needed for Pain (scale 4-6). Indication s: acute pain ibuprofen 2020-0 Yes [id number] 600mg Take 1 Univers 600 mg 7-07 [...] Pain (scale 4-6). Indication s: acute pain ibuprofen 2020-0 Yes [id number] 600mg Take 1 Univers 600 mg 7-07 [...] Pain (scale 4-6). Indication s: acute pain ibuprofen 2020-0 Yes [id number] 600mg Take 1 Univers 600 mg 7-07 [...] Pain (scale 4-6). Indication s: acute pain ibuprofen 2020-0 Yes [id number] 600mg Take 1 Univers 600 mg 7-07 [...] Pain (scale 4-6). Indication s: acute pain ibuprofen 2020-0 Yes [id number] 600mg Take 1 Univers 600 mg 7-07 [...] Pain (scale 4-6). Indication s: acute pain ibuprofen 2020-0 Yes [id number] 600mg Take 1 Univers 600 mg 7-07 [...] Medical daily Branch before breakfast and dinner. ALPRAZolam 2020-0 Yes 1mg Take 1 mg [...] Medical daily Branch before breakfast and dinner. ALPRAZolam 2020-0 Yes 1mg Take 1 mg Un julee 2 mg tablet 3-18 by mouth ity of 18:00: at bedtime [place] [address] as needed Medical for Sleep. Branch Levothyroxi 2020-0 Yes 125ug Take 125 U nivers ne 88 mcg 3-18 mcg by ity of capsule 18:00: mouth [place] [address] daily. Medical Branch traZODone 2020-0 Yes 150mg Take 150 Uni vers 150 mg 3-18 mg by ity of tablet 18:00: mouth at [place] [address] bedtime as Medical needed for Branch Sleep. [...] mouth 2 ity of tablet 18:00: (two) [place] 59 times Medical daily Branch before breakfast and dinner. ALPRAZolam 2020-0 Yes 1mg Take 1 mg Un julee 2 mg tablet 3-18 by mouth ity of 18:00: at bedtime [place] [address] as needed Medical for Sleep. Branch Levothyroxi 2020-0 Yes 125ug Take 125 U nivers ne 88 mcg 3-18 mcg by ity of capsule 18:00: mouth [place] [address] daily. Medical Branch traZODone 2020-0 Yes 150mg Take 150 Uni vers 150 mg 3-18 mg by ity of tablet 18:00: mouth at [place] [address] bedtime as Medical needed for Branch Sleep. [...] Medical daily Branch before breakfast and dinner. ALPRAZolam 2020-0 Yes 1mg Take 1 mg Un [place] 2 mg tablet 3-18 by mouth ity of 18:00: at bedtime [place] [address] as needed Medical for Sleep. Branch Levothyroxi 2020-0 Yes 125ug Take 125 U nivers ne 88 mcg 3-18 mcg by ity of capsule 18:00: mouth [place] [address] daily. Medical Branch traZODone 2020-0 Yes 150mg Take 150 Uni vers 150 mg 3-18 mg by ity of tablet 18:00: mouth at [place] [address] bedtime as Medical needed for Branch Sleep. [...] mouth 2 ity of tablet 18:00: (two) [place] [address] times Medical daily Branch before breakfast and dinner. ALPRAZolam 2020-0 Yes 1mg Take 1 mg Un [place] 2 mg tablet 3-18 by mouth ity of 18:00: at bedtime [place] [address] as needed Medical for Sleep. Branch Levothyroxi 2020-0 Yes 125ug Take 125 U nivers ne 88 mcg 3-18 mcg by ity of capsule 18:00: mouth [place] [address] daily. Medical Branch traZODone 2020-0 Yes 150mg Take 150 Uni vers 150 mg 3-18 mg by ity of tablet 18:00: mouth at [place] [address] bedtime as Medical needed for Branch Sleep. [...] mouth 2 ity of tablet 18:00: (two) [place] 59 times Medical daily Branch before breakfast and dinner. ALPRAZolam 2020-0 Yes 1mg Take 1 mg Un [place] 2 mg tablet 3-18 by mouth ity of 18:00: at bedtime [place] [address] as needed Medical for Sleep. Branch Levothyroxi 2020-0 Yes 125ug Take 125 U nivers ne 88 mcg 3-18 mcg by ity of capsule 18:00: mouth [place] 59 daily. Medical Branch traZODone 2020-0 Yes 150mg Take 150 Uni vers 150 mg 3-18 mg by ity of tablet 18:00: mouth at [place] [address] bedtime as Medical needed for Branch Sleep. vortioxetin 2020-0 Yes 10mg Take 10 mg Univers e 3-18 by mouth ity of ([facility]IX [facility]:00[facility] Tab 59 Medical Branch linaGLIPtin 2020-0 Yes 5mg Take 5 mg U nivers (TRADJENTA) 3-18 by mouth ity of 5 mg tablet 18:00: daily. [facility] s 59 Medical Branch glipiZIDE 2020-0 Yes 10mg Take 10 mg Un [place] 10 mg 3-18 by mouth 2 ity of tablet 18:00: (two) [place] 59 times Medical daily Branch before breakfast and dinner. aspirin 81 2020-0 Yes [id number] 81mg Take 1 U nivers mg chewable 3-18 tablet by ity of tablet 00:00: mouth [place] 00 daily. Medical Branch losartan 50 2020-0 Yes [id number] 50mg Take 1 Univers mg tablet 3-18 tablet by ity o f 00:00: mouth [place] 00 daily. Medical Branch Insulin 2020-0 Yes [id number] 20U inject 20 U nivers Detemir 3-18 Units ity of (LEVEMIR 00:00: under the [facility] FLEXTOUCH 00 skin 2 Medical U-100 (two) Branch INSULN) 100 times unit/mL (3 daily. mL) injection aspirin 81 2020-0 Yes [id number] 81mg Take 1 U nivers mg chewable 3-18 tablet by ity of tablet 00:00: mouth [place] 00 daily. Medical Branch losartan 50 2020-0 Yes [id number] 50mg Take 1 Univers mg tablet 3-18 tablet by ity o f 00:00: mouth [place] 00 daily. Medical Branch Insulin 2020-0 Yes [id number] 20U inject 20 U nivers Detemir 3-18 Units ity of (LEVEMIR 00:00: [place] the [place] FLEXTOUCH 00 skin 2 Medical U-100 (two) Branch INSULN) 100 times unit/mL (3 daily. mL) injection aspirin 81 2020-0 Yes [id number] 81mg Take 1 U nivers mg chewable 3-18 tablet by ity of tablet 00:00: mouth [place] 00 daily. Medical Branch losartan 50 2020-0 Yes [id number] 50mg Take 1 Univers mg tablet 3-18 tablet by ity o f 00:00: mouth [place] 00 daily. Medical Branch Insulin 2020-0 Yes [id number] 20U inject 20 U nivers Detemir 3-18 Units ity of (LEVEMIR 00:00: [place] the [place] FLEXTOUCH 00 skin 2 Medical U-100 (two) Branch INSULN) 100 times unit/mL (3 daily. mL) injection aspirin 81 2020-0 Yes [id number] 81mg Take 1 U nivers mg chewable 3-18 tablet by ity of tablet 00:00: mouth [place] 00 daily. Medical Branch losartan 50 2020-0 Yes [id number] 50mg Take 1 Univers mg tablet 3-18 tablet by ity o f 00:00: mouth [place] 00 daily. Medical Branch Insulin 2020-0 Yes [id number] 20U inject 20 U nivers Detemir 3-18 Units ity of (LEVEMIR 00:00: [place] the [place] FLEXTOUCH 00 skin 2 Medical U-100 (two) Branch INSULN) 100 times unit/mL (3 daily. mL) injection aspirin 81 2020-0 Yes [id number] 81mg Take 1 U nivers mg chewable 3-18 tablet by ity of tablet 00:00: mouth [place] 00 daily. Medical Branch losartan 50 2020-0 Yes [id number] 50mg Take 1 Univers mg tablet 3-18 tablet by ity o f 00:00: mouth [place] 00 daily. Medical Branch Insulin 2020-0 Yes [id number] 20U inject 20 U nivers Detemir 3-18 Units ity of (LEVEMIR 00:00: [place] the [place] FLEXTOUCH 00 skin 2 Medical U-100 (two) Branch INSULN) 100 times unit/mL (3 daily. mL) injection aspirin 81 2020-0 Yes [id number] 81mg Take 1 U nivers mg chewable 3-18 tablet by ity of tablet 00:00: mouth [place] 00 daily. Medical Branch losartan 50 2020-0 Yes [id number] 50mg Take 1 Univers mg tablet 3-18 tablet by ity o f 00:00: mouth [place] 00 daily. Medical Branch Insulin 2020-0 Yes [id number] 20U inject 20 U nivers Detemir 3-18 Units ity of (LEVEMIR 00:00: [place] the [place] FLEXTOUCH 00 skin 2 Medical U-100 (two) Branch INSULN) 100 times unit/mL (3 daily. mL) injection aspirin 81 2020-0 Yes [id number] 81mg Take 1 U nivers mg chewable 3-18 tablet by ity of tablet 00:00: mouth [place] 00 daily. Medical Branch losartan 50 2020-0 Yes [id number] 50mg Take 1 Univers mg tablet 3-18 tablet by ity o f 00:00: mouth [place] 00 daily. Medical Branch Insulin 2020-0 Yes [id number] 20U inject 20 U nivers Detemir 3-18 Units ity of (LEVEMIR 00:00: [place] the [place] FLEXTOUCH 00 skin 2 Medical U-100 (two) Branch INSULN) 100 times unit/mL (3 daily. mL) injection magnesium 2020-0 Yes [id number] 400mg Take 400 Univers oxide 420 - [id number] mg by ity of mg Tab 00:00: mouth 2 [place] 00 (two) Medical times Branch daily. pantoprazol 2020-0 Yes [id number] 20mg Take 1 Univers e 20 mg EC 2- [id number] tablet by it y of tablet 00:00: mouth [place] 00 daily. Medical Branch sucralfate 2020-0 Yes [id number] 1g Take 1 Univers (CARAFATE) 2- [id number] tablet by it y of 1 gram 00:00: mouth 4 [place] tablet 00 (four) Medical times Branch daily as needed for Indigestio n. magnesium 2020-0 Yes [id number] 400mg Take 400 Univers oxide 420 2-04 [id number] mg by ity of mg Tab 00:00: mouth 2 00 (two) Medical times Branch daily. pantoprazol 2020-0 Yes [id number] 20mg Take 1 Univers e 20 mg EC 2-04 [id number] tablet by it y of tablet 00:00: mouth [place] 00 daily. Medical Branch sucralfate 2020-0 Yes [id number] 1g Take 1 Univers (CARAFATE) 2-04 [id number] tablet by it y of 1 gram 00:00: mouth 4 [place] tablet 00 (four) Medical times Branch daily as needed for Indigestio n. magnesium 2020-0 Yes [id number] 400mg Take 400 Univers oxide 420 2-04 [id number] mg by ity of mg Tab 00:00: mouth 2 00 (two) Medical times Branch daily. pantoprazol 2020-0 Yes [id number] 20mg Take 1 Univers e 20 mg EC 2-04 [id number] tablet by it y of tablet 00:00: mouth 00 daily. Medical Branch sucralfate 2020-0 Yes [id number] 1g Take 1 Univers (CARAFATE) 2-04 [id number] tablet by it y of 1 gram 00:00: mouth 4 [place] tablet 00 (four) Medical times Branch daily as needed for Indigestio n. magnesium 2020-0 Yes [id number] 400mg Take 400 Univers oxide 420 2-04 [id number] mg by ity of mg Tab 00:00: mouth 2 00 (two) Medical times Branch daily. pantoprazol 2020-0 Yes [id number] 20mg Take 1 Univers e 20 mg EC 2-04 [id number] tablet by it y of tablet 00:00: mouth [place] 00 daily. Medical Branch sucralfate 2020-0 Yes [id number] 1g Take 1 Univers (CARAFATE) 2-04 [id number] tablet by it y of 1 gram 00:00: mouth 4 [place] tablet 00 (four) Medical times Branch daily as needed for Indigestio n. magnesium 2020-0 Yes [id number] 400mg Take 400 Univers oxide 420 2-04 [id number] mg by ity of mg Tab 00:00: mouth 2 [place] 00 (two) Medical times Branch daily. pantoprazol 2020-0 Yes [id number] 20mg Take 1 Univers e 20 mg EC 2-04 [id number] tablet by it y of tablet 00:00: mouth [place] 00 daily. Medical Branch sucralfate 2020-0 Yes [id number] 1g Take 1 Univers (CARAFATE) 2-04 [id number] tablet by it y of 1 gram 00:00: mouth 4 [place] tablet 00 (four) Medical times Branch daily as needed for Indigestio n. magnesium 2020-0 Yes [id number] 400mg Take 400 Univers oxide 420 2-04 [id number] mg by ity of mg Tab 00:00: mouth 2 [place] 00 (two) Medical times Branch daily. pantoprazol 2020-0 Yes [id number] 20mg Take 1 Univers e 20 mg EC 2- [id number] tablet by it y of tablet 00:00: mouth [place] 00 daily. Medical Branch sucralfate 2020-0 Yes [id number] 1g Take 1 Univers (CARAFATE) 2-04 [id number] tablet by it y of 1 gram 00:00: mouth 4 [place] tablet 00 (four) Medical times Branch daily as needed for Indigestio n. magnesium 2020-0 Yes [id number] 400mg Take 400 Univers oxide 420 2-04 [id number] mg by ity of mg Tab 00:00: mouth 2 [place] 00 (two) Medical times Branch daily. pantoprazol 2020-0 Yes [id number] 20mg Take 1 Univers e 20 mg EC 2- [id number] tablet by it y of tablet 00:00: mouth [place] 00 daily. Medical Branch sucralfate 2019-0 Yes [id number] 1g Take 1 Univers (CARAFATE) 2-04 [id number] tablet by it y of 1 gram 00:00: mouth 4 [place] tablet 00 (four) Medical times Branch daily as needed for Indigestio n. clopidogrel 2018- Yes [id number] 75mg Take 1 Univers 75 mg 7-20 tablet by ity of tablet 00:00: mouth [place] 00 daily. Medical Branch atorvastati 2019- Yes [id number] 40mg Take 1 Univers n 40 mg 7-20 tablet by ity of tablet 00:00: mouth at [place] 00 bedtime. Medical Branch liraglutide 2019- Yes [id number] .6mg inject 0.6 Univers 0.6 mg/0.1 7-20 mg under ity o f mL (18 mg/3 00:00: [place] mL[place] 00 daily. Medical injection Branch clopidogrel 2018-0 Yes [id number] 75mg Take 1 Univers 75 mg 7-20 tablet by ity of tablet 00:00: mouth [place] 00 daily. Medical Branch atorvastati Yes [id number] 40mg Take 1 Univers n 40 mg 7-20 tablet by ity of tablet 00:00: mouth at [place] 00 bedtime. Medical Branch liraglutide Yes [id number] .6mg inject 0.6 Univers 0.6 mg/0.1 7-20 mg under ity o f mL (18 mg/3 00:00: [place] mL) 00 daily. Medical injection Branch clopidogrel Yes [id number] 75mg Take 1 Univers 75 mg 7-20 tablet by ity of tablet 00:00: mouth [place] 00 daily. Medical Branch atorvastati Yes [id number] 40mg Take 1 Univers n 40 mg 7-20 tablet by ity of tablet 00:00: mouth at [place] 00 bedtime. Medical Branch liraglutide Yes [id number] .6mg inject 0.6 Univers 0.6 mg/0.1 7-20 mg under ity o f mL (18 mg/3 00:00: [place] mL) 00 daily. Medical injection Branch clopidogrel Yes [id number] 75mg Take 1 Univers 75 mg 7-20 tablet by ity of tablet 00:00: mouth [place] 00 daily. Medical Branch atorvastati Yes [id number] 40mg Take 1 Univers n 40 mg 7-20 tablet by ity of tablet 00:00: mouth at [place] 00 bedtime. Medical Branch liraglutide 2018- Yes [id number] .6mg inject 0.6 Univers 0.6 mg/0.1 7-20 mg under ity o f mL (18 mg/3 00:00: the [place] mL) 00 daily. Medical injection Branch clopidogrel 2018- Yes [id number] 75mg Take 1 Univers 75 mg 7-20 tablet by ity of tablet 00:00: mouth [place] 00 daily. Medical Branch atorvastati Yes [id number] 40mg Take 1 Univers n 40 mg 7-20 tablet by ity of tablet 00:00: mouth at [place] 00 bedtime. Medical Branch liraglutide 2018- Yes [id number] .6mg inject 0.6 Univers 0.6 mg/0.1 7-20 mg under ity o f mL (18 mg/3 00:00: [place] mL) 00 daily. Medical injection Branch clopidogrel Yes [id number] 75mg Take 1 Univers 75 mg 7-20 tablet by ity of tablet 00:00: mouth [place] 00 daily. Medical Branch atorvastati Yes [id number] 40mg Take 1 Univers n 40 mg 7-20 tablet by ity of tablet 00:00: mouth at [place] 00 bedtime. Medical Branch liraglutide Yes [id number] .6mg inject 0.6 Univers 0.6 mg/0.1 7-20 mg under ity o f mL (18 mg/3 00:00: [place] mL) 00 daily. Medical injection Branch clopidogrel Yes [id number] 75mg Take 1 Univers 75 mg 7-20 tablet by ity of tablet 00:00: mouth [place] 00 daily. Medical Branch atorvastati Yes [id number] 40mg Take 1 Univers n 40 mg 7-20 tablet by ity of tablet 00:00: mouth at [place] 00 bedtime. Medical Branch liraglutide Yes [id number] .6mg inject 0.6 Univers 0.6 mg/0.1 7-20 [...] GLUCOSE 00 DX:E11.9 Medical TEST) strip Branch Blood-Gluco Yes Use as Univ ers [...] GLUCOSE 00 DX:E11.9 Medical TEST) strip Branch Blood-Gluco Yes Use as Univ ers se Meter 9-20 directed, ity of (BLOOD 00:00: DX:E11.9 [place] GLUCOSE 00 Medical MONITORING) Branch Kit lancets (BD 2015- Yes Use as Univ ers ULTRA FINE 9-20 directed, ity of LANCETS) 33 00:00: TID, [place] gauge Misc 00 DX:E11.9 Medic al Branch blood sugar Yes Use as Univ ers diagnostic 9-20 directed, ity of (BLOOD 00:00: TID, [place] GLUCOSE 00 DX:E11.9 Medical TEST) strip Branch Blood-Gluco Yes Use as Univ ers [...] GLUCOSE 00 DX:E11.9 Medical TEST) strip Branch Blood-Gluco Yes Use as Univ ers se Meter 9-20 directed, ity of (BLOOD 00:00: DX:E11.9 [place] GLUCOSE 00 Medical MONITORING) Branch Kit lancets (BD 2015- Yes Use as Univ ers ULTRA FINE 9-20 directed, ity of LANCETS) 33 00:00: TID, [place] gauge Misc 00 DX:E11.9 Medic al Branch blood sugar Yes Use as Univ ers diagnostic 9-20 directed, ity of (BLOOD 00:00: TID, [place] GLUCOSE 00 DX:E11.9 Medical TEST) strip Branch Blood-Gluco Yes Use as Univ ers se Meter 9-20 directed, ity of (BLOOD 00:00: DX:E11.9 [place] GLUCOSE 00 Medical MONITORING) Branch Kit lancets (BD 2015-0 Yes Use as Univ ers ULTRA FINE 9-20 directed, ity of LANCETS) 33 00:00: TID, [place] gauge Misc 00 DX:E11.9 Medic al Branch blood sugar Yes Use as Univ ers diagnostic 9-20 directed, ity of (BLOOD 00:00: TID, [place] GLUCOSE 00 DX:E11.9 Medical TEST) strip Branch Blood-Gluco Yes Use as Univ ers [...] Immunizations Ordered Filled Immunization Date Status Comments [facility] [place] [facility] e Immunization Name Name Influenza Virus 2020-01-09 Completed Universit y of Vaccine [place] .5 mL 00:00:00 [place] [facility] IM 6+ MO Branch Influenza Virus 2020-01-09 Completed Universit y of Vaccine [place] .5 mL 00:00:00 [place] [facility] IM 6+ MO Branch Influenza Virus 2020-01-09 Completed Universit y of Vaccine [place] .5 mL 00:00:00 [place] [facility] IM 6+ MO Branch Influenza Virus 2020-01-09 Completed Universit y of Vaccine [place] .5 mL 00:00:00 [place] [facility] IM 6+ MO Branch Influenza Virus 2020-01-09 Completed Universit y of Vaccine [place] .5 mL 00:00:00 [place] [facility] IM 6+ MO Branch Influenza Virus 2020-01-09 Completed Universit y of Vaccine [place] .5 mL 00:00:00 [place] [facility] IM 6+ MO Branch Influenza Virus 2020-01-09 Completed Universit y of Vaccine [place] .5 mL 00:00:00 [place] [facility] IM 6+ [place] Branch Vital Signs Vital Name Observation Time Observation Value Comments Source Body temperature 2022-12-27 19:16:00 36.5 Vicky Univ ers[facility] Body weight 2022-12-27 19:16:00 80.241 kg [facility] [place] [facility] BMI 2022-12-27 19:16:00 29.44 kg/m2 [facility] ty [facility] [place] [facility] Body weight 2022-10-30 23:49:46 80.241 kg [facility] [place] [facility] BMI 2022-10-30 23:49:46 29.44 kg/m2 Universi ty of [place] [facility] Branch Systolic blood 2022-10-30 23:15:00 146 mm[Hg] Univer sity of pressure [facility] Diastolic blood 2022-10-30 23:15:00 89 mm[Hg] Unive rsity of [facility] Heart rate 2022-10-30 23:15:00 83 /min Universi of [facility] Body temperature 2022-10-30 23:15:00 37.39 Vicky [facility] Respiratory rate 2022-10-30 23:15:00 16 /min [facility] Body height 2022-10-30 23:15:00 165.1 cm Universi [facility] Oxygen saturation in 2022-10-30 23:15:00 98 /min [facility] Arterial blood by [facility] Pulse oximetry Branch Procedures Procedure Date / Time Performed Performing Clinician Sourc e XR CERVICAL SPINE 2 VW 2022-12-27 19:06:17 Julio CAmira Un [facility] ASSIGNMENT OF BENEFITS 2022-12-27 18:26:33 Doctor Unassigned, No [facility] Name Medical Branch REFERRAL- 2022-11-22 06:01:00 Doctor Unassigned, No [facility] REQUEST/RESPONSE Name [facility] Branch RAPID INFLUENZA A/B 2022-10-30 23:47:00 Kathryn Ferrer [facility] COVID-19 (ID NOW RAPID 2022-10-30 23:47:00 Kathryn Ferrer [facility] TESTING) [facility] Branch CONSENT/REFUSAL FOR 2022-10-30 23:11:06 [facility] Branch TREATMENT Encounters Start End Encounter Admission Attending Care Care Encounter Source Date/Time Date/Time Type Type Clinicians Facility Department ID 2023-01-25 Outpatient [facility] [id number] MD 14:16:37 [id number] [facility] 2023-01-12 Outpatient [facility] [id number] MD 08:10:43 [id number] [facility] 2023-01-11 Outpatient [facility] [id number] MD 09:18:57 [id number] [facility] 2023-01-10 Outpatient [facility] [id number] MD 10:28:28 [id number] [facility] 2021-08-21 Emergency [facility] [id number] Univers 07:33:48 ity [facility] 2021-08-21 Emergency [facility] [id number] Univers 05:20:42 ity [facility] 2021-08-20 Emergency [facility] [id number] Univers 14:38:03 [facility] 2023-02-15 2023-02-15 Outpatient [facility] [id number] [place] 13:00:00 13:00:00 [facility] 2023-02-14 2023-02-14 Outpatient BIRD, [facility] [id number] [place] 16:00:00 16:00:00 ZEUS Dao [facility] 2023-02-11 2023-02-11 Outpatient SFA SFA [id number] Jin 11:29:47 11:29:47 0421 F Cordova 2023-01-31 2023-01-31 Outpatient Vito ARTEAGA, [facility] [id number] [facility] 13:00:00 13:00:00 AMIRA [facility] 2023-01-25 2023-01-25 Telemedici JOVAN [facility] [id number] MD 14:00:00 14:00:[address] 350.1.13.58 Health 9.2.7.2.686 [id number] 2023-01-12 2023-01-12 Patient Kenia Gonzalez UTP [id number] 1.2.840.1 [id number] MD 00:00:00 00:00:00 Outreach CarlosKenia caal [address] 350.1.13.58 Health 9.2.7.2.686 [id number] 2022-12-27 2022-12-27 Outpatient R JULIO [facility] [id number] Univers 12:53:44 23:59:00 AMIRA ity of [facility] 2022-12-27 2022-12-27 [facility] 1.2.840.114 [id number] Univers 12:53:44 23:59:00 Encounter Amira PRIMARY 350.1.13.10 ity [place] [id number] Az dical [address] 2022-12-27 2022-12-27 Office [facility] 1.2.840.114 [id number] Univers 13:20:00 13:40:00 Visit Amira PRIMARY 350.1.13.10 it y [place] [id number] Az dical 198 Branch 2022-12-27 2022-12-27 Orders Doctor MOE 1.2.840.114 [id number] Univers 00:00:00 00:00:00 Only Unassigned, GAMA 350.1.13.10 [place]y of [place] [facility] 4.2.7.2.686 Jeffrey as [id number] [facility] [address] [place] 2022-11-22 2022-11-22 Orders Doctor PAYAL 1.2.840.114 [id number] Univers 00:00:00 00:00:00 Only Unassigned, GAMA 350.1.13.10 [place]y [facility] [place] [facility] 4.2.7.2.686 Jeffrey as [id number] [facility] 009 Branch 2022-10-30 2022-10-30 Emergency X NABIL [facility] ERT [id number] Univers 17:17:00 18:41:00 KATHRYN ity of [facility] 2022-10-30 2022-10-30 Emergency Nabil [facility] [id number] Univers 17:17:00 18:41:00 Kathryn S APURVA 350.1.13.10 i ty of [place]2.[place] [id number] [facility] 084 Branch 2021-07-02 2021-07-02 Telephone GOMEZ MirelesIT 1.2.840.114 [id number] Univers 00:00:00 00:00:00 [employer] [facility] 4.2.7.2.686 [facility] [id number] [address] 2021-02-16 2021-02-16 Outpatient SERGE BANDA [facility] [id number] Univers 14:00:00 14:00:00 SERGE GASPAR i [facility] 2021-02-16 2021-02-16 Telemedici Chi, UNIVERSIT 1.2.840.114 [id number] 08:12:34 08:27:34 ne Visit [facility] HE[facility] 350.1.13.10 CLINICS 4.2.7.2.686 [id number] 2021-02-05 2021-02-05 Telephone GOMEZ Mireles 1.2.840.114 [id number] 00:00:00 00:00:00 [employer] HEALTH 350.1.13.10 CLINICS 4.2.7.2.686 [id number] 2021-01-09 2021-01-09 Outpatient Vito GONZALEZ [facility] [id number] Univers 14:30:00 14:30:00 PHUC [facility] 2020-09-22 2020-09-22 Outpatient NELIDA RODRÍGUEZ [facility] [id number] Univers 14:40:00 14:40:00 NELIDA HEARD [facility] 2020-09-05 2020-09-05 Outpatient NELIDA RODRÍGUEZ [facility] [id number] Univers 14:20:00 14:20:00 NELIDA HEARD [facility] 2020-08-29 2020-08-29 Outpatient NELIDA RODRÍGUEZ [facility] [id number] Univers 14:40:00 14:40:00 NELIDA HEARD [facility] 2020-07-08 2020-07-08 Outpatient NELIDA RODRÍGUEZ [facility] [id number] Univers 15:40:00 15:40:00 NELIDA HEARD [facility] 2020-05-15 2020-05-15 Outpatient R DORINDA [facility] [id number] Univers 08:00:00 08:00:00 OMAR mathews [facility] 2020-05-08 2020-05-08 Outpatient R SETH, [facility] [id number] Univers 00:00:00 00:00:00 OMAR mathews [facility] 2020-04-30 2020-04-30 Outpatient R SETH, [facility] [id number] Univers 15:15:00 15:15:00 OMAR lashell [facility] 2020-03-18 2020-03-18 Outpatient R ED [facility] [id number] Univers 13:30:00 13:30:00 DEAN [facility] 2020-03-11 2020-03-11 Outpatient R RADIOLOGY [facility] [id number] Univers 00:00:00 00:00:00 [facility] 2020-02-29 2020-02-29 Outpatient R NELIDA HEARD [facility] [id number] Univers 15:00:00 15:00:00 NELIDA HEARD [facility] 2020-01-22 2020-01-22 Outpatient R ED [facility] [id number] Univers 15:30:00 15:30:00 DEAN [facility] 2019-10-05 2019-10-05 Emergency X SINGER [facility] ERT [id number] Univers 16:23:57 17:39:00 GHASSAN bisi [facility] 2019-08-24 2019-08-24 Outpatient R NELIDA HEARD [facility] [id number] Univers 13:00:00 14:56:25 NELIDA HEARD [facility] Results This patient has no known results.
--- NOTE | 2023-02-15 15:27 | RAD REPORT ---
EXAM DESCRIPTION: CT - Pelvis Wo Cont - 02/15/2023 3:12 pm CLINICAL HISTORY: fall, pelvic/tailbone pain COMPARISON: No comparisons TECHNIQUE: All CT scans are performed using dose optimization technique as appropriate and may inclu de automated exposure control or mA/KV adjustment according to patient size. FINDINGS: Diffuse osteopenia is seen. Lucency is seen anterior aspect of the inferior pubic ramus on the left likely nondisplaced fracture. There is a fracture present transverse in orientation through the S3 sacral segment. No displacement. IMPRESSION: S3 sacral fracture without displacement. Probable fracture anterior aspect of the inferior pubic ramus.
[2023-02-15 15:37] LABS: Absolute Lymphocytes (CBC) 2.1 K/uL (0.7-4.9); Hematocrit 28.7 % (36.0-45.0); Lymphocytes % 24.7 % (15.3-44.8); MCV 83.9 fL (80-100); MPV 9.4 fL (7.6-11.3); RBC Red Blood Cell Count 3.43 M/uL (3.86-4.86)
[2023-02-15 15:43] LABS: Protime INR 1.33
[2023-02-15 15:57] LABS: Magnesium 1.8 mg/dL (1.6-2.4); Potassium 3.8 mEq/L (3.5-5.1); Troponin High Sensitivity 5.9 pg/mL (<58.9)
--- NOTE | 2023-02-15 16:16 | RAD REPORT ---
EXAM DESCRIPTION: RAD - Chest Single View - 02/15/2023 3:57 pm CLINICAL HISTORY: fall Chest pain. COMPARISON: <Comparisons> FINDINGS: Portable technique limits examination quality. The lungs are emphysematous but grossly clear. The heart is normal in size. No displaced fractures. IMPRESSION: No acute intrathoracic process suspected.
--- NOTE | 2023-02-15 16:43 | ER ---
Nurse's Notes [facility] Name: Janis Henderson Age: 62 yrs Sex: Female : 1960 Arrival Date: 02/15/2023 Time: 14:42 Bed 20 Private MD: Diagnosis: Fracture of [id number];Pubic ramus fracture;Acute kidney failure, unspecified;Hypotension, unspecified Presentation: 02/15 15:02 Chief complaint: EMS states: "pt fell on Tuesday landing on her tailbone. She states mb9 pain is 7/10 and pt was hypotensive when arriving, BP 73/40. Gave 250 cc of NS and BP increased to 95/74. Pt states this is her normal.". Coronavirus screen: Vaccine status: Patient reports receiving the 2nd dose of the covid vaccine. Ebola Screen: No symptoms or risks identified at this time. Initial Sepsis Screen: Does the patient meet any 2 criteria? No. Patient's initial sepsis screen is negative. Does the patient have a suspected source of infection? No. Patient's initial sepsis screen is negative. Risk Assessment: Do you want to hurt yourself or someone else? Patient reports no desire to harm self or others. Onset of symptoms was February 15, 2023. 15:02 Method Of Arrival: EMS: [facility] mb9 15:02 Acuity: JUANCHO 3 mb9 Historical: - Allergies: 15:05 Morphine; mb9 - PMHx: 15:05 Anxiety; Hypertension; VASCULAR DEMENTIA; Hypothyroidism; Diabetes - NIDDM; Depression; mb9 CVA; speech deficit/mild weakness; psoriasis; COVID; chronic neck/back pain; - PSHx: 15:05 Appendectomy; section; Cholecystectomy; mb9 - Immunization history:: Adult Immunizations up to date. - Social history:: Smoking status: Patient denies any tobacco usage or history of. - Family history:: not pertinent. - Hospitalizations: : No recent hospitalization is reported. Screenin:30 [facility] ED Fall Risk Assessment (Adult) History of falling in the last 3 months, ko1 including since admission Yes- single mechanical fall (1 pt) Confusion or Disorientation No (0 pts) Intoxicated or Sedated No (0 pts) Impaired Gait Yes (1 pt) Mobility Assist Device Used Yes (1 pt) Altered Elimination No (0 pt) Score/Fall Risk Level 3 or more points = High Risk Oriented to surroundings, Maintained a safe environment, Educated pt \\T\\ family on fall prevention, incl call for assistance when getting out of bed, Assessed \\T\\ reinforced patient's understanding of fall precautions, Provided non-skid footwear, Hourly rounding (assess needs \\T\\ fall precautionary measures) done, Used ambulatory aids as needed (educated on \\T\\ assisted with), Used gait belt as appropriate Implemented a Fall Risk Plan of Care, Remained w/in arm's length of patient and in sight while toileting, Offered frequent toileting (1:1 observation), Remained with patient while ambulating, Utilized family, sitter, or virtual upset operator as indicated. Abuse screen: Denies threats or abuse. Denies injuries from another. Nutritional screening: No deficits noted. Tuberculosis screening: No symptoms or risk factors identified. Assessment: 18:25 General: Appears in no apparent distress. uncomfortable, Behavior is cooperative, ko1 appropriate for age, anxious. Pain: Complains of pain in lumbar area and sacrum. Neuro: Guzman Agitation-Sedation Scale (RASS): +1 Restless. Cardiovascular: No deficits noted. Respiratory: No deficits noted. GI: No deficits noted. : No deficits noted. EENT: No deficits noted. Derm: No deficits noted. Musculoskeletal: No deficits noted. 19:10 Reassessment: ASSUMED CARE OF PT. PT LYING IN BED. NO DISTRESS NOTED. VS STABLE. PT jj7 ADMITTED. INFORMED PT THAT REPORT NEEDS TO BE CALLED AND SHE WILL BE GOING TO THE FLOOR SOON. NO NEEDS AT THIS TIME. Vital Signs: 15:02 BP 97 / 57; Pulse 64; Resp 18; Temp 97.9(O); Pulse Ox 98% on R/A; Weight 79.38 kg; mb9 Height 5 ft. 4 in. ; Pain 7/10; 15:15 BP 125 / 63; Pulse 62; Resp 18; Pulse Ox 99% ; ko1 15:45 BP 129 / 63; Pulse 67; Resp 18; Pulse Ox 99% ; ko1 16:30 BP 117 / 87; Pulse 72; Resp 16; Pulse Ox 99% ; ko1 17:30 BP 134 / 67; Pulse 68; Resp 18; Pulse Ox 99% ; ko1 19:10 BP 132 / 92; Pulse 74; Resp 18; Pulse Ox 100% ; jj7 15:02 Body Mass Index 30.04 (79.38 kg, 162.56 cm) mb9 15:02 Pain Scale: Adult mb9 ED Course: 14:46 Patient arrived in ED. rn 14:46 Arnie Armenta MD is Attending Physician. rn 14:56 Mouna Vitale, RN is Primary Nurse. ko1 15:02 Arm band placed on. mb9 15:04 Triage completed. mb9 15:06 Placed in gown. Bed in low position. Call light in reach. Side rails up X 1. Client mb9 placed on continuous cardiac and pulse oximetry monitoring. NIBP monitoring applied. 15:06 No provider procedures requiring assistance completed. Maintain EMS IV. Dressing mb9 intact. Good blood return noted. Site clean \\T\\ dry. Gauge \\T\\ site: 20g left AC. 15:13 CT Pelvis wo Cont In Process Unspecified. EDMS 15:35 Basic Metabolic Panel Sent. ko1 15:35 CBC with Diff Sent. ko1 15:35 Magnesium Sent. ko1 15:35 Protime (+inr) Sent. ko1 15:35 Ptt, Activated Sent. ko1 15:35 Troponin High Sensitivity Sent. ko1 15:59 Chest Single View XRAY In Process Unspecified. EDMS 16:41 Sathish Armenta MD is Hospitalizing Provider. rn 19:33 Patient admitted, IV remains in place. jj7 Administered Medications: No medications were administered Medication: 18:29 VIS not applicable for this client. ko1 Outcome: 16:42 Decision to Hospitalize by Provider. rn 19:28 Admitted to Med/surg accompanied by tech, via stretcher, room 410. jj7 19:33 Admitted to Med/surg Report called to CRISTAL BOLANOS jj7 19:33 Condition: good 20:01 Patient left the ED. vc1 Signatures: Dispatcher [employer] EDMS Arnie Armenta MD MD rn Calcote, Vanessa RN RN vc1 Mouna Viatle, RN RN Ashwin York RN RN jj7 Parris Wood RN RN mb9
--- NOTE | 2023-02-15 16:43 | EDPHYS ---
Physician Documentation [facility] Name: Janis Henderson Age: 62 yrs Sex: Female : 1960 Arrival Date: 02/15/2023 Time: 14:42 Bed 20 Private MD: ED Physician Arnie Armenta HPI: 02/15 16:33 This 62 yrs old Female presents to ER via EMS with complaints of fall, pain, rn low blood pressure. . 16:33 The patient presents with pain that is acute, and an injury. The symptoms are located rn in the low back, coccyx area. The pain does not radiate. Onset: The symptoms/episode began/occurred 3 day(s) ago. Modifying factors: The patient symptoms are alleviated by nothing, the patient symptoms are aggravated by any movement. Associated signs and symptoms: Pertinent negatives: abdominal pain, numbness, tingling, urinary retention, vomiting. Severity of symptoms: At their worst the symptoms were moderate, in the emergency department the symptoms are unchanged. The patient has not experienced similar symptoms in the past. The patient has not recently seen a physician. 16:35 Pt reports fall 3 days ago, legs "gave out", fell directly on buttocks, reports only rn injury to tailbone. No extremity injury. NO fever/chest pain/sob/abd pain. Reports not eating or drinking. EMS reports low blood pressure in 70s, improved with fluids. . Historical: - Allergies: 15:05 Morphine; mb9 - PMHx: 15:05 Anxiety; Hypertension; VASCULAR DEMENTIA; Hypothyroidism; Diabetes - NIDDM; Depression; mb9 CVA; speech deficit/mild weakness; psoriasis; COVID; chronic neck/back pain; - PSHx: 15:05 Appendectomy; section; Cholecystectomy; mb9 - Immunization history:: Adult Immunizations up to date. - Social history:: Smoking status: Patient denies any tobacco usage or history of. - Family history:: not pertinent. - Hospitalizations: : No recent hospitalization is reported. ROS: 16:35 Constitutional: Negative for fever, chills, and weight loss, Eyes: Negative for injury, rn pain, redness, and discharge, Cardiovascular: Negative for chest pain, palpitations, and edema, Respiratory: Negative for shortness of breath, cough, wheezing, and pleuritic chest pain, Abdomen/GI: Negative for abdominal pain, nausea, vomiting, diarrhea, and constipation, Back: + low back pain MS/Extremity: Negative for injury and deformity, Skin: Negative for injury, rash, and discoloration, Neuro: Negative for headache, numbness, tingling, and seizure. Exam: 16:35 Constitutional: This is a well developed, well nourished patient who is awake, alert, rn and in no acute distress. Head/Face: Normocephalic, atraumatic. ENT: dry MM Cardiovascular: Regular rate and rhythm. No pulse deficits. Respiratory: No increased work of breathing, no retractions or nasal flaring. Abdomen/GI: soft, non-tender Back: No spinal tenderness. + tenderness sacrum and coccyx. Skin: Warm, dry MS/ Extremity: Pulses equal, no cyanosis. Neuro: Slow to respond, somnolent, but answers all questions. 18:06 ECG was reviewed by the Attending Physician. ms3 Vital Signs: 15:02 BP 97 / 57; Pulse 64; Resp 18; Temp 97.9(O); Pulse Ox 98% on R/A; Weight 79.38 kg; mb9 Height 5 ft. 4 in. ; Pain 7/10; 15:15 BP 125 / 63; Pulse 62; Resp 18; Pulse Ox 99% ; ko1 15:45 BP 129 / 63; Pulse 67; Resp 18; Pulse Ox 99% ; ko1 16:30 BP 117 / 87; Pulse 72; Resp 16; Pulse Ox 99% ; ko1 17:30 BP 134 / 67; Pulse 68; Resp 18; Pulse Ox 99% ; ko1 19:10 BP 132 / 92; Pulse 74; Resp 18; Pulse Ox 100% ; jj7 15:02 Body Mass Index 30.04 (79.38 kg, 162.56 cm) mb9 15:02 Pain Scale: Adult mb9 MDM: 14:46 Patient medically screened. rn 16:37 Differential diagnosis: arthritis, fracture, contusion, UTI. Data reviewed: vital rn signs, nurses notes, lab test result(s), radiologic studies, CT scan, and as a result, I will admit patient. Consideration of Admission/Observation Patient was admitted/placed on observation. Escalation of care including admission/observation considered. Management of patient was discussed with the following: Hospitalist: . Counseling: I had a detailed discussion with the patient and/or guardian regarding: the historical points, exam findings, and any diagnostic results supporting the discharge/admit diagnosis, lab results, radiology results, the need for further work-up and treatment in the hospital. Response to treatment: the patient's symptoms have mildly improved after treatment, and as a result, I will admit patient. ED course: . 02/15 14:50 Order name: Basic Metabolic Panel; Complete Time: 16: rn 02/15 14:50 Order name: CBC with Diff; Complete Time: 16: rn 02/15 14:50 Order name: Magnesium; Complete Time: 16: rn 02/15 14:50 Order name: Protime (+inr); Complete Time: 16: rn 02/15 14:50 Order name: Ptt, Activated; Complete Time: 16: rn 02/15 14:50 Order name: Troponin High Sensitivity; Complete Time: 16:02/15 14:50 Order name: Urinalysis w/ reflexes 02/15 14:50 Order name: Chest Single View XRAY; Complete Time: 16:02/15 14:50 Order name: CT Pelvis wo Cont; Complete Time: 16:02/15 14:50 Order name: EKG; Complete Time: 14:02/15 14:50 Order name: Cardiac monitoring; Complete Time: 15:02/15 14:50 Order name: EKG - Nurse/Tech; Complete Time: 15:02/15 14:50 Order name: IV Saline Lock; Complete Time: 15:13 02/15 14:50 Order name: Labs collected and sent; Complete Time: 15:35 02/15 14:50 Order name: O2 Per Protocol; Complete Time: 15:02/15 14:50 Order name: O2 Sat Monitoring; Complete Time: 15: rn EC:06 Rate is 64 beats/min. Rhythm is regular. QRS Ehrenberg is Normal. IL interval is normal. ms3 Clinical impression: Normal ECG. Interpreted by me. Reviewed by me. Administered Medications: No medications were administered Disposition Summary: 02/15/23 16:42 Hospitalization Ordered Hospitalization Status: Inpatient Admission rn Provider: Sathish Armenta rn Location: Telemetry/MedSurg (Inpatient) rn Condition: Stable rn Problem: new rn Symptoms: have improved rn Bed/Room Type: Standard rn Room Assignment: 410(02/15/23 18:42) dw Diagnosis - Fracture of sacrum - non-displaced rn - Pubic ramus fracture rn - Acute kidney failure, unspecified rn - Hypotension, unspecified rn Forms: - Medication Reconciliation Form rn - SBAR form rn Signatures: Dispatcher [employer] Talia Fletcher, RN RN dw Arnie Armenta MD MD rn Jackson, Kandis kj1 Manas Haines DO DO ms3 Parris Wood, RN RN mb9 Corrections: (The following items were deleted from the chart) 16:38 16:35 Constitutional: This is a well developed, well nourished patient who is awake, rn alert, and in no acute distress. Head/Face: Normocephalic, atraumatic. ENT: dry MM rn 18:42 16:42 rn kj1 18:42 18:42 410 kj1 dw
--- NOTE | 2023-02-15 18:41 | P.HP ---
Certification for Inpatient Patient admitted to: Inpatient With expected LOS: >2 Midnights Patient will require the following post-hospital care: None Practitioner: I am a practitioner with admitting privileges, knowledge of patient current condition, hospital course, and medical plan of care. Services: Services provided to patient in accordance with Admission requirements found in Title 42 Section 412.3 of the Code of Federal Regulations Patient History Date of Service: 02/15/23 History of Present Illness: 62-year-old female with history of insulin-dependent diabetes, previous CVA, hypertension, hypothyroidism, hyperlipidemia presents to the emergency department with weakness, hypotension, fall, back pain. She reports that approximate 3 days ago she felt weak and her legs "gave out on her". She fell onto her buttocks at that time she denies loss of consciousness she reports poor oral intake over the course of the last few days. Her blood pressure in the field was 70s systolic, she has been given IV fluids during her stay in the emergency department blood pressure has improved. Patient reports she is feeling much better although she is still having significant pain in her lower back/buttocks area. Her labs were significant for creatinine of 3.32 hemoglobin 9.[address] of the pelvis was performed which revealed S3 sacral fracture without displacement, probable fracture anterior aspect of the inferior pubic ramus. ED provider wishes to admit for patient, weakness, fall, sacral/inferior pubic rami fracture. Allergies morphine Allergy (Verified 05/30/20 12:45) Itching/Hives/Rash Home Medications: Atorvastatin Calcium 40 mg PO BEDTIME 05/19/20 Levothyroxine [Synthroid*] 0.125 mg PO DAILY 05/19/20 Linagliptin [Tradjenta] 5 mg PO DAILY 05/19/20 Losartan Potassium 25 mg PO DAILY 05/19/20 Vortioxetine Hydrobromide [Trintellix] 10 mg PO DAILY 05/19/20 ALPRAZolam [Xanax*] 1 mg PO TID 05/24/20 Benzonatate [Tessalon Perle*] 200 mg PO TID PRN 05/24/20 Insulin Detemir [Levemir Flextouch] 20 units SQ BIDWM 05/24/20 Trazodone [Desyrel*] 150 mg PO BEDTIME 05/24/20 glipiZIDE [Glipizide] 10 mg PO BIDWM 05/24/20 Zinc Sulfate [Zinc Sulfate*] 220 mg PO DAILY #14 cap 05/28/20 Cholecalciferol (Vitamin D3) [Vitamin D3] 25 mcg PO DAILY 05/30/20 Famotidine [Pepcid*] 20 mg PO DAILY 05/30/20 Amlodipine [Norvasc*] 5 mg PO DAILY #30 tab 06/03/20 Apixaban [Eliquis] 5 mg PO BID #60 tablet 06/03/20 Ascorbic Acid [Vitamin C*] 500 mg PO DAILY #30 06/03/20 Clopidogrel Bisulfate [Plavix*] 75 mg PO DAILY #30 tablet 06/03/20 predniSONE [Deltasone*] 10 mg PO DAILY #7 tab 06/03/20 - Past Medical/Surgical History Diabetic: Yes -: Anxiety -: CVA -: Hypothyroid -: Depression -: HTN -: Diabetes -: Neuropathy -: Vascular dementia -: Chronic neck/back pain -: 3 C-sections, 1980, 84, 89 -: Vicki, 1986 -: 2 knee surgeries, 1979 -: Sherrie lagunas, 10/04/13 Psychosocial/ Personal History: Lives at home with . - Family History Family History: Reviewed- Non-Contributory - Social History Smoking Status: Current every day smoker Alcohol use: No CD- Drugs: No Caffeine use: No Place of Residence: Home Review of Systems 10-point ROS is otherwise unremarkable General: Weakness Musculoskeletal: Back Pain Physical Examination - Physical Exam General: Alert, In no apparent distress, Oriented x3 HEENT: Atraumatic, PERRLA, Mucous membr. moist/pink, EOMI, Sclerae nonicteric Neck: Supple, 2+ carotid pulse no bruit, No LAD, Without JVD or thyroid abnormality Respiratory: Clear to auscultation bilaterally, Normal air movement Cardiovascular: No edema, Regular rate/rhythm, Normal S1 S2 Capillary refill: <2 Seconds Gastrointestinal: Normal bowel sounds, No tenderness Musculoskeletal: Tenderness (Sacral tenderness) Integumentary: No rashes Neurological: Normal gait, Normal speech, Normal strength at 5/5 x4 extr, Normal tone, Normal affect - Studies Laboratory Data (last 24 hrs) 02/15/23 15:20: PT 14.6 H, INR 1.33, APTT 38.0 H 04/25/23 15:20: WBC 8.70, Hgb 9.7 L, Hct 28.7 L, Plt Count 266 02/15/23 15:20: Sodium 143, Potassium 3.8, BUN 44 H, Creatinine 3.32 H, Glucose 77, Magnesium 1.8 Assessment and Plan - Plan Assessment: Weakness, fall, hypotension S 3 sacral fracture without displacement, suspected fracture anterior aspect inferior pubic ramus Diabetes mellitus type 2insulin-dependent Hypertension Hypothyroidism history of CVA/vascular dementia CKD 4 Plan: Weakness, fall, hypotension Blood pressure low in the field, improved with IV fluids. Patient reports poor oral intake over the course of last 2 days suspect this is related to dehydr ation. Continue IV fluids overnight, nephrology consult in place. Will obtain orthostatic vital signs, PT consult. Patient also reports being off balance for the last 1 year after she had a mini stroke. Appreciate further input from PT. S 3 sacral fracture without displacement, suspected fracture anterior aspect inferior pubic ramus Suspect this are nonoperative, will consult orthopedics. Continue with PT, pain management. Diabetes mellitus type 2insulin-dependent Patient reports she is prescribed Levemir 30 units twice daily, she has been taking it only once daily because she has not been eating as much lately. Will obtain A1c level, continue with sliding scale insulin for now, increase as necessary. Hypertension Hypothyroidism history of CVA/vascular dementia Obtain and continue home medications. CKD [address] in [address].. DVT PPX: Subcu heparin Code status:full Discharge Plan: Home Plan to discharge in: 48 Hours - Advance Directives Does patient have a Living Will: No Does patient have a Durable POA for Healthcare: No - Code Status/Comfort Care Code Status Assessed: Yes (Full code) Critical Care: No Time Spent Managing Pts Care (In Minutes): 70
[2023-02-15] MEDS ORDERED: ONDANSETRON 4 MG/2 ML VIAL IV PRN (18:48)
[2023-02-15] MEDS: INSULIN -REGULAR HUMAN 50 UNIT/0.5 ML ML SQ SCH (20:43)
[2023-02-15] MEDS: HYDROCODONE/APAP 5/325 MG TAB PO PRN (20:47)
[2023-02-15] MEDS: HEPARIN 5000 UNIT/ML 1 ML VIAL SQ SCH (20:48)
[2023-02-15] MEDS: NACHLORIDE 0.45% 1,000 ML IV SCH (20:48)
[2023-02-16 06:12] LABS: Absolute Lymphocytes (CBC) 2.9 K/uL (0.7-4.9); Hematocrit 28.1 % (36.0-45.0); Lymphocytes % 30.4 % (15.3-44.8); MCV 84.3 fL (80-100); MPV 9.6 fL (7.6-11.3); RBC Red Blood Cell Count 3.33 M/uL (3.86-4.86)
[2023-02-16] MEDS: HYDROCODONE/APAP 5/325 MG TAB PO PRN (06:12)
[2023-02-16 06:26] LABS: Potassium 3.7 mEq/L (3.5-5.1)
--- NOTE | 2023-02-16 07:24 | P.PN ---
Date of Service: 02/16/23 Subjective: Feeling better today pain most in tailbone - when applying pressure/weight - sitting/laying on it no new / worsening problems appears very anxious ROS: 10 point ROS as noted above, otherwise negative Physical Exam: GEN: Alert, oriented, NAD HEENT: Normal conjunctiva, sclera anicteric CV: Regular rate and rhythm, no edema Pulm: Nonlabored respirations on room air ABD: Soft, nontender, nondistended MSK: Sacral tenderness, generalized weakness Neuro: Normal speech, normal affect vitals reviewed Problem List: Weakness, fall, hypotension S 3 sacral fracture without displacement, suspected fracture anterior aspect inferior pubic ramus [id number] Hypertension Hypothyroidism history of CVA/vascular dementia CKD 4 Depression Weakness, fall, hypotension Patient reports poor oral intake over the course of last 2 days suspect this is related to dehydration. Patient also reports being off balance for the last 1 year after she had a mini stroke. Blood pressure low in the field, improved with IVF Nephrology consulted Will obtain orthostatic vital signs PT consulted S 3 sacral fracture without displacement, suspected fracture anterior aspect inferior pubic ramus Suspect nonoperative, ortho consulted Continue with PT Continue pain medication as needed patient states she may need to go to SNF [id number] Patient reports she is prescribed Levemir 30 units twice daily, she has been taking it only once daily because she has not been eating as much lately. continue with sliding scale insulin Hypertension Hypothyroidism history of CVA/vascular dementia continue home medications CKD 4 Nephrology consult VTE: Heparin subQ Code: Full Dispo: SNF 24-48hrs Patient seems agreeable to SNF if insurance accepts will check with SW/CM
[2023-02-16] MEDS: INSULIN -REGULAR HUMAN 50 UNIT/0.5 ML ML SQ SCH ×4 (07:30→20:40)
[2023-02-16] MEDS: NACHLORIDE 0.45% 1,000 ML IV SCH ×2 (08:20→16:02)
[2023-02-16] MEDS: HEPARIN 5000 UNIT/ML 1 ML VIAL SQ SCH ×2 (08:44→21:06)
[2023-02-16] MEDS: ALPRAZOLAM 1 MG TABLET PO SCH ×3 (08:44→20:40)
--- NOTE | 2023-02-16 11:31 | P.CNS ---
Date of Consult: 02/16/23 Reason for Consult: CKD IV Requesting Physician: Hardy Reyes Chief Complaint: S/p fall History of Present Illness: 62-year-old female with history of insulin-dependent diabetes with complications including CKD IV with proteinuria, previous CVA with residual weakness, hypertension, hypothyroidism, hyperlipidemia who presented to the emergency department with fall and lower back/tailbone pain. She reports a mechanical fall but acknowledges weakness of her legs contributing. She denies dizziness or lightheadedness contributing, she denies syncope. Allergies morphine Allergy (Verified 05/30/20 12:45) Itching/Hives/Rash Home Medications: Atorvastatin Calcium 40 mg PO BEDTIME 05/19/20 Levothyroxine [Synthroid*] 0.125 mg PO DAILY 05/19/20 Linagliptin [Tradjenta] 5 mg PO DAILY 05/19/20 Losartan Potassium 25 mg PO DAILY 05/19/20 Vortioxetine Hydrobromide [Trintellix] 10 mg PO DAILY 05/19/20 ALPRAZolam [Xanax*] 1 mg PO TID 05/24/20 Benzonatate [Tessalon Perle*] 200 mg PO TID PRN 05/24/20 Insulin Detemir [Levemir Flextouch] 20 units SQ BIDWM 05/24/20 Trazodone [Desyrel*] 150 mg PO BEDTIME 05/24/20 glipiZIDE [Glipizide] 10 mg PO BIDWM 05/24/20 Zinc Sulfate [Zinc Sulfate*] 220 mg PO DAILY #14 cap 05/28/20 Cholecalciferol (Vitamin D3) [Vitamin D3] 25 mcg PO DAILY 05/30/20 Famotidine [Pepcid*] 20 mg PO DAILY 05/30/20 Amlodipine [Norvasc*] 5 mg PO DAILY #30 tab 06/03/20 Apixaban [Eliquis] 5 mg PO BID #60 tablet 06/03/20 Ascorbic Acid [Vitamin C*] 500 mg PO DAILY #30 06/03/20 Clopidogrel Bisulfate [Plavix*] 75 mg PO DAILY #30 tablet 06/03/20 predniSONE [Deltasone*] 10 mg PO DAILY #7 tab 06/03/20 hydrOXYzine HCL [Atarax*] 25 mg PO DAILY PRN 02/15/23 - Past Medical/Surgical History Diabetic: Yes -: Anxiety -: CVA -: Hypothyroid -: Depression -: HTN -: Diabetes -: Neuropathy -: Vascular dementia -: Chronic neck/back pain -: 3 C-sections, 1980, 84, 89 -: Vicki, 1986 -: 2 knee surgeries, 1979 -: Sherrie lagunas, 10/04/13 Psychosocial/ Personal History: Lives at home with . - Social History Smoking Status: Former smoker Alcohol use: Yes CD- Drugs: No Caffeine use: Yes Place of Residence: Home Review of Systems General: Weakness ENT: Unremarkable Respiratory: Unremarkable Cardiovascular: Unremarkable Gastrointestinal: Nausea Genitourinary: Unremarkable Musculoskeletal: Back Pain, As per HPI Neurological: Weakness, As per HPI Physical Examination Temp Pulse Resp BP Pulse Ox 98.2 F 60 16 126/67 98 02/16/23 08:00 02/16/23 08:00 02/16/23 08:00 02/16/23 08:00 02/16/23 08:00 General: In no apparent distress, Cooperative HEENT: Atraumatic, Normocephalic Neck: Supple Respiratory: Clear to auscultation bilaterally, Normal air movement Cardiovascular: No edema, Regular rate/rhythm Gastrointestinal: Soft and benign, Non-distended Musculoskeletal: No swelling, No contractures Integumentary: No rashes Neurological: Other (Muscle strength LE 4/5, no tremors or myoclonus), Abnormal speech Laboratory Data (last 24 hrs) 02/15/23 15:20: PT 14.6 H, INR 1.33, APTT 38.0 H 02/15/23 15:20: WBC 8.70, Hgb 9.7 L, Hct 28.7 L, Plt Count 266 02/15/23 15:20: Sodium 143, Potassium 3.8, BUN 44 H, Creatinine 3.32 H, Glucose 77, Magnesium 1.8 Conclusions/Impression: A/P) 1. Underlying CKD IV 2nd to reported diabetic nephropathy with renal function currently at or better than baseline post hydration. 2. Repeated falls, likely multifactorial but pt with some relative hypotension on admission possibly 2nd to meds and/or mild hypovolemia. 3. Cont gentle hydration. 4. Cont to hold scheduled anti hypertensives including ARB agent, will have to re-assess BP regimen on discharge. 5. Lytes acceptable overall 6. Anemia of CKD, other -Hb just under 10, monitor for now, can consider OP ROMA therapy if trends lower and pt symptomatic 7. OT/PT eval and eval for HH per primary team/CM Yusef Noel MD, ALYSHA
--- NOTE | 2023-02-16 16:47 | EKG ---
Test Date: 2023-02-15 Test Time: 15:48:50 [employer] Team Leader: GERTRUDIS MEASUREMENT RESULTS: Intervals: Rate: 64 MT: 136 QRSD: 80 QT: 462 QTc: 476 [place]: P: 40 MT: 136 QRS: -16 T: 50 INTERPRETIVE STATEMENTS: Normal sinus rhythm Normal ECG Compared to ECG 04/30/2021 18:23:57 Left ventricular hypertrophy no longer present T-wave abnormality no longer present Possible ischemia no longer present Electronically Signed On 02-16-23 16:46:22 CDT by Barrie Grossman
[2023-02-16 19:44] VITALS: BMI 30.7
[2023-02-17] MEDS: NACHLORIDE 0.45% 1,000 ML IV SCH (06:06)
[2023-02-17 06:42] LABS: Absolute Lymphocytes (CBC) 3.2 K/uL (0.7-4.9); Hematocrit 31.9 % (36.0-45.0); Lymphocytes % 23.8 % (15.3-44.8); MCV 84.8 fL (80-100); MPV 9.6 fL (7.6-11.3); RBC Red Blood Cell Count 3.76 M/uL (3.86-4.86)
[2023-02-17 06:51] LABS: Potassium 3.8 mEq/L (3.5-5.1)
[2023-02-17] MEDS: INSULIN -REGULAR HUMAN 50 UNIT/0.5 ML ML SQ SCH ×4 (07:30→20:38)
--- NOTE | 2023-02-17 07:46 | P.PN ---
Date of Service: 02/17/23 Subjective: pain is tolerable with medication no nausea / diarrhea / vomiting no new worsening / symptoms able to ambulate with assistance, loses balance backwards per pt ROS: 10 point ROS as noted above, otherwise negative Physical Exam: GEN: Alert, oriented, NAD HEENT: Normal conjunctiva, sclera anicteric CV: Regular rate and rhythm, no edema Pulm: Nonlabored respirations on room air ABD: Soft, nontender, nondistended MSK: Sacral tenderness, generalized weakness Neuro: Normal speech, normal affect vitals reviewed Problem List: Weakness, fall, hypotension S 3 sacral fracture without displacement, suspected fracture anterior aspect inferior pubic ramus [id number] Hypertension Hypothyroidism history of CVA/vascular dementia CKD 4 Depression Weakness, fall, hypotension Patient reports poor oral intake over the course of last 2 days suspect this is related to dehydration. Patient also reports being off balance for the last 1 year after she had a mini stroke. Blood pressure low in the field, improved with IVF Nephrology consulted Will obtain orthostatic vital signs PT consulted S 3 sacral fracture without displacement, suspected fracture anterior aspect inferior pubic ramus Suspect nonoperative, ortho consulted Continue with PT Continue pain medication as needed patient states she may need to go to SNF no benefit from SNF. looking into home health [id number] Patient reports she is prescribed Levemir 30 units twice daily, she has been taking it only once daily because she has not been eating as much lately. continue with sliding scale insulin Hypertension Hypothyroidism history of CVA/vascular dementia continue home medications CKD 4 Nephrology consult VTE: Heparin subQ Code: Full Dispo: home with home health 24-48hrs no benefit from SNF. possible home with home health will check with SW/CM
[2023-02-17] MEDS: ALPRAZOLAM 1 MG TABLET PO SCH ×3 (09:02→20:38)
[2023-02-17] MEDS: HEPARIN 5000 UNIT/ML 1 ML VIAL SQ SCH ×2 (09:02→21:00)
--- NOTE | 2023-02-17 21:32 | P.PN ---
Date of Service: 02/17/23 Vital Signs Temp Pulse Resp BP Pulse Ox 98.0 F 65 16 124/64 100 02/17/23 16:00 02/17/23 16:00 02/17/23 16:00 02/17/23 16:00 02/17/23 16:00 Medications Hydrocodone Bitart/Acetaminophen (Hydrocodone/Apap 5/325 Mg Tab) 1 tab PO Q6H PRN PRN Reason: Pain scale 5-7 (Moderate) Last Admin: 02/16/23 06:12 Dose: 1 tab Alprazolam (Alprazolam 1 Mg Tablet) 1 mg PO TID [facility] Last Admin: 02/17/23 20:38 Dose: 1 mg Heparin Sodium (Porcine) (Heparin 5000 Unit/Ml 1 Ml Vial) 5,000 unit SQ Q12HR [facility] Last Admin: 02/17/23 09:02 Dose: 5,000 unit Hydroxyzine HCl (Hydroxyzine Hcl 25 Mg Tab) 25 mg PO DAILY PRN PRN Reason: ITCHING Sodium Chloride (Sodium Chloride 0.45%) 1,000 mls @ 75 mls/hr IV .[id number] [facility] Last Admin: 02/17/23 06:06 Dose: 1,000 mls Insulin Human Regular (Insulin -Regular Human 50 Unit/0.5 Ml Ml) 0 unit SQ ACHS [facility]; Protocol Last Admin: 02/17/23 20:38 Dose: 2 unit Ondansetron HCl (Ondansetron 4 Mg/2 Ml Vial) 4 mg IV Q6HP PRN PRN Reason: NAUSEA / VOMITING Last Admin: 02/15/23 20:47 Dose: 4 mg Sodium Chloride (Flush Normal Saline 10 Ml) 10 ml IV BID [facility] Last Admin: 02/17/23 20:38 Dose: 10 ml Assessment/ Plan: Nephrology No dyspnea No chest pain Weakness No acute events overnight Vitals, medications, blood work and imaging reviewed in the chart. NAD. NCAT. MMM. Neck supple. Normal respiratory effort. RRR. Abd ND. No C/C. LE Edema none. No rash. AAO. Normal speech. EXAM DESCRIPTION: US - Renal Ultrasound-Complete - 01/07/2020 1:06 pm CLINICAL HISTORY: N17.8, patient gives history of acute renal failure COMPARISON: Abdomen Exam Complete dated 01/22/2016 FINDINGS: The right kidney measures 11.7 x 4.1 x 4.7 cm. The left kidney measures 12.1 x 4.2 x 4.5 cm. Allowing for differences in measuring technique and image selection, no change in size of the kidneys from 2016. Renal cortical thickness and echogenicity are normal. No hydronephrosis of either kidney. Hypoechoic exophytic mass lower pole right kidney measures 15 mm. This was 10 mm in 2016. Incidental cyst is most likely. Bladder was limited. IMPRESSION: No hydronephrosis of either kidney. Echogenicity is not outside of normal range. A small 15 millimeter exophytic lower pole right renal mass is hypoechoic but not anechoic. This is most likely a slowly enlarging cyst from 2016 (10 mm at that time). SHEREEN likely due to hypovolemia/ hypotension CKD IV with proteinuria -No NSAIDs Metabolic Acidosis -Start oral bicarb HTN with CKD -Hold antihypertensives at this time DM II with CKD -RISS Anemia in chronic illness -Monitor H&H CKD MBD -Start Ergo
[2023-02-18] MEDS: NACHLORIDE 0.45% 1,000 ML IV SCH (00:20)
[2023-02-18] MEDS: hydrOXYzine HCL 25 MG TAB PO PRN (02:15)
[2023-02-18 05:25] LABS: Absolute Lymphocytes (CBC) 2.4 K/uL (0.7-4.9); Hematocrit 27.5 % (36.0-45.0); MCV 84.1 fL (80-100); RBC Red Blood Cell Count 3.27 M/uL (3.86-4.86)
[2023-02-18 05:38] LABS: Potassium 3.9 mEq/L (3.5-5.1)
--- NOTE | 2023-02-18 07:24 | P.PN ---
Date of Service: 02/18/23 Subjective: sleeping slight slurred speech make ROS: 10 point ROS as noted above, otherwise negative Physical Exam: GEN: Alert, oriented, NAD HEENT: Normal conjunctiva, sclera anicteric CV: Regular rate and rhythm, no edema Pulm: Nonlabored respirations on room air ABD: Soft, nontender, nondistended MSK: Sacral tenderness, generalized weakness Neuro: Normal speech, normal affect vitals reviewed Problem List: Weakness, fall, hypotension S 3 sacral fracture without displacement, suspected fracture anterior aspect inferior pubic ramus [id number] Hypertension Hypothyroidism history of CVA/vascular dementia CKD 4 Depression Weakness, fall, hypotension Patient reports poor oral intake over the course of last 2 days suspect this is related to dehydration. Patient also reports being off balance for the last 1 year after she had a mini stroke. Blood pressure low in the field, improved with IVF Nephrology consulted PT consulted S 3 sacral fracture without displacement, suspected fracture anterior aspect inferior pubic ramus Suspect nonoperative, ortho consulted Continue with PT Continue pain medication as needed patient states she may need to go to SNF no benefit from SNF. looking into home health [id number] Patient reports she is prescribed Levemir 30 units twice daily, she has been taking it only once daily because she has not been eating as much lately. continue with sliding scale insulin Hypertension Hypothyroidism history of CVA/vascular dementia continue home medications CKD 4 Nephrology consult VTE: Heparin subQ Code: Full Dispo: home with home health 24-48hrs no benefit from SNF. possible home with home health will check with SW/CM
[2023-02-18] MEDS: INSULIN -REGULAR HUMAN 50 UNIT/0.5 ML ML SQ SCH ×4 (07:30→20:34)
[2023-02-18] MEDS ORDERED: SODIUM BICARB 325 MG TAB PO SCH (08:30)
[2023-02-18] MEDS: ALPRAZOLAM 1 MG TABLET PO SCH ×3 (09:33→20:34)
[2023-02-18] MEDS: DRISDOL (VITAMIN D=ERGOCALCIFEROL) 50000 UNIT CAP PO SCH (09:33)
[2023-02-18] MEDS: HEPARIN 5000 UNIT/ML 1 ML VIAL SQ SCH ×2 (09:33→21:00)
[2023-02-18] MEDS: SODIUM BICARB 325 MG TAB PO SCH ×3 (09:33→20:33)
[2023-02-18] MEDS: DOCUSATE NA 100 MG CAP PO SCH ×2 (09:34→20:33)
--- NOTE | 2023-02-18 10:02 | P.PN ---
Nephrology note (S) Pt resting, reports pain at tailbone site but has been OOB and worked with PT. Off IVF. (O) Vitals reviewed in the EMR General: In no apparent distress, Cooperative HEENT: Atraumatic, Normocephalic Neck: Supple Respiratory: Clear to auscultation bilaterally, Normal air movement Cardiovascular: No edema, Regular rate/rhythm Gastrointestinal: Soft and benign, Non-distended Musculoskeletal: No swelling, No contractures Integumentary: No rashes Neurological: Other (Muscle strength LE 4/5, no tremors or myoclonus), Abnormal speech Laboratory Data (last 24 hrs) Reviewed in the EMR Conclusions/Impression: A/P) 1. Underlying CKD IV 2nd to reported diabetic nephropathy with renal function initially at or better than baseline post hydration. Off IVF, back up, cont to monitor 2. Repeated falls, likely multifactorial but pt with some relative hypotension on admission possibly 2nd to meds and/or mild hypovolemia. 3. Will increase PO alkali for metab acidosis 2nd to reduced renal ammoniagenesis. 4. Cont to hold ARB agent, will have to re-assess BP regimen on discharge. 5. Lytes acceptable overall 6. Anemia of CKD, other -Hb just under 10, monitor for now, can consider OP ROMA therapy if trends lower and pt symptomatic 7. OT/PT eval and eval for HH per primary team/CM Yusef Noel MD, ALYSHA
--- NOTE | 2023-02-18 12:34 | P.DS ---
Admission Date: 02/15/23 Discharge Date: 02/19/23 Reason for Admission: S/p fall Consultations: NEEDS HOME ASSISTANCE - PENDING IMPROVED MOBILITY Nephrology - Dr. Terrell Orthopedics - Dr. Hutson Brief History of Present Illness: 62yo F, PMH: insulin-dependent diabetes, previous CVA, hypertension, hypothyroidism, hyperlipidemia Patient presents to the emergency department with weakness, hypotension, fall, back pain. She reports that approximate 3 days ago she felt weak and her legs "gave out on her". She fell onto her buttocks at that time she denies loss of consciousness she reports poor oral intake over the course of the last few days. Her blood pressure in the field was 70s systolic, she has been given IV fluids during her stay in the emergency department blood pressure has improved. Patient reports she is feeling much better although she is still having significant pain in her lower back/buttocks area. Her labs were significant for creatinine of 3.32 hemoglobin 9.[address] of the pelvis was performed which revealed S3 sacral fracture without displacement, probable fracture anterior aspect of the inferior pubic ramus. ED provider wishes to admit for patient, weakness, fall, sacral/inferior pubic rami fracture. Hospital Course: Problem List: Weakness, fall, hypotension S 3 sacral fracture without displacement, suspected fracture anterior aspect inferior pubic ramus [id number] Hypertension Hypothyroidism history of CVA/vascular dementia CKD 4 Depression Physical Exam: GEN: Alert, oriented, NAD HEENT: Normal conjunctiva, sclera anicteric CV: Regular rate and rhythm, no edema Pulm: Nonlabored respirations on room air ABD: Soft, nontender, nondistended MSK: Sacral tenderness, generalized weakness Neuro: Normal speech, normal affect Vital Signs/Physical Exam: Temp Pulse Resp BP Pulse Ox 97.7 F 67 16 166/78 H 98 02/18/23 08:00 02/18/23 08:00 02/18/23 08:00 02/18/23 08:00 02/18/23 08:00 Laboratory Data at Discharge: WBC 8.80 thou/uL (4.3-10.9) 02/18/23 04:43 Hgb 9.4 g/dL (12.0-15.0) L D 02/18/23 04:43 Hct 27.5 % (36.0-45.0) L 02/18/23 04:43 Plt Count 216 thou/uL (152-406) D 02/18/23 04:43 PT 14.6 SECONDS (9.5-12.5) H 02/15/23 15:20 INR 1.33 02/15/23 15:20 APTT 38.0 SECONDS (24.3-36.9) H 02/15/23 15:20 Sodium 140 mEq/L (136-145) 02/18/23 04:43 Potassium 3.9 mEq/L (3.5-5.1) 02/18/23 04:43 BUN 52 mg/dL (7-18) H 02/18/23 04:43 Creatinine 3.19 mg/dL (0.55-1.02) H 02/18/23 04:43 Glucose 139 mg/dL (74-106) H 02/18/23 04:43 Magnesium 1.8 mg/dL (1.6-2.4) 02/15/23 15:20 Home Medications: Atorvastatin Calcium 40 mg PO BEDTIME 05/19/20 Levothyroxine [Synthroid*] 0.125 mg PO DAILY 05/19/20 Linagliptin [Tradjenta] 5 mg PO DAILY 05/19/20 Losartan Potassium 25 mg PO DAILY 05/19/20 Vortioxetine Hydrobromide [Trintellix] 10 mg PO DAILY 05/19/20 ALPRAZolam [Xanax*] 1 mg PO TID 05/24/20 Benzonatate [Tessalon Perle*] 200 mg PO TID PRN 05/24/20 Insulin Detemir [Levemir Flextouch] 20 units SQ BIDWM 05/24/20 Trazodone [Desyrel*] 150 mg PO BEDTIME 05/24/20 glipiZIDE [Glipizide] 10 mg PO BIDWM 05/24/20 Zinc Sulfate [Zinc Sulfate*] 220 mg PO DAILY #14 cap 05/28/20 Cholecalciferol (Vitamin D3) [Vitamin D3] 25 mcg PO DAILY 05/30/20 Famotidine [Pepcid*] 20 mg PO DAILY 05/30/20 Amlodipine [Norvasc*] 5 mg PO DAILY #30 tab 06/03/20 Apixaban [Eliquis] 5 mg PO BID #60 tablet 06/03/20 Ascorbic Acid [Vitamin C*] 500 mg PO DAILY #30 06/03/20 Clopidogrel Bisulfate [Plavix*] 75 mg PO DAILY #30 tablet 06/03/20 predniSONE [Deltasone*] 10 mg PO DAILY #7 tab 06/03/20 hydrOXYzine HCL [Atarax*] 25 mg PO DAILY PRN 02/15/23 Followup: NONE,NONE [Primary Care Provider] - Time spent managing pt's care (in minutes): 45
[2023-02-19 04:58] LABS: Absolute Lymphocytes (CBC) 2.7 K/uL (0.7-4.9); Hematocrit 28.2 % (36.0-45.0); MCV 83.4 fL (80-100); MPV 9.9 fL (7.6-11.3); RBC Red Blood Cell Count 3.38 M/uL (3.86-4.86)
[2023-02-19 05:10] LABS: Magnesium 1.7 mg/dL (1.6-2.4); Potassium 3.6 mEq/L (3.5-5.1)
[2023-02-19] MEDS: INSULIN -REGULAR HUMAN 50 UNIT/0.5 ML ML SQ SCH ×4 (07:30→19:54)
--- NOTE | 2023-02-19 08:05 | P.PN ---
Date of Service: 02/19/23 Subjective: Difficulty ambulating without assistance no SOB or pain noted needs further improvement before sending home not able to transfer on her own ROS: 10 point ROS as noted above, otherwise negative Physical Exam: GEN: Alert, oriented, NAD, weak HEENT: Normal conjunctiva, sclera anicteric CV: Regular rate and rhythm, no edema Pulm: Nonlabored respirations on room air MSK: Sacral tenderness, generalized weakness Neuro: Normal speech, normal affect vitals reviewed Problem List: Weakness, fall, hypotension S 3 sacral fracture without displacement, suspected fracture anterior aspect inferior pubic ramus [id number] Hypertension Hypothyroidism history of CVA/vascular dementia CKD 4 Depression Weakness, fall, hypotension Patient reports poor oral intake over the course of last 2 days Patient also reports being off balance for the last 1 year after she had a mini stroke. Blood pressure low in the field, improved with IVF Nephrology consulted PT consulted S 3 sacral fracture without displacement, suspected fracture anterior aspect inferior pubic ramus Suspect nonoperative, ortho consulted Continue with PT Continue pain medication as needed patient states she may need to go to SNF no benefit from SNF. looking into home health and group home [id number] Patient reports she is prescribed Levemir 30 units twice daily, she has been taking it only once daily because she has not been eating as much lately. continue with sliding scale insulin Hypertension Hypothyroidism history of CVA/vascular dementia continue home medications CKD 4 Nephrology consult VTE: Heparin subQ Code: Full Dispo: no benefit from SNF. possible home with home health Patient seems agreeable for group home -custodial placement 02/19 will check with SW/CM
[2023-02-19] MEDS: ALPRAZOLAM 1 MG TABLET PO SCH ×3 (09:38→20:01)
[2023-02-19] MEDS: HEPARIN 5000 UNIT/ML 1 ML VIAL SQ SCH ×2 (09:38→20:01)
[2023-02-19] MEDS: DOCUSATE NA 100 MG CAP PO SCH ×2 (09:38→20:01)
[2023-02-19] MEDS: SODIUM BICARB 325 MG TAB PO SCH ×3 (09:38→20:01)
[2023-02-19] MEDS ORDERED: LOSARTAN POTASSIUM 50 MG TABLET PO SCH ×2 (14:02→14:31)
[2023-02-19] MEDS: LOSARTAN POTASSIUM 50 MG TABLET PO SCH (15:06)
--- NOTE | 2023-02-19 17:52 | PN ---
Date of Progress Note: 02/19/2023 Subjective: The patient is seen in room 410 on the fourth floor at [facility]. The patie nt is alert, awake, and comfortable. Her , Vivek, is also in the room with her. The patient d enies any nausea, vomiting. Currently, she is eating her lunch. She does have weakness that is ongo ing and thinks she may need some physical therapy when she returns back home. Other than that, she i s overall feeling well. Physical Examination: Vital Signs: Her blood pressures on arrival were on the lower side, but since then have improved, in fact another readings have gone up to about 150 range. Her pulse is about 60-70 and regular, respir ations about 14-16. Her pain level is improved, but she does have weakness. O2 sats are 98% on room air. Lungs: Clear. Abdomen: Soft. Extremities: Reveal no edema. Heart: Sounds are regular. Laboratory Data: Reviewed. Labs show hemoglobin 9.5, hematocrit 28.2, WBC count of 7.6, platelet co unt of 237. Chemistry shows sodium 141, potassium is 3.6, chloride is 118, bicarb is 20, BUN is 47, creatinine is 2.76. Medications: In the chart and reviewed. The patient is currently on medications for pain control wi th hydrocodone. She is also on alprazolam for anxiety control. She is also on vitamin D on a weekly basis. She is on insulin for diabetes control. Her losartan 50 mg at home that she gets is being h eld because of her low blood pressure and volume depletion, both of those things are corrected now. The patient has been placed back on losartan at a lower dose of 25 with a blood pressure parameters. Initially, her dose was entered under different exhibitions curator by the nurse. I have discontinued that and I have entered the medication again under my name, 25 mg p.o. daily with holding parameters for systolic blood pressure, with the next dose due tomorrow morning. The patient is also on Zofran for nausea and vomiting. She is feeling comfortable right now and is not feeling nauseated. She also is on bicarb at 650 p.o. t.i.d. Assessment And Plan: 1.The patient is alert, awake, and comfortable with some acute kidney injury, which seems to be reso lving. The patient needs to follow up with primary exhibitions curator, Dr. Terrell once out of hospital to evaluate the status of her kidney function, also I have explained to patient that she will benefit f rom CKD education for dialysis options as well and patient is interested in that. We will discuss wi th Dr. Terrell so that can be arranged. The patient is clinically looking improved now. Losartan ca n be started at low dose. Her volume status seems to be close to euvolemic. Diet and salt restricti on and fall precautions counseled. The patient is somewhat weak and tired overall from her hospital stay and having this episode of volume depletion. She may benefit from physical therapy. 2.Metabolic acidosis, on bicarb. Continue. 3.Hypertension, somewhat improved. Losartan can be started at 25 mg with holding parameters and con tinue to monitor. I have advised the patient also at home to monitor blood pressure and keep a recor d and consider holding medications and communicating with Dr. Terrell if her blood pressure is going below 110 on a consistent basis. 4.Diabetes. Continue to monitor fingerstick glucose and bring readings to office for evaluation. 5.Anemia, reasonably stable with hemoglobin in the 9 range. Continue to monitor. 6.Hypocalcemia, MBD on vitamin D continue. /NOE Voice ID: [id number] Report ID: [id number]
[2023-02-19] MEDS: hydrOXYzine HCL 25 MG TAB PO PRN (20:01)
--- NOTE | 2023-02-20 07:23 | P.PN ---
Date of Service: 02/20/23 Subjective: Still having difficulty ambulating secondary to pain - most at sacrum no new / worsening problems ROS: 10 point ROS as noted above, otherwise negative Physical Exam: GEN: Alert, oriented, NAD, weak HEENT: Normal conjunctiva, sclera anicteric CV: Regular rate and rhythm, no edema Pulm: Nonlabored respirations on room air MSK: Sacral tenderness, generalized weakness Neuro: Normal speech, normal affect vitals reviewed Problem List: Weakness, fall, hypotension S 3 sacral fracture without displacement, suspected fracture anterior aspect inferior pubic ramus [id number] Hypertension Hypothyroidism history of CVA/vascular dementia CKD 4 Depression Weakness, fall, hypotension Patient reports poor oral intake over the course of last 2 days prior to admission Patient also reports being off balance for the last 1 year after she had a mini stroke. Blood pressure low in the field, improved with IVF - secondary to dehydration, ?anti-hypertensives Nephrology consulted PT consulted S 3 sacral fracture without displacement, suspected fracture anterior aspect inferior pubic ramus ortho consulted - non-operative Continue with PT Continue pain medication as needed unsafe to go home, no 16/05 care, unable to ambulate without assistance [id number] Patient reports she is prescribed Levemir 30 units twice daily, she has been taking it only once daily because she has not been eating as much lately. continue with sliding scale insulin Hypertension Hypothyroidism history of CVA/vascular dementia continue home medications CKD 4 Nephrology consult VTE: Heparin subQ Code: Full Dispo: Patient requesting assisted placement on 02/19 SW/CM consulted
[2023-02-20] MEDS: INSULIN -REGULAR HUMAN 50 UNIT/0.5 ML ML SQ SCH ×4 (07:30→20:44)
[2023-02-20] MEDS: SODIUM BICARB 325 MG TAB PO SCH ×3 (09:16→20:51)
[2023-02-20] MEDS: LOSARTAN POTASSIUM 50 MG TABLET PO SCH (09:17)
[2023-02-20] MEDS: DOCUSATE NA 100 MG CAP PO SCH ×2 (09:17→20:52)
[2023-02-20] MEDS: HEPARIN 5000 UNIT/ML 1 ML VIAL SQ SCH ×2 (09:18→20:48)
[2023-02-20] MEDS: ALPRAZOLAM 1 MG TABLET PO SCH ×3 (09:18→20:52)
[2023-02-20 15:08] LABS: Albumin 3.3 g/dL (3.4-5.0); Magnesium 1.8 mg/dL (1.6-2.4); Phosphorus 4.2 mg/dL (2.5-4.9); Potassium 3.5 mEq/L (3.5-5.1)
--- NOTE | 2023-02-20 15:10 | PN ---
Date of Progress Note: 02/20/2023 Subjective: The patient denies any headache, nausea, vomiting. She is still having some difficult t willi getting around, has been requiring a walker and assistance to go to the bathroom. The patient se ems to be quite weak overall with back pain and pain in her lumbar region. The patient is requiring some physical therapy and is looking forward to getting physical therapy before she is able to return back home. Coordination is being carried out currently due to get her some placement for rehabilita tion before her return to home. The patient's vitals seem relatively stable, somewhat improved with starting the low-dose losartan with parameters and close monitoring. Laboratory Data: Reviewed. The patient's labs are available from 02/19. Labs are planned for christ joiner. No new labs are available for today. Assessment And Plan: 1.Chronic kidney disease, 4. The patient relatively stable, eating and drinking reasonably. Contin ues to have significant weakness and debility. 2.Weakness, fall risk, question of S3 sacral fracture with displacement. Awaiting placement for issa abilitation and the patient is agreeable and is willing to participate with physical therapy. Contin ue to avoid NSAIDs, avoid contrast or nephrotoxins. 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 Followup outpatient once acute issues resolve for evaluation of current kidney status residual and management of same. /NOE Voice ID: [id number] Report ID: [id number]
[2023-02-20] MEDS: hydrOXYzine HCL 25 MG TAB PO PRN (20:54)
[2023-02-21 06:53] LABS: Hematocrit 27.8 % (36.0-45.0); MCV 84.2 fL (80-100); MPV 9.4 fL (7.6-11.3)
[2023-02-21 07:13] LABS: Albumin 2.7 g/dL (3.4-5.0); Bilirubin Total 0.2 mg/dL (0.2-1.0); Magnesium 1.7 mg/dL (1.6-2.4); Potassium 3.3 mEq/L (3.5-5.1); Protein, Total 6.5 g/dL (6.4-8.2)
[2023-02-21] MEDS: INSULIN -REGULAR HUMAN 50 UNIT/0.5 ML ML SQ SCH ×4 (07:30→21:00)
--- NOTE | 2023-02-21 07:30 | P.PN ---
Date of Service: 02/21/23 Subjective: difficulty ambulating secondary to pain - no change no new / worsening problems stable ROS: 10 point ROS as noted above, otherwise negative Physical Exam: GEN: Alert, oriented, NAD, weak HEENT: Normal conjunctiva, sclera anicteric CV: Regular rate and rhythm, no edema Pulm: Nonlabored respirations on room air MSK: Sacral tenderness, generalized weakness Neuro: Normal speech, normal affect vitals reviewed Problem List: Weakness, fall, hypotension S3 sacral fracture without displacement, suspected fracture anterior aspect inferior pubic ramus [id number] Hypertension Hypothyroidism history of CVA/vascular dementia CKD 4 Depression Weakness, fall, hypotension reports being off balance for the last 1 year after she had a mini stroke. Blood pressure low in the field, improved with IVF - secondary to dehydration, ?anti-hypertensives Nephrology consulted PT consulted S 3 sacral fracture without displacement, suspected fracture anterior aspect inferior pubic ramus ortho consulted - non-operative Continue with PT Continue pain medication as needed unsafe to go home, no 16/05 care, unable to ambulate without assistance [id number] Patient reports she is prescribed Levemir 30 units twice daily, she has been taking it only once daily because she has not been eating as much lately. continue with sliding scale insulin Hypertension Hypothyroidism history of CVA/vascular dementia continue home medications CKD 4 Nephrology consult VTE: Heparin subQ Code: Full Dispo: Patient requesting custodial placement on 02/19 SW/CM consulted. Patient wants to go to [facility]. Pending approval
[2023-02-21] MEDS: DOCUSATE NA 100 MG CAP PO SCH ×3 (09:00→17:12)
[2023-02-21] MEDS: HEPARIN 5000 UNIT/ML 1 ML VIAL SQ SCH ×2 (09:13→21:00)
[2023-02-21] MEDS: LOSARTAN POTASSIUM 50 MG TABLET PO SCH (09:14)
[2023-02-21] MEDS: SODIUM BICARB 325 MG TAB PO SCH ×3 (09:14→22:41)
[2023-02-21] MEDS: ALPRAZOLAM 1 MG TABLET PO SCH ×3 (09:14→22:41)
--- NOTE | 2023-02-21 21:54 | P.PN ---
Date of Service: 02/21/23 Vital Signs Temp Pulse Resp BP Pulse Ox 96.9 F 70 17 130/77 95 02/21/23 20:00 02/21/23 20:00 02/21/23 20:00 02/21/23 20:00 02/21/23 20:00 Medications Alprazolam (Alprazolam 1 Mg Tablet) 1 mg PO TID [facility] Last Admin: 02/21/23 15:26 Dose: 1 mg Docusate Sodium (Docusate Na 100 Mg Cap) 100 mg PO BID [facility] Last Admin: 02/21/23 17:12 Dose: Not Given Ergocalciferol (Drisdol (Vitamin D=Ergocalciferol) 89329 Unit Cap) 50,000 unit PO Q7D [facility] Last Admin: 02/18/23 09:33 Dose: 50,000 unit Hydroxyzine HCl (Hydroxyzine Hcl 25 Mg Tab) 25 mg PO DAILY PRN PRN Reason: ITCHING Last Admin: 02/20/23 20:54 Dose: 25 mg Insulin Human Regular (Insulin -Regular Human 50 Unit/0.5 Ml Ml) 0 unit SQ [facility]; Protocol Last Admin: 02/21/23 16:30 Dose: Not Given Losartan Potassium (Losartan Potassium 50 Mg Tablet) 25 mg PO DAILY [facility] Last Admin: 02/21/23 09:14 Dose: 25 mg Ondansetron HCl (Ondansetron 4 Mg/2 Ml Vial) 4 mg IV Q6HP PRN PRN Reason: NAUSEA / VOMITING Last Admin: 02/15/23 20:47 Dose: 4 mg Sodium Bicarbonate (Sodium Bicarb 325 Mg Tab) 650 mg PO TID [facility] Last Admin: 02/21/23 15:26 Dose: 650 mg Sodium Chloride (Flush Normal Saline 10 Ml) 10 ml IV BID [facility] Last Admin: 02/21/23 09:13 Dose: 10 ml Assessment/ Plan: Nephrology No dyspnea No chest pain Weakness Persistent sacral pain No acute events overnight Vitals, medications, blood work and imaging reviewed in the chart. NAD. NCAT. MMM. Neck supple. Normal respiratory effort. RRR. Abd ND. No C/C. LE Edema none. No rash. AAO. Normal speech. EXAM DESCRIPTION: US - Renal Ultrasound-Complete - 01/07/2020 1:06 pm CLINICAL HISTORY: N17.8, patient gives history of acute renal failure COMPARISON: Abdomen Exam Complete dated 01/22/2016 FINDINGS: The right kidney measures 11.7 x 4.1 x 4.7 cm. The left kidney measures 12.1 x 4.2 x 4.5 cm. Allowing for differences in measuring technique and image selection, no change in size of the kidneys from 2016. Renal cortical thickness and echogenicity are normal. No hydronephrosis of either kidney. Hypoechoic exophytic mass lower pole right kidney measures 15 mm. This was 10 mm in 2016. Incidental cyst is most likely. Bladder was limited. IMPRESSION: No hydronephrosis of either kidney. Echogenicity is not outside of normal range. A small 15 millimeter exophytic lower pole right renal mass is hypoechoic but not anechoic. This is most likely a slowly enlarging cyst from 2016 (10 mm at that time). SHEREEN likely due to hypovolemia/ hypotension CKD IV with proteinuria -No NSAIDs Hypokalemia -Replete potassium Metabolic Acidosis -Continue oral bicarb HTN with CKD -Hold antihypertensives at this time DM II with CKD -RISS Anemia in chronic illness -Monitor H&H -Start Retacrit CKD MBD -Continue Ergo
[2023-02-21] MEDS: EPOETIN ALFA 10,000 UNIT/ML VIAL SQ SCH (22:42)
[2023-02-21] MEDS ORDERED: EPOETIN ALFA-EPBX 10,000 UNIT/ML VIAL ONE (22:43)
[2023-02-22 04:46] LABS: Magnesium 1.7 mg/dL (1.6-2.4); Potassium 3.2 mEq/L (3.5-5.1)
[2023-02-22] MEDS: INSULIN -REGULAR HUMAN 50 UNIT/0.5 ML ML SQ SCH ×4 (07:30→21:00)
[2023-02-22] MEDS: LOSARTAN POTASSIUM 50 MG TABLET PO SCH (09:09)
[2023-02-22] MEDS: ALPRAZOLAM 1 MG TABLET PO SCH ×3 (09:09→21:52)
[2023-02-22] MEDS: SODIUM BICARB 325 MG TAB PO SCH ×3 (09:09→21:52)
[2023-02-22] MEDS: DOCUSATE NA 100 MG CAP PO SCH ×2 (09:09→21:52)
[2023-02-22] MEDS: MULTIVITAMINS,THERAPEUT 1 TAB PO SCH (09:09)
--- NOTE | 2023-02-22 15:21 | P.PN ---
Subjective Date of Service: 02/22/23 Chief Complaint: S/p fall Patient states that she ambulated with a walker therapy this morning. She was seen sitting in a chair. Physical Examination - Vital Signs Temperature: 97.5 F Blood Pressure: 116/67 Pulse: 69 Respirations: 16 Pulse Ox (%): 99 Assessment And Plan - Plan Physical Exam: GEN: Alert, oriented, NAD, weak HEENT: Normal conjunctiva, sclera anicteric CV: Regular rate and rhythm, no edema Pulm: Nonlabored respirations on room air MSK: Sacral tenderness, generalized weakness Neuro: Normal speech, normal affect, left-sided weakness, left facial droop. vitals reviewed Problem List: Weakness, fall, hypotension S3 sacral fracture without displacement, suspected fracture anterior aspect inferior pubic ramus [id number] Hypertension Hypothyroidism history of CVA/vascular dementia CKD 4 Depression Weakness, fall, hypotension Patient reports unsteady gait for the past 1 year after she had a mini stroke. Blood pressure low in the field, improved with IVF - secondary to dehydration or medication related Patient is undergoing PT. BP medications and psychotropic medications are on hold. S 3 sacral fracture without displacement, suspected fracture anterior aspect inferior pubic ramus ortho consulted - non-operative management Continue with PT Continue pain medication as needed unsafe to go home, no 16/05 care, unable to ambulate without assistance. Slated for SNF placement. [id number] Patient reports she is prescribed Levemir 30 units twice daily, she has been taking it only once daily because she has not been eating as much lately. continue with sliding scale insulin Hypertension Hypothyroidism history of CVA/vascular dementia continue home medications CKD 4 Nephrology is following. VTE: Heparin subQ Code: Full Dispo: Patient requesting [facility] placement. SW/CM consulted. Patient wants to go to [facility]. Pending approval
[2023-02-22] MEDS ORDERED: POTASSIUM CL SA 10 MEQ TAB PO ONE (21:32)
--- NOTE | 2023-02-22 21:35 | P.PN ---
Date of Service: 02/22/23 Vital Signs Temp Pulse Resp BP Pulse Ox 96.9 F 65 18 145/74 H 100 02/22/23 20:00 02/22/23 20:00 02/22/23 20:00 02/22/23 20:00 02/22/23 20:00 Medications Alprazolam (Alprazolam 1 Mg Tablet) 1 mg PO TID [facility] Last Admin: 02/22/23 13:18 Dose: 1 mg Docusate Sodium (Docusate Na 100 Mg Cap) 100 mg PO BID [facility] Last Admin: 02/22/23 09:09 Dose: 100 mg Epoetin Uriel (Epoetin Uriel 10,000 Unit/Ml Vial) 10,000 unit SQ M,W,F [facility] Last Admin: 02/21/23 22:42 Dose: 10,000 unit Ergocalciferol (Drisdol (Vitamin D=Ergocalciferol) 01631 Unit Cap) 50,000 unit PO Q7D [facility] Last Admin: 02/18/23 09:33 Dose: 50,000 unit Hydroxyzine HCl (Hydroxyzine Hcl 25 Mg Tab) 25 mg PO DAILY PRN PRN Reason: ITCHING Last Admin: 02/20/23 20:54 Dose: 25 mg Insulin Human Regular (Insulin -Regular Human 50 Unit/0.5 Ml Ml) 0 unit SQ [facility]; Protocol Last Admin: 02/22/23 16:11 Dose: 2 unit Losartan Potassium (Losartan Potassium 50 Mg Tablet) 25 mg PO DAILY [facility] Last Admin: 02/22/23 09:09 Dose: 25 mg Ondansetron HCl (Ondansetron 4 Mg/2 Ml Vial) 4 mg IV Q6HP PRN PRN Reason: NAUSEA / VOMITING Last Admin: 02/15/23 20:47 Dose: 4 mg Sodium Bicarbonate (Sodium Bicarb 325 Mg Tab) 650 mg PO TID [facility] Last Admin: 02/22/23 13:18 Dose: 650 mg Sodium Chloride (Flush Normal Saline 10 Ml) 10 ml IV BID [facility] Last Admin: 02/22/23 09:00 Dose: 10 ml Vitamin B Complex/Vit C/Folic Acid (Multivitamins,Therapeut 1 Tab) 1 tab PO DAILY [facility] Last Admin: 02/22/23 09:09 Dose: 1 tab Assessment/ Plan: Nephrology No dyspnea No chest pain Weakness Feeling better today No acute events overnight Vitals, medications, blood work and imaging reviewed in the chart. NAD. NCAT. MMM. Neck supple. Normal respiratory effort. RRR. Abd ND. No C/C. LE Edema none. No rash. AAO. Normal speech. EXAM DESCRIPTION: US - Renal Ultrasound-Complete - 01/07/2020 1:06 pm CLINICAL HISTORY: N17.8, patient gives history of acute renal failure COMPARISON: Abdomen Exam Complete dated 01/22/2016 FINDINGS: The right kidney measures 11.7 x 4.1 x 4.7 cm. The left kidney measures 12.1 x 4.2 x 4.5 cm. Allowing for differences in measuring technique and image selection, no change in size of the kidneys from 2016. Renal cortical thickness and echogenicity are normal. No hydronephrosis of either kidney. Hypoechoic exophytic mass lower pole right kidney measures 15 mm. This was 10 mm in 2016. Incidental cyst is most likely. Bladder was limited. IMPRESSION: No hydronephrosis of either kidney. Echogenicity is not outside of normal range. A small 15 millimeter exophytic lower pole right renal mass is hypoechoic but not anechoic. This is most likely a slowly enlarging cyst from 2016 (10 mm at that time). SHEREEN likely due to hypovolemia/ hypotension CKD IV with proteinuria -No NSAIDs Hypokalemia -Replete potassium Metabolic Acidosis -Continue oral bicarb HTN with CKD -Hold antihypertensives at this time DM II with CKD -RISS Anemia in chronic illness -Monitor H&H -Continue Retacrit CKD MBD -Continue Ergo
[2023-02-23 06:59] LABS: Hematocrit 29.1 % (36.0-45.0); Lymphocytes % 28.3 % (15.3-44.8); MCV 84.1 fL (80-100); MPV 9.3 fL (7.6-11.3); RBC Red Blood Cell Count 3.45 M/uL (3.86-4.86)
[2023-02-23 07:15] LABS: Potassium 3.3 mEq/L (3.5-5.1)
[2023-02-23] MEDS: INSULIN -REGULAR HUMAN 50 UNIT/0.5 ML ML SQ SCH ×4 (07:30→20:44)
[2023-02-23] MEDS: ALPRAZOLAM 1 MG TABLET PO SCH ×3 (08:33→20:45)
[2023-02-23] MEDS: LOSARTAN POTASSIUM 50 MG TABLET PO SCH (08:33)
[2023-02-23] MEDS: MULTIVITAMINS,THERAPEUT 1 TAB PO SCH (08:33)
[2023-02-23] MEDS: DOCUSATE NA 100 MG CAP PO SCH ×2 (08:33→20:43)
[2023-02-23] MEDS: SODIUM BICARB 325 MG TAB PO SCH ×3 (08:33→20:44)
--- NOTE | 2023-02-23 11:21 | P.PN ---
Nephrology note (S) Pt seen sitting on the side of bed, walking with walker, awaiting SNF approval, denies orthostatic symptoms (O) Vitals reviewed in the EMR General: In no apparent distress, Cooperative HEENT: Atraumatic, Normocephalic Neck: Supple Respiratory: Clear to auscultation bilaterally, Normal air movement Cardiovascular: No edema, Regular rate/rhythm Gastrointestinal: Soft and benign, Non-distended Musculoskeletal: No swelling, No contractures Integumentary: No rashes Neurological: Other (Muscle strength LE 4/5, no tremors or myoclonus), Abnormal speech Laboratory Data (last 24 hrs) Reviewed in the EMR Conclusions/Impression: A/P) 1. Underlying CKD IV 2nd to reported diabetic nephropathy with renal function initially at or better than baseline post hydration. Off IVF, back up although has fluctuated, latest levels, ok. These relatively minor changes in Cr level will not influence her GFR by much 2. Repeated falls, likely multifactorial but pt with some relative hypotension on admission possibly 2nd to meds and/or mild hypovolemia. 3. Did increase PO alkali for metab acidosis 2nd to reduced renal ammoniagenesis, bicarb deficit better 4. ARB has been restarted at lowest dose, thus far tolerating 5. Anemia of CKD, other -Hb stable 6. Discharge dispo per primary team Yusef Noel MD, ALYSHA
--- NOTE | 2023-02-23 14:57 | P.PN ---
Subjective Date of Service: 02/23/23 Chief Complaint: S/p fall Patient currently ambulating with a walker. She has no new complaint. Physical Examination - Vital Signs Temperature: 98.3 F Blood Pressure: 122/62 Pulse: 85 Respirations: 16 Pulse Ox (%): 96 Assessment And Plan - Plan Physical Exam: GEN: Alert, oriented, NAD, weak HEENT: Normal conjunctiva, sclera anicteric CV: Regular rate and rhythm, no edema Pulm: Nonlabored respirations on room air MSK: Sacral tenderness, generalized weakness Neuro: Normal speech, normal affect, left-sided weakness, left facial droop. vitals reviewed Problem List: Weakness, fall, hypotension S3 sacral fracture without displacement, suspected fracture anterior aspect inferior pubic ramus [id number] Hypertension Hypothyroidism history of CVA/vascular dementia CKD 4 Depression Weakness, fall, hypotension Patient reports unsteady gait for the past 1 year after she had a mini stroke. Blood pressure low in the field, improved with IVF - secondary to dehydration vs medication related Currently normotensive. Patient is undergoing PT. BP medications and psychotropic medications are on hold. S 3 sacral fracture without displacement, suspected fracture anterior aspect inferior pubic ramus ortho consulted - non-operative management Continue with PT Continue pain medication as needed unsafe to go home, no 16/05 care, unable to ambulate without assistance. [id number] Patient reports she is prescribed Levemir 30 units twice daily, she has been taking it only once daily because she has not been eating as much lately. Blood sugar readings within good range on insulin sliding scale. continue with sliding scale insulin Hypertension Hypothyroidism history of CVA/vascular dementia continue home medications CKD 4 Nephrology is following. VTE: Heparin subQ Code: Full Dispo: LTC Patient requesting long-term placement. SW/CM consulted. Patient wants to go to [facility]. Pending approval
[2023-02-23] MEDS: EPOETIN ALFA 10,000 UNIT/ML VIAL SQ SCH (16:10)
[2023-02-23] MEDS: hydrOXYzine HCL 25 MG TAB PO PRN (20:45)
[2023-02-24] MEDS: INSULIN -REGULAR HUMAN 50 UNIT/0.5 ML ML SQ SCH ×4 (07:30→20:13)
[2023-02-24] MEDS: DOCUSATE NA 100 MG CAP PO SCH ×2 (08:19→20:13)
[2023-02-24] MEDS: MULTIVITAMINS,THERAPEUT 1 TAB PO SCH (08:23)
[2023-02-24] MEDS: SODIUM BICARB 325 MG TAB PO SCH ×3 (08:23→20:14)
[2023-02-24] MEDS: LOSARTAN POTASSIUM 50 MG TABLET PO SCH (08:23)
[2023-02-24] MEDS: ALPRAZOLAM 1 MG TABLET PO SCH ×3 (08:23→20:14)
--- NOTE | 2023-02-24 18:10 | P.PN ---
Subjective Date of Service: 02/24/23 Chief Complaint: S/p fall Patient currently ambulating with a walker. She has no new complaint. Physical Examination - Vital Signs Temperature: 98.2 F Blood Pressure: 118/60 Pulse: 80 Respirations: 14 Pulse Ox (%): 97 Assessment And Plan - Plan Physical Exam: GEN: Alert, oriented, NAD, weak HEENT: Normal conjunctiva, sclera anicteric CV: Regular rate and rhythm, no edema Pulm: Nonlabored respirations on room air MSK: Sacral tenderness, generalized weakness Neuro: Normal speech, normal affect, left-sided weakness, left facial droop. vitals reviewed Problem List: Weakness, fall, hypotension S3 sacral fracture without displacement, suspected fracture anterior aspect inferior pubic ramus [id number] Hypertension Hypothyroidism history of CVA/vascular dementia CKD 4 Depression Weakness, fall, hypotension Patient reports unsteady gait for the past 1 year after she had a mini stroke. Blood pressure low in the field, improved with IVF - secondary to dehydration vs medication related Currently normotensive. Patient is undergoing PT. BP medications and psychotropic medications are on hold. S 3 sacral fracture without displacement, suspected fracture anterior aspect inferior pubic ramus ortho consulted - non-operative management Continue with PT Continue pain medication as needed unsafe to go home, no 16/05 care, unable to ambulate without assistance. [id number] Patient reports she is prescribed Levemir 30 units twice daily, she has been taking it only once daily because she has not been eating as much lately. Blood sugar readings within good range on insulin sliding scale. continue with sliding scale insulin Hypertension Hypothyroidism history of CVA/vascular dementia continue home medications CKD 4 Nephrology is following. VTE: Heparin subQ Code: Full Dispo: LTC Patient requesting intermediate placement. SW/CM consulted. Patient wants to go to [facility]. Pending approval
[2023-02-24] MEDS: hydrOXYzine HCL 25 MG TAB PO PRN (20:15)
--- NOTE | 2023-02-24 21:13 | P.PN ---
Date of Service: 02/24/23 Vital Signs Temp Pulse Resp BP Pulse Ox 97.8 F 65 17 183/74 H 98 02/24/23 20:00 02/24/23 20:00 02/24/23 20:00 02/24/23 20:00 02/24/23 20:00 Medications Alprazolam (Alprazolam 1 Mg Tablet) 1 mg PO TID [facility] Last Admin: 02/24/23 20:14 Dose: 1 mg Docusate Sodium (Docusate Na 100 Mg Cap) 100 mg PO BID [facility] Last Admin: 02/24/23 20:13 Dose: 100 mg Epoetin Uriel (Epoetin Uriel 10,000 Unit/Ml Vial) 10,000 unit SQ M,W,F [facility] Last Admin: 02/23/23 16:10 Dose: 10,000 unit Ergocalciferol (Drisdol (Vitamin D=Ergocalciferol) 16252 Unit Cap) 50,000 unit PO Q7D [facility] Last Admin: 02/18/23 09:33 Dose: 50,000 unit Hydroxyzine HCl (Hydroxyzine Hcl 25 Mg Tab) 25 mg PO DAILY PRN PRN Reason: ITCHING Last Admin: 02/24/23 20:15 Dose: 25 mg Insulin Human Regular (Insulin -Regular Human 50 Unit/0.5 Ml Ml) 0 unit SQ [facility]; Protocol Last Admin: 02/24/23 20:13 Dose: Not Given Losartan Potassium (Losartan Potassium 50 Mg Tablet) 25 mg PO DAILY [facility] Last Admin: 02/24/23 08:23 Dose: 25 mg Ondansetron HCl (Ondansetron 4 Mg/2 Ml Vial) 4 mg IV Q6HP PRN PRN Reason: NAUSEA / VOMITING Last Admin: 02/15/23 20:47 Dose: 4 mg Sodium Bicarbonate (Sodium Bicarb 325 Mg Tab) 650 mg PO TID [facility] Last Admin: 02/24/23 20:14 Dose: 650 mg Sodium Chloride (Flush Normal Saline 10 Ml) 10 ml IV BID [facility] Last Admin: 02/24/23 20:19 Dose: 10 ml Vitamin B Complex/Vit C/Folic Acid (Multivitamins,Therapeut 1 Tab) 1 tab PO DAILY [facility] Last Admin: 02/24/23 08:23 Dose: 1 tab Assessment/ Plan: Nephrology No dyspnea No chest pain Weakness +Appetite No acute events overnight Vitals, medications, blood work and imaging reviewed in the chart. NAD. NCAT. MMM. Neck supple. Normal respiratory effort. RRR. Abd ND. No C/C. LE Edema none. No rash. AAO. Normal speech. EXAM DESCRIPTION: US - Renal Ultrasound-Complete - 01/07/2020 1:06 pm CLINICAL HISTORY: N17.8, patient gives history of acute renal failure COMPARISON: Abdomen Exam Complete dated 01/22/2016 FINDINGS: The right kidney measures 11.7 x 4.1 x 4.7 cm. The left kidney measures 12.1 x 4.2 x 4.5 cm. Allowing for differences in measuring technique and image selection, no change in size of the kidneys from 2016. Renal cortical thickness and echogenicity are normal. No hydronephrosis of either kidney. Hypoechoic exophytic mass lower pole right kidney measures 15 mm. This was 10 mm in 2016. Incidental cyst is most likely. Bladder was limited. IMPRESSION: No hydronephrosis of either kidney. Echogenicity is not outside of normal range. A small 15 millimeter exophytic lower pole right renal mass is hypoechoic but not anechoic. This is most likely a slowly enlarging cyst from 2016 (10 mm at that time). SHEREEN likely due to hypovolemia/ hypotension CKD IV with proteinuria -No NSAIDs Hypokalemia -Replete potassium prn Metabolic Acidosis -Continue oral bicarb HTN with CKD -Hold antihypertensives at this time DM II with CKD -RISS Anemia in chronic illness -Monitor H&H -Continue Retacrit CKD MBD -Continue Ergo
[2023-02-25 05:32] LABS: Absolute Lymphocytes (CBC) 3.3 K/uL (0.7-4.9); Hematocrit 31.7 % (36.0-45.0); Lymphocytes % 32.8 % (15.3-44.8); MCV 84.7 fL (80-100); MPV 9.7 fL (7.6-11.3); RBC Red Blood Cell Count 3.74 M/uL (3.86-4.86)
[2023-02-25 05:34] LABS: Potassium 3.3 mEq/L (3.5-5.1)
[2023-02-25] MEDS: INSULIN -REGULAR HUMAN 50 UNIT/0.5 ML ML SQ SCH ×4 (07:30→21:00)
[2023-02-25] MEDS: DOCUSATE NA 100 MG CAP PO SCH ×2 (08:46→21:00)
[2023-02-25] MEDS: LOSARTAN POTASSIUM 50 MG TABLET PO SCH (08:51)
[2023-02-25] MEDS: DRISDOL (VITAMIN D=ERGOCALCIFEROL) 50000 UNIT CAP PO SCH (08:51)
[2023-02-25] MEDS: MULTIVITAMINS,THERAPEUT 1 TAB PO SCH (08:51)
[2023-02-25] MEDS: SODIUM BICARB 325 MG TAB PO SCH ×3 (08:51→23:56)
[2023-02-25] MEDS: ALPRAZOLAM 1 MG TABLET PO SCH ×3 (08:51→23:56)
--- NOTE | 2023-02-25 13:09 | P.PN ---
Nephrology note (S) Pt appears to be getting more depressed with her prolonged stay/other issues, denies any sig pain issues, no dyspnea or CP (O) Vitals reviewed in the EMR General: In no apparent distress, Cooperative HEENT: Atraumatic, Normocephalic Neck: Supple Respiratory: Clear to auscultation bilaterally, Normal air movement Cardiovascular: No edema, Regular rate/rhythm Gastrointestinal: Soft and benign, Non-distended Musculoskeletal: No swelling, No contractures Integumentary: No rashes Neurological: Other (Muscle strength LE 4/5, no tremors or myoclonus), depressed affect Laboratory Data (last 24 hrs) Reviewed in the EMR Conclusions/Impression: A/P) 1. Underlying CKD IV 2nd to reported diabetic nephropathy with renal function initially at or better than baseline post hydration. Off IVF, back up although levels have fluctuated, latest level ok. These relatively minor changes in Cr level will not influence her GFR by much 2. Repeated falls, likely multifactorial but pt with some relative hypotension on admission possibly 2nd to meds and/or mild hypovolemia. 3. Did increase PO alkali for metab acidosis 2nd to reduced renal ammoniagenesis, bicarb deficit better 4. ARB had been restarted at lowest dose, thus far tolerating. BP range acceptable 5. Anemia of CKD, other -Hb now > 10.5, d/c ROMA. 6. Discharge dispo per primary team Yuesf Noel MD, ALYSHA
[2023-02-25] MEDS: hydrOXYzine HCL 25 MG TAB PO PRN (23:56)
[2023-02-26] MEDS: hydrOXYzine HCL 25 MG TAB PO PRN ×2 (04:05→21:39)
[2023-02-26] MEDS: INSULIN -REGULAR HUMAN 50 UNIT/0.5 ML ML SQ SCH ×4 (07:30→21:00)
[2023-02-26] MEDS: DOCUSATE NA 100 MG CAP PO SCH ×2 (09:07→21:00)
[2023-02-26] MEDS: MULTIVITAMINS,THERAPEUT 1 TAB PO SCH (09:07)
[2023-02-26] MEDS: MAGNESIUM OXIDE 400 MG TAB PO SCH (09:07)
[2023-02-26] MEDS: LOSARTAN POTASSIUM 50 MG TABLET PO SCH (09:07)
[2023-02-26] MEDS: ALPRAZOLAM 1 MG TABLET PO SCH ×3 (09:08→21:39)
[2023-02-26] MEDS: SODIUM BICARB 325 MG TAB PO SCH ×3 (09:08→21:38)
--- NOTE | 2023-02-26 17:00 | PN ---
Date of Progress Note: 02/26/2023 Subjective: Patient was seen and examined at bedside. She offers no new complaints. No overnight e vents were noted. Objective: Vital Signs: Reviewed and are stable. General: She appears in no acute distress. Lungs: Clear to auscultation. Abdomen: Soft and nontender. Extremities: Showed no evidence of edema. Laboratory Data: None obtained from today. Current Medications: Have been reviewed in detail. Impression: 1.Acute on chronic renal insufficiency with underlying stage 4 chronic kidney disease secondary to d iabetic nephropathy. Renal function is at baseline. 2.Repeated falls secondary to multifactorial etiology with relative hypotension. Medications have b een adjusted and her volume status is currently stable. 3.Metabolic acidosis secondary to chronic renal insufficiency. 4.Hypertension. Patient remains on ARB at this time. Vital signs are stable and renal function is overall stable. We will continue to monitor closely. VV/MODL Voice ID: [id number] Report ID: [id number]
--- NOTE | 2023-02-26 18:30 | P.PN ---
Subjective Date of Service: 02/26/23 Chief Complaint: S/p fall Patient has no new complain No issues overnight. Physical Examination - Vital Signs Temperature: 98.6 F Blood Pressure: 160/80 Pulse: 80 Respirations: 16 Pulse Ox (%): 99 Assessment And Plan - Plan Physical Exam: GEN: Alert, oriented, NAD, weak HEENT: Normal conjunctiva, sclera anicteric CV: Regular rate and rhythm, no edema Pulm: Nonlabored respirations on room air MSK: Sacral tenderness, generalized weakness Neuro: Normal speech, normal affect, left-sided weakness, left facial droop. vitals reviewed Problem List: Weakness, fall, hypotension S3 sacral fracture without displacement, suspected fracture anterior aspect inferior pubic ramus [id number] Hypertension Hypothyroidism history of CVA/vascular dementia CKD 4 Depression Weakness, fall, hypotension Patient reports unsteady gait for the past 1 year after she had a mini stroke. Blood pressure low in the field, improved with IVF - secondary to dehydration vs medication related Currently normotensive. Patient is undergoing PT. BP medications and psychotropic medications are on hold. S 3 sacral fracture without displacement, suspected fracture anterior aspect inferior pubic ramus ortho consulted - non-operative management Continue with PT Continue pain medication as needed unable to ambulate without assistance. [id number] Patient reports she is prescribed Levemir 30 units twice daily, she has been taking it only once daily because she has not been eating as much lately. Blood sugar readings within good range on insulin sliding scale. continue with sliding scale insulin Hypertension Hypothyroidism history of CVA/vascular dementia continue home medications CKD 4 Nephrology is following. VTE: Heparin subQ Code: Full Dispo: C Patient requesting detention placement. SW/CM consulted. Patient wants to go to [facility]. Pending approval
[2023-02-27] MEDS: INSULIN -REGULAR HUMAN 50 UNIT/0.5 ML ML SQ SCH ×4 (07:30→21:53)
[2023-02-27] MEDS: DOCUSATE NA 100 MG CAP PO SCH ×2 (09:03→21:00)
[2023-02-27] MEDS: SODIUM BICARB 325 MG TAB PO SCH ×3 (09:03→21:54)
[2023-02-27] MEDS: LOSARTAN POTASSIUM 50 MG TABLET PO SCH (09:03)
[2023-02-27] MEDS: MULTIVITAMINS,THERAPEUT 1 TAB PO SCH (09:03)
[2023-02-27] MEDS: MAGNESIUM OXIDE 400 MG TAB PO SCH (09:03)
[2023-02-27] MEDS: ALPRAZOLAM 1 MG TABLET PO SCH (09:03)
--- NOTE | 2023-02-27 13:42 | P.PN ---
Subjective Date of Service: 02/27/23 Chief Complaint: S/p fall No new complain. She is tolerating her diet. Physical Examination - Vital Signs Temperature: 98.0 F Blood Pressure: 160/88 Pulse: 74 Respirations: 16 Pulse Ox (%): 98 Assessment And Plan - Plan Physical Exam: GEN: Alert, oriented, NAD, weak HEENT: Normal conjunctiva, sclera anicteric CV: Regular rate and rhythm, no edema Pulm: Nonlabored respirations on room air MSK: Sacral tenderness, generalized weakness Neuro: Normal speech, normal affect, left-sided weakness, left facial droop. vitals reviewed Problem List: Weakness, fall, hypotension S3 sacral fracture without displacement, suspected fracture anterior aspect inferior pubic ramus [id number] Hypertension Hypothyroidism history of CVA/vascular dementia CKD 4 Depression Weakness, fall, hypotension Patient reports unsteady gait for the past 1 year after she had a mini stroke. Blood pressure low in the field, improved with IVF - secondary to dehydration vs medication related Currently normotensive. Patient is undergoing PT. She is currently hypertensive. Continue losartan. Resume amlodipine. S 3 sacral fracture without displacement, suspected fracture anterior aspect inferior pubic ramus ortho consulted - non-operative management Continue with PT Continue pain medication as needed unable to ambulate without assistance. [id number] Patient reports she is prescribed Levemir 30 units twice daily, she has been taking it only once daily because she has not been eating as much lately. Blood sugar readings within good range on insulin sliding scale. continue with sliding scale insulin Hypertension Hypothyroidism history of CVA/vascular dementia continue home medications CKD 4 Nephrology is following. VTE: Heparin subQ Code: Full Dispo: LTC SW/CM assisting with placement in [facility]. Pending approval
[2023-02-27] MEDS: AMLODIPINE 5 MG TAB PO SCH (13:55)
[2023-02-27] MEDS: ATORVASTATIN 40 MG TAB PO SCH (21:54)
[2023-02-27] MEDS: APIXABAN 5 MG TABLET PO SCH (21:54)
[2023-02-27] MEDS: hydrOXYzine HCL 25 MG TAB PO PRN (21:54)
[2023-02-28 04:45] LABS: Absolute Lymphocytes (CBC) 3.2 K/uL (0.7-4.9); Hematocrit 33.6 % (36.0-45.0); Lymphocytes % 27.2 % (15.3-44.8); MPV 9.1 fL (7.6-11.3); RBC Red Blood Cell Count 3.96 M/uL (3.86-4.86)
[2023-02-28 05:06] LABS: Potassium 3.4 mEq/L (3.5-5.1)
[2023-02-28] MEDS: INSULIN -REGULAR HUMAN 50 UNIT/0.5 ML ML SQ SCH ×4 (07:30→21:00)
[2023-02-28] MEDS: LOSARTAN POTASSIUM 50 MG TABLET PO SCH ×2 (08:28→12:20)
[2023-02-28] MEDS: SODIUM BICARB 325 MG TAB PO SCH ×2 (08:29→18:20)
[2023-02-28] MEDS: VITAMIN D 1000 UNIT TAB PO SCH (08:29)
[2023-02-28] MEDS: APIXABAN 5 MG TABLET PO SCH ×2 (08:29→21:06)
[2023-02-28] MEDS: LEVOTHYROXINE SOD 0.125 MG TAB PO SCH (08:29)
[2023-02-28] MEDS: AMLODIPINE 5 MG TAB PO SCH (08:29)
[2023-02-28] MEDS: CLOPIDOGREL 75 MG TABLET PO SCH (08:29)
[2023-02-28] MEDS: MULTIVITAMINS,THERAPEUT 1 TAB PO SCH (08:29)
[2023-02-28] MEDS: MAGNESIUM OXIDE 400 MG TAB PO SCH (08:29)
[2023-02-28] MEDS: DOCUSATE NA 100 MG CAP PO SCH ×2 (08:29→21:00)
[2023-02-28] MEDS: ZINC SULFATE 220 MG CAP PO SCH (08:29)
[2023-02-28] MEDS: Vortioxetine Hydrobromide [Trintellix] 10 MG Tablet PO SCH (08:30)
[2023-02-28] MEDS ORDERED: HOME MED 1 EA UNK (Losartan Potassium [Losartan Potassium] 25 MG Tablet) PO SCH (09:00)
[2023-02-28] MEDS ORDERED: POTASSIUM CL SA 10 MEQ TAB PO ONE (11:30)
--- NOTE | 2023-02-28 11:32 | P.PN ---
Date of Service: 02/28/23 Vital Signs Temp Pulse Resp BP Pulse Ox 97.5 F 87 16 149/106 H 98 02/28/23 08:00 02/28/23 08:00 02/28/23 08:00 02/28/23 08:00 02/28/23 08:00 Medications Amlodipine Besylate (Amlodipine 5 Mg Tab) 5 mg PO DAILY [facility] Last Admin: 02/28/23 08:29 Dose: 5 mg Apixaban (Apixaban 5 Mg Tablet) 5 mg PO BID [facility] Last Admin: 02/28/23 08:29 Dose: 5 mg Atorvastatin Calcium (Atorvastatin 40 Mg Tab) 40 mg PO BEDTIME [facility] Last Admin: 02/27/23 21:54 Dose: 40 mg Cholecalciferol (Vitamin D 1000 Unit Tab) 1,000 unit PO DAILY [facility] Last Admin: 02/28/23 08:29 Dose: 1,000 unit Clopidogrel Bisulfate (Clopidogrel 75 Mg Tablet) 75 mg PO DAILY [facility] Last Admin: 02/28/23 08:29 Dose: 75 mg Docusate Sodium (Docusate Na 100 Mg Cap) 100 mg PO BID [facility] Last Admin: 02/28/23 08:29 Dose: 100 mg Ergocalciferol (Drisdol (Vitamin D=Ergocalciferol) 01559 Unit Cap) 50,000 unit PO Q7D [facility] Last Admin: 02/25/23 08:51 Dose: 50,000 unit Home Med (Vortioxetine Hydrobromide [Trintellix]) 10 mg PO DAILY [facility] Last Admin: 02/28/23 08:30 Dose: Not Given Hydroxyzine HCl (Hydroxyzine Hcl 25 Mg Tab) 25 mg PO DAILY PRN PRN Reason: ITCHING Last Admin: 02/27/23 21:54 Dose: 25 mg Insulin Human Regular (Insulin -Regular Human 50 Unit/0.5 Ml Ml) 0 unit SQ ACHS [facility]; Protocol Last Admin: 02/28/23 07:30 Dose: Not Given Levothyroxine Sodium (Levothyroxine Sod 0.125 Mg Tab) 0.125 mg PO DAILY [facility] Last Admin: 02/28/23 08:29 Dose: 0.125 mg Losartan Potassium (Losartan Potassium 50 Mg Tablet) 50 mg PO DAILY [facility] Magnesium Oxide (Magnesium Oxide 400 Mg Tab) 400 mg PO DAILY [facility] Last Admin: 02/28/23 08:29 Dose: 400 mg Ondansetron HCl (Ondansetron 4 Mg/2 Ml Vial) 4 mg IV Q6HP PRN PRN Reason: NAUSEA / VOMITING Last Admin: 02/15/23 20:47 Dose: 4 mg Sodium Bicarbonate (Sodium Bicarb 325 Mg Tab) 650 mg PO TID [facility] Last Admin: 02/28/23 08:29 Dose: 650 mg Sodium Chloride (Flush Normal Saline 10 Ml) 10 ml IV BID [facility] Last Admin: 02/28/23 08:30 Dose: Not Given Vitamin B Complex/Vit C/Folic Acid (Multivitamins,Therapeut 1 Tab) 1 tab PO DAILY [facility] Last Admin: 02/28/23 08:29 Dose: 1 tab Zinc Sulfate (Zinc Sulfate 220 Mg Cap) 220 mg PO DAILY [facility] Last Admin: 02/28/23 08:29 Dose: 220 mg Assessment/ Plan: Nephrology No dyspnea No chest pain Feeling better +Appetite No acute events overnight Vitals, medications, blood work and imaging reviewed in the chart. NAD. NCAT. MMM. Neck supple. Normal respiratory effort. RRR. Abd ND. No C/C. LE Edema none. No rash. AAO. Normal speech. EXAM DESCRIPTION: US - Renal Ultrasound-Complete - 01/07/2020 1:06 pm CLINICAL HISTORY: N17.8, patient gives history of acute renal failure COMPARISON: Abdomen Exam Complete dated 01/22/2016 FINDINGS: The right kidney measures 11.7 x 4.1 x 4.7 cm. The left kidney measures 12.1 x 4.2 x 4.5 cm. Allowing for differences in measuring technique and image selection, no change in size of the kidneys from 2016. Renal cortical thickness and echogenicity are normal. No hydronephrosis of either kidney. Hypoechoic exophytic mass lower pole right kidney measures 15 mm. This was 10 mm in 2016. Incidental cyst is most likely. Bladder was limited. IMPRESSION: No hydronephrosis of either kidney. Echogenicity is not outside of normal range. A small 15 millimeter exophytic lower pole right renal mass is hypoechoic but not anechoic. This is most likely a slowly enlarging cyst from 2016 (10 mm at that time). SHEREEN likely due to hypovolemia/ hypotension CKD IV with proteinuria -No NSAIDs Hypokalemia -Replete potassium Metabolic Acidosis -Reduce oral bicarb BID HTN with CKD -Increase Losartan 50mg daily -Continue Amlodipine DM II with CKD -RISS Anemia in chronic illness -Monitor H&H -Continue Retacrit CKD MBD -Continue Ergo
--- NOTE | 2023-02-28 12:34 | P.PN ---
Subjective Date of Service: 02/28/23 Chief Complaint: S/p fall She is complaining of anxiety. Physical Examination - Vital Signs Temperature: 98.0 F Blood Pressure: 169/81 Pulse: 77 Respirations: 16 Pulse Ox (%): 97 Assessment And Plan - Plan Physical Exam: GEN: Alert, oriented, NAD, weak HEENT: Normal conjunctiva, sclera anicteric CV: Regular rate and rhythm, no edema Pulm: Nonlabored respirations on room air MSK: Sacral tenderness, generalized weakness Neuro: Normal speech, normal affect, left-sided weakness, left facial droop. vitals reviewed Problem List: Weakness, fall, hypotension S3 sacral fracture without displacement, suspected fracture anterior aspect inferior pubic ramus [id number] Hypertension Hypothyroidism history of CVA/vascular dementia CKD 4 Depression Weakness, fall, hypotension Patient reports unsteady gait for the past 1 year after she had a mini stroke. Blood pressure low in the field, improved with IVF - secondary to dehydration vs medication related Currently normotensive. Patient is undergoing PT. She is currently hypertensive. Continue losartan and amlodipine. S 3 sacral fracture without displacement, suspected fracture anterior aspect inferior pubic ramus ortho consulted - non-operative management Continue with PT Continue pain medication as needed unable to ambulate without assistance. [id number] Patient reports she is prescribed Levemir 30 units twice daily, she has been taking it only once daily because she has not been eating as much lately. Blood sugar readings within good range on insulin sliding scale. continue with sliding scale insulin Hypertension Hypothyroidism history of CVA/vascular dementia continue home medications CKD 4/metabolic acidosis Stable Sodium bicarb replacement per nephrology Nephrology is following. VTE: Heparin subQ Code: Full Dispo: LTC SW/CM assisting with placement in [facility]. Pending approval
[2023-02-28] MEDS: ATORVASTATIN 40 MG TAB PO SCH (21:06)
[2023-02-28] MEDS: hydrOXYzine HCL 25 MG TAB PO PRN (21:08)
[2023-03-01 04:04] VITALS: O2SAT 99
[2023-03-01 06:40] LABS: Absolute Lymphocytes (CBC) 2.9 K/uL (0.7-4.9); Hematocrit 30.7 % (36.0-45.0); Lymphocytes % 29.1 % (15.3-44.8); MCV 84.8 fL (80-100); MPV 9.4 fL (7.6-11.3); RBC Red Blood Cell Count 3.62 M/uL (3.86-4.86)
[2023-03-01 06:45] LABS: Potassium 3.4 mEq/L (3.5-5.1)
--- NOTE | 2023-03-01 07:20 | P.PN ---
Date of Service: 03/01/23 Subjective: Feeling better; improved activity with PT noted no new / worsening problems ROS: 10 point ROS as noted above, otherwise negative Physical Exam: GEN: Alert, oriented, NAD, weak HEENT: Normal conjunctiva, sclera anicteric CV: Regular rate and rhythm, no edema Pulm: Nonlabored respirations on room air Neuro: slow with mild slurred speech (chronic), normal affect vitals reviewed Problem List: Weakness, fall, hypotension S3 sacral fracture without displacement, suspected fracture anterior aspect inferior pubic ramus [id number] Hypertension Hypothyroidism history of CVA/vascular dementia CKD 4 Depression Weakness, fall, hypotension Patient reports unsteady gait for the past 1 year after she had a mini stroke. Blood pressure low in the field, improved with IVF - secondary to dehydration vs medication related Currently normotensive; recently hypertensive anti-hypertensives adjusted losartan, norvasc PT consulted S 3 sacral fracture without displacement, suspected fracture anterior aspect inferior pubic ramus ortho consulted - non-operative Continue with PT Continue pain medication as needed unsafe to go home, no 16/05 care, unable to ambulate without assistance [id number] Patient reports she is prescribed Levemir 30 units twice daily, she has been taking it only once daily because she has not been eating as much lately. continue with sliding scale insulin Hypertension Hypothyroidism history of CVA/vascular dementia continue home medications CKD 4 Stable s/p Sodium bicarb replacement per nephrology Nephrology consult VTE: Heparin subQ Code: Full Dispo: SW/CM assisting with placement in [facility]. Pending approval
[2023-03-01] MEDS: INSULIN -REGULAR HUMAN 50 UNIT/0.5 ML ML SQ SCH ×4 (07:30→20:58)
[2023-03-01] MEDS ORDERED: POTASSIUM CL SA 10 MEQ TAB PO ONE (08:06)
[2023-03-01] MEDS: DOCUSATE NA 100 MG CAP PO SCH ×2 (08:34→20:59)
[2023-03-01] MEDS: MULTIVITAMINS,THERAPEUT 1 TAB PO SCH (08:55)
[2023-03-01] MEDS: VITAMIN D 1000 UNIT TAB PO SCH (08:55)
[2023-03-01] MEDS: ZINC SULFATE 220 MG CAP PO SCH (08:56)
[2023-03-01] MEDS: MAGNESIUM OXIDE 400 MG TAB PO SCH (08:56)
[2023-03-01] MEDS: CLOPIDOGREL 75 MG TABLET PO SCH (08:56)
[2023-03-01] MEDS: SODIUM BICARB 325 MG TAB PO SCH ×2 (08:56→17:10)
[2023-03-01] MEDS: LEVOTHYROXINE SOD 0.125 MG TAB PO SCH (08:56)
[2023-03-01] MEDS: AMLODIPINE 5 MG TAB PO SCH (08:56)
[2023-03-01] MEDS: APIXABAN 5 MG TABLET PO SCH ×2 (08:56→20:58)
[2023-03-01] MEDS: LOSARTAN POTASSIUM 50 MG TABLET PO SCH (08:56)
[2023-03-01] MEDS: Vortioxetine Hydrobromide [Trintellix] 10 MG Tablet PO SCH (08:57)
[2023-03-01] MEDS: ATORVASTATIN 40 MG TAB PO SCH (20:58)
[2023-03-01] MEDS: hydrOXYzine HCL 25 MG TAB PO PRN (20:59)
--- NOTE | 2023-03-01 21:10 | P.PN ---
Date of Service: 03/01/23 Vital Signs Temp Pulse Resp BP Pulse Ox 98.1 F 68 16 163/72 H 99 03/01/23 16:00 03/01/23 16:00 03/01/23 16:00 03/01/23 16:00 03/01/23 16:00 Medications Amlodipine Besylate (Amlodipine 5 Mg Tab) 5 mg PO DAILY [facility] Last Admin: 03/01/23 08:56 Dose: 5 mg Apixaban (Apixaban 5 Mg Tablet) 5 mg PO BID [facility] Last Admin: 03/01/23 20:58 Dose: 5 mg Atorvastatin Calcium (Atorvastatin 40 Mg Tab) 40 mg PO BEDTIME [facility] Last Admin: 03/01/23 20:58 Dose: 40 mg Cholecalciferol (Vitamin D 1000 Unit Tab) 1,000 unit PO DAILY [facility] Last Admin: 03/01/23 08:55 Dose: 1,000 unit Clopidogrel Bisulfate (Clopidogrel 75 Mg Tablet) 75 mg PO DAILY [facility] Last Admin: 03/01/23 08:56 Dose: 75 mg Docusate Sodium (Docusate Na 100 Mg Cap) 100 mg PO BID [facility] Last Admin: 03/01/23 20:59 Dose: Not Given Ergocalciferol (Drisdol (Vitamin D=Ergocalciferol) 96919 Unit Cap) 50,000 unit PO Q7D [facility] Last Admin: 02/25/23 08:51 Dose: 50,000 unit Home Med (Vortioxetine Hydrobromide [Trintellix]) 10 mg PO DAILY [facility] Last Admin: 03/01/23 08:57 Dose: Not Given Hydroxyzine HCl (Hydroxyzine Hcl 25 Mg Tab) 25 mg PO DAILY PRN PRN Reason: ITCHING Last Admin: 03/01/23 20:59 Dose: 25 mg Insulin Human Regular (Insulin -Regular Human 50 Unit/0.5 Ml Ml) 0 unit SQ ACHS [facility]; Protocol Last Admin: 03/01/23 20:58 Dose: 6 unit Levothyroxine Sodium (Levothyroxine Sod 0.125 Mg Tab) 0.125 mg PO DAILY [facility] Last Admin: 03/01/23 08:56 Dose: 0.125 mg Losartan Potassium (Losartan Potassium 50 Mg Tablet) 50 mg PO DAILY [facility] Last Admin: 03/01/23 08:56 Dose: 50 mg Magnesium Oxide (Magnesium Oxide 400 Mg Tab) 400 mg PO DAILY [facility] Last Admin: 03/01/23 08:56 Dose: 400 mg Ondansetron HCl (Ondansetron 4 Mg/2 Ml Vial) 4 mg IV Q6HP PRN PRN Reason: NAUSEA / VOMITING Last Admin: 02/15/23 20:47 Dose: 4 mg Sodium Bicarbonate (Sodium Bicarb 325 Mg Tab) 650 mg PO BIDPC [facility] Last Admin: 03/01/23 17:10 Dose: 650 mg Sodium Chloride (Flush Normal Saline 10 Ml) 10 ml IV BID [facility] Last Admin: 03/01/23 20:58 Dose: Not Given Vitamin B Complex/Vit C/Folic Acid (Multivitamins,Therapeut 1 Tab) 1 tab PO DAILY [facility] Last Admin: 03/01/23 08:55 Dose: 1 tab Zinc Sulfate (Zinc Sulfate 220 Mg Cap) 220 mg PO DAILY [facility] Last Admin: 03/01/23 08:56 Dose: 220 mg Assessment/ Plan: Nephrology No dyspnea No chest pain Feeling better +Appetite No acute events overnight Vitals, medications, blood work and imaging reviewed in the chart. NAD. NCAT. MMM. Neck supple. Normal respiratory effort. RRR. Abd ND. No C/C. LE Edema none. No rash. AAO. Normal speech. EXAM DESCRIPTION: US - Renal Ultrasound-Complete - 01/07/2020 1:06 pm CLINICAL HISTORY: N17.8, patient gives history of acute renal failure COMPARISON: Abdomen Exam Complete dated 01/22/2016 FINDINGS: The right kidney measures 11.7 x 4.1 x 4.7 cm. The left kidney measures 12.1 x 4.2 x 4.5 cm. Allowing for differences in measuring technique and image selection, no change in size of the kidneys from 2016. Renal cortical thickness and echogenicity are normal. No hydronephrosis of either kidney. Hypoechoic exophytic mass lower pole right kidney measures 15 mm. This was 10 mm in 2016. Incidental cyst is most likely. Bladder was limited. IMPRESSION: No hydronephrosis of either kidney. Echogenicity is not outside of normal range. A small 15 millimeter exophytic lower pole right renal mass is hypoechoic but not anechoic. This is most likely a slowly enlarging cyst from 2016 (10 mm at that time). SHEREEN likely due to hypovolemia/ hypotension CKD IV with proteinuria -No NSAIDs Hypokalemia -Replete potassium Metabolic Acidosis -Continue oral bicarb BID HTN with CKD -Continue Losartan 50mg daily -Continue Amlodipine DM II with CKD -RISS Anemia in chronic illness -Monitor H&H -Continue Retacrit CKD MBD -Continue Ergo
[2023-03-01] MEDS ORDERED: ALPRAZOLAM 0.5 MG TABLET PO ONE (22:12)
--- NOTE | 2023-03-02 07:26 | P.PN ---
Date of Service: 03/02/23 Subjective: Feeling much better this morning improved activity per PT, ambulating more no new / worsening problems ROS: 10 point ROS as noted above, otherwise negative Physical Exam: GEN: Alert, oriented, NAD, weak HEENT: Normal conjunctiva, sclera anicteric CV: Regular rate and rhythm, no edema Pulm: Nonlabored respirations on room air Neuro: slow with mild slurred speech (chronic), normal affect vitals reviewed Problem List: Weakness, fall, hypotension S3 sacral fracture without displacement, suspected fracture anterior aspect inferior pubic ramus [id number] Hypertension Hypothyroidism history of CVA/vascular dementia CKD 4 Depression Weakness, fall, hypotension Patient reports unsteady gait for the past 1 year after she had a mini stroke. Blood pressure low in the field, improved with IVF - secondary to dehydration vs medication related Currently normotensive; recently hypertensive anti-hypertensives adjusted losartan, norvasc PT consulted S 3 sacral fracture without displacement, suspected fracture anterior aspect inferior pubic ramus ortho consulted - non-operative Continue with PT Continue pain medication as needed unsafe to go home, no 16/05 care, unable to ambulate without assistance [id number] Patient reports she is prescribed Levemir 30 units twice daily, she has been taking it only once daily because she has not been eating as much lately. continue with sliding scale insulin Hypertension Hypothyroidism history of CVA/vascular dementia continue home medications CKD 4 Stable s/p Sodium bicarb replacement per nephrology Nephrology consult VTE: Heparin subQ Code: Full Dispo: SW/CM assisting with placement in [facility]. Pending approval
[2023-03-02] MEDS: INSULIN -REGULAR HUMAN 50 UNIT/0.5 ML ML SQ SCH ×2 (07:30→11:30)
[2023-03-02 08:39] VITALS: BP 126/60; TEMP 97.4
[2023-03-02] MEDS: ZINC SULFATE 220 MG CAP PO SCH (08:56)
[2023-03-02] MEDS: LOSARTAN POTASSIUM 50 MG TABLET PO SCH (08:56)
[2023-03-02] MEDS: AMLODIPINE 5 MG TAB PO SCH (08:56)
[2023-03-02] MEDS: VITAMIN D 1000 UNIT TAB PO SCH (08:56)
[2023-03-02] MEDS: SODIUM BICARB 325 MG TAB PO SCH (08:56)
[2023-03-02] MEDS: MAGNESIUM OXIDE 400 MG TAB PO SCH (08:56)
[2023-03-02] MEDS: CLOPIDOGREL 75 MG TABLET PO SCH (08:56)
[2023-03-02] MEDS: MULTIVITAMINS,THERAPEUT 1 TAB PO SCH (08:56)
[2023-03-02] MEDS: LEVOTHYROXINE SOD 0.125 MG TAB PO SCH (08:56)
[2023-03-02] MEDS: APIXABAN 5 MG TABLET PO SCH (08:56)
[2023-03-02] MEDS: DOCUSATE NA 100 MG CAP PO SCH (08:56)
[2023-03-02] MEDS: Vortioxetine Hydrobromide [Trintellix] 10 MG Tablet PO SCH (08:57)
--- NOTE | 2023-03-02 09:31 | P.DS ---
Admission Date: 02/15/23 Discharge Date: 03/02/23 Disposition: ROUTINE DISCHARGE Reason for Admission: S/p fall Brief History of Present Illness: 62yo F, PMH: insulin-dependent diabetes, previous CVA, hypertension, hypothyroidism, hyperlipidemia Patient presents to the emergency department with weakness, hypotension, fall, back pain. She reports that approximate 3 days ago she felt weak and her legs "gave out on her". She fell onto her buttocks at that time she denies loss of consciousness she reports poor oral intake over the course of the last few days. Her blood pressure in the field was 70s systolic, she has been given IV fluids during her stay in the emergency department blood pressure has improved. Patient reports she is feeling much better although she is still having significant pain in her lower back/buttocks area. Her labs were significant for creatinine of 3.32 hemoglobin 9.[address] of the pelvis was performed which revealed S3 sacral fracture without displacement, probable fracture anterior aspect of the inferior pubic ramus. ED provider wishes to admit for patient, weakness, fall, sacral/inferior pubic rami fracture. Hospital Course: Problem List: Weakness, fall, hypotension S 3 sacral fracture without displacement, suspected fracture anterior aspect inferior pubic ramus [id number] Hypertension Hypothyroidism history of CVA/vascular dementia CKD 4 Depression Patient presented with weakness, hypotension, fall, back pain. It was reported that she felt weak and her legs gave out, causing her to fall on her buttocks. Her BP in the field was 70s systolic. She was given IVF in the ED and her bloop pressure improved. She was noted to have underlying CKD IV with proteinuria. Nephrology was consulted. In the ED, CT of the pelvis was performed which revealed S3 sacral fracture without displacement, probable fracture anterior aspect of the inferior pubic ramus. Orthopedics was consulted. Dr. Hargrove felt that the sacral fracture did not require surgery, recommended physical therapy. She initially was very unstable and a fall risk so she was being set up to go to detention for long-term placement, however while waiting for this to be set up, she had significant improvement. She was able to slowly regain the strength and balance needed to safely return home without 24/7 assistance. In the last few days prior to discharge, she was ambulating independently around her room with a walker. She felt much more stable and wanted to go home. Discussed precautions, use walker, wheelchair if needed. New prescription for sodium bicarb - 650mg daily sent. Follow up: PCP within 3-5 days Nephrology within 1-2 weeks Orthopedics within 1-2 weeks Physical Exam: GEN: Alert, oriented, NAD HEENT: Normal conjunctiva, sclera anicteric CV: Regular rate and rhythm, no edema Pulm: Nonlabored respirations on room air ABD: Soft, nontender, nondistended MSK: Sacral tenderness with movement Neuro: Normal speech, normal affect Vital Signs/Physical Exam: Temp Pulse Resp BP Pulse Ox 97.4 F 66 16 126/60 98 03/02/23 08:00 03/02/23 08:00 03/02/23 08:00 03/02/23 08:00 03/02/23 08:00 Laboratory Data at Discharge: WBC 9.90 thou/uL (4.3-10.9) 03/01/23 05:30 Hgb 10.2 g/dL (12.0-15.0) L D 03/01/23 05:30 Hct 30.7 % (36.0-45.0) L 03/01/23 05:30 Plt Count 354 thou/uL (152-406) 03/01/23 05:30 PT 14.6 SECONDS (9.5-12.5) H 02/15/23 15:20 INR 1.33 02/15/23 15:20 APTT 38.0 SECONDS (24.3-36.9) H 02/15/23 15:20 Sodium 140 mEq/L (136-145) 03/01/23 05:30 Potassium 3.4 mEq/L (3.5-5.1) L 03/01/23 05:30 BUN 40 mg/dL (7-18) H 03/01/23 05:30 Creatinine 2.62 mg/dL (0.55-1.02) H 03/01/23 05:30 Glucose 140 mg/dL (74-106) H 03/01/23 05:30 Phosphorus 4.2 mg/dL (2.5-4.9) 02/20/23 14:18 Magnesium 1.7 mg/dL (1.6-2.4) 02/22/23 03:53 Total Bilirubin 0.2 mg/dL (0.2-1.0) 02/21/23 06:33 AST 13 U/L (15-37) L 02/21/23 06:33 ALT 23 U/L (13-56) 02/21/23 06:33 Alkaline Phosphatase 103 U/L (45-117) 02/21/23 06:33 Home Medications: Atorvastatin Calcium 40 mg PO BEDTIME 05/19/20 Levothyroxine [Synthroid*] 0.125 mg PO DAILY 05/19/20 Linagliptin [Tradjenta] 5 mg PO DAILY 05/19/20 Losartan Potassium 25 mg PO DAILY 05/19/20 Vortioxetine Hydrobromide [Trintellix] 10 mg PO DAILY 05/19/20 ALPRAZolam [Xanax*] 1 mg PO TID 05/24/20 Insulin Detemir [Levemir Flextouch] 20 units SQ BIDWM 05/24/20 Trazodone [Desyrel*] 150 mg PO BEDTIME 05/24/20 glipiZIDE [Glipizide] 10 mg PO BIDWM 05/24/20 Zinc Sulfate [Zinc Sulfate*] 220 mg PO DAILY #14 cap 05/28/20 Cholecalciferol (Vitamin D3) [Vitamin D3] 25 mcg PO DAILY 05/30/20 Famotidine [Pepcid*] 20 mg PO DAILY 05/30/20 Amlodipine [Norvasc*] 5 mg PO DAILY #30 tab 06/03/20 Apixaban [Eliquis] 5 mg PO BID #60 tablet 06/03/20 Ascorbic Acid [Vitamin C*] 500 mg PO DAILY #30 06/03/20 Clopidogrel Bisulfate [Plavix*] 75 mg PO DAILY #30 tablet 06/03/20 predniSONE [Deltasone*] 10 mg PO DAILY #7 tab 06/03/20 hydrOXYzine HCL [Atarax*] 25 mg PO DAILY PRN 02/15/23 Sodium Bicarbonate 650 mg PO DAILY 30 Days #30 tab 03/02/23 New Medications: Sodium Bicarbonate 650 mg PO DAILY 30 Days #30 tab Physician Discharge Instructions: Patient presented with weakness, hypotension, fall, back pain. It was reported that she felt weak and her legs gave out, causing her to fall on her buttocks. Her BP in the field was 70s systolic. She was given IVF in the ED and her bloop pressure improved. She was noted to have underlying CKD IV with proteinuria. Nephrology was consulted. In the ED, CT of the pelvis was performed which revealed S3 sacral fracture without displacement, probable fracture anterior aspect of the inferior pubic ramus. Orthopedics was consulted. Dr. Hargrove felt that the sacral fracture did not require surgery, recommended physical therapy. She initially was very unstable and a fall risk so she was being set up to go to detention for long-term placement, however while waiting for this to be set up, she had significant improvement. She was able to slowly regain the strength and balance needed to safely return home without 24/7 assistance. In the last few days prior to discharge, she was ambulating independently around her room with a walker. She felt much more stable and wanted to go home. Discussed precautions, use walker, wheelchair if needed. New prescription for sodium bicarb - 650mg daily sent. Follow up: PCP within 3-5 days Nephrology within 1-2 weeks Orthopedics within 1-2 weeks Followup: NONE,NONE [Primary Care Provider] - Time spent managing pt's care (in minutes): 45
[2023-03-03] MEDS ORDERED: SODIUM BICARB 325 MG TAB PO SCH (09:00)
== END 2023-03-02 12:11 | disposition home health service (06) | DRG 552 ==
LOC: ER 14:42 → ERHOLD 18:22 → 4TH 19:27
PROVIDERS: ADMIT Hospitalist; ATTEND Hospitalist
DX: S32.16XA Type 3 fracture of sacrum, initial encounter for closed fracture (principal); S32.592A Other specified fracture of left pubis, initial encounter for closed fracture; N17.9 Acute kidney failure, unspecified; N18.4 Chronic kidney disease, stage 4 (severe); E87.20 Acidosis, unspecified; F01.53 Vascular dementia, unspecified severity, with mood disturbance; F01.54 Vascular dementia, unspecified severity, with anxiety; I69.354 Hemiplegia and hemiparesis following cerebral infarction affecting left non-dominant side; I12.9 Hypertensive chronic kidney disease with stage 1 through stage 4 chronic kidney disease, or unspecified chronic kidney disease; E11.22 Type 2 diabetes mellitus with diabetic chronic kidney disease; E11.40 Type 2 diabetes mellitus with diabetic neuropathy, unspecified; D63.1 Anemia in chronic kidney disease; E86.0 Dehydration; E03.9 Hypothyroidism, unspecified; E78.5 Hyperlipidemia, unspecified; G89.29 Other chronic pain; M54.2 Cervicalgia; I95.9 Hypotension, unspecified; M54.9 Dorsalgia, unspecified; E87.6 Hypokalemia; E83.51 Hypocalcemia; F17.200 Nicotine dependence, unspecified, uncomplicated; R29.6 Repeated falls; Z79.4 Long term (current) use of insulin; Z88.5 Allergy status to narcotic agent; Z90.49 Acquired absence of other specified parts of digestive tract; Z79.02 Long term (current) use of antithrombotics/antiplatelets; Z86.16 Personal history of COVID-19; Z79.84 Long term (current) use of oral hypoglycemic drugs; Z79.01 Long term (current) use of anticoagulants; Z79.52 Long term (current) use of systemic steroids; Z79.899 Other long term (current) drug therapy; Z79.890 Hormone replacement therapy; W19.XXXA Unspecified fall, initial encounter; Y93.9 Activity, unspecified; Y92.9 Unspecified place or not applicable
CPT/HCPCS: 36415; 71045; 72192; 80048; 80053; 80069; 82947; 83036; 83735; 84484; 85025; 85027; 85610; 85730; 93005; 97110; 97116; 97161; 97530; 99285; J1644; J1815; J2405; Q5106

== ENCOUNTER 2023-04-18 21:03 | Emergency (ER) | payer OTHER ==
--- OUTSIDE RECORDS SUMMARY | 2023-04-18 21:07 | XMS REPORT | Continuity of Care Document ---
:1960 Author Organization [facility] t Address [address] [facility]. [address] [place] [address] Care Team Providers Name Role Phone Hector Terrell DO Primary Care Physician Kenia Gonzalez LCSW Attending Clinician Unavailable ZEUS PANG Attending Clinician Unavailable AMIRA ARTEAGA Attending Clinician Unavailable SHERMAN ALDANA Attending Clinician Unavailable Amira Oh Attending Clinician Doctor Unassigned, [place] Attending Clinician Unavailable KATHRYN FERRER Attending Clinician Unavailable Kahtryn Coleman S Attending Clinician Johan Mireles MD Attending Clinician [...] Policy Number Effective Date Expiration Date S [facility] [id number] 2021 STARPLUS OON 00:00:00 EXCEPT [facility] STAR [id number] 2015 PLUS 00:00:00 Problems Condition Condition Condition Status Onset Resolution Last Treating Co mments Source Name Details Category Date Date Treatment Clinician Date Hypokalemi Hypokalemi Disease Active U nivers a a 2-03 ity of 00:00: [place] [facility] Stroke Stroke Disease Active Univers 7-15 ity of 00:00: [place] 00 [facility] Obesity Obesity Disease Active Univers (BMI (BMI 7-07 ity of 30-39.9) 30-39.9) 00:00: Medical Branch Pain in Pain in Disease Active Univers both hands both hands 1-18 it y of 00:00: [place] [facility] Trigger Trigger Disease Active Univers [...] Primary Primary Disease Active Univers hypothyroi hypothyroi 5- it y of dism dism 00:00: [place] 00 Medical Branch Thyroid Thyroid Disease Active Univers cyst cyst 03-01 ity of 00:00: [place] 00 Medical Branch Thyroid Thyroid Disease Active Univers nodule nodule 03-01 ity of 00:00: [place] 00 Medical [facility] Dyslipidem Dyslipidem Disease Active U nivers ia ia - ity of 00:00: [place] 00 Medical Branch Allergies, Adverse Reactions, Alerts Allergy Allergy Status Severity Reaction(s) Onset Inactive Treating Comm ents Source Name Type Date Date Clinician Morphine Propensi Active Unknown [facility] ty to -28 [facility] adverse 00:00: reaction 00 s Morphine Propensi Active GI Method i (Pf) ty to Intolerance 06-29 st adverse 00:00: [facility] reaction 00 l s to drug Morphine Propensi Active Nausea Univer s ty to and/or 11-13 ity of adverse Vomiting 00:00: [place] reaction 00 Medical s to Branch drug MORPHINE DRUG Active Med N/V Univers INGREDI 11-13 ity of 00:00: [place] [address] [place] [address] Social History Social Habit Start Date Stop Date Quantity Comments Source Gender [facility] Tobacco use and 2023-01-25 2023-01-25 Smokeless [facility] exposure 00:00:00 00:00:00 tobacco non-user Exposure to 2022-12-17 2022-12-27 Not sure University of SARS-CoV-2 (event) 00:00:00 12:52:00 [facility] History of Social 2017-04-25 2017-04-[address] function 00:00:00 00:00:00 Hospital Alcohol intake 2016-06-30 2016-06-30 Current [facility] 00:00:00 00:00:00 non-drinker of Hospital alcohol (finding) Sex Assigned At [birth year] [facility] 00:[facility]:00 [facility] Smoking Status Start Date Stop Date Source Tobacco smoking consumption unknown [facility] smoked tobacco [facility] Medications Ordered Filled Start Stop Current Ordering Indication Dosage Frequency Signature Comments Components Source Medication Medication Date Date Medication? Clinician (SIG) Name Name lisinopril Yes 87 20mg QD Take 20 mg U T 20 MG 4-28 by mouth 1 Health tablet 17:52: (one) time 14 each day. methocarbam Yes 500mg Q.5D Take 500 U T ol 4-06 mg by Health (Robaxin) 00:00: mouth 2 500 MG 00 (two) tablet times a day if needed. As needed for pain scale 4-6 hydrOXYzine 0 Yes 25mg Q.[id number] Take 25 mg UT HCl 4-03 [id number] by mouth 3 [facility] (Atarax) 25 00:00: 3D (three) MG tablet 00 times a day if needed. atorvastati 2022-0 Yes 80mg Take 80 mg UT n (Lipitor) 3-29 by mouth Heal th 80 MG 00:00: every tablet 00 night. carvedilol 2022-0 Yes 3.125mg Q.5D Take 3.125 [facility] (Coreg) 3-20 mg by Health 3.125 MG 00:00: mouth tablet 00 every 12 (twelve) hours. methocarbam 2022-0 Yes [id number] 500mg Take 1 Univers oL 500 mg 3-06 tablet by ity o f tablet 00:00: mouth 2 [place] (two) Medical times Branch daily as needed for Pain (scale 4-6). methocarbam 2022-0 Yes [id number] 500mg Take 1 Univers oL 500 mg 3-06 tablet by ity o f tablet 00:00: mouth 2 [place] (two) Medical times [place] daily as needed for Pain (scale 4-6). methocarbam 2022-0 Yes [id number] 500mg Take 1 Univers oL 500 mg 3-06 tablet by ity o f tablet 00:00: mouth 2 [place] (two) Medical times Branch daily as needed for Pain (scale 4-6). oseltamivir 2022-0 2022- No 75mg 75 mg, Uni vers (TAMIFLU) -08 -08 Oral, ity of capsule 75 01:30: 13:29 ONCE, 1 [place] as mg 00 :00 dose, On Medical 10/30/22 Branch at 1930, Routine oseltamivir 2022-0 Yes [id number] 75mg Take 1 Univers (TAMIFLU) 1-07 capsule by ity of 75 mg 00:00: mouth in [place] capsule 00 the Medical morning Branch and 1 capsule in the evening. oseltamivir 2022-0 Yes [id number] 75mg Take 1 Univers (TAMIFLU) 1-07 capsule by ity of 75 mg 00:00: mouth in [place] capsule 00 the Medical morning Branch and 1 capsule in the evening. oseltamivir 2022-0 Yes [id number] 75mg Take 1 Univers (TAMIFLU) 1-07 capsule by ity of 75 mg 00:00: mouth in [place] capsule 00 the Medical morning Branch and 1 capsule in the evening. oseltamivir 2022-0 Yes [id number] 75mg Take 1 Univers (TAMIFLU) 1-07 capsule by ity of 75 mg 00:00: mouth in [place] capsule 00 the Medical morning Branch and 1 capsule in the evening. oseltamivir 2022-0 Yes [id number] 75mg Take 1 Univers (TAMIFLU) 1-07 capsule by ity of 75 mg 00:00: mouth in [place] capsule 00 the Medical morning Branch and 1 capsule in the evening. oseltamivir 2022-0 Yes [id number] 75mg Take 1 Univers (TAMIFLU) 1-07 capsule by ity of 75 mg 00:00: mouth in [place] capsule 00 the Medical morning Branch and 1 capsule in the evening. oseltamivir 2022-0 3- No [id number] 75mg Take 1 Univers (TAMIFLU) 1-07 01-07 capsule by ity of 75 mg 00:00: 00:00 mouth in [place] capsule 00 :00 the Medical morning Branch and 1 capsule in the evening. Vortioxetin 2021-0 2023- No 1{tbl} QD Take 1 U T e [facility] 06-2503 tablet by [facility] (Trintellix 00:00: 04:59 mouth 1 ) 10 MG 00 :00 (one) time tablet each day. tablet memantine 0 Yes 1{tbl} Q.5D Take 1 [facility] (Namenda) 3-31 tablet by [facility] 10 MG 00:00: mouth 2 tablet 00 (two) times a day, in the morning and at bedtime. glipiZIDE 0 Yes 1{tbl} Take 1 UT (Glucotrol) 2-[address] [facility] 10 MG 00:00: mouth in tablet 00 the morning and 1 tablet in the evening. Take before meals. fluocinonid 0 Yes [id number] Apply to Univers e 0.05 % 9-24 area(s) 2 ity of solution 00:00: (two) [place] 00 times Medical daily. Branch fluocinonid 2020-0 Yes [id number] Apply to Univers e 0.05 % 9-24 area(s) 2 ity of solution 00:00: (two) [place] 00 times Medical daily. Branch fluocinonid 2020-0 Yes [id number] Apply to Univers e 0.05 % 9-24 area(s) 2 ity of solution 00:00: (two) [place] 00 times Medical daily. Branch fluocinonid 2021-0 Yes [id number] Apply to Univers e 0.05 % 9-24 area(s) 2 ity of solution 00:00: (two) [place] 00 times Medical daily. Branch fluocinonid 2021-0 Yes [id number] Apply to Univers e 0.05 % 9-24 area(s) 2 ity of solution 00:00: (two) [place] 00 times Medical daily. Branch fluocinonid 1-0 Yes [id number] Apply to Univers e 0.05 % 9-24 area(s) 2 ity of solution 00:00: (two) [place] 00 times Medical daily. Branch fluocinonid 2021-0 Yes [id number] Apply to Univers e 0.05 % 9-24 area(s) 2 ity of solution 00:00: (two) [place] 00 times Medical daily. Branch salicylic 1-0 Yes [id number] Apply to Univers acid 4-26 area(s) ity of (KERALYT) 6 00:00: daily. [place] % gel 00 Apply to Medical scalp Branch daily. Let sit 20 Minutes prior to washing off. clobetasoL 1-0 Yes [id number] Apply to Univers 0.05 % 4-26 area(s) 2 ity of external 00:00: (two) [place] solution 00 times Medical daily. Branch ketoconazol 2020-0 Yes [id number] Apply to Univers e 2 % 4-26 area(s) ity of shampoo 00:00: once daily [place] 00 as needed Medical for Branch Itching. salicylic 1-0 Yes [id number] Apply to Univers acid 4-26 area(s) ity of (KERALYT) 6 00:00: daily. [place] % gel 00 Apply to Medical scalp Branch daily. Let sit 20 Minutes prior to washing off. clobetasoL 2021-0 Yes [id number] Apply to Univers 0.05 % 4-26 area(s) 2 ity of external 00:00: (two) [place] solution 00 times Medical daily. Branch ketoconazol 1-0 Yes [id number] Apply to Univers e 2 % 4-26 area(s) ity of shampoo 00:00: once daily [place] 00 as needed Medical for Branch Itching. salicylic 2021-0 Yes [id number] Apply to Univers acid 4-26 area(s) ity of (KERALYT) 6 00:00: daily. [place] % gel 00 Apply to Medical scalp Branch daily. Let sit 20 Minutes prior to washing off. clobetasoL 1-0 Yes [id number] Apply to Univers 0.05 % 4-26 area(s) 2 ity of external 00:00: (two) [place] solution 00 times Medical daily. Branch ketoconazol 2020-0 Yes [id number] Apply to Univers e 2 % 4-26 area(s) ity of shampoo 00:00: once daily [place] 00 as needed Medical for Branch Itching. salicylic 2021-0 Yes [id number] Apply to Univers acid 4-26 area(s) ity of (KERALYT) 6 00:00: daily. [place] % gel 00 Apply to Medical scalp Branch daily. Let sit 20 Minutes prior to washing off. clobetasoL 1-0 Yes [id number] Apply to Univers 0.05 % 4-26 area(s) 2 ity of external 00:00: (two) [place] solution 00 times Medical daily. Branch ketoconazol 2020-0 Yes [id number] Apply to Univers e 2 % 4-26 area(s) ity of shampoo 00:00: once daily [place] 00 as needed Medical for Branch Itching. salicylic 1-0 Yes [id number] Apply to Univers acid 4-26 area(s) ity of (KERALYT) 6 00:00: daily. [place] % gel 00 Apply to Medical scalp Branch daily. Let sit 20 Minutes prior to washing off. clobetasoL 1-0 Yes [id number] Apply to Univers 0.05 % 4-26 area(s) 2 ity of external 00:00: (two) [place] solution 00 times Medical daily. Branch ketoconazol 1-0 Yes [id number] Apply to Univers e 2 % 4-26 area(s) ity of shampoo 00:00: once daily [place] 00 as needed Medical for Branch Itching. salicylic 2021-0 Yes [id number] Apply to Univers acid 4-26 area(s) ity of (KERALYT) 6 00:00: daily. [place] % gel 00 Apply to Medical scalp Branch daily. Let sit 20 Minutes prior to washing off. clobetasoL 2020-0 Yes [id number] Apply to Univers 0.05 % 4-26 area(s) 2 ity of external 00:00: (two) [place] solution 00 times Medical daily. Branch ketoconazol 2020-0 Yes [id number] Apply to Univers e 2 % 4-26 area(s) ity of shampoo 00:00: once daily [place] 00 as needed Medical for Branch Itching. salicylic 2020-0 Yes [id number] Apply to Univers acid 4-26 area(s) ity of (KERALYT) 6 00:00: daily. [place] % gel 00 Apply to Medical scalp Branch daily. Let sit 20 Minutes prior to washing off. clobetasoL 0 Yes [id number] Apply to Univers 0.05 % 4-26 area(s) 2 ity of external 00:00: (two) [place] solution 00 times Medical daily. Branch ketoconazol 0 Yes [id number] Apply to Univers e 2 % 4-26 area(s) ity of shampoo 00:00: once daily [place] 00 as needed Medical for Branch Itching. fluocinonid 0 2020- No [id number] Apply to Univers e 0.05 % 4-19 09-24 area(s) 2 ity o f solution 00:00: 00:00 (two) [place] 00 :00 times Medical daily. Branch cefdinir 2020-0 Yes [id number] 300mg Take 1 Un julee 300 mg 7-20 capsule by ity of capsule 00:00: mouth 2 00 (two) Medical times Branch daily. benzonatate 2020-0 Yes [id number] 200mg Take 1 Univers 200 mg 7-20 capsule by ity of capsule 00:00: mouth 3 [place] 00 (three) Medical times Branch daily as needed for Cough. cefdinir 2020-0 Yes [id number] 300mg Take 1 Un julee 300 mg 7-20 capsule by ity of capsule 00:00: mouth 2 [place] 00 (two) Medical times Branch daily. benzonatate 2020-0 Yes [id number] 200mg Take 1 Univers 200 mg 7-20 capsule by ity of capsule 00:00: mouth 3 [place] 00 (three) Medical times Branch daily as needed for Cough. cefdinir 2020-0 Yes [id number] 300mg Take 1 Un julee 300 mg 7-20 capsule by ity of capsule 00:00: mouth 2 (two) Medical times Branch daily. benzonatate 2020-0 Yes [id number] 200mg Take 1 Univers 200 mg 7-20 capsule by ity of capsule 00:00: mouth 3 (three) Medical times Branch daily as needed for Cough. cefdinir 2020-0 Yes [id number] 300mg Take 1 Un [place] 300 mg 7-20 capsule by ity of capsule 00:00: mouth 2 (two) Medical times Branch daily. benzonatate 2020-0 Yes [id number] 200mg Take 1 Univers 200 mg 7-20 capsule by ity of capsule 00:00: mouth 3 (three) Medical times Branch daily as needed for Cough. cefdinir 2020-0 Yes [id number] 300mg Take 1 Un j[place] 300 mg 7-20 capsule by ity of capsule 00:00: mouth (two) Medical times Branch daily. benzonatate 2020-0 Yes [id number] 200mg Take 1 Univers 200 mg 7-20 capsule by ity of capsule 00:00: mouth (three) Medical times Branch daily as needed for Cough. cefdinir 2020-0 Yes [id number] 300mg Take 1 Un j[place] 300 mg 7-20 capsule by ity of capsule 00:00: mouth (two) Medical times Branch daily. benzonatate 2020-0 Yes [id number] 200mg Take 1 Univers 200 mg 7-20 capsule by ity of capsule 00:00: mouth (three) Medical times Branch daily as needed for Cough. cefdinir 2020-0 Yes [id number] 300mg Take 1 Un julee 300 mg 7-20 capsule by ity of capsule 00:00: mouth 2 (two) Medical times Branch daily. benzonatate 2020-0 Yes [id number] 200mg Take 1 Univers 200 mg 7-20 capsule by ity of capsule 00:00: mouth 3 (three) Medical times Branch daily as needed for Cough. diclofenac 2020-0 Yes [id number] 75mg Take 1 Univers 75 mg EC 7-14 [id number] tablet by ity of tablet 00:00: mouth 2 (two) Medical times Branch daily with meals. diclofenac 2020-0 Yes [id number] 75mg Take 1 Univers 75 mg EC 7-14 [id number] tablet by ity of tablet 00:00: mouth 2 (two) Medical times Branch daily with meals. diclofenac 2020-0 Yes [id number] 75mg Take 1 Univers 75 mg EC 7-14 [id number] tablet by ity of tablet 00:00: mouth 2 (two) Medical times Branch daily with meals. diclofenac 2020-0 Yes [id number] 75mg Take 1 Univers 75 mg EC 7-14 [id number] tablet by ity of tablet 00:00: mouth 2 (two) Medical times Branch daily with meals. diclofenac 2020-0 Yes [id number] 75mg Take 1 Univers 75 mg EC 7-14 [id number] tablet by ity of tablet 00:00: mouth 2 (two) Medical times Branch daily with meals. diclofenac 2020-0 Yes [id number] 75mg Take 1 Univers 75 mg EC 7-14 [id number] tablet by ity of tablet 00:00: mouth (two) Medical times Branch daily with meals. diclofenac 2020-0 Yes [id number] 75mg Take 1 U nivers 75 mg EC 7-14 tablet by ity of tablet 00:00: mouth (two) Medical times Branch daily with meals. ibuprofen 2020-0 Yes [id number] 600mg Take 1 Univers 600 mg 7-07 [...] Indication s: acute pain ibuprofen 2020-0 Yes [id number] 600mg Take 1 Univers 600 mg 7-07 [...] Indication s: acute pain ibuprofen 2020-0 Yes [id number] 600mg Take 1 Univers 600 mg 7-07 [...] Indication s: acute pain ibuprofen 2020-0 Yes [id number] 600mg Take 1 Univers 600 mg 7-07 [...] Indication s: acute pain ibuprofen 2020-0 Yes [id number] 600mg Take 1 Univers 600 mg 7-07 [...] Indication s: acute pain ibuprofen 2020-0 Yes [id number] 600mg Take 1 Univers 600 mg 7-07 [...] Indication s: acute pain ibuprofen 2020-0 Yes [id number] 600mg Take 1 Univers 600 mg 7-07 [...] mouth ity of 18:00: at bedtime [place] as needed Medical for Sleep. Branch Levothyroxi 2020-0 Yes 125ug Take 125 U nivers ne 88 mcg 3-18 mcg by ity of capsule 18:00: mouth [place] daily. Medical Branch traZODone 2020-0 Yes 150mg Take 150 Uni vers 150 mg 3-18 mg by ity of tablet 18:00: mouth at [place] bedtime as Medical needed for Branch Sleep. [...] mouth 2 ity of tablet 18:00: (two) [place] [address] times Medical daily Branch before breakfast and dinner. ALPRAZolam 2020-0 Yes 1mg Take 1 mg Un julee 2 mg tablet 3-18 by mouth ity of 18:00: at bedtime [place] [address] as needed Medical for Sleep. Branch Levothyroxi 2020-0 Yes 125ug Take 125 U nivers ne 88 mcg 3-18 mcg by ity of capsule 18:00: mouth [place] [address] daily. Medical Branch traZODone 2020-0 Yes 150mg Take 150 Uni vers 150 mg 3-18 mg by ity of tablet 18:00: mouth at [place] [address] bedtime as Medical needed for Branch Sleep. [...] mouth 2 ity of tablet 18:00: (two) [place] [address] times Medical daily Branch before breakfast and dinner. ALPRAZolam 2020-0 Yes 1mg Take 1 mg Un julee 2 mg tablet 3-18 by mouth ity of 18:00: at bedtime [place] [address] as needed Medical for Sleep. Branch Levothyroxi 2020-0 Yes 125ug Take 125 U nivers ne 88 mcg 3-18 mcg by ity of capsule 18:00: mouth [place] [address] daily. Medical Branch traZODone 2020-0 Yes 150mg Take 150 Uni vers 150 mg 3-18 mg by ity of tablet 18:00: mouth at [place] [address] bedtime as Medical needed for Branch Sleep. [...] by mouth ity of 18:00: at bedtime [place] [address] as needed Medical for Sleep. Branch Levothyroxi 2020-0 Yes 125ug Take 125 U nivers ne 88 mcg 3-18 mcg by ity of capsule 18:00: mouth [place] [address] daily. Medical Branch traZODone 2020-0 Yes 150mg Take 150 Uni vers 150 mg 3-18 mg by ity of tablet 18:00: mouth at [place] [address] bedtime as Medical needed for Branch Sleep. [...] mouth 2 ity of tablet 18:00: (two) [place] 59 times Medical daily Branch before breakfast and dinner. ALPRAZolam 2020-0 Yes 1mg Take 1 mg Un julee 2 mg tablet 3-18 by mouth ity of 18:00: at bedtime [place] [address] as needed Medical for Sleep. Branch Levothyroxi 2020-0 Yes 125ug Take 125 U nivers ne 88 mcg 3-18 mcg by ity of capsule 18:00: mouth [place] [address] daily. Medical Branch traZODone 2020-0 Yes 150mg Take 150 Uni vers 150 mg 3-18 mg by ity of tablet 18:00: mouth at [place] [address] bedtime as Medical needed for Branch Sleep. [...] mouth 2 ity of tablet 18:00: (two) [place] 59 times Medical daily Branch before breakfast and dinner. ALPRAZolam 2020-0 Yes 1mg Take 1 mg Un julee 2 mg tablet 3-18 by mouth ity of 18:00: at bedtime [place] [address] as needed Medical for Sleep. Branch Levothyroxi 2020-0 Yes 125ug Take 125 U nivers ne 88 mcg 3-18 mcg by ity of capsule 18:00: mouth [place] 59 daily. Medical Branch traZODone 2020-0 Yes 150mg Take 150 Uni vers 150 mg 3-18 mg by ity of tablet 18:00: mouth at [place] [address] bedtime as Medical needed for Branch Sleep. [...] mouth 2 ity of tablet 18:00: (two) [place] 59 times Medical daily Branch before breakfast and dinner. aspirin 81 2020-0 Yes [id number] 81mg Take 1 U nivers mg chewable 3-18 tablet by ity of tablet 00:00: mouth [place] 00 daily. Medical Branch losartan 50 2020-0 Yes [id number] 50mg Take 1 Univers mg tablet 3-18 tablet by ity o f 00:00: mouth [place] 00 daily. Medical Branch Insulin 2020-0 Yes [id number] 20U inject 20 U nivers Detemir 3-18 Units ity of (LEVEMIR 00:00: [place] the [place] FLEXTOUCH 00 skin 2 Medical U-100 (two) Branch INSULN) 100 times unit/mL (3 daily. mL) injection aspirin 81 2020-0 Yes [id number] 81mg Take 1 U nivers mg chewable 3-18 tablet by ity of tablet 00:00: mouth [place] 00 daily. Medical Branch losartan 50 2020-0 Yes [id number] 50mg Take 1 Univers mg tablet 3-18 tablet by ity o f 00:00: mouth [place] 00 daily. Medical Branch Insulin 2020-0 Yes [id number] 20U inject 20 U nivers Detemir 3-18 Units ity of (LEVEMIR 00:00: [place] the [place] FLEXTOUCH 00 skin 2 Medical U-100 (two) Branch INSULN) 100 times unit/mL (3 daily. mL) injection aspirin 81 2020-0 Yes [id number] 81mg Take 1 U nivers mg chewable 3-18 tablet by ity of tablet 00:00: mouth [place] 00 daily. Medical Branch losartan 50 2020-0 Yes [id number] 50mg Take 1 Univers mg tablet 3-18 tablet by ity o f 00:00: mouth [place] 00 daily. Medical Branch Insulin 2020-0 Yes [id number] 20U inject 20 U nivers Detemir 3-18 Units ity of (LEVEMIR 00:00: [place] the [place] FLEXTOUCH 00 skin 2 Medical U-100 (two) Branch INSULN) 100 times unit/mL (3 daily. mL) injection aspirin 81 2020-0 Yes [id number] 81mg Take 1 U nivers mg chewable 3-18 tablet by ity of tablet 00:00: mouth [place] 00 daily. Medical Branch losartan 50 2020-0 Yes [id number] 50mg Take 1 Univers mg tablet 3-18 tablet by ity o f 00:00: mouth [place] 00 daily. Medical Branch Insulin 2020-0 Yes [id number] 20U inject 20 U nivers Detemir 3-18 Units ity of (LEVEMIR 00:00: [place] the [place] FLEXTOUCH 00 skin 2 Medical U-100 (two) Branch INSULN) 100 times unit/mL (3 daily. mL) injection aspirin 81 2020-0 Yes [id number] 81mg Take 1 U nivers mg chewable 3-18 tablet by ity of tablet 00:00: mouth [place] 00 daily. Medical Branch losartan 50 2020-0 Yes [id number] 50mg Take 1 Univers mg tablet 3-18 tablet by ity o f 00:00: mouth [place] 00 daily. Medical Branch Insulin 2020-0 Yes [id number] 20U inject 20 U nivers Detemir 3-18 Units ity of (LEVEMIR 00:00: [place] the [place] FLEXTOUCH 00 skin 2 Medical U-100 (two) Branch INSULN) 100 times unit/mL (3 daily. mL) injection aspirin 81 2020-0 Yes [id number] 81mg Take 1 U nivers mg chewable 3-18 tablet by ity of tablet 00:00: mouth [place] 00 daily. Medical Branch losartan 50 2020-0 Yes [id number] 50mg Take 1 Univers mg tablet 3-18 tablet by ity o f 00:00: mouth [place] 00 daily. Medical Branch Insulin 2020-0 Yes [id number] 20U inject 20 U nivers Detemir 3-18 Units ity of (LEVEMIR 00:00: [place] FLEXTOUCH 00 skin 2 Medical U-100 (two) Branch INSULN) 100 times unit/mL (3 daily. mL) injection aspirin 81 2020-0 Yes [id number] 81mg Take 1 U nivers mg chewable 3-18 tablet by ity of tablet 00:00: mouth [place] 00 daily. Medical Branch losartan 50 2020-0 Yes [id number] 50mg Take 1 Univers mg tablet 3-18 tablet by ity o f 00:00: mouth [place] 00 daily. Medical Branch Insulin 2020-0 Yes [id number] 20U inject 20 U nivers Detemir 3-18 Units ity of (LEVEMIR 00:00: [place] FLEXTOUCH 00 skin 2 Medical U-100 (two) Branch INSULN) 100 times unit/mL (3 daily. mL) injection magnesium 2020-0 Yes [id number] 400mg Take 400 Univers oxide 420 2-04 [id number] mg by ity of mg Tab 00:00: mouth 2 [place] 00 (two) Medical times Branch daily. pantoprazol 2020-0 Yes [id number] 20mg Take 1 Univers e 20 mg EC 2-04 [id number] tablet by it y of tablet 00:00: mouth [place] 00 daily. Medical Branch sucralfate 2020-0 Yes [id number] 1g Take 1 Univers (CARAFATE) 2-04 [id number] tablet by it y of 1 gram 00:00: mouth 4 [place] tablet 00 (four) Medical times Branch daily as needed for Indigestio n. magnesium 2020-0 Yes [id number] 400mg Take 400 Univers oxide 420 2-04 [id number] mg by ity of mg Tab 00:00: mouth 2 [place] 00 (two) Medical times Branch daily. pantoprazol 2020-0 Yes [id number] 20mg Take 1 Univers e 20 mg EC 2-04 [id number] tablet by it y of tablet 00:00: mouth 00 daily. Medical Branch sucralfate 2020-0 Yes [id number] 1g Take 1 Univers (CARAFATE) 2-04 [id number] tablet by it y of 1 gram 00:00: mouth 4 [place] tablet 00 (four) Medical times Branch daily as needed for Indigestio n. magnesium 2020-0 Yes [id number] 400mg Take 400 Univers oxide 420 2-04 [id number] mg by ity of mg Tab 00:00: mouth 2 (two) Medical times Branch daily. pantoprazol 2020-0 Yes [id number] 20mg Take 1 Univers e 20 mg EC 2-04 [id number] tablet by it y of tablet 00:00: mouth 00 daily. Medical Branch sucralfate 2020-0 Yes [id number] 1g Take 1 Univers (CARAFATE) 2-04 [id number] tablet by it y of 1 gram 00:00: mouth 4 [place] tablet 00 (four) Medical times Branch daily as needed for Indigestio n. magnesium 2020-0 Yes [id number] 400mg Take 400 Univers oxide 420 2-04 [id number] mg by ity of mg Tab 00:00: mouth 2 (two) Medical times Branch daily. pantoprazol 2020-0 Yes [id number] 20mg Take 1 Univers e 20 mg EC 2-04 [id number] tablet by it y of tablet 00:00: mouth 00 daily. Medical Branch sucralfate 2020-0 Yes [id number] 1g Take 1 Univers (CARAFATE) 2-04 [id number] tablet by it y of 1 gram 00:00: mouth 4 [place] tablet 00 (four) Medical times Branch daily as needed for Indigestio n. magnesium 2020-0 Yes [id number] 400mg Take 400 Univers oxide 420 2-04 [id number] mg by ity of mg Tab 00:00: mouth 2 [place] 00 (two) Medical times Branch daily. pantoprazol 2020-0 Yes [id number] 20mg Take 1 Univers e 20 mg EC 2-04 [id number] tablet by it y of tablet 00:00: mouth 00 daily. Medical Branch sucralfate 2020-0 Yes [id number] 1g Take 1 Univers (CARAFATE) 2-04 [id number] tablet by it y of 1 gram 00:00: mouth 4 [place] tablet 00 (four) Medical times Branch daily as needed for Indigestio n. magnesium 2020-0 Yes [id number] 400mg Take 400 Univers oxide 420 2-04 [id number] mg by ity of mg Tab 00:00: mouth 2 [place] 00 (two) Medical times Branch daily. pantoprazol 2020-0 Yes [id number] 20mg Take 1 Univers e 20 mg EC 2-04 [id number] tablet by it y of tablet 00:00: mouth [place] 00 daily. Medical Branch sucralfate 2020-0 Yes [id number] 1g Take 1 Univers (CARAFATE) 2-04 [id number] tablet by it y of 1 gram 00:00: mouth 4 [place] tablet 00 (four) Medical times Branch daily as needed for Indigestio n. magnesium 2020-0 Yes [id number] 400mg Take 400 Univers oxide 420 2-04 [id number] mg by ity of mg Tab 00:00: mouth 2 [place] 00 (two) Medical times Branch daily. pantoprazol 2020-0 Yes [id number] 20mg Take 1 Univers e 20 mg EC 2-04 [id number] tablet by it y of tablet 00:00: mouth [place] 00 daily. Medical Branch sucralfate 2019-0 Yes [id number] 1g Take 1 Univers (CARAFATE) 2-04 [id number] tablet by it y of 1 gram 00:00: mouth 4 [place] tablet 00 (four) Medical times Branch daily as needed for Indigestio n. clopidogrel 2018- Yes [id number] 75mg Take 1 Univers 75 mg 7-20 tablet by ity of tablet 00:00: mouth [place] 00 daily. Medical Branch atorvastati Yes [id number] 40mg Take 1 Univers n 40 mg 7-20 tablet by ity of tablet 00:00: mouth at [place] 00 bedtime. Medical Branch liraglutide 2019- Yes [id number] .6mg inject 0.6 Univers 0.6 mg/0.1 7-20 mg under ity o f mL (18 mg/3 00:00: [place] mL[place] 00 daily. Medical injection Branch clopidogrel Yes [id number] 75mg Take 1 Univers 75 mg 7-20 tablet by ity of tablet 00:00: mouth [place] 00 daily. Medical Branch atorvastati Yes [id number] 40mg Take 1 Univers n 40 mg 7-20 tablet by ity of tablet 00:00: mouth at [place] 00 bedtime. Medical Branch liraglutide Yes [id number] .6mg inject 0.6 Univers 0.6 mg/0.1 7-20 mg under ity o f mL (18 mg/3 00:00: the [place] mL) 00 daily. Medical injection Branch clopidogrel Yes [id number] 75mg Take 1 Univers 75 mg 7-20 tablet by ity of tablet 00:00: mouth [place] 00 daily. Medical Branch atorvastati Yes [id number] 40mg Take 1 Univers n 40 mg 7-20 tablet by ity of tablet 00:00: mouth at [place] 00 bedtime. Medical Branch liraglutide Yes [id number] .6mg inject 0.6 Univers 0.6 mg/0.1 7-20 mg under ity o f mL (18 mg/3 00:00: the skin [place] mL) 00 daily. Medical injection Branch clopidogrel Yes [id number] 75mg Take 1 Univers 75 mg 7-20 tablet by ity of tablet 00:00: mouth [place] 00 daily. Medical Branch atorvastati Yes [id number] 40mg Take 1 Univers n 40 mg 7-20 tablet by ity of tablet 00:00: mouth at [place] 00 bedtime. Medical Branch liraglutide Yes [id number] .6mg inject 0.6 Univers 0.6 mg/0.1 7-20 mg under ity o f mL (18 mg/3 00:00: the skin [place] mL) 00 daily. Medical injection Branch clopidogrel Yes [id number] 75mg Take 1 Univers 75 mg 7-20 tablet by ity of tablet 00:00: mouth [place] 00 daily. Medical Branch atorvastati Yes [id number] 40mg Take 1 Univers n 40 mg 7-20 tablet by ity of tablet 00:00: mouth at [place] 00 bedtime. Medical Branch liraglutide Yes [id number] .6mg inject 0.6 Univers 0.6 mg/0.1 7-20 mg under ity o f mL (18 mg/3 00:00: the skin [place] mL) 00 daily. Medical injection Branch clopidogrel Yes [id number] 75mg Take 1 Univers 75 mg 7-20 tablet by ity of tablet 00:00: mouth [place] 00 daily. Medical Branch atorvastati Yes [id number] 40mg Take 1 Univers n 40 mg 7-20 tablet by ity of tablet 00:00: mouth at [place] 00 bedtime. Medical Branch liraglutide Yes [id number] .6mg inject 0.6 Univers 0.6 mg/0.1 7-20 mg under ity o f mL (18 mg/3 00:00: the [place] mL) 00 daily. Medical injection Branch clopidogrel Yes [id number] 75mg Take 1 Univers 75 mg 7-20 tablet by ity of tablet 00:00: mouth [place] 00 daily. Medical Branch atorvastati Yes [id number] 40mg Take 1 Univers n 40 mg 7-20 tablet by ity of tablet 00:00: mouth at [place] 00 bedtime. Medical Branch liraglutide Yes [id number] .6mg inject 0.6 Univers 0.6 mg/0.1 7-20 [...] 9-20 directed, ity of (BLOOD 00:00: TID, [place] GLUCOSE 00 DX:E11.9 Medical TEST) strip Branch [...] 9-20 directed, ity of (BLOOD 00:00: TID, [place] GLUCOSE 00 DX:E11.9 Medical TEST) strip Branch No known No No known [facility] di medications 9-[address] [facility] No known No No known Metho di medications 9-[address] 11:18: [facility] l Immunizations Ordered Filled Immunization Date Status Comments [facility] e Immunization Name Name Influenza Virus 2020-01-09 Completed Universit y of Vaccine [place] .5 mL 00:00:00 [facility] IM 6+ [place] Branch Influenza Virus 2020-01-09 Completed Universit y of Vaccine [place] .5 mL 00:00:00 [facility] 6+ MO Branch Influenza Virus 2020-01-09 Completed Universit y of Vaccine [place] .5 mL 00:00:00 [facility] 6+ MO Branch Influenza Virus 2020-01-09 Completed Universit y of Vaccine [place] .5 mL 00:00:00 [facility] IM 6+ MO Branch Influenza Virus 2020-01-09 Completed Universit y of Vaccine [place] .5 mL 00:00:00 [place] [facility] 6+ MO Branch Influenza Virus 2020-01-09 Completed Universit y of Vaccine [place] .5 mL 00:00:00 [facility] IM 6+ MO Branch Influenza Virus 2020-01-09 Completed Universit y of Vaccine [place] .5 mL 00:00:00 [facility] 6+ MO Branch Vital Signs Vital Name Observation Time Observation Value Comments Source Body temperature 2022-12-27 19:16:00 36.5 [facility] ersity [facility] Body weight 2022-12-27 19:16:00 80.241 [facility] BMI 2022-12-27 19:16:00 29.44 kg/m2 Universi [facility] Body weight 2022-10-30 23:49:46 80.241 kg Universi [facility] BMI 2022-10-30 23:49:46 29.44 kg/m2 [facility] Systolic blood 2022-10-30 23:15:00 146 mm[Hg] Univer sity of pressure [facility] Diastolic blood 2022-10-30 23:15:00 89 mm[Hg] Unive rsity of pressure [facility] Heart rate 2022-10-30 23:15:00 83 /min [facility] Body temperature 2022-10-30 23:15:00 37.39 [facility] [place] [facility] Res[facility] rate 2022-10-30 23:15:00 16 /min [facility] [place] [facility] Body height 2022-10-30 23:15:00 165.1 cm [facility] Oxygen saturation in 2022-10-30 23:15:00 98 /min [facility] Arterial blood by [facility] Pulse oximetry Branch Procedures Procedure Date / Time Performed Performing Clinician Sourc e XR CERVICAL SPINE 2 VW 2022-12-27 19:06:17 [facility] 2022-12-27 18:26:33 Doctor Unassigned, No [facility] Name Medical Branch REFERRAL- 2022-11-22 06:01:00 Doctor Unassigned, No [facility] REQUEST/RESPONSE Name [facility] RAPID INFLUENZA A/B 2022-10-30 23:47:00 Kathryn Ferrer [facility] COVID-19 (ID NOW RAPID 2022-10-30 23:47:00 Kathryn Ferrer [facility] TESTING) [facility] CONSENT/REFUSAL FOR 2022-10-30 23:11:06 Doctor Unassigned, No [facility] Name [facility] Branch TREATMENT Encounters Start End Encounter Admission Attending Care Care Encounter Source Date/Time Date/Time Type Type Clinicians Facility Department ID 2023-03-15 Outpatient [facility] [id number] [place] 13:49:10 [id number] Health 2023-01-25 Outpatient [facility] [id number] [place] 14:16:37 [id number] [facility] 2023-01-12 Outpatient [facility] [id number] [place] 08:10:43 [id number] [facility] 2023-01-11 Outpatient [facility] [id number] [place] 09:18:57 [id number] [facility] 2023-01-10 Outpatient [facility] [id number] [place] 10:28:28 [id number] [facility] 2021-08-21 Emergency [facility] [id number] Univers 07:33:48 ity of [facility] 2021-08-21 Emergency [facility] [id number] Univers 05:20:42 ity [facility] 2021-08-20 Emergency [facility] [id number] Univers 14:38:03 itFormerly [facility] 2023-04-06 2023-04-06 Patient Kenia Gonzalez UTP [id number] 1.2.840.1 [id number] [place] 00:00:00 00:00:00 Outreach Kenia Gonzalez [address] [id number] Health [id number] [id number] 2023-02-15 2023-02-15 Outpatient [facility] [id number] [place] 13:00:00 13:00:00 [facility] 2023-02-14 2023-02-14 Outpatient BIRD, [facility] [id number] [place] 16:00:00 16:00:00 ZEUS Dao [facility] 2023-02-11 2023-02-11 Outpatient [facility] [id number] Jin 11:29:47 11:29:47 0421 [id number] [place] 2023-01-31 2023-01-31 Outpatient Vito ARTEAGA, [facility] [id number] [facility] 13:00:00 13:00:00 AMIRA [facility] [place] [facility] 2023-01-25 2023-01-25 Telemedicgarrick ALDANA UTP [id number] [id number] [place] 14:00:00 14:00:[address] [id number] Health 9.2.7.2.686 [id number] 2023-01-12 2023-01-12 Patient Kenia Gonzalez [id number] 1.2.840.1 [id number] [place] 00:00:00 00:00:00 Outreach Kenia Gonzalez 350.1.13.58 [facility] 9.2.7.2.686 [id number] 2022-12-27 2022-12-27 Outpatient [facility] [id number] Univers 12:53:44 23:59:00 AMIRA ity of [facility] 2022-12-27 2022-12-27 [facility] 1.2.840.114 [id number] Univers 12:53:44 23:59:00 Encounter Amira PRIMARY 350.1.13.10 ity of [place]2.[place] [id number] Vt dical 807 [place] 2022-12-27 2022-12-27 Office [facility] 1.2.840.114 [id number] Univers 13:20:00 13:40:00 Visit Amira PRIMARY 350.1.13.10 it y [place]2.[place] [id number] Vt dical 198 Branch 2022-12-27 2022-12-27 Orders Doctor PAYAL 1.2.840.114 [id number] Univers 00:00:00 00:00:00 Only Unassigned, GAMA 350.1.13.10 ity of [place] [facility] 4.2.7.2.686 Jeffrey as [id number] [facility] 009 [place] 2022-11-22 2022-11-22 Orders Doctor PAYAL 1.2.840.114 [id number] Univers 00:00:00 00:00:00 Only Unassigned, GAMA 350.1.13.10 ity of [place] [facility] 4.2.7.2.686 Jeffrey as [id number] [address] 2022-10-30 2022-10-30 Emergency X NABIL ILGORGE ERT [id number] Univers 17:17:00 18:41:00 KATHRYN ity [facility] 2022-10-30 2022-10-30 Emergency [facility] [id number] Univers 17:17:00 18:41:00 Kathryn MIXON 350.1.13.10 i ty [facility] [place] [id number] [facility] 084 Branch 2021-07-02 2021-07-02 Telephone GOMEZ Mireles 1.2.840.114 [id number] Univers 00:00:00 00:00:00 [employer] [facility] 350.1.13.10 ity of [facility] 4.2.7.2.686 [facility] [id number] [facility] 028 Branch 2021-02-16 2021-02-16 Outpatient SERGE BANDA [facility] [id number] Univers 14:00:00 14:00:00 SERGE GASPAR i ty of [facility] 2021-02-16 2021-02-16 Telemedici Chi [facility] 1.2.840.114 [id number] 08:12:34 08:27:34 ne Visit Voalte 350.1.13.10 [facility] 4.2.7.2.686 [id number] 2021-02-05 2021-02-05 Telephone GOMEZ Mireles 1.2.840.114 [id number] 00:00:00 00:00:00 Voalte 350.1.13.10 CLINICS 4.2.7.2.686 [id number] 2021-01-09 2021-01-09 Outpatient Vito GONZALEZ [facility] [id number] Univers 14:30:00 14:30:00 PHUC mathews [facility] 2020-09-22 2020-09-22 Outpatient NELIDA RODRÍGUEZ [facility] [id number] Univers 14:40:00 14:40:00 NELIDA HEARD [facility] 2020-09-05 2020-09-05 Outpatient NELIDA RODRÍGUEZ [facility] [id number] Univers 14:20:00 14:20:00 NELIDA HEARD [facility] 2020-08-29 2020-08-29 Outpatient NELIDA RODRÍGUEZ [facility] [id number] Univers 14:40:00 14:40:00 NELIDA HEARD bisi [facility] 2020-07-08 2020-07-08 Outpatient NELIDA RODRÍGUEZ [facility] [id number] Univers 15:40:00 15:40:00 NELIDA HEARD bisi [facility] 2020-05-15 2020-05-15 Outpatient R DORINDA [facility] [id number] Univers 08:00:00 08:00:00 OMAR mathews [facility] 2020-05-08 2020-05-08 Outpatient R DORINDA [facility] [id number] Univers 00:00:00 00:00:00 OMAR lashell [facility] 2020-04-30 2020-04-30 Outpatient R DORINDA [facility] [id number] Univers 15:15:00 15:15:00 OMAR [facility] [place] [facility] 2020-03-18 2020-03-18 Outpatient R ED [facility] [id number] Univers 13:30:00 13:30:00 DEAN mathews [facility] 2020-03-11 2020-03-11 Outpatient R RADIOLOGY [facility] [id number] Univers 00:00:00 00:00:00 bisi [facility] 2020-02-29 2020-02-29 Outpatient NELIDA RODRÍGUEZ [facility] [id number] Univers 15:00:00 15:00:00 NELIDA HEARD bisi [facility] 2020-01-22 2020-01-22 Outpatient R ED [facility] [id number] Univers 15:30:00 15:30:00 DEAN ity [facility] 2019-10-05 2019-10-05 Emergency X AN [facility] ERT [id number] Univers 16:23:57 17:39:00 GHASSAN bisi [facility] 2019-08-24 2019-08-24 Outpatient NELIDA RODRÍGUEZ [facility] [id number] Univers 13:00:00 14:56:25 NELIDA HEARD lashell [facility] Results This patient has no known results.
[2023-04-18] MEDS ORDERED: NA CHLORIDE 0.9% 1,000 ML ONE (21:31)
[2023-04-18 21:37] LABS: Absolute Lymphocytes (CBC) 1.3 K/uL (0.7-4.9); Hematocrit 31.9 % (36.0-45.0); Lymphocytes % 16.7 % (15.3-44.8); MCV 85.8 fL (80-100); MPV 9.3 fL (7.6-11.3); RBC Red Blood Cell Count 3.72 M/uL (3.86-4.86)
[2023-04-18 21:52] LABS: ALT/SGPT 18 U/L (13-56); Albumin 3.3 g/dL (3.4-5.0); Alkaline Phosphatase 107 U/L (45-117); BUN Blood Urea Nitrogen 54 mg/dL (7-18); Bicarbonate 20 mEq/L (21-32); Bilirubin Total 0.2 mg/dL (0.2-1.0); Glomerular Filtration Rate 15 ml/min (=/>90); NT PRO-BNP 2017 pg/mL (<125); Protein, Total 7.7 g/dL (6.4-8.2); Sodium Level 140 mEq/L (136-145); Troponin High Sensitivity 38.1 pg/mL (<58.9)
[2023-04-18 21:55] LABS: AST/SGOT 17 U/L (15-37); Bilirubin Direct < 0.1 mg/dL (0-0.2); Bilirubin Indirect, Calculated ND mg/dL (0.2-0.8); Magnesium 2.1 mg/dL (1.6-2.4); Potassium 4.3 mEq/L (3.5-5.1)
[2023-04-18 21:57] LABS: Glucose Level 49 mg/dL (74-106)
--- NOTE | 2023-04-18 21:59 | RAD REPORT ---
EXAM DESCRIPTION: Lupe Single View04/18/2023 9:43 pm CLINICAL HISTORY: Cough COMPARISON: January 2023 FINDINGS: The lungs appear clear of acute infiltrate The heart is normal size
--- NOTE | 2023-04-18 22:03 | RAD REPORT ---
EXAM DESCRIPTION: CT - Head Brain Wo Cont - 04/18/2023 9:52 pm CLINICAL HISTORY: Headache COMPARISON: 2020 TECHNIQUE: Computed axial tomography of the head was obtained. IV contrast was not requested. All CT scans are performed using dose optimization technique as appropriate and may include automated exposure control or mA/KV adjustment according to patient size. FINDINGS: An intracranial bleed is not seen The ventricles are normal in caliber No extra-axial fluid collection is noted. Moderate low-density areas within periventricular, deep and subcortical white matter likely represent ischemic changes secondary to small vessel disease. Fluid within the sinuses/ mastoids is not seen. IMPRESSION: No acute intracranial abnormality is seen If patient's symptoms persist MRI of the brain would be recommended
[2023-04-18 22:06] LABS: Protime INR 0.98
--- NOTE | 2023-04-18 22:40 | EDPHYS ---
Physician Documentation [facility] Name: Janis Henderson Age: 62 yrs Sex: Female : 1960 Arrival Date: 04/18/2023 Time: 21:03 Bed 3 Private MD: ED Physician Edward Horan HPI: 04/18 21:13 This 62 yrs old Female presents to ER via Wheelchair with complaints of S/S of helen Possible Stroke. 21:13 The patient's problem is reported as altered mental status, confused. Onset: The helen symptoms/episode began/occurred today. Duration: The episode is continuous. Context: the episode(s) was witnessed, by family, , symptoms became apparent at an unknown time, occurred at an unknown location, occurred while the patient was. The symptoms are alleviated by nothing. The symptoms are aggravated by nothing. Associated signs and symptoms: Pertinent positives: confusion, headache. Severity of symptoms: At their worst the symptoms were mild in the emergency department the symptoms are unchanged. Patient's baseline: Neuro: alert and fully oriented. It is unknown whether or not the patient has had similar symptoms in the past. Historical: - Allergies: 21:11 Morphine; kl - Home Meds: 21:11 Plavix 75 mg Oral tab [Active]; kl - PMHx: 21:11 Anxiety; chronic neck/back pain; CVA; speech deficit/mild weakness; Depression; kl Diabetes - NIDDM; Hypertension; Hypothyroidism; psoriasis; VASCULAR DEMENTIA; COVID; renal insufficiency; - PSHx: 21:11 Appendectomy; section; Cholecystectomy; kl - Immunization history:: Adult Immunizations up to date. - Social history:: Smoking status: Patient denies any tobacco usage or history of. - Family history:: not pertinent. ROS: 21:13 Constitutional: Negative for fever, chills, and weight loss, Eyes: Negative for injury, helen pain, redness, and discharge, ENT: Negative for injury, pain, and discharge, Neck: Negative for injury, pain, and swelling, Cardiovascular: Negative for chest pain, palpitations, and edema, Respiratory: Negative for shortness of breath, cough, wheezing, and pleuritic chest pain, Abdomen/GI: Negative for abdominal pain, nausea, vomiting, diarrhea, and constipation, Back: Negative for injury and pain, : Negative for injury, bleeding, discharge, and swelling, MS/Extremity: Negative for injury and deformity, Skin: Negative for injury, rash, and discoloration, Psych: Negative for depression, anxiety, suicide ideation, homicidal ideation, and hallucinations, Allergy/Immunology: Negative for hives, rash, and allergies, Endocrine: Negative for neck swelling, polydipsia, polyuria, polyphagia, and marked weight changes, Hematologic/Lymphatic: Negative for swollen nodes, abnormal bleeding, and unusual bruising. 21:13 Neuro: Positive for speech changes, weakness. Exam: 21:13 Constitutional: This is a well developed, well nourished patient who is awake, alert, helen and in no acute distress. Head/Face: Normocephalic, atraumatic. Eyes: Pupils equal round and reactive to light, extra-ocular motions intact. Lids and lashes normal. Conjunctiva and sclera are non-icteric and not injected. Cornea within normal limits. Periorbital areas with no swelling, redness, or edema. ENT: Nares patent. No nasal discharge, no septal abnormalities noted. Tympanic membranes are normal and external auditory canals are clear. Oropharynx with no redness, swelling, or masses, exudates, or evidence of obstruction, uvula midline. Mucous membranes moist. Neck: Trachea midline, no thyromegaly or masses palpated, and no cervical lymphadenopathy. Supple, full range of motion without nuchal rigidity, or vertebral point tenderness. No Meningismus. Chest/axilla: Normal chest wall appearance and motion. Nontender with no deformity. No lesions are appreciated. Cardiovascular: Regular rate and rhythm with a normal S1 and S2. No gallops, murmurs, or rubs. Normal PMI, no JVD. No pulse deficits. Respiratory: Lungs have equal breath sounds bilaterally, clear to auscultation and percussion. No rales, rhonchi or wheezes noted. No increased work of breathing, no retractions or nasal flaring. Abdomen/GI: Soft, non-tender, with normal bowel sounds. No distension or tympany. No guarding or rebound. No evidence of tenderness throughout. Back: No spinal tenderness. No costovertebral tenderness. Full range of motion. Female : Normal external genitalia. Skin: Warm, dry with normal turgor. Normal color with no rashes, no lesions, and no evidence of cellulitis. MS/ Extremity: Pulses equal, no cyanosis. Neurovascular intact. Full, normal range of motion. Psych: Awake, alert, with orientation to person, place and time. Behavior, mood, and affect are within normal limits. 21:13 Neuro: Orientation: is normal, appropriate for stated age, no acute changes, Mentation: slow to respond, Memory: is normal, appropriate for stated age, no acute changes, Cranial nerves: grossly normal, is grossly normal based on the patient's age, no acute changes, Cerebellar function: is grossly normal, is grossly normal based on the patient's age, no acute changes, Motor: is normal, is grossly normal based on the patient's age, no acute changes, moves all fours, strength is 5/5 in all extremities, Sensation: is normal, no obvious gross deficits, appropriate no acute changes, Gait: not tested. Babinski testing is normal, seizure activity, is not displayed by the patient. 21:44 ECG was reviewed by the Attending Physician. [facility] 21:45 Radiologist reports: [facility] Vital Signs: 21:02 BP 148 / 86; Pulse 68; Resp 18; Pulse Ox 98% ; Weight 95.25 kg; Height 5 ft. 6 in. ; nj1 21:09 BP 160 / 85; Pulse 73; Resp 18; Pulse Ox 100% ; Weight 85 kg (M); Pain 10/10; kl 22:35 BP 188 / 84; Pulse 72; Resp 16; Pulse Ox 100% ; jb4 21:02 Body Mass Index 33.89 (85.00 kg, 167.64 cm) nj1 21:09 Pain Scale: Adult kl NIH Stroke Scale Scores: 21:13 NIHSS Score: 0 helen MDM: 21:10 Patient medically screened. helen 21:19 Differential diagnosis: CVA, TIA, Dementia, metabolic disorder. Data reviewed: vital helen signs, nurses notes, lab test result(s), EKG, radiologic studies, CT scan, plain films. Consideration of Admission/Observation Escalation of care including admission/observation considered. I considered the following discharge prescriptions or medication management in the emergency department Medications were administered in the Emergency Department. See MAR. Independent interpretation of the following test(s) in the Emergency Department EKG: See my EKG interpretation above. Test considered but Not performed: MRI: no mri brain. Historians other than the Patient: Spouse/Significant Other: . Care significantly affected by the following chronic conditions: Diabetes, Hypertension, Obesity, Chronic Kidney Disease, covid, cva. ED course: pt was normal this morning, found like this when came. 04/18 21:13 Order name: Basic Metabolic Panel; Complete Time: 22:37 [facility] 04/18 21:13 Order name: CBC with Diff; Complete Time: 21:44 [facility] 04/18 21:13 Order name: LFT's; Complete Time: 22:37 [facility] 04/18 21:13 Order name: Magnesium; Complete Time: 22:37 [facility] 04/18 21:13 Order name: NT PRO-BNP; Complete Time: 22:37 [facility] 04/18 21:13 Order name: PT-INR; Complete Time: 22:37 [facility] 04/18 21:13 Order name: Troponin HS; Complete Time: 22:37 [facility] 04/18 22:31 Order name: Glucose, Ancillary Testing; Complete Time: 22:37 [facility] 04/18 21:13 Order name: XRAY Chest (1 view); Complete Time: 22:37 [facility] 04/18 21:31 Order name: Head Brain Wo Cont; Complete Time: 22:37 [facility] 04/18 21:13 Order name: EKG; Complete Time: 21:14 [facility] 04/18 21:13 Order name: Cardiac monitoring; Complete Time: 21:24 [facility] 04/18 21:13 Order name: EKG - Nurse/Tech; Complete Time: 21:24 [facility] 04/18 21:13 Order name: IV Saline Lock; Complete Time: 21:24 [facility] 04/18 21:13 Order name: Labs collected and sent; Complete Time: 21:24 [facility] 04/18 21:13 Order name: O2 Per Protocol; Complete Time: 21:24 [facility] 04/18 21:13 Order name: O2 Sat Monitoring; Complete Time: 21:24 [facility] 04/18 21:13 Order name: PO challenge: juice; Complete Time: 21:32 [facility] 04/18 22:41 Order name: Blood Glucose Level helen EC: Rate is 62 beats/min. Rhythm is regular. QRS [place] is Normal. [place] interval is normal. QRS helen interval is normal. QT interval is normal. No Q waves. T waves are Normal. No ST changes noted. Clinical impression: Normal ECG and No evidence of ischemia. Interpreted by me. Reviewed by me. Administered Medications: 21:21 Drug: D10 in Water IVP 250 ml Route: IVP; Site: left antecubital; jb4 21:50 Follow up: Response: No adverse reaction; Marked relief of symptoms jb4 21:24 Drug: NS 0.9% IV 1000 ml Route: IV; Rate: 1 bolus; Site: left antecubital; jb4 22:42 Drug: Aspirin PO Chewable Tablet 162 mg Route: PO; Disposition Summary: 04/18/23 22:39 Discharge Ordered Location: Home helen Problem: new helen Symptoms: have improved helen Condition: Stable helen Diagnosis - Diabetes mellitus due to underlying condition with hypoglycemia helen - Other hypoglycemia helen - Unspecified kidney failure - chronic helen Followup: helen - With: Private Physician - When: 2 - 3 days - Reason: Recheck today's complaints, Continuance of care, Re-evaluation by your physician Followup: helen - With: - When: 2 - 3 days - Reason: Recheck today's complaints, Continuance of care, Re-evaluation by your physician Discharge Instructions: - Discharge Summary Sheet helen - Hypoglycemia helen - Aspirin and Your Heart helen - Chronic Kidney Disease, Adult, [id number] helen - Hypoglycemia, Suse-ng-[id number] helen - Preventing Hypoglycemia helen Forms: - Medication Reconciliation Form helen - Thank You Letter helen - Antibiotic Education helen - Prescription Opioid Use helen - [email or web address] helen NIH Stroke Scale - NIH Stroke Score Date: 04/18/2023 Time: 21:13 Total Score = 0 10. Dysarthria (speech clarity - read or repeat words) - 0(Normal) 11. Extinction and Inattention (visual/tactile/auditory/spatial/personal) - 0(No abnormality) 1a. Level of Consciousness (LOC) - 0(Alert) 1b. Level of Consciousness (LOC) (Month \T\ Age) - 0(Both) 1c. LOC Commands (Open \T\ Closes Eyes/Wood Scaler) - 0(Both) 2. Best Gaze (Lateral Gaze Paresis) - 0(Normal) 3. Visual Field Loss - 0(No visual loss) 4. Facial Palsy - 0(Normal) 5a. Left Arm: Motor (10-second hold) - 0(No drift) 5b. Right Arm: Motor (10-second hold) - 0(No drift) 6a. Left Leg: Motor (5-second hold - always test supine) - 0(No drift) 6b. Right Leg: Motor (5-second hold - always test supine) - 0(No drift) 7. Limb Ataxia (finger/nose \T\ heel/jordan - test with eyes open) - 0(Absent) 8. Sensory Loss (pinprick arms/legs/face) - 0(Normal) 9. Best Language: Aphasia (description/naming/reading) - 0(No aphasia) Initials: helen Signatures: Dispatcher [employer] EDMS Joselyn Momin RN RN kl Anderson, Corey, MD MD cha Bryson, James, RN RN jb4 Corrections: (The following items were deleted from the chart) 21:31 21:14 CT-STROKE BRAIN W/O CONTRAST+CT.RAD.BRZ ordered. EDMS EDMS
--- NOTE | 2023-04-18 22:40 | ER ---
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 The charge nurse has been notified. The nj1 patient has been moved to a treatment area. 21:02 Method Of Arrival: Wheelchair [facility] 21:09 Chief complaint: Patient states: bad headache pt reports entire head painful. Coronavirus screen: Vaccine status: Patient reports receiving the 2nd dose of the covid vaccine. Ebola Screen: Patient negative for fever greater than or equal to 101.5 degrees Fahrenheit, and additional compatible Ebola Virus Disease symptoms. No acute neurological deficit is noted. The patients blood glucose was checked before arriving to the hospital and was found to be hypoglycemic. Initial Sepsis Screen: Does the patient meet any 2 criteria? No. Patient's initial sepsis screen is negative. Does the patient have a suspected source of infection? No. Patient's initial sepsis screen is negative. Risk Assessment: Do you want to hurt yourself or someone else? Patient reports no desire to harm self or others. 21:09 Method Of Arrival: Wheelchair 21:09 Acuity: JUANCHO 2 kl Triage Assessment: 21:12 General: Appears distressed, uncomfortable, unkempt, Behavior is cooperative, anxious. kl Pain: Complains of pain in top of head, left frontal area, left temporal area and back of head. Neuro: Level of Consciousness is awake, alert, obeys commands, Oriented to person, place, time, situation, Licensed Psychologist Director are equal bilaterally Moves all extremities. Full function Speech normal for patient previous CVA. at baseline. Pupils are PERRLA, Intact Reports headache in entire. Historical: - Allergies: 21:11 Morphine; kl - Home Meds: 21:11 Plavix 75 mg Oral tab [Active]; kl - PMHx: 21:11 Anxiety; chronic neck/back pain; CVA; speech deficit/mild weakness; Depression; kl Diabetes - NIDDM; Hypertension; Hypothyroidism; psoriasis; VASCULAR DEMENTIA; COVID; renal insufficiency; - PSHx: 21:11 Appendectomy; section; Cholecystectomy; kl - Immunization history:: Adult Immunizations up to date. - Social history:: Smoking status: Patient denies any tobacco usage or history of. - Family history:: not pertinent. Screenin:11 [facility] ED Fall Risk Assessment (Adult) History of falling in the last 3 months, jb4 including since admission No falls in past 3 months (0 pts) Confusion or Disorientation No (0 pts) Score/Fall Risk Level 0 - 2 = Low Risk. Abuse screen: Denies threats or abuse. Nutritional screening: Nutritional screening: No deficits noted. Tuberculosis screening: No symptoms or risk factors identified. Assessment: 21:49 Reassessment: Patient appears in no apparent distress at this time. Patient and/or jb4 family updated on plan of care and expected duration. Pain level reassessed. Patient is alert, oriented x 3, equal unlabored respirations, skin warm/dry/pink. Pt tolerating PO fluids. Patient states feeling better. Neuro: Level of Consciousness is awake, alert, obeys commands, Oriented to person, place, time, situation, Full function Speech is normal, Facial symmetry appears normal. Vital Signs: 21:02 BP 148 / 86; Pulse 68; Resp 18; Pulse Ox 98% ; Weight 95.25 kg; Height 5 ft. 6 in. ; nj1 21:09 BP 160 / 85; Pulse 73; Resp 18; Pulse Ox 100% ; Weight 85 kg (M); Pain 10/10; kl 22:35 BP 188 / 84; Pulse 72; Resp 16; Pulse Ox 100% ; jb4 21:02 Body Mass Index 33.89 (85.00 kg, 167.64 cm) nj1 21:09 Pain Scale: Adult NIH Stroke Scale Scores: 21:13 NIHSS Score: 0 [facility] ED Course: 21:08 Patient arrived in ED. nj1 21:10 Edward Horan MD is Attending Physician. [facility] 21:11 Triage completed. 21:21 Initial lab(s) drawn, by nj, sent to lab. Inserted saline lock: 18 gauge in right in jb4 left antecubital area, using aseptic technique. 21:44 XRAY Chest (1 view) In Process Unspecified. EDMS 21:54 Head Brain Wo Cont In Process Unspecified. EDMS 22:14 Hugo Mena, CICI is Primary Nurse. jb4 22:39 Allen Felder MD is Referral Physician. helen 23:11 No provider procedures requiring assistance completed. IV discontinued, intact, jb4 bleeding controlled, No redness/swelling at site. Pressure dressing applied. 23:11 Patient has correct armband on for positive identification. Bed in low position. Call jb4 light in reach. Side rails up X 1. Client placed on continuous cardiac and pulse oximetry monitoring. NIBP monitoring applied. animal technician on. Administered Medications: 21:21 Drug: D10 in Water IVP 250 ml Route: IVP; Site: left antecubital; jb4 21:50 Follow up: Response: No adverse reaction; Marked relief of symptoms jb4 21:24 Drug: NS 0.9% IV 1000 ml Route: IV; Rate: 1 bolus; Site: left antecubital; jb4 22:42 Drug: Aspirin PO Chewable Tablet 162 mg Route: PO; kl Outcome: 22:39 Discharge ordered by . helen 23:11 Discharged to home via wheelchair, with family. jb4 23:11 Condition: stable 23:11 Discharge instructions given to patient, Instructed on discharge instructions, follow up and referral plans. Demonstrated understanding of instructions, follow-up care. 23:11 Patient left the ED. jb4 NIH Stroke Scale - NIH Stroke Score Date: 04/18/2023 Time: 21:13 Total Score = 0 10. Dysarthria (speech clarity - read or repeat words) - 0(Normal) 11. Extinction and Inattention (visual/tactile/auditory/spatial/personal) - 0(No abnormality) 1a. Level of Consciousness (LOC) - 0(Alert) 1b. Level of Consciousness (LOC) (Month \T\ Age) - 0(Both) 1c. LOC Commands (Open \T\ Closes Eyes/Truck Technician) - 0(Both) 2. Best Gaze (Lateral Gaze Paresis) - 0(Normal) 3. Visual Field Loss - 0(No visual loss) 4. Facial Palsy - 0(Normal) 5a. Left Arm: Motor (10-second hold) - 0(No drift) 5b. Right Arm: Motor (10-second hold) - 0(No drift) 6a. Left Leg: Motor (5-second hold - always test supine) - 0(No drift) 6b. Right Leg: Motor (5-second hold - always test supine) - 0(No drift) 7. Limb Ataxia (finger/nose \T\ heel/jordan - test with eyes open) - 0(Absent) 8. Sensory Loss (pinprick arms/legs/face) - 0(Normal) 9. Best Language: Aphasia (description/naming/reading) - 0(No aphasia) Initials: helen Signatures: Dispatcher [employer] Joselyn Hester RN RN kl Anderson, Corey, MD MD cha Bryson, James RN RN jb4 Rosette Garland RN RN nj1
[2023-04-18 23:51] VITALS: O2SAT 100
[2023-04-18 23:52] VITALS: BP 188/84
--- NOTE | 2023-04-19 20:37 | EKG ---
Test Date: 2023-04-18 Test Time: 21:16:23 Flight Technician: JOAQUIN MEASUREMENT RESULTS: Intervals: Rate: 62 [place]: 148 QRSD: 92 QT: 466 QTc: 472 [place]: P: 44 [place]: 148 QRS: -9 T: 25 INTERPRETIVE STATEMENTS: Normal sinus rhythm Inferior infarct, age undetermined Abnormal ECG Compared to ECG 02/15/2023 15:48:50 Myocardial infarct finding now present Electronically Signed On 04-19-23 20:32:59 CDT by Esdras Damico
== END 2023-04-18 23:11 | disposition home or self-care (01) ==
LOC: ER 21:03
DX: E11.649 Type 2 diabetes mellitus with hypoglycemia without coma (principal); E11.22 Type 2 diabetes mellitus with diabetic chronic kidney disease; I12.9 Hypertensive chronic kidney disease with stage 1 through stage 4 chronic kidney disease, or unspecified chronic kidney disease; N18.9 Chronic kidney disease, unspecified; Z88.5 Allergy status to narcotic agent; Z79.01 Long term (current) use of anticoagulants; Z86.73 Personal history of transient ischemic attack (TIA), and cerebral infarction without residual deficits
CPT/HCPCS: 85025; 80048; 36415; 83735; 85610; 82947; 80076; 84484; 83880; 70450; 71045; J7030; 93005

== ENCOUNTER → 2023-11-11 | Emergency (ER) | payer OTHER, SELFPAY ==
[~2023-11-11] MED LIST: HYDROCORTISONE SUC 100 MG INJ ONE
[2023-11-11 11:16] LABS: Absolute Lymphocytes (CBC) 1.5 K/uL (0.7-4.9); Hematocrit 31.7 % (36.0-45.0); Lymphocytes % 22.6 % (15.3-44.8); MCV 85.4 fL (80-100); MPV 9.5 fL (7.6-11.3); Platelets 287 thou/uL (152-406); RBC Red Blood Cell Count 3.71 M/uL (3.86-4.86)
[2023-11-11 11:29] LABS: Potassium 3.6 mEq/L (3.5-5.1)
--- NOTE | 2023-11-11 13:31 | EDPHYS ---
Physician Documentation [facility] Name: Janis Henderson Age: 63 yrs Sex: Female : 1960 Arrival Date: 11/11/2023 Time: 10:33 Bed 8 Private MD: ED Physician Arnie Armenta HPI: 11/11 11:18 This 63 yrs old Female presents to ER via EMS with complaints of dizziness, rn low blood sugar. 11:18 The patient presents with dizziness, lightheadedness. Onset: The symptoms/episode rn began/occurred just prior to arrival. Modifying factors: The symptoms are alleviated by Glucose administration, the symptoms are aggravated by nothing. Associated signs and symptoms: Pertinent negatives: abdominal pain, chest pain, diaphoresis, focal weakness, seizure, shortness of breath, syncope. Severity of symptoms: At their worst the symptoms were mild in the emergency department the symptoms have resolved. The patient has experienced similar episodes in the past. Patient reports this morning feeling lightheaded and dizzy, felt like her sugar was low, no syncopal episode. No fever. No vomiting. No chest pain or shortness of breath. Now feels back to normal.. Historical: - Allergies: 10:41 Morphine; ap3 - PMHx: 10:41 Anxiety; chronic neck/back pain; COVID; CVA; speech deficit/mild weakness; Depression; ap3 Diabetes - NIDDM; Hypertension; Hypothyroidism; psoriasis; renal insufficiency; VASCULAR DEMENTIA; - Immunization history:: Client reports receiving the 2nd dose of the Covid vaccine, Flu vaccine is up to date. - Social history:: Smoking status: Patient denies any tobacco usage or history of. - Family history:: not pertinent. - Hospitalizations: : No recent hospitalization is reported. ROS: 11:18 Constitutional: Negative for fever, chills, and weight loss, Neck: Negative for injury, rn pain, and swelling, Cardiovascular: Negative for chest pain, palpitations, and edema, Respiratory: Negative for shortness of breath, cough, wheezing, and pleuritic chest pain, Abdomen/GI: Negative for abdominal pain, nausea, vomiting, diarrhea, and constipation, MS/Extremity: Negative for injury and deformity, Skin: Negative for injury, rash, and discoloration, Neuro: Negative for headache, weakness, numbness, tingling, and seizure, Exam: 11:18 Constitutional: This is a well developed, well nourished patient who is awake, alert, rn and in no acute distress. Head/Face: Normocephalic, atraumatic. ENT: Dry mucous membranes Cardiovascular: Regular rate and rhythm. No pulse deficits. Respiratory: No increased work of breathing, no retractions or nasal flaring. Abdomen/GI: Soft, non-tender Skin: Warm, dry MS/ Extremity: Pulses equal, no cyanosis. Neuro: Awake and alert, GCS 15 13:10 ECG was reviewed by the Attending Physician. rn Vital Signs: 10:38 BP 155 / 101; Pulse 69; Resp 17; Pulse Ox 100% ; Weight 61.23 kg; Pain 0/10; ap3 11:32 BP 165 / 90; Pulse 64; ap3 13:36 BP 175 / 93; Pulse 71; Resp 18; Temp 97.6; Pulse Ox 100% on R/A; Pain 0/10; em1 10:38 Pain Scale: Adult ap3 13:36 Pain Scale: Adult em1 MDM: 10:37 Patient medically screened. rn 13:10 Differential diagnosis: generalized weakness, hypovolemia, idiopathic dizziness, rn near-syncope, Hypoglycemia. Data reviewed: vital signs, nurses notes, lab test result(s), EKG, and as a result, I will discharge patient. 13:26 Counseling: I had a detailed discussion with the patient and/or guardian regarding the rn historical points, exam findings, and any diagnostic results supporting the discharge/admit diagnosis, lab results, the need for outpatient follow up, to return to the emergency department if symptoms worsen or persist or if there are any questions or concerns that arise at home. Response to treatment: the patient's symptoms have markedly improved after treatment, and as a result, I will discharge patient. Special discussion: I discussed with the patient/guardian in detail that at this point there is no indication for admission to the hospital. It is understood, however, that if the symptoms persist or worsen the patient needs to return immediately for re-evaluation. 11/11 10:39 Order name: CBC with Diff; Complete Time: 12:41 rn 11/11 10:39 Order name: Basic Metabolic Panel; Complete Time: 12:41 rn 11/11 13:27 Order name: Glucose, Ancillary Testing EDMS 11/11 10:39 Order name: EKG; Complete Time: 10:39 rn 11/11 10:39 Order name: IV Start; Complete Time: 10:43 rn 11/11 10:39 Order name: EKG - Nurse/Tech; Complete Time: 11:26 rn 11/11 10:39 Order name: Cardiac monitoring; Complete Time: 10:43 rn 11/11 10:39 Order name: PO challenge; Complete Time: 10:46 rn EC:10 Rate is 66 beats/min. Rhythm is regular. QRS [place] is Normal. [place] interval is normal. QRS rn interval is normal. QT interval is normal. No Q waves. T waves are Normal. No ST changes noted. Clinical impression: Normal ECG. Interpreted by me. Reviewed by me. Administered Medications: 13:30 Drug: Solu-CORTEF IVP 50 mg IVP once Route: IVP; Site: right antecubital; nj1 13:45 Follow up: Response: No adverse reaction nj1 Disposition Summary: 11/11/23 13:31 Discharge Ordered Notes: Location: Home rn Problem: new rn Symptoms: have improved rn Condition: Stable rn Diagnosis - Hypoglycemia, unspecified rn Followup: rn - With: Private Physician - When: As needed - Reason: Recheck today's complaints, Re-evaluation by your physician Discharge Instructions: - Discharge Summary Sheet rn - Hypoglycemia rn - Blood Glucose Monitoring, Adult rn Forms: - Medication Reconciliation Form rn - Thank You Letter rn - Antibiotic actuarial internship - Prescription Opioid Use rn - Patient Portal Instructions rn - Leadership Thank You Letter rn Signatures: Dispatcher [employer] Arnie Holcomb MD MD rn Prokisch, Amanda RN RN ap3 Rosette Garland RN RN nj1
--- NOTE | 2023-11-11 13:31 | ER ---
Nurse's Notes [facility] Name: Janis Henderson Age: 63 yrs Sex: Female : 1960 Arrival Date: 11/11/2023 Time: 10:33 Bed 8 Private MD: Diagnosis: Hypoglycemia, unspecified Presentation: 11/11 10:38 Chief complaint: EMS states: the patient called for not feeling well, and felt like her ap3 sugar was low. EMS arrived and reports the patients BGL was 47, EMS established a 22g to the right AC and started administering D10. Patients BGL recheck was 100 after 150ml of the D10. EMS reports symptoms improved upon triage. Coronavirus screen: At this time, the client does not indicate any symptoms associated with coronavirus-19. Ebola Screen: No symptoms or risks identified at this time. Initial Sepsis Screen: Does the patient meet any 2 criteria? No. Patient's initial sepsis screen is negative. Does the patient have a suspected source of infection? No. Patient's initial sepsis screen is negative. Risk Assessment: Do you want to hurt yourself or someone else? Patient reports no desire to harm self or others. Onset of symptoms was November 11, 2023. 10:38 Method Of Arrival: EMS: [facility] ap3 10:38 Acuity: JUANCHO 3 ap3 Triage Assessment: 10:42 General: Appears in no apparent distress. Behavior is calm, cooperative, appropriate ap3 for age, Reports fatigue for. Pain: Denies pain. Neuro: Level of Consciousness is awake, alert, obeys commands, Oriented to person, place, time, situation, Appropriate for age. Cardiovascular: Patient's skin is warm and dry. Respiratory: Airway is patent Respiratory effort is even, unlabored, Respiratory pattern is regular, symmetrical. Historical: - Allergies: 10:41 Morphine; ap3 - PMHx: 10:41 Anxiety; chronic neck/back pain; COVID; CVA; speech deficit/mild weakness; Depression; ap3 Diabetes - NIDDM; Hypertension; Hypothyroidism; psoriasis; renal insufficiency; VASCULAR DEMENTIA; - Immunization history:: Client reports receiving the 2nd dose of the Covid vaccine, Flu vaccine is up to date. - Social history:: Smoking status: Patient denies any tobacco usage or history of. - Family history:: not pertinent. - Hospitalizations: : No recent hospitalization is reported. Screenin:42 [facility] ED Fall Risk Assessment (Adult) History of falling in the last 3 months, ap3 including since admission No falls in past 3 months (0 pts). Abuse screen: Denies threats or abuse. Nutritional screening: No deficits noted. Tuberculosis screening: No symptoms or risk factors identified. Assessment: 11:36 Reassessment: Patient and/or family updated on plan of care and expected duration. Pain ap3 level reassessed. Patient is alert, oriented x 3, equal unlabored respirations, skin warm/dry/pink. 13:20 Reassessment: Patient appears in no apparent distress at this time. Patient and/or nj1 family updated on plan of care and expected duration. Pain level reassessed. Patient is alert, oriented x 3, equal unlabored respirations, skin warm/dry/pink. Pt ready to go. This RN provided education, pt voices understanding. 13:30 Reassessment: Juice given to patient as well as turkey sandwich. nj1 Vital Signs: 10:38 BP 155 / 101; Pulse 69; Resp 17; Pulse Ox 100% ; Weight 61.23 kg; Pain 0/10; ap3 11:32 BP 165 / 90; Pulse 64; ap3 13:36 BP 175 / 93; Pulse 71; Resp 18; Temp 97.6; Pulse Ox 100% on R/A; Pain 0/10; em1 10:38 Pain Scale: Adult ap3 13:36 Pain Scale: Adult em1 ED Course: 10:37 Patient arrived in ED. rn 10:37 Arnie Armenta MD is Attending Physician. rn 10:38 Iris Martel RN is Primary Nurse. ap3 10:41 Triage completed. ap3 10:42 Arm band placed on right wrist. ap3 10:42 Patient has correct armband on for positive identification. Bed in low position. Call ap3 light in reach. Side rails up X2. front desk monitor on. Pulse ox on. NIBP on. 13:45 Provided Education on: discharge instructions. nj1 13:45 IV discontinued, intact, bleeding controlled. nj1 13:45 No provider procedures requiring assistance completed. nj1 Administered Medications: 13:30 Drug: Solu-CORTEF IVP 50 mg IVP once Route: IVP; Site: right antecubital; nj1 13:45 Follow up: Response: No adverse reaction nj1 Medication: 13:45 VIS not applicable for this client. nj1 Outcome: 13:31 Discharge ordered by . rn 13:45 Discharged to home ambulatory, nj1 13:45 Condition: stable 13:45 Discharge instructions given to patient, Instructed on discharge instructions, follow up and referral plans. Demonstrated understanding of instructions, follow-up care, 13:50 Patient left the ED. nj1 Signatures: Arnie Armenta MD MD rn Cory Robles1 Iris Martel RN RN ap3 Rosette Garland RN RN nj1 Corrections: (The following items were deleted from the chart) 13:33 13:30 Reassessment: Patient appears in no apparent distress at this time. Patient nj1 and/or family updated on plan of care and expected duration. Pain level reassessed. Patient is alert, oriented x 3, equal unlabored respirations, skin warm/dry/pink. nj1 14:26 14:26 Patient left the ED. nj1 nj1
[2023-11-11 16:25] VITALS: BP 175/93; TEMP 97.6; O2SAT 100
--- NOTE | 2023-11-14 17:02 | EKG ---
Test Date: 2023-11-11 Test Time: 11:24:43 [employer] Rep: RAHEEL MEASUREMENT RESULTS: Intervals: Rate: 66 NH: 124 QRSD: 84 QT: 460 QTc: 482 [place]: P: 50 NH: 124 QRS: 17 T: 73 INTERPRETIVE STATEMENTS: Normal sinus rhythm Normal ECG Compared to ECG 04/18/2023 21:16:23 Myocardial infarct finding no longer present Electronically Signed On 11-14-23 16:54:26 HOSPITAL UNIT CLERK by Barrie Grossman
== END ==
LOC: ER 10:33
DX: E16.2 Hypoglycemia, unspecified (principal); I10 Essential (primary) hypertension; G89.29 Other chronic pain; E03.9 Hypothyroidism, unspecified; M54.2 Cervicalgia; Z86.73 Personal history of transient ischemic attack (TIA), and cerebral infarction without residual deficits; Z88.5 Allergy status to narcotic agent
CPT/HCPCS: 36415; 80048; 82947; 85025; 93005; 96374; 99284; J1720

== ENCOUNTER 2024-02-18 20:03 | Emergency (ER) | payer OTHER ==
[2024-02-18] MEDS ORDERED: FENTANYL CITR 100 MCG/2 ML ONE (20:56)
[2024-02-18] MEDS ORDERED: NA CHLORIDE 0.9% 1,000 ML ONE (20:56)
[2024-02-18] MEDS ORDERED: ONDANSETRON 4 MG/2 ML VIAL ONE (20:56)
[2024-02-18 21:03] LABS: Absolute Basophils 0.1 K/uL (0-0.5); Absolute Eosinophils 0.3 K/uL (0-0.5); Absolute Lymphocytes (CBC) 2.4 K/uL (0.7-4.9); Absolute Monocytes 0.6 K/uL (0.1-1.3); Absolute Neutrophil 3.8 K/uL (1.8-8.0); Eosinophils % 4.7 % (0-4.4); Hematocrit 28.7 % (36.0-45.0); Hemoglobin 9.6 g/dL (12.0-15.0); Lymphocytes % 32.9 % (15.3-44.8); MCHC 33.4 g/dL (32.0-36.0); MCV 86.7 fL (80-100); MPV 10.1 fL (7.6-11.3); Monocytes % 8.2 % (3.3-12.3); Neutrophils % 53.2 % (41.7-73.7); Platelets 245 thou/uL (152-406); RBC Red Blood Cell Count 3.31 M/uL (3.86-4.86); Red Cell Distribution Width 13.9 % (12.1-15.2)
[2024-02-18 21:20] LABS: Albumin 3.3 g/dL (3.4-5.0); Albumin/Globulin Ratio 0.8 (1.1-1.8); Anion Gap 9.8 mEq/L (5.0-15.0); Bilirubin Total 0.3 mg/dL (0.2-1.0); Globulin 3.9 g/dL (2.3-3.5); Potassium 3.8 mEq/L (3.5-5.1); Protein, Total 7.2 g/dL (6.4-8.2)
--- NOTE | 2024-02-18 21:23 | RAD REPORT ---
EXAM DESCRIPTION: RAD - Shoulder Left 2 View - 02/18/2024 9:16 pm CLINICAL HISTORY: PAIN COMPARISON: Shoulder Left 2 View dated 12/26/2012 FINDINGS: Diffuse osteopenia is seen. No fracture is seen. No dislocation.
--- NOTE | 2024-02-18 21:39 | EDPHYS ---
Physician Documentation [facility] Name: Janis Henderson Age: 63 yrs Sex: Female : 1960 Arrival Date: 02/18/2024 Time: 20:03 Bed 20 Private MD: ED Physician Edward Horan HPI: 02/17 20:33 This 63 yrs old Female presents to ER via Wheelchair with complaints of Fall helen Injury, Shoulder Pain. 20:33 Details of fall: The patient fell from an upright position, while walking. Onset: The helen symptoms/episode began/occurred just prior to arrival. Associated injuries: The patient sustained anterior aspect of left shoulder and posterior aspect of left shoulder, decreased range of motion, painful injury. Severity of symptoms: At their worst the symptoms were mild, moderate, in the emergency department the symptoms are unchanged. The patient has not experienced similar symptoms in the past. Historical: - Allergies: 20:23 Morphine; pf1 - PMHx: 20:23 Anxiety; chronic neck/back pain; COVID; CVA; speech deficit/mild weakness; Depression; pf1 Diabetes - NIDDM; Hypertension; Hypothyroidism; psoriasis; renal insufficiency; VASCULAR DEMENTIA; - PSHx: 20:23 Appendectomy; section; Cholecystectomy; pf1 - Immunization history:: Adult Immunizations up to date, Client reports receiving the 2nd dose of the Covid vaccine, Moderna Last tetanus immunization: < 5 years ago Flu vaccine is not up to date. - Infectious Disease History:: Denies. - Social history:: Smoking status: Patient denies any tobacco usage or history of. Patient uses alcohol, but reports only rare drinking. street drugs, cocaine. ROS: 20:34 Constitutional: Negative for fever, chills, and weight loss, Eyes: Negative for injury, helen pain, redness, and discharge, ENT: Negative for injury, pain, and discharge, Neck: Negative for injury, pain, and swelling, Cardiovascular: Negative for chest pain, palpitations, and edema, Respiratory: Negative for shortness of breath, cough, wheezing, and pleuritic chest pain, Abdomen/GI: Negative for abdominal pain, nausea, vomiting, diarrhea, and constipation, Back: Negative for injury and pain, : Negative for injury, bleeding, discharge, and swelling, Skin: Negative for injury, rash, and discoloration, Neuro: Negative for headache, weakness, numbness, tingling, and seizure, Psych: Negative for depression, anxiety, suicide ideation, homicidal ideation, and hallucinations, Allergy/Immunology: Negative for hives, rash, and allergies, Endocrine: Negative for neck swelling, polydipsia, polyuria, polyphagia, and marked weight changes, 20:34 MS/extremity: Positive for injury or acute deformity, decreased range of motion, pain, tenderness, Exam: 20:34 Constitutional: This is a well developed, well nourished patient who is awake, alert, helen and in no acute distress. Head/Face: Normocephalic, atraumatic. Eyes: Pupils equal round and reactive to light, extra-ocular motions intact. Lids and lashes normal. Conjunctiva and sclera are non-icteric and not injected. Cornea within normal limits. Periorbital areas with no swelling, redness, or edema. ENT: Nares patent. No nasal discharge, no septal abnormalities noted. Tympanic membranes are normal and external auditory canals are clear. Oropharynx with no redness, swelling, or masses, exudates, or evidence of obstruction, uvula midline. Mucous membranes moist. Neck: Trachea midline, no thyromegaly or masses palpated, and no cervical lymphadenopathy. Supple, full range of motion without nuchal rigidity, or vertebral point tenderness. No Meningismus. Chest/axilla: Normal chest wall appearance and motion. Nontender with no deformity. No lesions are appreciated. Cardiovascular: Regular rate and rhythm with a normal S1 and S2. No gallops, murmurs, or rubs. Normal PMI, no JVD. No pulse deficits. Respiratory: Lungs have equal breath sounds bilaterally, clear to auscultation and percussion. No rales, rhonchi or wheezes noted. No increased work of breathing, no retractions or nasal flaring. Abdomen/GI: Soft, non-tender, with normal bowel sounds. No distension or tympany. No guarding or rebound. No evidence of tenderness throughout. Back: No spinal tenderness. No costovertebral tenderness. Full range of motion. Female : Normal external genitalia. Skin: Warm, dry with normal turgor. Normal color with no rashes, no lesions, and no evidence of cellulitis. Neuro: Awake and alert, GCS 15, oriented to person, place, time, and situation. Cranial nerves II-XII grossly intact. Motor strength 5/5 in all extremities. Sensory grossly intact. Cerebellar exam normal. Normal gait. Psych: Awake, alert, with orientation to person, place and time. Behavior, mood, and affect are within normal limits. 20:34 Musculoskeletal/extremity: ROM: Circulation is intact in all extremities. Compartment Syndrome exam of affected extremity: is normal. Vital Signs: 20:20 BP 183 / 76; Pulse 69; Resp 16; Temp 97.3; Pulse Ox 100% on R/A; Weight 73.48 kg; pf1 Height 5 ft. 5 in. ; Pain 8/10; 21:14 BP 179 / 75; Pulse 70; Resp 17 S; Pulse Ox 100% on R/A; jw7 21:44 BP 190 / 99; Pulse 64; Resp 17 S; Pulse Ox 99% on R/A; jw7 20:20 Body Mass Index 26.96 (73.48 kg, 165.1 cm) pf1 20:20 Pain Scale: Adult pf1 MDM: 20:07 Patient medically screened. [facility] 20:35 Differential diagnosis: abrasion, closed head injury, contusion, fracture, multiple helen trauma, sprain, strain. Data reviewed: vital signs, nurses notes, lab test result(s), radiologic studies, CT scan, plain films. Consideration of Admission/Observation Escalation of care including admission/observation considered. I considered the following discharge prescriptions or medication management in the emergency department Medications were administered in the Emergency Department. See MAR. Test considered but Not performed: CT: no ct c/a/p. 02/17 20:33 Order name: CBC with Diff; Complete Time: 21:18 [facility] 02/17 20:33 Order name: Comprehensive Metabolic Panel; Complete Time: 21:36 [facility] 02/17 20:33 Order name: CT Head C Spine [facility] 02/17 20:33 Order name: Shoulder Left (2 View) XRAY; Complete Time: 21:36 [facility] 02/17 20:33 Order name: Shoulder Immobilizer; Complete Time: 21:15 [facility] 02/17 20:33 Order name: Ice pack; Complete Time: 21:15 [facility] Administered Medications: 21:00 Drug: NS 0.9% IV 1000 ml IV at 1 bolus Per protocol; 1000 mL bolus Route: IV; Rate: 1 jw7 bolus; Site: right antecubital; 22:00 Follow up: Response: No adverse reaction; IV Status: Completed infusion; IV Intake: jw7 1000ml 21:00 Drug: fentaNYL (PF) IVP 50 mcg IVP once Route: IVP; Site: right antecubital; jw7 21:45 Follow up: Response: No adverse reaction; Marked relief of symptoms; Pain is decreased jw7 21:00 Drug: Ondansetron IVP 4 mg IVP once; over 2 minutes Route: IVP; Site: right antecubital;jw7 21:45 Follow up: Response: No adverse reaction; Marked relief of symptoms; Nausea is decreasedjw7 Disposition Summary: 02/18/24 21:39 Discharge Ordered Notes: Location: Home helen Problem: new helen Symptoms: have improved helen Condition: Stable helen Diagnosis - Fall on same level, unspecified helen - Contusion of left shoulder helen - Unspecified kidney failure - chronic helen Followup: helen - With: Private Physician - When: 2 - 3 days - Reason: Recheck today's complaints, Re-evaluation by your physician Followup: helen - With: Jaycob Salazar MD - When: 2 - 3 days - Reason: Recheck today's complaints, Re-evaluation by your physician Discharge Instructions: - Discharge Summary Sheet helen - Fall Prevention in the Home, Adult helen - Shoulder Pain helen - Shoulder Pain, [id number] helen - Fall Prevention in the Home, Adult, [id number] helen - Chronic Kidney Disease, Adult, [id number]-[id number] helen Forms: - Medication Reconciliation Form helen - Antibiotic Education helen - Prescription Opioid Use helen - Patient Portal Instructions [facility] - Leadership Thank You Letter [facility] Prescriptions: - acetaminophen-codeine 300-30 mg Oral tablet - take 2 tablet ORAL route every 6 hours as needed for pain; 18 tablet; Refills: helen 0, Product Selection Permitted Signatures: Dispatcher [employer] Edward Oliva MD MD cha Waits, Jodi RN RN jw7 Nikki Zamora RN RN pf1 Corrections: (The following items were deleted from the chart) 20:33 20:33 Shoulder Left 2 View+RAD.[email or web address] ordered. EDMS EDMS
--- NOTE | 2024-02-18 21:39 | ER ---
Nurse's Notes [facility] Name: Janis Henderson Age: 63 yrs Sex: Female : 1960 Arrival Date: 02/18/2024 Time: 20:03 Bed 20 Private MD: Diagnosis: Fall on same level, unspecified;Contusion of left shoulder;Unspecified kidney failure-chronic Presentation: 02/17 20:20 Chief complaint: Patient states: fall with left shoulder pain and left upper arm pain pf1 of 8,onset 1 hour ago. Patient stated loss her balance and fell in the drive way. Patient denies any head injury of loss of consciousness. Coronavirus screen: Vaccine status: Patient reports receiving the 2nd dose of the covid vaccine. Client denies travel out of the [place] in the last 14 days. At this time, the client does not indicate any symptoms associated with coronavirus-19. Ebola Screen: Patient negative for fever greater than or equal to 101.5 degrees Fahrenheit, and additional compatible Ebola Virus Disease symptoms. Initial Sepsis Screen: Does the patient meet any 2 criteria? No. Patient's initial sepsis screen is negative. Does the patient have a suspected source of infection? No. Patient's initial sepsis screen is negative. Risk Assessment: Do you want to hurt yourself or someone else? Patient reports no desire to harm self or others. Onset of symptoms was February 18, 2024 at 19:30. 20:20 Method Of Arrival: Wheelchair pf1 20:20 Acuity: JUANCHO 3 pf1 Triage Assessment: 20:24 General: Appears in no apparent distress. uncomfortable, well groomed, well developed, pf1 Behavior is calm, cooperative, appropriate for age, quiet. Pain: Complains of pain in left arm and left shoulder. Historical: - Allergies: 20:23 Morphine; pf1 - PMHx: 20:23 Anxiety; chronic neck/back pain; COVID; CVA; speech deficit/mild weakness; Depression; pf1 Diabetes - NIDDM; Hypertension; Hypothyroidism; psoriasis; renal insufficiency; VASCULAR DEMENTIA; - PSHx: 20:23 Appendectomy; section; Cholecystectomy; pf1 - Immunization history:: Adult Immunizations up to date, Client reports receiving the 2nd dose of the Covid vaccine, Moderna Last tetanus immunization: < 5 years ago Flu vaccine is not up to date. - Infectious Disease History:: Denies. - Social history:: Smoking status: Patient denies any tobacco usage or history of. Patient uses alcohol, but reports only rare drinking. street drugs, cocaine. Screenin:30 [facility] ED Fall Risk Assessment (Adult) History of falling in the last 3 months, jw7 including since admission Yes- single mechanical fall (1 pt) Confusion or Disorientation No (0 pts) Intoxicated or Sedated No (0 pts) Impaired Gait No (0 pts) Mobility Assist Device Used No (0 pt) Altered Elimination No (0 pt) Score/Fall Risk Level 0 - 2 = Low Risk Oriented to surroundings, Maintained a safe environment, Educated pt \T\ family on fall prevention, incl call for assistance when getting out of bed. Abuse screen: Denies threats or abuse. Denies injuries from another. Nutritional screening: No deficits noted. Tuberculosis screening: No symptoms or risk factors identified. Assessment: 20:30 General: Appears in no apparent distress. uncomfortable, Behavior is calm, cooperative, jw7 appropriate for age. Pain: Complains of pain in left arm, left shoulder Pain does not radiate. Pain currently is 8 out of 10 on a pain scale. Quality of pain is described as sharp, stabbing, Pain began suddenly, Is continuous. 20:30 Neuro: Level of Consciousness is awake, alert, obeys commands, Oriented to person, jw7 place, time, situation, Appropriate for age. Cardiovascular: Heart tones S1 S2 present Capillary refill < 3 seconds Clubbing of nail beds is absent JVD is absent Patient's skin is warm and dry. Respiratory: Airway is patent Trachea midline Respiratory effort is even, unlabored, Respiratory pattern is regular, symmetrical. GI: No signs and/or symptoms were reported involving the gastrointestinal system. Abdomen is round non-distended, Bowel sounds present X 4 quads. Abd is soft and non tender X 4 quads. : No deficits noted. No signs and/or symptoms were reported regarding the genitourinary system. EENT: No deficits noted. No signs and/or symptoms were reported regarding the EENT system. Derm: Skin is intact, is healthy with good turgor, Skin is dry, Skin is normal, Skin temperature is warm. Musculoskeletal: Circulation, motion, and sensation intact. Range of motion: limited in left shoulder. 21:40 Reassessment: Patient appears in no apparent distress at this time. Patient and/or jw7 family updated on plan of care and expected duration. Pain level reassessed. Patient is alert, oriented x 3, equal unlabored respirations, skin warm/dry/pink. Patient states symptoms have improved. Vital Signs: 20:20 BP 183 / 76; Pulse 69; Resp 16; Temp 97.3; Pulse Ox 100% on R/A; Weight 73.48 kg; pf1 Height 5 ft. 5 in. ; Pain 8/10; 21:14 BP 179 / 75; Pulse 70; Resp 17 S; Pulse Ox 100% on R/A; jw7 21:44 BP 190 / 99; Pulse 64; Resp 17 S; Pulse Ox 99% on R/A; jw7 20:20 Body Mass Index 26.96 (73.48 kg, 165.1 cm) pf1 20:20 Pain Scale: Adult pf1 ED Course: 20:07 Patient arrived in ED. ra3 20:07 Edward Horan MD is Attending Physician. helen 20:13 Amara George, CICI is Primary Nurse. jw7 20:22 Triage completed. pf1 20:30 Patient has correct armband on for positive identification. Bed in low position. Call jw7 light in reach. Side rails up X2. Provided Education on: Use of Call Light. 20:30 Arm band placed on. jw7 20:40 Initial lab(s) drawn, by [place], sent to lab. Inserted saline lock: 22 gauge in right jw7 antecubital area, using aseptic technique. Blood collected. 20:44 Comprehensive Metabolic Panel Sent. jw7 20:44 CBC with Diff Sent. jw7 21:18 Shoulder Left (2 View) XRAY In Process Unspecified. EDMS 21:38 CT Head C Spine In Process Unspecified. EDMS 21:38 Jaycob Salazar MD is Referral Physician. [facility] 21:44 No provider procedures requiring assistance completed. jw7 22:01 IV discontinued, intact, bleeding controlled, No redness/swelling at site. Pressure jw7 dressing applied. Administered Medications: 21:00 Drug: NS 0.9% IV 1000 ml IV at 1 bolus Per protocol; 1000 mL bolus Route: IV; Rate: 1 jw7 bolus; Site: right antecubital; 22:00 Follow up: Response: No adverse reaction; IV Status: Completed infusion; IV Intake: jw7 1000ml 21:00 Drug: fentaNYL (PF) IVP 50 mcg IVP once Route: IVP; Site: right antecubital; jw7 21:45 Follow up: Response: No adverse reaction; Marked relief of symptoms; Pain is decreased jw7 21:00 Drug: Ondansetron IVP 4 mg IVP once; over 2 minutes Route: IVP; Site: right antecubital;jw7 21:45 Follow up: Response: No adverse reaction; Marked relief of symptoms; Nausea is decreasedjw7 Medication: 21:44 VIS not applicable for this client. jw7 Intake: 22:00 IV: 1000ml; Total: 1000ml. jw7 Outcome: 21:39 Discharge ordered by . helen 22:01 Discharged to home via wheelchair, jwGarland 22:01 Condition: stable 22:01 Discharge instructions given to patient, Instructed on discharge instructions, follow up and referral plans. medication usage, Demonstrated understanding of instructions, follow-up care, medications, Prescriptions given X 1, :01 Patient left the ED. jw7 Signatures: Dispatcher [employer] EDEdward Wallace MD MD cha Waits, Jodi RN RN jw7 Nikki Zamora RN RN [email or web address] Vane Chavez 3
--- NOTE | 2024-02-18 21:49 | RAD REPORT ---
EXAM DESCRIPTION: CT - [id number] - 02/18/2024 9:37 pm CLINICAL HISTORY: Trauma, head and neck injury. PAIN COMPARISON: Head C Spine Mpr Wo Con dated 05/30/2020 TECHNIQUE: Axial 5 mm thick images of the head were obtained. Axial 2 mm thick images of the cervical spine were obtained with sagittal and coronal reconstruction images generated and reviewed. All CT scans are performed using dose optimization technique as appropriate and may include automated exposure control or mA/KV adjustment according to patient size. FINDINGS: CT HEAD WITHOUT CONTRAST: No acute hemorrhage, hydrocephalus or extra-axial collection is identified.Mild generalized brain atr ophy is present with mild periventricular and deep white matter chronic microvascular ischemic change s.No areas of brain edema or midline shift. Vertebral atherosclerosis. The paranasal sinuses and mastoids are clear.The calvarium is intact. CT CERVICAL SPINE WITHOUT CONTRAST: No fracture or subluxation.Mild lower cervical degenerative changes.No prevertebral soft tissues swel ling is identified. IMPRESSION: No acute intracranial or cervical spine findings.
[2024-02-18 22:19] VITALS: BP 190/99; TEMP 97.3; O2SAT 99
== END 2024-02-18 22:01 | disposition home or self-care (01) ==
LOC: ER 20:03
DX: S40.012A Contusion of left shoulder, initial encounter (principal); E11.22 Type 2 diabetes mellitus with diabetic chronic kidney disease; I12.9 Hypertensive chronic kidney disease with stage 1 through stage 4 chronic kidney disease, or unspecified chronic kidney disease; N18.9 Chronic kidney disease, unspecified; W18.30XA Fall on same level, unspecified, initial encounter; F03.90 Unspecified dementia, unspecified severity, without behavioral disturbance, psychotic disturbance, mood disturbance, and anxiety; Z88.5 Allergy status to narcotic agent
CPT/HCPCS: 85025; 36415; 80053; 70450; 72125; 73030; J3010; J2405; J7030

== ENCOUNTER 2024-08-03 18:05 | Emergency (ER) | payer OTHER ==
[2024-08-03] MEDS ORDERED: LACTULOSE 20 GM/30 ML UCUP ONE (19:08)
[2024-08-03 19:19] LABS: Absolute Basophils 0.2 K/uL (0-0.5); Absolute Eosinophils 0.2 K/uL (0-0.5); Absolute Monocytes 0.3 K/uL (0.1-1.3); Absolute Neutrophil 5.6 K/uL (1.8-8.0); Basophils % 1.8 % (0-1.3); Eosinophils % 2.5 % (0-4.4); Hematocrit 34.1 % (36.0-45.0); Hemoglobin 11.6 g/dL (12.0-15.0); Lymphocytes % 23.7 % (15.3-44.8); MCH 29.5 pg (27.0-35.0); MCV 86.7 fL (80-100); MPV 9.4 fL (7.6-11.3); Monocytes % 4.1 % (3.3-12.3); Neutrophils % 67.9 % (41.7-73.7); Platelets 286 thou/uL (152-406); RBC Red Blood Cell Count 3.93 M/uL (3.86-4.86); Red Cell Distribution Width 13.6 % (12.1-15.2)
[2024-08-03 19:34] LABS: AST/SGOT 11 U/L (15-37); Albumin 3.8 g/dL (3.4-5.0); Alkaline Phosphatase 94 U/L (45-117); Anion Gap 11.9 mEq/L (5.0-15.0); BUN Blood Urea Nitrogen 50 mg/dL (7-18); Bicarbonate 24 mEq/L (21-32); Bilirubin Total 0.3 mg/dL (0.2-1.0); Globulin 3.9 g/dL (2.3-3.5); Glomerular Filtration Rate 13 ml/min (=/>90); Glucose Level 178 mg/dL (74-106); Lipase 43 U/L (13-75); Potassium 3.9 mEq/L (3.5-5.1); Protein, Total 7.7 g/dL (6.4-8.2); Sodium Level 140 mEq/L (136-145)
[2024-08-03 19:35] LABS: ALT/SGPT < 14 U/L (13-56)
--- NOTE | 2024-08-03 20:18 | RAD REPORT ---
EXAMINATION: CT ABDOMEN AND PELVIS WITHOUT CONTRAST CLINICAL INDICATION: Abdominal pain. Constipation TECHNIQUE: CT abdomen and pelvis was performed, as per department protocol. IV contrast and oral was not administered.Axial, sagittal and coronal reconstructions were obtained. One or more of the following dose reduction techniques were used: Automated exposure control, adjustment of the mA and/o r kV according to the patient size, and/or iterative reconstruction. Unless otherwise specified, incidental findings do not require dedicated imaging follow-up. [id number]. COMPARISON: 2014 FINDINGS: The lack of intravenous and contrast limits the sensitivity of this exam for evaluation of solid visc eral organs, vascular structures, and bowel. The liver, pancreas, adrenals and kidneys appear grossly normal Cholecystectomy Splenic granulomata. No evidence of diverticulitis. The rectum is distended with stool measuring 8 cm.. Large amount stool is present No adnexal mass. Moderate periumbilical hernia contains fat Prominent vascular calcifications IMPRESSION: Rectal distention may indicate a fecal impaction
[2024-08-03] MEDS ORDERED: FLEET ENEMA ADULT PR ONE (22:52)
[2024-08-03] MEDS ORDERED: ONDANSETRON 4 MG/2 ML VIAL ONE (23:24)
[2024-08-03] MEDS ORDERED: METOCLOPRAMIDE 10 MG/2mL INJ ONE (23:55)
--- NOTE | 2024-08-04 00:49 | ER ---
Nurse's Notes [facility] Name: Janis Henderson Age: 64 yrs Sex: Female : 1960 Arrival Date: 08/03/2024 Time: 18:05 Bed 8 Private MD: Diagnosis: Fecal impaction;Slow transit constipation Presentation: 08/03 18:08 Chief complaint: EMS states: the patient has been having constipation for approx 1 ap3 week, and is also complaining of a headache. Coronavirus screen: At this time, the client does not indicate any symptoms associated with coronavirus-19. Ebola Screen: No symptoms or risks identified at this time. Initial Sepsis Screen: Does the patient meet any 2 criteria? No. Patient's initial sepsis screen is negative. Does the patient have a suspected source of infection? No. Patient's initial sepsis screen is negative. Risk Assessment: Do you want to hurt yourself or someone else? Patient reports no desire to harm self or others. Onset of symptoms is unknown. Care prior to arrival: Medication(s) given: labetalol 10mg IV X's 1 IV initiated. 20 GA, in the right forearm. 18:08 Method Of Arrival: [facility] [place]3 18:08 Acuity: JUANCHO 3 ap3 Triage Assessment: 18:11 General: Appears in no apparent distress. Behavior is calm, cooperative, appropriate ap3 for age. Pain: Complains of pain in abdomen Pain currently is 5 out of 10 on a pain scale. Neuro: Level of Consciousness is awake, alert, obeys commands, Oriented to person, place, time, situation, Appropriate for age. Cardiovascular: Patient's skin is warm and dry. Respiratory: Airway is patent Respiratory effort is even, unlabored, Respiratory pattern is regular, symmetrical. GI: Reports constipation. Historical: - Allergies: 18:10 Morphine; ap3 - PMHx: 18:10 Anxiety; chronic neck/back pain; COVID; CVA; speech deficit/mild weakness; Depression; ap3 Diabetes - NIDDM; Hypertension; Hypothyroidism; psoriasis; renal insufficiency; VASCULAR DEMENTIA; - Immunization history:: Adult Immunizations unknown. - Infectious Disease History:: Denies. - Social history:: Smoking status: Patient denies any tobacco usage or history of. - Family history:: not pertinent. Screenin:12 [facility] ED Fall Risk Assessment (Adult) History of falling in the last 3 months, ap3 including since admission No falls in past 3 months (0 pts) Confusion or Disorientation No (0 pts) Intoxicated or Sedated No (0 pts) Impaired Gait No (0 pts) Mobility Assist Device Used No (0 pt) Altered Elimination No (0 pt) Score/Fall Risk Level 0 - 2 = Low Risk Oriented to surroundings, Maintained a safe environment, Educated pt \T\ family on fall prevention, incl call for assistance when getting out of bed, Assessed \T\ reinforced patient's understanding of fall precautions, Hourly rounding (assess needs \T\ fall precautionary measures) done, Used ambulatory aids as needed (educated on \T\ assisted with), Used gait belt as appropriate. Abuse screen: Denies threats or abuse. Nutritional screening: No deficits noted. Tuberculosis screening: No symptoms or risk factors identified. Assessment: 20:44 Reassessment: Patient appears in no apparent distress at this time. No changes from vc1 previously documented assessment. Patient and/or family updated on plan of care and expected duration. Pain level reassessed. Patient is alert, oriented x 3, equal unlabored respirations, skin warm/dry/pink. 22:12 Reassessment: Patient appears in no apparent distress at this time. No changes from vc1 previously documented assessment. Patient and/or family updated on plan of care and expected duration. Pain level reassessed. Patient is alert, oriented x 3, equal unlabored respirations, skin warm/dry/pink. 08/04 00:50 Reassessment: Patient and/or family updated on plan of care and expected duration. Pain ha1 level reassessed. Patient is alert, oriented x 3, equal unlabored respirations, skin warm/dry/pink. 01:10 Reassessment: REPORTS LARGE BOWEL MOVEMENT Patient states symptoms have not improved. ha1 Vital Signs: 08/03 18:08 BP 166 / 87; Pulse 67; Resp 17; Temp 98.3; Pulse Ox 98% on R/A; Weight 72.57 kg; Pain ap3 5/10; 19:16 BP 146 / 71; Pulse 76; Resp 16; Pulse Ox 100% ; Pain 0/10; dd2 20:43 BP 164 / 79; Pulse 72; Resp 16; Pulse Ox 100% ; vc1 22:12 BP 164 / 92; Pulse 64; Resp 16; Pulse Ox 100% ; vc1 18:08 Pain Scale: Adult ap3 19:16 Pain Scale: Adult dd2 ED Course: 18:08 Patient arrived in ED. ap3 18:08 Vinicio Su MD is Attending Physician. rt 18:10 Triage completed. ap3 18:12 Arm band placed on right wrist. ap3 19:00 Patient has correct armband on for positive identification. Placed in gown. Bed in low ha1 position. Call light in reach. Side rails up X 1. 19:05 WIL YIP, RN is Primary Nurse. dd2 19:11 CBC with Diff Sent. dd2 19:11 CMP Sent. dd2 19:11 Lipase Sent. dd2 19:11 Initial lab(s) drawn, by ED staff, sent to lab. Inserted saline lock: 20 gauge in right dd2 antecubital area, using aseptic technique. Blood collected. Flushed with 10 mL NS. 19:22 Family called regarding update, call transferred to nurse. ty 20:03 Abdomen In Process Unspecified. EDMS 20:19 Attending Physician role handed off by Vinicio Su MD sp4 20:19 Jason Crisostomo MD is Attending Physician. sp4 23:40 Door closed. Noise minimized. Warm blanket given. Pillow given. Assisted to bedside ha1 commode. Cleaned of incontinence. 08/04 00:48 Hector Terrell DO is Referral Physician. sp4 01:15 No provider procedures requiring assistance completed. IV discontinued, intact, ha1 bleeding controlled, No redness/swelling at site. Pressure dressing applied. 01:18 Provided Education on: MEDICATION ADMINISTRATION . ha1 Administered Medications: 08/03 19:11 Drug: Lactulose PO 30 grams 45 ml PO once Volume: 45 ml; Route: PO; dd2 19:41 Follow up: Response: No adverse reaction dd2 23:02 Drug: Fleet Enema MT 133 ml MT once Route: MT; dd2 08/04 00:00 Follow up: Response: No adverse reaction; Marked relief of symptoms ha1 08/03 23:02 Drug: Fleet Enema MT 133 ml MT once Route: MT; dd2 08/04 00:00 Follow up: Response: No adverse reaction; Marked relief of symptoms ha1 08/03 23:29 Drug: Ondansetron IVP 4 mg IVP once; over 2 minutes Route: IVP; Site: right forearm; dd2 08/04 00:30 Follow up: Response: No adverse reaction; Marked relief of symptoms ha1 00:00 Drug: metoCLOPramide IVP 10 mg IVP once; over 1 to 2 minutes Route: IVP; Site: right dd2 forearm; 00:00 Follow up: Response: No adverse reaction ha1 Medication: 01:18 VIS not applicable for this client. ha1 Outcome: 00:48 Discharge ordered by . sp4 01:15 Discharged to home via wheelchair, with family, ha1 01:15 Condition: stable 01:15 Discharge instructions given to patient, family, Instructed on discharge instructions, follow up and referral plans. medication usage, Demonstrated understanding of instructions, follow-up care, medications, Prescriptions given X 1, 01:19 Patient left the ED. ha1 Signatures: Dispatcher [employer] EDIris Ordoñez RN RN ap3 Becky Burch RN RN vc1 Isabella Chwo RN RN ha1 Vinicio Su MD MD rt Potepalov, Sergey, MD MD sp4 Julio Guadalupe DIANA, RN RN dd2
--- NOTE | 2024-08-04 00:49 | EDPHYS ---
Physician Documentation [facility] Name: Janis Henderson Age: 64 yrs Sex: Female : 1960 Arrival Date: 08/03/2024 Time: 18:05 Bed 8 Private MD: ED Physician Jason Crisostomo HPI: 08/03 19:06 This 64 yrs old Female presents to ER via EMS with complaints of Constipation. rt 19:06 Patient presents to the ED with constipation. Reportedly has not had a bowel movement rt for 1 week. Denies abdominal pain currently. Denies other acute complaints, symptoms are moderate in severity, no other aggravating or alleviating factors.. Historical: - Allergies: 18:10 Morphine; ap3 - PMHx: 18:10 Anxiety; chronic neck/back pain; COVID; CVA; speech deficit/mild weakness; Depression; ap3 Diabetes - NIDDM; Hypertension; Hypothyroidism; psoriasis; renal insufficiency; VASCULAR DEMENTIA; - Immunization history:: Adult Immunizations unknown. - Infectious Disease History:: Denies. - Social history:: Smoking status: Patient denies any tobacco usage or history of. - Family history:: not pertinent. ROS: 19:06 Constitutional: Negative for fever, chills, and weight loss, Cardiovascular: Negative rt for chest pain, palpitations, and edema, Respiratory: Negative for shortness of breath, cough, wheezing, and pleuritic chest pain, MS/Extremity: Negative for injury and deformity, Skin: Negative for injury, rash, and discoloration, Neuro: Negative for headache, weakness, numbness, tingling, and seizure, 19:06 Abdomen/GI: Positive for constipation, Negative for abdominal pain, Exam: 19:06 Constitutional: This is a well developed, well nourished patient who is awake, alert, rt and in no acute distress. Head/Face: Normocephalic, atraumatic. Chest/axilla: Normal chest wall appearance and motion. Nontender with no deformity. No lesions are appreciated. Cardiovascular: Regular rate and rhythm with a normal S1 and S2. No gallops, murmurs, or rubs. Normal PMI, no JVD. No pulse deficits. Respiratory: Lungs have equal breath sounds bilaterally, clear to auscultation and percussion. No rales, rhonchi or wheezes noted. No increased work of breathing, no retractions or nasal flaring. Abdomen/GI: Soft, non-tender, with normal bowel sounds. No distension or tympany. No guarding or rebound. No evidence of tenderness throughout. Skin: Warm, dry with normal turgor. Normal color with no rashes, no lesions, and no evidence of cellulitis. MS/ Extremity: Pulses equal, no cyanosis. Neurovascular intact. Full, normal range of motion. Neuro: Awake and alert, GCS 15, oriented to person, place, time, and situation. Cranial nerves II-XII grossly intact. Motor strength 5/5 in all extremities. Sensory grossly intact. Cerebellar exam normal. Normal gait. Vital Signs: 18:08 BP 166 / 87; Pulse 67; Resp 17; Temp 98.3; Pulse Ox 98% on R/A; Weight 72.57 kg; Pain ap3 5/10; 19:16 BP 146 / 71; Pulse 76; Resp 16; Pulse Ox 100% ; Pain 0/10; dd2 20:43 BP 164 / 79; Pulse 72; Resp 16; Pulse Ox 100% ; vc1 22:12 BP 164 / 92; Pulse 64; Resp 16; Pulse Ox 100% ; vc1 18:08 Pain Scale: Adult ap3 19:16 Pain Scale: Adult dd2 Procedures: 08/04 00:49 Fecal disimpaction: digital disimpaction was performed, with a large amount of stool sp4 expressed. The patient tolerated the intervention well, Fleet enemas given for additional bowel cleanse . MDM: 08/03 18:08 Patient medically screened. rt 08/04 00:50 Differential Diagnosis altered mental status, sepsis, flu, Obstipation . Data reviewed: sp4 vital signs, nurses notes, lab test result(s), radiologic studies, CT scan. Consideration of Admission/Observation Escalation of care including admission/observation considered. ED course: Stable for discharge home. 08/03 18:28 Order name: CBC with Diff; Complete Time: 19:39 rt 08/03 18:28 Order name: CMP; Complete Time: 19:39 rt 08/03 18:28 Order name: Lipase; Complete Time: 19:39 rt 08/03 20:00 Order name: Abdomen ; Complete Time: 21:51 EDMS 08/03 18:28 Order name: IV Saline Lock; Complete Time: 19:11 rt 08/03 18:28 Order name: Labs collected and sent; Complete Time: 19:11 rt Administered Medications: 08/03 19:11 Drug: Lactulose PO 30 grams 45 ml PO once Volume: 45 ml; Route: PO; dd2 19:41 Follow up: Response: No adverse reaction dd2 23:02 Drug: Fleet Enema NH 133 ml NH once Route: NH; dd2 08/04 00:00 Follow up: Response: No adverse reaction; Marked relief of symptoms ha1 08/03 23:02 Drug: Fleet Enema NH 133 ml NH once Route: NH; dd2 08/04 00:00 Follow up: Response: No adverse reaction; Marked relief of symptoms ha1 08/03 23:29 Drug: Ondansetron IVP 4 mg IVP once; over 2 minutes Route: IVP; Site: right forearm; dd2 08/04 00:30 Follow up: Response: No adverse reaction; Marked relief of symptoms ha1 00:00 Drug: metoCLOPramide IVP 10 mg IVP once; over 1 to 2 minutes Route: IVP; Site: right dd2 forearm; 00:00 Follow up: Response: No adverse reaction ha1 Disposition Summary: 08/04/24 00:48 Discharge Ordered Notes: Location: Home sp4 Problem: new sp4 Symptoms: have improved sp4 Condition: Stable sp4 Diagnosis - Fecal impaction sp4 - Slow transit constipation sp4 Followup: sp4 - With: Hector Terrell DO - When: 7 - 10 days - Reason: Recheck today's complaints Discharge Instructions: - Discharge Summary Sheet sp4 - Constipation, Adult, [id number] sp4 Forms: - Patient Portal Instructions sp4 Prescriptions: - Dulcolax (bisacodyl) 5 mg Oral tablet, delayed release (enteric coated) - take 2 tablet ORAL route every morning PRN constipation; 60 tablet; Refills: 0, sp4 Product Selection Permitted Signatures: Dispatcher [employer] Iris Frazier RN RN ap3 Isabella Chow RN RN ha1 Vinicio Su MD MD rt Jason Crisostomo MD MD sp4 WIL YIP RN RN dd2 Corrections: (The following items were deleted from the chart) 08/03 18:28 18:28 CBC+H.LAB.BRZ ordered. EDMS EDMS 18: 18:28 COMPREHENSIVE METABOLIC PANEL+C.LAB.BRZ ordered. EDMS EDMS 18: 18:28 LIPASE+C.LAB.BRZ ordered. EDMS EDMS 20:00 18:28 Abdomen Pelvis W Con+CT.RAD.BRZ ordered. EDMS EDMS
[2024-08-04 05:56] VITALS: TEMP 98.3
[2024-08-04 05:58] VITALS: O2SAT 100
[2024-08-04 06:00] VITALS: BP 164/92
== END 2024-08-04 01:19 | disposition home or self-care (01) ==
LOC: ER 18:05
DX: K56.41 Fecal impaction (principal)
CPT/HCPCS: 85025; 36415; 83690; 80053; 74176; J2765; J2405; 96374; 96375; 99285

== ENCOUNTER 2024-08-14 18:45 | Emergency (ER) | payer OTHER ==
--- NOTE | 2024-08-14 19:52 | ER ---
Nurse's Notes [facility] Name: Janis Henderson Age: 64 yrs Sex: Female : 1960 Arrival Date: 08/14/2024 Time: 18:45 Bed 23 Private MD: Diagnosis: Other depressive episodes Presentation: 08/14 18:56 Chief complaint: EMS states: toned out for depression without SI. says patient me1 cries alot. Coronavirus screen: Vaccine status: Patient reports receiving the 2nd dose of the covid vaccine. Ebola Screen: No symptoms or risks identified at this time. Initial Sepsis Screen: Does the patient meet any 2 criteria? RR > 20 per min. Does the patient have a suspected source of infection? No. Patient's initial sepsis screen is negative. Risk Assessment: Do you want to hurt yourself or someone else? Patient reports no desire to harm self or others. Onset of symptoms is unknown. 18:56 Method Of Arrival: [place] [facility] [place] Acuity: JUANCHO 4 me1 Triage Assessment: 18:58 General: Appears in no apparent distress. unkempt, well developed, well nourished, me1 Behavior is calm, cooperative, appropriate for age, Reports depression. Denies SI or HI. States she had a prescription for some medication for her depression but her medicaid wouldn't cover it so she couldn't get it. Pain: Denies pain. EENT: No signs and/or symptoms were reported regarding the EENT system. Neuro: Level of Consciousness is awake, alert, obeys commands, Oriented to person, place, time, situation, Appropriate for age. Cardiovascular: Patient's skin is warm and dry. Respiratory: Airway is patent Respiratory effort is even, unlabored, Respiratory pattern is regular, symmetrical. GI: No signs and/or symptoms were reported involving the gastrointestinal system. : No signs and/or symptoms were reported regarding the genitourinary system. Derm: Skin is intact, is healthy with good turgor, Skin is pink, warm \\T\\ dry. Musculoskeletal: No signs and/or symptoms reported regarding the musculoskeletal system. Historical: - Allergies: 18:58 Morphine; me1 - PMHx: 18:58 Anxiety; chronic neck/back pain; COVID; CVA; speech deficit/mild weakness; Depression; me1 Diabetes - NIDDM; Hypertension; Hypothyroidism; psoriasis; renal insufficiency; VASCULAR DEMENTIA; - PSHx: 18:58 Appendectomy; section; Cholecystectomy; me1 - Immunization history:: Adult Immunizations up to date. - Infectious Disease History:: Denies. - Social history:: Smoking status: Patient denies any tobacco usage or history of. Screenin:12 [facility] ED Fall Risk Assessment (Adult) History of falling in the last 3 months, me1 including since admission No falls in past 3 months (0 pts) Confusion or Disorientation No (0 pts) Intoxicated or Sedated No (0 pts) Impaired Gait Yes (1 pt) Mobility Assist Device Used Yes (1 pt) Altered Elimination No (0 pt) Score/Fall Risk Level 0 - 2 = Low Risk Maintained a safe environment, Provided non-skid footwear, Hourly rounding (assess needs \\T\\ fall precautionary measures) done. Abuse screen: Denies threats or abuse. Nutritional screening: No deficits noted. Tuberculosis screening: No symptoms or risk factors identified. Assessment: 19:12 General: See triage assessment.. me1 Psych: 19:11 [place] Suicide Severity Screening: In the past month, have you wished you were me1 or wished you could go to sleep and not wake up? Patient responds "No." "In the past month, have you actually had any thoughts of killing yourself?" Patient responds "no." "In your lifetime, have you ever done anything, started to do anything, or prepared to do anything to end your life?" Patient responds "no.". Subjective: Patient's mood is sad, Delusions are denied, Hallucinations are denied Having thoughts of Denies HI and SI. Objective: Patient is cooperative, Speech is normal, Affect is appropriate. Pt denies substance abuse. Vital Signs: 18:56 BP 151 / 82; Pulse 84; Resp 16; Temp 98.7; Pulse Ox 98% ; Weight 66.22 kg; Height 5 ft. me1 5 in. ; Pain 0/10; 20:00 BP 130 / 74; Pulse 79; Resp 16; Temp 98.4; Pulse Ox 99% ; me1 18:56 Body Mass Index 24.30 (66.22 kg, 165.1 cm) ri1 18:56 Pain Scale: Adult ri1 ED Course: 18:53 Patient arrived in ED. me1 18:57 Rubina Grullon FNP-C is [facility]. kb 18:57 Arnie Armenta MD is Attending Physician. kb 18:58 Triage completed. me1 18:58 Arm band placed on Patient placed in an exam room. me1 19:12 Patient has correct armband on for positive identification. Bed in low position. Call me1 light in reach. Side rails up X2. Provided Education on: POC. Verbalized understanding.. Client placed on continuous cardiac and pulse oximetry monitoring. NIBP monitoring applied. Pulse ox on. NIBP on. 19:12 No provider procedures requiring assistance completed. me1 20:06 Patria Mancilla, RN is Primary Nurse. me1 20:08 Patient did not have IV access during this emergency room visit. me1 Administered Medications: No medications were administered Medication: 20:09 VIS not applicable for this client. me1 Outcome: 19:52 Discharge ordered by MD. kb 20:08 Discharged to home via wheelchair, with friend, me1 20:08 Condition: stable 20:08 Discharge instructions given to patient, friend, Instructed on discharge instructions, follow up and referral plans. Demonstrated understanding of instructions, follow-up care, 20:09 Patient left the ED. me1 Signatures: Rubina Grullon FNP-C HUMAN RESOURCES COMPENSATION ANALYST-Ckb Patria Mancilla, RN RN me1
--- NOTE | 2024-08-14 19:52 | EDPHYS ---
Physician Documentation [facility] Name: Janis Henderson Age: 64 yrs Sex: Female : 1960 Arrival Date: 08/14/2024 Time: 18:45 Bed 23 Private MD: ED Physician Arnie Armenta HPI: 08/14 23:24 This 64 yrs old Female presents to ER via EMS with complaints of Depression. kb 23:24 Pt is a 64 year old female who presents for depression that has been ongoing for a kb while. States her pcp gave her medication, but it isn't helping. States she is supposed to follow up with psych but hasn't had a chance yet. Denies suicidal and homicidal ideations. . Historical: - Allergies: 18:58 Morphine; me1 - PMHx: 18:58 Anxiety; chronic neck/back pain; COVID; CVA; speech deficit/mild weakness; Depression; me1 Diabetes - NIDDM; Hypertension; Hypothyroidism; psoriasis; renal insufficiency; VASCULAR DEMENTIA; - PSHx: 18:58 Appendectomy; section; Cholecystectomy; me1 - Immunization history:: Adult Immunizations up to date. - Infectious Disease History:: Denies. - Social history:: Smoking status: Patient denies any tobacco usage or history of. ROS: 23:24 Constitutional: As per HPI kb Exam: 23:24 Constitutional: This is a well developed, well nourished patient who is awake, alert, kb and in no acute distress. Head/Face: Normocephalic, atraumatic. ENT: Moist Mucous membranes Cardiovascular: Regular rate Respiratory: Respirations even and unlabored. No increased work of breathing. Talking in full sentences Abdomen/GI: Soft, non-tender. No distention Skin: Warm, dry with normal turgor. Normal color. MS/ Extremity: Pulses equal, no cyanosis. Neurovascular intact. Full, normal range of motion. Neuro: Awake and alert, GCS 15, oriented to person, place, time, and situation. Psych: Awake, alert, with orientation to person, place and time. Behavior, mood, and affect are within normal limits. Vital Signs: 18:56 BP 151 / 82; Pulse 84; Resp 16; Temp 98.7; Pulse Ox 98% ; Weight 66.22 kg; Height 5 ft. me1 5 in. ; Pain 0/10; 20:00 BP 130 / 74; Pulse 79; Resp 16; Temp 98.4; Pulse Ox 99% ; me1 18:56 Body Mass Index 24.30 (66.22 kg, 165.1 cm) me1 18:56 Pain Scale: Adult me1 MDM: 18:57 Medical Screening Exam initiated kb 23:25 Differential diagnosis: depression, acute stress reaction. Data reviewed: vital signs, kb nurses notes. Historians other than the Patient: EMS: [facility]. 23:25 Counseling: I had a detailed discussion with the patient and/or guardian regarding the kb historical points, exam findings, and any diagnostic results supporting the discharge/admit diagnosis, the need for outpatient follow up, a psychiatrist, to return to the emergency department if symptoms worsen or persist or if there are any questions or concerns that arise at home. ED course: Pt educated to call [facility] tomorrow morning for further depression management. Pt in agreement with plan. Administered Medications: No medications were administered Disposition Summary: 08/14/24 19:52 Discharge Ordered Notes: Location: Home kb Condition: Stable kb Diagnosis - Other depressive episodes kb Followup: kb - With: Emergency Department - When: As needed - Reason: Worsening of condition Followup: kb - With: Private Physician - When: 2 - 3 days - Reason: Recheck today's complaints, Continuance of care, Re-evaluation by your physician Discharge Instructions: - Discharge Summary Sheet kb - Major Depressive Disorder, Adult, [id number] kb - Major Depressive Disorder, Adult kb - Managing Depression, Adult kb Forms: - Medication Reconciliation Form kb - Antibiotic Education kb - Prescription Opioid Use kb - Patient Portal Instructions kb - Leadership Thank You Letter kb Signatures: Rubina Grullon FNP-C RETAIL FIELD SUPERVISOR-Patria Mathias, RN RN me1 Corrections: (The following items were deleted from the chart) 23:26 23:25 Historians other than the Patient: EMS: [facility]
[2024-08-15 00:54] VITALS: BP 130/74; TEMP 98.4; O2SAT 99
== END 2024-08-14 20:09 | disposition home or self-care (01) ==
LOC: ER 18:45
DX: F32.89 Other specified depressive episodes (principal)
CPT/HCPCS: 99284

== ENCOUNTER 2024-11-07 16:22 | Inpatient (IN) | payer OTHER ==
[2024-11-07] MEDS ORDERED: FAMOTIDINE 20 MG/2 ML VIAL IV ONE (16:36)
[2024-11-07] MEDS ORDERED: ONDANSETRON 4 MG/2 ML VIAL ONE (16:36)
[2024-11-07] MEDS ORDERED: NA CHLORIDE 0.9% 1,000 ML ONE (16:36)
[2024-11-07 16:56] LABS: Absolute Basophils 0.1 K/uL (0-0.5); Absolute Eosinophils 0.2 K/uL (0-0.5); Absolute Lymphocytes (CBC) 1.6 K/uL (0.7-4.9); Absolute Monocytes 0.3 K/uL (0.1-1.3); Absolute Neutrophil 8.9 K/uL (1.8-8.0); Basophils % 0.8 % (0-1.3); Eosinophils % 1.4 % (0-4.4); Hemoglobin 10.9 g/dL (12.0-15.0); Lymphocytes % 14.7 % (15.3-44.8); MCH 29.5 pg (27.0-35.0); MCHC 33.9 g/dL (32.0-36.0); MPV 9.3 fL (7.6-11.3); Monocytes % 2.8 % (3.3-12.3); Neutrophils % 80.3 % (41.7-73.7); Nucleated Red Blood Cells % 0.1 % (0-0); Platelets 319 thou/uL (152-406); RBC Red Blood Cell Count 3.68 M/uL (3.86-4.86); Red Cell Distribution Width 13.5 % (12.1-15.2)
[2024-11-07 17:02] LABS: PT Prothrombin Time 12.6 SECONDS (9.4-12.5); Protime INR 1.2
[2024-11-07 17:13] LABS: AST/SGOT 20 U/L (15-37); Albumin 3.3 g/dL (3.4-5.0); Albumin/Globulin Ratio 0.7 (1.1-1.8); Alkaline Phosphatase 107 U/L (45-117); Anion Gap 11.8 mEq/L (5.0-15.0); BUN Blood Urea Nitrogen 55 mg/dL (7-18); Bicarbonate 21 mEq/L (21-32); Bilirubin Direct 0.2 mg/dL (0-0.2); Bilirubin Indirect, Calculated 0.4 mg/dL (0.2-0.8); Bilirubin Total 0.6 mg/dL (0.2-1.0); Globulin 4.5 g/dL (2.3-3.5); Glomerular Filtration Rate 10 ml/min (=/>90); Glucose Level 170 mg/dL (74-106); Lipase 30 U/L (13-75); Magnesium 1.9 mg/dL (1.6-2.4); NT PRO-BNP 639 pg/mL (<125); Potassium 3.8 mEq/L (3.5-5.1); Protein, Total 7.8 g/dL (6.4-8.2); Sodium Level 141 mEq/L (136-145); Troponin High Sensitivity 8.1 pg/mL (<58.9)
[2024-11-07 17:16] LABS: ALT/SGPT < 14 U/L (13-56)
--- NOTE | 2024-11-07 17:45 | ER ---
Nurse's Notes [facility] Name: Janis Henderson Age: 64 yrs Sex: Female : 1960 Arrival Date: 11/07/2024 Time: 16:22 Bed 21 Private MD: Diagnosis: Unspecified kidney failure-CHRONIC;Weakness;Vomiting;Diarrhea, unspecified;Type 2 diabetes mellitus with hyperglycemia;Constipation-IMPACTION;Abnormal findings on diagnostic imaging of other abdominal regions, including retroperitoneum-ASCENDING COLON MASS, SUSPECTED , NOT OBSTRUCTIVE Presentation: 11/07 16:28 Chief complaint: EMS states: Pt toned out EMS for difficulty have BM x2 days. rs5 Coronavirus screen: At this time, the client does not indicate any symptoms associated with coronavirus-19. Ebola Screen: No symptoms or risks identified at this time. Initial Sepsis Screen: Does the patient meet any 2 criteria? No. Patient's initial sepsis screen is negative. Does the patient have a suspected source of infection? No. Patient's initial sepsis screen is negative. Risk Assessment: Do you want to hurt yourself or someone else? Patient reports no desire to harm self or others. Onset of symptoms was November 07, 2024. 16:28 Method Of Arrival: EMS: [facility] rs5 16:28 Acuity: JUANCHO 3 rs5 Historical: - Allergies: 16:33 Morphine; rs5 - Home Meds: 16:33 Tradjenta 5 mg Oral tab [Active]; Plavix 75 mg Oral tab [Active]; rs5 - PMHx: 16:33 chronic neck/back pain; renal insufficiency; Hypothyroidism; psoriasis; Hypertension; rs5 Diabetes - NIDDM; Depression; CVA; speech deficit/mild weakness; COVID; Anxiety; VASCULAR DEMENTIA; - PSHx: 16:33 Appendectomy; section; Cholecystectomy; rs5 - Immunization history:: Adult Immunizations up to date. - Infectious Disease History:: Denies. - Family history:: not pertinent. - Social history:: Smoking status: Patient denies any tobacco usage or history of. Screenin:30 [facility] ED Fall Risk Assessment (Adult) History of falling in the last 3 months, rs5 including since admission No falls in past 3 months (0 pts) Confusion or Disorientation No (0 pts) Intoxicated or Sedated No (0 pts) Impaired Gait Yes (1 pt) Mobility Assist Device Used Yes (1 pt) Altered Elimination No (0 pt) Score/Fall Risk Level 0 - 2 = Low Risk Oriented to surroundings, Maintained a safe environment. Abuse screen: Denies threats or abuse. Nutritional screening: No deficits noted. Tuberculosis screening: No symptoms or risk factors identified. Assessment: 16:30 General: Appears in no apparent distress. uncomfortable, Behavior is calm, cooperative. rs5 Pain: Complains of pain in abdomen Pain currently is 2 out of 10 on a pain scale. Quality of pain is described as aching, Is continuous. Neuro: Level of Consciousness is awake, alert, obeys commands, Oriented to person, place, time, situation. Cardiovascular: Patient's skin is warm and dry. Respiratory: Airway is patent Respiratory effort is even, unlabored, Respiratory pattern is regular, symmetrical. 16:30 GI: Abdomen is round non-distended, Abd is soft and non tender X 4 quads. Reports rs5 nausea. : No signs and/or symptoms were reported regarding the genitourinary system. EENT: No signs and/or symptoms were reported regarding the EENT system. Derm: Skin is intact, Skin is pink, warm \T\ dry. Musculoskeletal: Range of motion: intact in all extremities. 16:55 Reassessment: to bedside, pt had BM, diarrhea, wattery stool, provider notified. Pt rs5 cleaned and changed. 17:47 Reassessment: Patient and/or family updated on plan of care and expected duration. Pain rs5 level reassessed. Patient is alert, oriented x 3, equal unlabored respirations, skin warm/dry/pink. 18:22 Reassessment: to bedside, pt had BM, diarrhea, wattery stool, provider notified. Pt rs5 cleaned and changed . 19:00 Reassessment:. rs5 19:00 Reassessment: report given to nightshift nurse . rs5 Vital Signs: 16:28 BP 155 / 74; Pulse 57; Resp 17; Pulse Ox 99% ; rs5 18:40 BP 145 / 74; Pulse 66; Resp 17; Pulse Ox 99% ; rs5 [place] Coma Score: 16:30 Eye Response: spontaneous(4). Motor Response: obeys commands(6). Verbal Response: helen oriented(5). Total: 15. ED Course: 16:24 Patient arrived in ED. helen 16:25 Edward Horan MD is Attending Physician. helen 16:28 Jason Cunningham, RN is Primary Nurse. rs5 16:30 No provider procedures requiring assistance completed. rs5 16:30 Patient has correct armband on for positive identification. Placed in gown. Bed in low rs5 position. Call light in reach. Side rails up X2. 16:33 Triage completed. rs5 16:44 Basic Metabolic Panel Sent. ty 16:44 CBC with Diff Sent. ty 16:44 LFT's Sent. ty 16:45 Magnesium Sent. ty 16:45 NT PRO-BNP Sent. ty 16:45 PT-INR Sent. ty 16:45 Troponin HS Sent. ty 16:45 Lipase Sent. ty 16:45 Initial lab(s) drawn, by me, sent to lab. Inserted saline lock: 20 gauge in right ty antecubital area, using aseptic technique. Blood collected. Flushed with 10 mL NS. 17:29 CT Chest Abdomen Pelvis W/O Contrast In Process Unspecified. EDMS 17:43 Prince Figueroa MD is Hospitalizing Provider. helen 17:49 XRAY Chest (1 view) In Process Unspecified. EDMS Administered Medications: 16:40 Drug: Famotidine IVP 20 mg IVP once; dilute with 10 mL 0.9% NaCl; give over 2 minutes rs5 Route: IVP; Site: right antecubital; 16:53 Drug: Ondansetron IVP 4 mg IVP once; over 2 minutes Route: IVP; Site: right antecubital;rs5 16:54 Drug: NS 0.9% IV 500 ml 500 ml IV at 1 bolus once; to be given as a bolus over 30 rs5 minutes Volume: 500 ml; Route: IV; Rate: 1 bolus; Site: right antecubital; 16:54 Drug: NS 0.9% IV 500 ml 500 ml IV at 100 ml/hr once; to be given as a bolus over 30 rs5 minutes Volume: 500 ml; Route: IV; Rate: 100 ml/hr; Site: right antecubital; 18:37 Not Given (Patient Refused): dulcolaxsuppository 10 mg [place] once rs5 18:37 Not Given (Patient Refused): [id number] grams 45 ml PO once rs5 19:51 Drug: Ciprofloxacin IVPB 400 mg 200 ml IVPB once over 60 mins Volume: 200 ml; Route: ay IVPB; Infused Over: 60 mins; Site: right antecubital; 19:51 Drug: metroNIDAZOLE IVPB 500 mg 100 ml IVPB at 200 ml/hr once over 30 mins Volume: 100 ay ml; Route: IVPB; Rate: 200 ml/hr; Infused Over: 30 mins; Site: right antecubital; 19:51 Drug: Rocephin IV 1 grams IV at per protocol once; Given slow IV push per pharmacy ay instructions Route: IV; Rate: per protocol; Site: right antecubital; Medication: 17:48 VIS not applicable for this client. rs5 Outcome: 17:45 Decision to Hospitalize by Provider. helen 22:29 Patient left the ED. vc1 Signatures: Dispatcher [employer] Edward Oliva MD MD cha Calcote, Vanessa, RN RN vc1 Jason Cunningham RN RN rs5 Julio Guadalupe Awudu, RN RN ay
--- NOTE | 2024-11-07 17:45 | EDPHYS ---
Physician Documentation [facility] Name: Janis Henderson Age: 64 yrs Sex: Female : 1960 Arrival Date: 11/07/2024 Time: 16:22 Bed 21 Private MD: YUKO Physician Edward Horan HPI: 11/07 16:28 This 64 yrs old Female presents to ER via Unassigned with complaints of helen nausea, vomiting and diarrhea. 16:28 The patient presents to the emergency department with nausea, vomiting, diarrhea, helen abdominal pain, of the right upper quadrant, left upper quadrant, right lower quadrant and left lower quadrant. Onset: The symptoms/episode began/occurred 2 day(s) ago. Possible causes: unknown. The symptoms are aggravated by nothing. The symptoms are alleviated by nothing. weak, n/v/d , crf/dm/ htn. Associated signs and symptoms: Pertinent positives: abdominal pain, diarrhea, nausea, vomiting. Severity of symptoms: At their worst the symptoms were mild in the emergency department the symptoms are unchanged. It is unknown whether or not the patient has had similar symptoms in the past. Historical: - Allergies: 16:33 Morphine; rs5 - Home Meds: 16:33 Tradjenta 5 mg Oral tab [Active]; Plavix 75 mg Oral tab [Active]; rs5 - PMHx: 16:33 chronic neck/back pain; renal insufficiency; Hypothyroidism; psoriasis; Hypertension; rs5 Diabetes - NIDDM; Depression; CVA; speech deficit/mild weakness; COVID; Anxiety; VASCULAR DEMENTIA; - PSHx: 16:33 Appendectomy; section; Cholecystectomy; rs5 - Immunization history:: Adult Immunizations up to date. - Infectious Disease History:: Denies. - Family history:: not pertinent. - Social history:: Smoking status: Patient denies any tobacco usage or history of. ROS: 16:30 Constitutional: Negative for fever, chills, and weight loss, Eyes: Negative for injury, helen pain, redness, and discharge, ENT: Negative for injury, pain, and discharge, Neck: Negative for injury, pain, and swelling, Cardiovascular: Negative for chest pain, palpitations, and edema, Respiratory: Negative for shortness of breath, cough, wheezing, and pleuritic chest pain, Back: Negative for injury and pain, : Negative for injury, bleeding, discharge, and swelling, MS/Extremity: Negative for injury and deformity, Skin: Negative for injury, rash, and discoloration, Neuro: Negative for headache, weakness, numbness, tingling, and seizure, Psych: Negative for depression, anxiety, suicide ideation, homicidal ideation, and hallucinations, Allergy/Immunology: Negative for hives, rash, and allergies, Endocrine: Negative for neck swelling, polydipsia, polyuria, polyphagia, and marked weight changes, Hematologic/Lymphatic: Negative for swollen nodes, abnormal bleeding, and unusual bruising, 16:30 Abdomen/GI: Positive for abdominal pain, nausea and vomiting, diarrhea, abdominal cramps, Exam: 16:30 Constitutional: This is a well developed, well nourished patient who is awake, alert, helen and in no acute distress. Head/Face: Normocephalic, atraumatic. Eyes: Pupils equal round and reactive to light, extra-ocular motions intact. Lids and lashes normal. Conjunctiva and sclera are non-icteric and not injected. Cornea within normal limits. Periorbital areas with no swelling, redness, or edema. ENT: Nares patent. No nasal discharge, no septal abnormalities noted. Tympanic membranes are normal and external auditory canals are clear. Oropharynx with no redness, swelling, or masses, exudates, or evidence of obstruction, uvula midline. Mucous membranes moist. Neck: Trachea midline, no thyromegaly or masses palpated, and no cervical lymphadenopathy. Supple, full range of motion without nuchal rigidity, or vertebral point tenderness. No Meningismus. Chest/axilla: Normal chest wall appearance and motion. Nontender with no deformity. No lesions are appreciated. Cardiovascular: Regular rate and rhythm with a normal S1 and S2. No gallops, murmurs, or rubs. Normal PMI, no JVD. No pulse deficits. Respiratory: Lungs have equal breath sounds bilaterally, clear to auscultation and percussion. No rales, rhonchi or wheezes noted. No increased work of breathing, no retractions or nasal flaring. Back: No spinal tenderness. No costovertebral tenderness. Full range of motion. Female : Normal external genitalia. MS/ Extremity: Pulses equal, no cyanosis. Neurovascular intact. Full, normal range of motion., bilateral aka Neuro: Awake and alert, GCS 15, oriented to person, place, time, and situation. Cranial nerves II-XII grossly intact. Motor strength 5/5 in all extremities. Sensory grossly intact. Cerebellar exam normal. Normal gait. Psych: Awake, alert, with orientation to person, place and time. Behavior, mood, and affect are within normal limits. 16:30 Abdomen/GI: Inspection: abdomen appears normal, Bowel sounds: normal, Palpation: mild abdominal tenderness, in the right upper quadrant, left upper quadrant, right lower quadrant and left lower quadrant, Liver: no appreciated palpable abnormalities, Hernia: not appreciated, 16:30 Musculoskeletal/extremity: Sensation intact. 16:30 Skin: Appearance: Color: pale, abscess, not appreciated, cellulitis, is not appreciated, induration, is not appreciated, Vital Signs: 16:28 BP 155 / 74; Pulse 57; Resp 17; Pulse Ox 99% ; rs5 18:40 BP 145 / 74; Pulse 66; Resp 17; Pulse Ox 99% ; rs5 [place] Coma Score: 16:30 Eye Response: spontaneous(4). Motor Response: obeys commands(6). Verbal Response: helen oriented(5). Total: 15. MDM: 16:25 Medical Screening Exam initiated helen 16:32 Differential diagnosis: Nonspecific abd pain, gastritis, pancreatitis, appendicitis, helen diverticulitis, viral gastroenteritis, gastroenteritis. Differential Diagnosis sepsis. Data reviewed: vital signs, nurses notes, EMS record, lab test result(s), EKG, radiologic studies, CT scan, plain films. Consideration of Admission/Observation Escalation of care including admission/observation considered. I considered the following discharge prescriptions or medication management in the emergency department Medications were administered in the Emergency Department. See MAR. Independent interpretation of the following test(s) in the Emergency Department EKG: See my EKG interpretation above. Test considered but Not performed: Ultrasound no abd usg. Historians other than the Patient: EMS: ems well informed. Care significantly affected by the following chronic conditions: Diabetes, Hypertension, Obesity, Chronic Kidney Disease. 11/07 16:27 Order name: Basic Metabolic Panel; Complete Time: 17:21 [facility] 11/07 16:27 Order name: CBC with Diff; Complete Time: 17:21 [facility] 11/07 16:27 Order name: LFT's; Complete Time: 17: [facility] 11/07 16:27 Order name: Magnesium; Complete Time: 17:21 [facility] 11/07 16:27 Order name: NT PRO-BNP; Complete Time: 17:21 [facility] 11/07 16:27 Order name: PT-INR; Complete Time: 17:21 [facility] 11/07 16:27 Order name: Troponin HS; Complete Time: 17:21 [facility] 11/07 16:27 Order name: Lipase; Complete Time: 17:21 [facility] 11/07 16:27 Order name: Urinalysis w/ reflexes [facility] 11/07 17:55 Order name: Stool Culture [facility] 11/07 17:55 Order name: Fecal Leukocyte Stain [facility] 11/07 17:55 Order name: Rotavirus Antigen [facility] 11/07 17:55 Order name: CDIFF [facility] 11/07 18:48 Order name: Lactate w/ 2H reflex if indic. [facility] 11/07 18:48 Order name: Magnesium [facility] 11/07 18:48 Order name: Phosphorus [facility] 11/07 18:48 Order name: T4 Free [facility] 11/07 18:48 Order name: Thyroid Stimulating Hormone [facility] 11/07 18:48 Order name: Basic Metabolic Panel [facility] 11/07 18:48 Order name: Basic Metabolic Panel [facility] 11/07 18:48 Order name: CBC with Automated Diff [facility] 11/07 18:48 Order name: CBC with Automated Diff [facility] 11/07 18:48 Order name: Lipid Profile [facility] 11/07 18:48 Order name: Lipid Profile [facility] 11/07 21:55 Order name: Glucose, Ancillary Testing [facility] 11/07 16:27 Order name: XRAY Chest (1 view) [facility] 11/07 16:27 Order name: CT Chest Abdomen Pelvis W/O Contrast [facility] 11/07 16:27 Order name: Cardiac monitoring; Complete Time: 16:54 [facility] 11/07 16:27 Order name: EKG - Nurse/Tech; Complete Time: 16:54 [facility] 11/07 16:27 Order name: IV Saline Lock; Complete Time: 16:44 [facility] 11/07 16:27 Order name: Labs collected and sent; Complete Time: 16:44 [facility] 11/07 16:27 Order name: O2 Per Protocol; Complete Time: 16:44 [facility] 11/07 16:27 Order name: O2 Sat Monitoring; Complete Time: 16:44 [facility] Administered Medications: 16:40 Drug: Famotidine IVP 20 mg IVP once; dilute with 10 mL 0.9% NaCl; give over 2 minutes rs5 Route: IVP; Site: right antecubital; 16:53 Drug: Ondansetron IVP 4 mg IVP once; over 2 minutes Route: IVP; Site: right antecubital;rs5 16:54 Drug: NS 0.9% IV 500 ml 500 ml IV at 1 bolus once; to be given as a bolus over 30 rs5 minutes Volume: 500 ml; Route: IV; Rate: 1 bolus; Site: right antecubital; 16:54 Drug: NS 0.9% IV 500 ml 500 ml IV at 100 ml/hr once; to be given as a bolus over 30 rs5 minutes Volume: 500 ml; Route: IV; Rate: 100 ml/hr; Site: right antecubital; 18:37 Not Given (Patient Refused): dulcolaxsuppository 10 mg [place] once rs5 18:37 Not Given (Patient Refused): [id number] grams 45 ml PO once rs5 19:51 Drug: Ciprofloxacin IVPB 400 mg 200 ml IVPB once over 60 mins Volume: 200 ml; Route: ay IVPB; Infused Over: 60 mins; Site: right antecubital; 19:51 Drug: metroNIDAZOLE IVPB 500 mg 100 ml IVPB at 200 ml/hr once over 30 mins Volume: 100 ay ml; Route: IVPB; Rate: 200 ml/hr; Infused Over: 30 mins; Site: right antecubital; 19:51 Drug: Rocephin IV 1 grams IV at per protocol once; Given slow IV push per pharmacy ay instructions Route: IV; Rate: per protocol; Site: right antecubital; Disposition Summary: 11/07/24 17:45 Hospitalization Ordered Notes: Hospitalization Status: Inpatient Admission helen Provider: Prince helen Figueroa Location: Telemetry/MedSurg (Inpatient) helen Condition: Fair helen Problem: new helen Symptoms: have improved helen Bed/Room Type: Standard [facility] Room Assignment: 405(11/07/24 18:51) ja1 Diagnosis - Unspecified kidney failure - CHRONIC helen - Weakness helen - Vomiting helen - Diarrhea, unspecified helen - Type 2 diabetes mellitus with hyperglycemia helen - Constipation - IMPACTION helen - Abnormal findings on diagnostic imaging of other abdominal regions, including helen retroperitoneum - ASCENDING COLON MASS, SUSPECTED , NOT OBSTRUCTIVE Forms: - Medication Reconciliation Form helen - SBAR form helen - Leadership Thank You Letter [facility] Signatures: Dispatcher [employer] EDEdward Wallace MD MD cha Aguilar, Jose, RN RN ja1 Michelle Menjivar Ricky, RN RN rs5 Kevin Lorenzo RN RN ay Corrections: (The following items were deleted from the chart) 16:28 16:27 BASIC METABOLIC PANEL+C.LAB.BRZ ordered. EDMS EDMS 16:28 16:27 CBC+H.LAB.BRZ ordered. EDMS EDMS 16:28 16:27 HEPATIC FUNCTION+C.LAB.BRZ ordered. EDMS EDMS 16:28 16:27 MAGNESIUM+C.LAB.BRZ ordered. EDMS EDMS 16:28 16:27 PROBNP+C.LAB.BRZ ordered. EDMS EDMS 16:28 16:27 PROTIME (+INR)+COAG.LAB.BRZ ordered. EDMS EDMS 16:28 16:27 Troponin High Sensitivity+C.LAB.BRZ ordered. EDMS EDMS 16:28 16:27 LIPASE+C.LAB.BRZ ordered. EDMS EDMS 16:28 16:27 Urinalysis+U.LAB.BRZ ordered. EDMS EDMS 16:28 16:28 Chest Single View+RAD.RAD.BRZ ordered. EDMS EDMS 16:28 16:28 Chest Abdomen Pelvis Wo Con+CT.RAD.BRZ ordered. EDMS EDMS 17:56 17:56 Stool Culture+BA.LAB.BRZ ordered. EDMS EDMS 17:56 17:56 Fecal Leukocyte Stain+BA.LAB.BRZ ordered. EDMS EDMS 17:56 17:56 Rotavirus Antigen+BA.LAB.BRZ ordered. EDMS EDMS 17:56 17:56 C.difficile [facility]DH Ag \T\ Toxin AB+LAB.BRZ ordered. EDMS EDMS 18:51 17:45 helen eb 18:51 18:[address] [facility] renetta huff1
--- NOTE | 2024-11-07 17:57 | RAD REPORT ---
EXAM: CT CHEST, ABDOMEN AND PELVIS WITHOUT CONTRAST CLINICAL INDICATION: Female, 64 years old Abdominal distention;Congestion TECHNIQUE: CT chest, abdomen and pelvis was performed, without IV contrast, as per department protoco l. Axial, sagittal and coronal reconstructions were obtained. One or more of the following dose reduction techniques were used: Automated exposure control, adjustment of the mA and/or kV according to the patient size, and/or iterative reconstruction. Unless otherwise specified, incidental findings do not require dedicated imaging follow-up. [id number]. COMPARISON: 04/30/2021 FINDINGS: The lack of intravenous contrast limits the sensitivity of this exam for evaluation of solid visceral organs, vascular structures, and retroperitoneum. Chest: LOWER NECK: Visualized thyroid gland and soft tissues are normal. LUNGS AND AIRWAYS: Airways are clear. No evidence of airspace or interstitial process.No suspicious a nd/or stable pulmonary nodules. PLEURA: No pleural effusion. No pneumothorax. Hemidiaphragms are normally positioned. MEDIASTINUM AND LYMPH NODES: No mediastinal mass or fluid collection. Normal size mediastinal, hilar, and axillary lymph nodes. Mild distal esophageal thickening. THORACIC AORTA: No thoracic aortic aneurysm. PULMONARY ARTERIES: Caliber is within normal limits. HEART: Normal heart size. Coronary arterial calcifications are present.No significant pericardial eff usion. Aortic valve calcifications. Abdomen/Pelvis UPPER GI: No significant abnormality. LIVER: No significant focal abnormality. GALLBLADDER/BILE DUCTS: No biliary ductal dilatation.?Cholecystectomy. PANCREAS: No mass, ductal dilation, or pedrito-pancreatic fluid. SPLEEN: Unremarkable. ADRENALS: 19 x 12 mm left adrenal nodule is similar in size to 04/30/2021. The stability is reassuring for a benign process. KIDNEYS AND URETERS: No hydronephrosis.Low density and/or too small to characterize renal lesions whi ch are statistically benign. ABDOMINAL AORTA AND OTHER VESSELS: Normal caliber aorta and IVC. PERITONEUM: No abnormal free fluid. No free air. LYMPH NODES: No pathologic lymphadenopathy. ABDOMINAL WALL: Unremarkable SMALL BOWEL/COLON: Large colonic stool burden, particularly at the rectum. There is moderate rectal w all thickening. This could reflect some component of surgical colitis. URINARY BLADDER: Underdistended but grossly unremarkable. REPRODUCTIVE ORGANS: No pathologic process. MUSCULOSKELETAL: No acute or suspicious osseous abnormality. Remote left-sided rib fractures. ADDITIONAL FINDINGS: None. IMPRESSION: 1. Large rectal stool burden concerning for fecal impaction. Rectal wall thickening could indicate a component of a stercoral colitis. 2. Possible mass in the ascending colon. Recommend follow-up colonoscopy for further evaluation. 3. . No acute findings in the chest.
--- NOTE | 2024-11-07 18:00 | RAD REPORT ---
EXAM: Chest Single View HISTORY: COUGH COMPARISON: 04/18/2023 FINDINGS: LUNGS/PLEURA: The lungs are clear. No pleural effusions or pneumothorax. No pulmonary edema. . MEDIASTINUM: The mediastinal silhouette is within normal limits. CARDIAC: The cardiac silhouette is within normal limits. UPPER ABDOMEN: No significant abnormality. BONES: No acute abnormality. LINES/TUBES/OTHER: N/A IMPRESSION: No evidence of acute cardiopulmonary disease.
[2024-11-07] MEDS ORDERED: CEFTRIAXONE 1000 MG/VIAL ONE (18:40)
[2024-11-07] MEDS ORDERED: CIPROFLOXACIN 400mg IV 400 MG/200 ML BAG IV ONE (18:40)
[2024-11-07] MEDS ORDERED: METRONIDAZOLE 500mg IVPB 500 MG/100 ML BAG IV ONE (18:41)
[2024-11-07] MEDS ORDERED: ONDANSETRON 4 MG/2 ML VIAL IV PRN (18:44)
--- NOTE | 2024-11-07 18:55 | P.HP ---
Certification for Inpatient Patient admitted to: Inpatient With expected LOS: >2 Midnights Practitioner: I am a practitioner with admitting privileges, knowledge of patient current condition, hospital course, and medical plan of care. Services: Services provided to patient in accordance with Admission requirements found in Title 42 Section 412.3 of the Code of Federal Regulations Patient History Date of Service: 11/07/24 Reason for admission: diarrhea, shelley, ascending colon mass History of Present Illness: Patient is a 64 year old female with type II diabetes mellitus, CKD stage IV and HTN. She presents with ongoing diarrhea and vomiting. Patient states she has been constipated for about a week. She took laxatives and has since been having diarrhea. She is also having vomiting and chills. She arrived in the ER with a SBP of 155. Basic labs concerning for worsening renal insufficiency. She is know to Dr Terrell. CT A/P shows rectal stool burden and possibly a mass in the ascending colon. Dr Vang has been consulted. Allergies morphine Allergy (Verified 05/30/20 12:45) Itching/Hives/Rash Home Medications: Atorvastatin Calcium 40 mg PO BEDTIME 05/19/20 Levothyroxine [Synthroid*] 0.125 mg PO DAILY 05/19/20 Linagliptin [Tradjenta] 5 mg PO DAILY 05/19/20 Losartan Potassium 25 mg PO DAILY 05/19/20 Vortioxetine Hydrobromide [Trintellix] 10 mg PO DAILY 05/19/20 ALPRAZolam [Xanax*] 1 mg PO TID 05/24/20 Insulin Detemir [Levemir Flextouch] 20 units SQ BIDWM 05/24/20 Trazodone [Desyrel*] 150 mg PO BEDTIME 05/24/20 glipiZIDE [Glipizide] 10 mg PO BIDWM 05/24/20 Zinc Sulfate [Zinc Sulfate*] 220 mg PO DAILY #14 cap 05/28/20 Cholecalciferol (Vitamin D3) [Vitamin D3] 25 mcg PO DAILY 05/30/20 Famotidine [Pepcid*] 20 mg PO DAILY 05/30/20 Amlodipine [Norvasc*] 5 mg PO DAILY #30 tab 06/03/20 Apixaban [Eliquis] 5 mg PO BID #60 tablet 06/03/20 Ascorbic Acid [Vitamin C*] 500 mg PO DAILY #30 06/03/20 Clopidogrel Bisulfate [Plavix*] 75 mg PO DAILY #30 tablet 06/03/20 predniSONE [Deltasone*] 10 mg PO DAILY #7 tab 06/03/20 hydrOXYzine HCL [Atarax*] 25 mg PO DAILY PRN 02/15/23 Sodium Bicarbonate 650 mg PO DAILY 30 Days #30 tab 03/02/23 - Past Medical/Surgical History Diabetic: Yes -: Anxiety -: CVA -: Hypothyroid -: Depression -: HTN -: Diabetes -: Neuropathy -: Vascular dementia -: Chronic neck/back pain -: 3 C-sections, 1980, , 89 -: Vicki, 1986 -: 2 knee surgeries, 1979 -: Sherrie [place], 10/04/13 Psychosocial/ Personal History: Lives at home with . - Social History Alcohol use: Yes CD- Drugs: No Caffeine use: Yes Physical Examination - Physical Exam General: Acute distress HEENT: Atraumatic, Normocephalic Cardiovascular: No edema, Normal pulses, Regular rate/rhythm, Normal S1 S2 Neurological: Normal speech - Studies Laboratory Data (last 24 hrs) 11/07/24 11/07/24 11/07/24 16:43 16:43 16:43 WBC 11.10 H Hgb 10.9 L Hct 32.0 L Plt Count 319 PT 12.6 H INR 1.20 Sodium 141 Potassium 3.8 BUN 55 H Creatinine 4.72 H Glucose 170 H Magnesium 1.9 Total Bilirubin 0.6 AST 20 ALT < 14 Alkaline Phosphatase 107 Lipase 30 Assessment and Plan - Problems (Diagnosis) (1) Acute worsening of stage 4 chronic kidney disease Current Visit: Yes Status: Acute (2) Acute diarrhea Current Visit: Yes Status: Acute (3) Vomiting Current Visit: Yes Status: Acute (4) Anemia Current Visit: No Status: Acute (5) DM type 2 (diabetes mellitus, type 2) Current Visit: No Status: Acute (6) Type 2 diabetes mellitus with hyperglycemia Current Visit: No Status: Acute (7) Vascular dementia Current Visit: No Status: Acute - Plan Assessment Patient is a 64 year old female being admitted for intractable diarrhea associated with nausea and vomiting. She has worsening renal insufficiency. CT A/P showing rectal stool burden, and possibly a mass in the ascending colon. Intractable diarrhea Acute on chronic CKD stage IV Type II diabetes mellitus with hyperglycemia HTN PLAN: Admit inpatient with telemetry Volume repletion with NS infusion Repeat BMP tomorrow Replete electrolytes including Mag and PHos if needed Discussed case with Dr Terrell (Nephrology), who is consulted I will also go ahead and consult Dr Vang (Surgery) for eventual evaluation of the ascending colon mass Patient does not meet criteria for sepsis. Will hold off antibiotics for now I agree with stool work up including c. difficile, stool cultures and rotavirus. Insulin sliding scale DVT and GI ppx Full code - Advance Directives Does patient have a Living Will: No Does patient have a Durable POA for Healthcare: No
[2024-11-07] MEDS ORDERED: SODIUM CHLORIDE 0.9% 10ML INJ IV PRN (18:58)
[2024-11-07] MEDS ORDERED: D10W 125 ML IV PRN (19:00)
[2024-11-07] MEDS ORDERED: GLUCAGON 1 MG/VIAL IM PRN (19:00)
[2024-11-07] MEDS: INSULIN REGULAR (HUMAN) 100 UNIT/ML SQ SCH (21:00)
[2024-11-07 21:13] LABS: C.diff Antigen/Toxin Ag neg : Tox neg (NEG : NEG); CDIFF INTERNAL NEG CONTROL White Background (WHITE BKGD); STOOL CONSISTENCY Liquid/Semi-Solid
[2024-11-07] MEDS: PANTOPRAZOLE 40 MG INJ IVP SCH (21:49)
[2024-11-07] MEDS: HEPARIN 5000 UNIT/ML 1 ML VIAL SQ SCH (21:49)
[2024-11-07] MEDS: NA CHLORIDE 0.9% 1,000 ML IV SCH (21:50)
[2024-11-08 00:24] LABS: Magnesium 1.8 mg/dL (1.6-2.4); Phosphorus 4.4 mg/dL (2.5-4.9); Thyroid Stimulating Hormone 1.42 uIU/mL (0.358-3.740)
[2024-11-08] MEDS: Ringers Lactate 1,000 ML IV SCH ×2 (01:28→17:52)
[2024-11-08 06:36] LABS: Absolute Basophils 0.1 K/uL (0-0.5); Absolute Monocytes 0.6 K/uL (0.1-1.3); Absolute Neutrophil 8.9 K/uL (1.8-8.0); Basophils % 0.7 % (0-1.3); Hematocrit 26.4 % (36.0-45.0); Hemoglobin 8.9 g/dL (12.0-15.0); Lymphocytes % 17.2 % (15.3-44.8); MCH 29.2 pg (27.0-35.0); MCHC 33.8 g/dL (32.0-36.0); MCV 86.5 fL (80-100); MPV 9.3 fL (7.6-11.3); Monocytes % 5.2 % (3.3-12.3); Neutrophils % 76.9 % (41.7-73.7); Platelets 245 thou/uL (152-406); RBC Red Blood Cell Count 3.06 M/uL (3.86-4.86); Red Cell Distribution Width 13.4 % (12.1-15.2)
[2024-11-08 06:47] LABS: Anion Gap 8.9 mEq/L (5.0-15.0); Potassium 3.9 mEq/L (3.5-5.1); Uric Acid 5.2 mg/dL (2.6-6.0)
[2024-11-08 07:15] LABS: Magnesium 1.8 mg/dL (1.6-2.4)
[2024-11-08] MEDS ORDERED: FLU (Fluarix Triv) TS24-25(6MOS UP)/PF 45 MCG/0.5 ML Syringe IM ONE (07:15)
[2024-11-08] MEDS: MAGNESIUM SULFATE 1 gm IVPB 1 GM/100 ML BAG IV ONE (08:30)
[2024-11-08] MEDS: POTASSIUM CL SA 10 MEQ TAB PO ONE (08:30)
--- NOTE | 2024-11-08 10:42 | P.CNS ---
Date of Consult: 11/08/24 Reason for Consult: SHEREEN/ CKD Requesting Physician: Mk Darnell Chief Complaint: diarrhea, shereen, ascending colon mass History of Present Illness: Patient is a 64 year old female with type II diabetes mellitus, CKD stage IV and HTN. She presents with ongoing diarrhea and vomiting. Patient states she has been constipated for about a week. She took laxatives and has since been having diarrhea. She is also having vomiting and chills. She arrived in the ER with a SBP of 155. Basic labs concerning for worsening renal insufficiency. She is know to Dr Terrell. CT A/P shows rectal stool burden and possibly a mass in the ascending colon. Dr Vang has been consulted. [id number] 16:28 This 64 yrs old Female presents to ER via Unassigned with complaints of helen nausea, vomiting and diarrhea. 16:28 The patient presents to the emergency department with nausea, vomiting, diarrhea, helen abdominal pain, of the right upper quadrant, left upper quadrant, right lower quadrant and left lower quadrant. Onset: The symptoms/episode began/occurred 2 day(s) ago. Possible causes: unknown. The symptoms are aggravated by nothing. The symptoms are alleviated by nothing. weak, n/v/d , crf/dm/ htn. Associated signs and symptoms: Pertinent positives: abdominal pain, diarrhea, nausea, vomiting. Severity of symptoms: At their worst the symptoms were mild in the emergency department the symptoms are unchanged. It is unknown whether or not the patient has had similar symptoms in the past. Allergies morphine Allergy (Verified 05/30/20 12:45) Itching/Hives/Rash Home medications list reviewed: Yes Home Medications: Atorvastatin Calcium 40 mg PO BEDTIME 05/19/20 Levothyroxine [Synthroid*] 0.125 mg PO DAILY 05/19/20 Linagliptin [Tradjenta] 5 mg PO DAILY 05/19/20 Losartan Potassium 25 mg PO DAILY 05/19/20 Vortioxetine Hydrobromide [Trintellix] 10 mg PO DAILY 05/19/20 ALPRAZolam [Xanax*] 1 mg PO TID 05/24/20 Insulin Detemir [Levemir Flextouch] 20 units SQ BIDWM 05/24/20 Trazodone [Desyrel*] 150 mg PO BEDTIME 05/24/20 glipiZIDE [Glipizide] 10 mg PO BIDWM 05/24/20 Zinc Sulfate [Zinc Sulfate*] 220 mg PO DAILY #14 cap 05/28/20 Cholecalciferol (Vitamin D3) [Vitamin D3] 25 mcg PO DAILY 05/30/20 Famotidine [Pepcid*] 20 mg PO DAILY 05/30/20 Amlodipine [Norvasc*] 5 mg PO DAILY #30 tab 06/03/20 Apixaban [Eliquis] 5 mg PO BID #60 tablet 06/03/20 Ascorbic Acid [Vitamin C*] 500 mg PO DAILY #30 06/03/20 Clopidogrel Bisulfate [Plavix*] 75 mg PO DAILY #30 tablet 06/03/20 predniSONE [Deltasone*] 10 mg PO DAILY #7 tab 06/03/20 hydrOXYzine HCL [Atarax*] 25 mg PO DAILY PRN 02/15/23 Sodium Bicarbonate 650 mg PO DAILY 30 Days #30 tab 03/02/23 - Past Medical/Surgical History Diabetic: Yes -: Depression/ Anxiety -: CVA -: Hypothyroid -: CKD IV (Dr. Terrell/ Sadie) -: HTN -: DM II with Polyneuropathy -: Vascular dementia -: Chronic neck/back pain -: 3 C-sections, 1980, 86, 89 -: Vicki, 1986 -: 2 knee surgeries, 1979 -: Sherrie lagunas, 10/04/13 Psychosocial/ Personal History: Lives at home with . - Social History Smoking Status: Former smoker Alcohol use: Yes CD- Drugs: No Caffeine use: Yes Place of Residence: Home Review of Systems 10-point ROS is otherwise unremarkable General: Weakness, Malaise Gastrointestinal: Diarrhea Neurological: Weakness Physical Examination Temp Pulse Resp BP Pulse Ox 97.7 F 70 18 156/84 H 100 11/08/24 08:00 11/08/24 08:00 11/08/24 08:00 11/08/24 08:00 11/08/24 08:00 General: In no apparent distress, Oriented x3, Cooperative HEENT: Atraumatic Neck: Supple Respiratory: Clear to auscultation bilaterally, Normal air movement Cardiovascular: No edema, Regular rate/rhythm Gastrointestinal: Soft and benign, Non-distended Musculoskeletal: No clubbing, No contractures Integumentary: No rashes, No cyanosis Neurological: Abnormal speech Laboratory Data (last 24 hrs) 11/07/24 11/07/24 11/07/24 16:43 16:43 16:43 WBC 11.10 H Hgb 10.9 L Hct 32.0 L Plt Count 319 PT 12.6 H INR 1.20 Sodium 141 Potassium 3.8 BUN 55 H Creatinine 4.72 H Glucose 170 H Magnesium 1.9 Total Bilirubin 0.6 AST 20 ALT < 14 Alkaline Phosphatase 107 Lipase 30 Imagings Data: [id number] EXAM: CT CHEST, ABDOMEN AND PELVIS WITHOUT CONTRAST CLINICAL INDICATION: Female, 64 years old Abdominal distention;Congestion TECHNIQUE: CT chest, abdomen and pelvis was performed, without IV contrast, as per department protocol. Axial, sagittal and coronal reconstructions were obtained. One or more of the following dose reduction techniques were used: Automated exposure control, adjustment of the mA and/or kV according to the patient size, and/or iterative reconstruction. Unless otherwise specified, incidental findings do not require dedicated imaging follow-up. [id number]. COMPARISON: 04/30/2021 FINDINGS: The lack of intravenous contrast limits the sensitivity of this exam for evaluation of solid visceral organs, vascular structures, and retroperitoneum. Chest: LOWER NECK: Visualized thyroid gland and soft tissues are normal. LUNGS AND AIRWAYS: Airways are clear. No evidence of airspace or interstitial process.No suspicious and/or stable pulmonary nodules. PLEURA: No pleural effusion. No pneumothorax. Hemidiaphragms are normally positioned. MEDIASTINUM AND LYMPH NODES: No mediastinal mass or fluid collection. Normal size mediastinal, hilar, and axillary lymph nodes. Mild distal esophageal thickening. THORACIC AORTA: No thoracic aortic aneurysm. PULMONARY ARTERIES: Caliber is within normal limits. HEART: Normal heart size. Coronary arterial calcifications are present.No significant pericardial effusion. Aortic valve calcifications. Abdomen/Pelvis UPPER GI: No significant abnormality. LIVER: No significant focal abnormality. GALLBLADDER/BILE DUCTS: No biliary ductal dilatation.?Cholecystectomy. PANCREAS: No mass, ductal dilation, or pedrito-pancreatic fluid. SPLEEN: Unremarkable. ADRENALS: 19 x 12 mm left adrenal nodule is similar in size to 04/30/2021. The stability is reassuring for a benign process. KIDNEYS AND URETERS: No hydronephrosis.Low density and/or too small to characterize renal lesions which are statistically benign. ABDOMINAL AORTA AND OTHER VESSELS: Normal caliber aorta and IVC. PERITONEUM: No abnormal free fluid. No free air. LYMPH NODES: No pathologic lymphadenopathy. ABDOMINAL WALL: Unremarkable SMALL BOWEL/COLON: Large colonic stool burden, particularly at the rectum. There is moderate rectal wall thickening. This could reflect some component of surgical colitis. URINARY BLADDER: Underdistended but grossly unremarkable. REPRODUCTIVE ORGANS: No pathologic process. MUSCULOSKELETAL: No acute or suspicious osseous abnormality. Remote left-sided rib fractures. ADDITIONAL FINDINGS: None. IMPRESSION: 1. Large rectal stool burden concerning for fecal impaction. Rectal wall thickening could indicate a component of a stercoral colitis. 2. Possible mass in the ascending colon. Recommend follow-up colonoscopy for further evaluation. 3. . No acute findings in the chest. [id number] EXAM: Chest Single View HISTORY: COUGH COMPARISON: 04/18/2023 FINDINGS: LUNGS/PLEURA: The lungs are clear. No pleural effusions or pneumothorax. No pu lmonary edema. . MEDIASTINUM: The mediastinal silhouette is within normal limits. CARDIAC: The cardiac silhouette is within normal limits. UPPER ABDOMEN: No significant abnormality. BONES: No acute abnormality. LINES/TUBES/OTHER: N/A IMPRESSION: No evidence of acute cardiopulmonary disease. Conclusions/Impression: Stage III SHEREEN may be due to hypovolemia CKD IV -No NSAIDs -Continue IVF with LR Metabolic Acidosis -Start oral bicarb HTN with CKD -Continue Amlodipine -Continue Hydralazine DM II with CKD & Polyneuropathy -RISS Anemia in chronic illness/ CKD -Retacrit X1 CKD MBD -Start Ergo and Calcitriol Fecal Impaction -Continue laxative therapy Ascending Colon Mass? -Follow up with surgery Hospitalist and ER notes reviewed Thank you kindly for the consultation
[2024-11-08] MEDS: BISACODYL 10 MG RECTAL SUPP PR ONE (11:48)
[2024-11-08] MEDS: DRISDOL (VITAMIN D=ERGOCALCIFEROL) 50000 UNIT CAP PO SCH (12:12)
[2024-11-08] MEDS: EPOETIN ALFA-EPBX 10,000 UNIT/ML VIAL SQ ONE (12:12)
[2024-11-08] MEDS: POLYETHYL GLY 3350 17 GM/DOSE PO SCH (12:58)
--- NOTE | 2024-11-08 13:39 | P.PN ---
Subjective Date of Service: 11/08/24 Chief Complaint: diarrhea, shelley, ascending colon mass Currently lying in bed, comfortable. No complaints. at bedside Review of Systems General: Unremarkable Eyes: Unremarkable Respiratory: Unremarkable Cardiovascular: Unremarkable Gastrointestinal: Unremarkable Musculoskeletal: Unremarkable Neurological: Unremarkable Physical Examination - Vital Signs Temperature: 97.7 F Blood Pressure: 156/84 Pulse: 70 Respirations: 18 Pulse Ox (%): 100 - Physical Exam General: Alert, Oriented x3 HEENT: Atraumatic Neck: Supple Respiratory: Clear to auscultation bilaterally Cardiovascular: No edema Gastrointestinal: Normal bowel sounds, Soft and benign, Non-distended Neurological: Normal gait, Normal speech, Normal strength at 5/5 x4 extr - Studies Laboratory Data (last 24 hrs) 11/07/24 11/07/24 11/07/24 16:43 16:43 16:43 WBC 11.10 H Hgb 10.9 L Hct 32.0 L Plt Count 319 PT 12.6 H INR 1.20 Sodium 141 Potassium 3.8 BUN 55 H Creatinine 4.72 H Glucose 170 H Magnesium 1.9 Total Bilirubin 0.6 AST 20 ALT < 14 Alkaline Phosphatase 107 Lipase 30 Assessment And Plan - Plan 1. Nausea and vomiting of unclear etiology -Currently improved -On as needed ondansetron 2. Acute on CKD IV -Baseline creatinine of 3.7-3.8, creatinine: 4.7 -Suspect prerenal azotemia in the context of nausea and vomiting -Continue LR -Nephrology consulted 3. Fecal impaction seen on CT of abdomen/pelvis study - Initiated ocular suppositories, MiraLAX, docusate-senna 4. Possible ascending colon mass seen on CT of abdomen/pelvis study -Consulted general surgeon, DR Mahmood -Patient also endorses significant weight loss in the past year, up to 60 pounds weight loss so there is a concern for underlying malignancy 5 anemia of chronic renal disease -Hemoglobin currently 8.9 - close to baseline range Discharge Plan: Home Plan to discharge in: 72 Hours
[2024-11-08] MEDS: AMLODIPINE 10 MG TAB PO SCH (18:05)
[2024-11-08] MEDS: HYDRALAZINE HCL 25 MG TABLET PO SCH (18:05)
[2024-11-08 19:13] LABS: Absolute Basophils 0.2 K/uL (0-0.5); Absolute Eosinophils 0.1 K/uL (0-0.5); Absolute Lymphocytes (CBC) 3.1 K/uL (0.7-4.9); Absolute Monocytes 0.6 K/uL (0.1-1.3); Absolute Neutrophil 8.4 K/uL (1.8-8.0); Basophils % 1.6 % (0-1.3); Eosinophils % 0.8 % (0-4.4); Hematocrit 27.6 % (36.0-45.0); Hemoglobin 9.2 g/dL (12.0-15.0); Lymphocytes % 24.6 % (15.3-44.8); MCH 28.5 pg (27.0-35.0); MCHC 33.2 g/dL (32.0-36.0); MCV 85.7 fL (80-100); MPV 10.1 fL (7.6-11.3); Monocytes % 5.2 % (3.3-12.3); Neutrophils % 67.8 % (41.7-73.7); Nucleated Red Blood Cells % 0.2 % (0-0); Platelets 185 thou/uL (152-406); RBC Red Blood Cell Count 3.22 M/uL (3.86-4.86); Red Cell Distribution Width 13.3 % (12.1-15.2)
[2024-11-08 19:16] LABS: Anion Gap 12.1 mEq/L (5.0-15.0); Potassium 4.1 mEq/L (3.5-5.1)
[2024-11-08] MEDS: DOCUSATE NA/SENNA CONC 1 TAB PO SCH (21:22)
[2024-11-09 02:31] VITALS: O2SAT 100; BMI 26.1
[2024-11-09 07:42] LABS: Absolute Basophils 0.1 K/uL (0-0.5); Absolute Eosinophils 0.3 K/uL (0-0.5); Absolute Monocytes 0.5 K/uL (0.1-1.3); Basophils % 1.3 % (0-1.3); Eosinophils % 3.5 % (0-4.4); Hematocrit 28.3 % (36.0-45.0); Hemoglobin 9.7 g/dL (12.0-15.0); Lymphocytes % 25.8 % (15.3-44.8); MCH 29.6 pg (27.0-35.0); MCHC 34.4 g/dL (32.0-36.0); MCV 85.9 fL (80-100); MPV 9.7 fL (7.6-11.3); Monocytes % 6.7 % (3.3-12.3); Neutrophils % 62.7 % (41.7-73.7); Platelets 247 thou/uL (152-406); RBC Red Blood Cell Count 3.29 M/uL (3.86-4.86); Red Cell Distribution Width 13.2 % (12.1-15.2)
[2024-11-09 08:06] LABS: Magnesium 1.9 mg/dL (1.6-2.4); Phosphorus 3.7 mg/dL (2.5-4.9); Uric Acid 4.9 mg/dL (2.6-6.0)
[2024-11-09] MEDS: SODIUM BICARB 325 MG TAB PO SCH (08:55)
[2024-11-09] MEDS: LACTULOSE 20 GM/30 ML UCUP PO SCH (08:55)
[2024-11-09] MEDS: METOPROLOL TAR 25 MG TAB PO SCH (08:56)
[2024-11-09] MEDS ORDERED: AMLODIPINE 10 MG TAB PO SCH (09:00)
[2024-11-09 09:09] LABS: Hepatitis B Core Ab, Total Nonreactive (Nonreactive); Hepatitis C Virus Ab Nonreactive (Nonreactive)
--- NOTE | 2024-11-09 18:14 | P.PN ---
Subjective Date of Service: 11/09/24 Chief Complaint: diarrhea, shelley, ascending colon mass Subjective: No new changes Currently lying in bed, comfortable. No complaints. Review of Systems 10-point ROS is otherwise unremarkable Physical Examination - Vital Signs Temperature: 98.2 F Blood Pressure: 111/56 Pulse: 64 Respirations: 16 Pulse Ox (%): 100 - Physical Exam General: Oriented x3 HEENT: Atraumatic Neck: Supple Respiratory: Clear to auscultation bilaterally Cardiovascular: No edema Capillary refill: <2 Seconds Gastrointestinal: Normal bowel sounds, Soft and benign, Non-distended Musculoskeletal: No clubbing, No swelling, No erythema Neurological: Normal gait, Normal speech, Normal strength at 5/5 x4 extr Assessment And Plan - Plan 1. Nausea and vomiting of unclear etiology -Currently resolved -On prn ondansetron 2. Acute on CKD IV -Baseline creatinine of 3.7-3.8, creatinine: 4.7 -Suspect prerenal azotemia in the context of nausea and vomiting -Continue LR -Nephrology consulted 3. Fecal impaction seen on CT of abdomen/pelvis study - Initiated ocular suppositories, MiraLAX, docusate-senna, lactulose 4. Possible ascending colon mass seen on CT of abdomen/pelvis study -Consulted general surgeon, DR Mahmood -Patient also endorses significant weight loss in the past year, up to 60 pounds weight loss so there is a concern for underlying malignancy 5 anemia of chronic renal disease -Hemoglobin currently 8.9 - close to baseline range 6. Disposition: Likely discharge home tomorrow if creatinine improves
[2024-11-09 18:49] LABS: Anion Gap 10.6 mEq/L (5.0-15.0); Potassium 3.6 mEq/L (3.5-5.1)
[2024-11-09 19:16] LABS: Absolute Basophils 0.1 K/uL (0-0.5); Absolute Eosinophils 0.3 K/uL (0-0.5); Absolute Lymphocytes (CBC) 2.3 K/uL (0.7-4.9); Absolute Monocytes 0.4 K/uL (0.1-1.3); Absolute Neutrophil 4.9 K/uL (1.8-8.0); Basophils % 1.4 % (0-1.3); Eosinophils % 3.2 % (0-4.4); Hematocrit 29.3 % (36.0-45.0); Hemoglobin 10.1 g/dL (12.0-15.0); Lymphocytes % 28.5 % (15.3-44.8); MCH 29.7 pg (27.0-35.0); MCHC 34.3 g/dL (32.0-36.0); MCV 86.6 fL (80-100); MPV 9.4 fL (7.6-11.3); Monocytes % 5.6 % (3.3-12.3); Neutrophils % 61.3 % (41.7-73.7); Platelets 280 thou/uL (152-406); RBC Red Blood Cell Count 3.38 M/uL (3.86-4.86); Red Cell Distribution Width 13.8 % (12.1-15.2)
[2024-11-09 19:30] LABS: Anion Gap 10.6 mEq/L (5.0-15.0); Magnesium 1.9 mg/dL (1.6-2.4); Potassium 3.6 mEq/L (3.5-5.1)
[2024-11-09] MEDS: LACTOBACILLUS/ACIDOPHILUS TAB PO SCH (21:50)
--- NOTE | 2024-11-09 22:24 | P.PN ---
Date of Service: 11/09/24 Vital Signs Temp Pulse Resp BP Pulse Ox 97.9 F 55 18 119/63 100 11/09/24 20:00 11/09/24 20:00 11/09/24 20:00 11/09/24 20:00 11/09/24 20:00 Medications Amlodipine Besylate (Amlodipine 10 Mg Tab) 10 mg PO DAILY [facility] Last Admin: 11/09/24 08:56 Dose: 10 mg Calcitriol (Calcitrol 0.25 Mcg Cap) 0.5 mcg PO DAILY [facility] Glucagon (Glucagon 1 Mg/Vial) 1 mg IM 1X PRN PRN Reason: HYPOGLYCEMIA Heparin Sodium (Porcine) (Heparin 5000 Unit/Ml 1 Ml Vial) 5,000 unit SQ Q8HR [facility] Last Admin: 11/09/24 17:23 Dose: 5,000 unit Hydralazine HCl (Hydralazine Hcl 25 Mg Tablet) 25 mg PO TID [facility] Last Admin: 11/09/24 21:50 Dose: 25 mg Dextrose (Dextrose 10% Water Iv Soln.) 125 mls @ 0 mls/hr IV PRN PRN; Protocol PRN Reason: HYPOGLYCEMIA Lactated Ringer's (Lactated Ringers) 1,000 mls @ 50 mls/hr IV .Q20H [facility] Last Admin: 11/08/24 17:52 Dose: Not Given Insulin Human Regular (Insulin Regular (Human) 100 Unit/Ml) 0 unit SQ ACHS [facility]; Protocol Last Admin: 11/09/24 21:51 Dose: 6 unit Lactobacillus Acidoph/Bulgaricus (Lactobacillus/Acidophilus Tab) 1 tab PO TID [facility] Last Admin: 11/09/24 21:50 Dose: 1 tab Lactulose (Lactulose 20 Gm/30 Ml Ucup) 20 gm PO TID [facility] Last Admin: 11/09/24 21:50 Dose: 20 gm Metoprolol Tartrate (Metoprolol Tar 25 Mg Tab) 25 mg PO BID 6AM 6PM [facility] Last Admin: 11/09/24 17:23 Dose: 25 mg Ondansetron HCl (Ondansetron 4 Mg/2 Ml Vial) 4 mg IV Q6HP PRN PRN Reason: NAUSEA / VOMITING Pantoprazole Sodium (Pantoprazole 40 Mg Inj) 40 mg IVP DAILY [facility]; Protocol Last Admin: 11/09/24 08:55 Dose: 40 mg Polyethylene Glycol (Polyethyl Gly 3350 17 Gm/Dose) 17 gm PO DAILY [facility] Last Admin: 11/09/24 08:55 Dose: 17 gm Senna/Docusate Sodium (Docusate Na/Senna Conc 1 Tab) 1 tab PO BID [facility] Last Admin: 11/09/24 21:50 Dose: 1 tab Sodium Bicarbonate (Sodium Bicarb 325 Mg Tab) 650 mg PO TIDWM [facility] Last Admin: 11/09/24 17:23 Dose: 650 mg Sodium Chloride (Sodium Chloride 0.9% 10ml Inj) 10 ml IV UD PRN PRN Reason: Diluant Assessment/ Plan: Nephrology No dyspnea No chest pain Feeling better No acute events overnight Vitals, medications, blood work and imaging reviewed in the chart General: In no apparent distress, Oriented x3, Cooperative HEENT: Atraumatic Neck: Supple Respiratory: Clear to auscultation bilaterally, Normal air movement Cardiovascular: No edema, Regular rate/rhythm Gastrointestinal: Soft and benign, Non-distended Musculoskeletal: No clubbing, No contractures Integumentary: No rashes, No cyanosis Neurological: Abnormal speech Laboratory Data (last 24 hrs) 11/07/24 11/07/24 11/07/24 16:43 16:43 16:43 WBC 11.10 H Hgb 10.9 L Hct 32.0 L Plt Count 319 PT 12.6 H INR 1.20 Sodium 141 Potassium 3.8 BUN 55 H Creatinine 4.72 H Glucose 170 H Magnesium 1.9 Total Bilirubin 0.6 AST 20 ALT < 14 Alkaline Phosphatase 107 Lipase 30 Imagings Data: [id number] EXAM: CT CHEST, ABDOMEN AND PELVIS WITHOUT CONTRAST CLINICAL INDICATION: Female, 64 years old Abdominal distention;Congestion TECHNIQUE: CT chest, abdomen and pelvis was performed, without IV contrast, as per department protocol. Axial, sagittal and coronal reconstructions were obtained. One or more of the following dose reduction techniques were used: Automated exposure control, adjustment of the mA and/or kV according to the patient size, and/or iterative reconstruction. Unless otherwise specified, incidental findings do not require dedicated imaging follow-up. [id number]. COMPARISON: 04/30/2021 FINDINGS: The lack of intravenous contrast limits the sensitivity of this exam for evaluation of solid visceral organs, vascular structures, and retroperitoneum. Chest: LOWER NECK: Visualized thyroid gland and soft tissues are normal. LUNGS AND AIRWAYS: Airways are clear. No evidence of airspace or interstitial process.No suspicious and/or stable pulmonary nodules. PLEURA: No pleural effusion. No pneumothorax. Hemidiaphragms are normally positioned. MEDIASTINUM AND LYMPH NODES: No mediastinal mass or fluid collection. Normal size mediastinal, hilar, and axillary lymph nodes. Mild distal esophageal thic kening. THORACIC AORTA: No thoracic aortic aneurysm. PULMONARY ARTERIES: Caliber is within normal limits. HEART: Normal heart size. Coronary arterial calcifications are present.No significant pericardial effusion. Aortic valve calcifications. Abdomen/Pelvis UPPER GI: No significant abnormality. LIVER: No significant focal abnormality. GALLBLADDER/BILE DUCTS: No biliary ductal dilatation.?Cholecystectomy. PANCREAS: No mass, ductal dilation, or pedrito-pancreatic fluid. SPLEEN: Unremarkable. ADRENALS: 19 x 12 mm left adrenal nodule is similar in size to 04/30/2021. The stability is reassuring for a benign process. KIDNEYS AND URETERS: No hydronephrosis.Low density and/or too small to characterize renal lesions which are statistically benign. ABDOMINAL AORTA AND OTHER VESSELS: Normal caliber aorta and IVC. PERITONEUM: No abnormal free fluid. No free air. LYMPH NODES: No pathologic lymphadenopathy. ABDOMINAL WALL: Unremarkable SMALL BOWEL/COLON: Large colonic stool burden, particularly at the rectum. There is moderate rectal wall thickening. This could reflect some component of surgical colitis. URINARY BLADDER: Underdistended but grossly unremarkable. REPRODUCTIVE ORGANS: No pathologic process. MUSCULOSKELETAL: No acute or suspicious osseous abnormality. Remote left-sided rib fractures. ADDITIONAL FINDINGS: None. IMPRESSION: 1. Large rectal stool burden concerning for fecal impaction. Rectal wall thickening could indicate a component of a stercoral colitis. 2. Possible mass in the ascending colon. Recommend follow-up colonoscopy for further evaluation. 3. . No acute findings in the chest. EXAM: Chest Single View HISTORY: COUGH COMPARISON: 04/18/2023 FINDINGS: LUNGS/PLEURA: The lungs are clear. No pleural effusions or pneumothorax. No pulmonary edema. . MEDIASTINUM: The mediastinal silhouette is within normal limits. CARDIAC: The cardiac silhouette is within normal limits. UPPER ABDOMEN: No significant abnormality. BONES: No acute abnormality. LINES/TUBES/OTHER: N/A IMPRESSION: No evidence of acute cardiopulmonary disease. Conclusions/Impression: Stage III SHEREEN may be due to hypovolemia CKD IV -No NSAIDs -Continue gentle IVF with LR Metabolic Acidosis -Continue oral bicarb HTN with CKD -Continue Amlodipine -Continue Hydralazine DM II with CKD & Polyneuropathy -RISS Anemia in chronic illness/ CKD -Retacrit prn CKD MBD -Continue Ergo and Calcitriol Fecal Impaction -Continue laxative therapy Ascending Colon Mass? -Follow up with surgery Hospitalist note reviewed
[2024-11-10] MEDS: CALCITROL 0.25 MCG CAP PO SCH (09:13)
[2024-11-10 09:23] VITALS: BP 125/64
[2024-11-10 09:47] VITALS: TEMP 97.7
--- NOTE | 2024-11-10 12:38 | PN ---
Date of Progress Note: 11/10/2024 Subjective: The patient is alert, awake, able to answer questions, does seem very frail, does seem v itzel weak, has lost quite a bit of weight over the last year. There is concern for colon cancer. The patient has been seen by Dr. Mahmood who was going to be following up outpatient for further evaluat ion. 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 The patient has been advised to take lac tulose. Also has been advised to take Senokot S by hospitalist team. Prescriptions for that have be en given. The patient has been counseled to follow up with Dr. Terrell, her lime burner post discha rge to keep her kidney residual in check and evaluation ongoing and treatment ongoing. The patient m ay need dialysis in the near future. She has been advised about that and understands. Objective: General: She is currently relatively stable. Vital Signs: Blood pressure was in the 110-120 range systolic. Last blood pressure was 120/74, puls e on my exam is about 60 and regular, respirations around 14-16 and comfortable. Lungs: Clear. Abdomen: Soft. Extremities: Revealed no edema. The patient is frail. She does seem cachectic, does look like she has had some muscle mass loss. Laboratory Data: Shows WBC of 8.0, hemoglobin 10.1, hematocrit 29.3, platelet counts of 280. Assessment And Plan: 1.The patient with significant kidney disease, currently relatively stable, not having any uremic sy mptoms, may need dialysis in the near future. The patient has been educated about diet. The patient is educated about salt restriction. Keep hydrated balance diet. Continue to follow with Dr. Chriss sepulveda post discharge. 2.Constipation in setting of question of colon mass. The patient has seen Dr. Mahmood, at this poin t. Constipation is resolved. Has been advised to take lactulose and Senokot S by hospice team. Pre scriptions are given. Balance diet. Keep hydrated. Keep followup with surgeon. 3.Metabolic acidosis, on bicarb. 4.Hypertension, reasonably well controlled. Medication compliance has been counseled. 5.Chronic kidney disease-mineral bone disorder. The patient on vitamin D supplement. Continue to laura Terrell on adjustment outpatient. /NOE Voice ID: [id number] Report ID: [id number]
--- NOTE | 2024-11-10 14:19 | P.DS ---
Admission Date: 11/07/24 Discharge Date: 11/10/24 Disposition: ROUTINE DISCHARGE Discharge Condition: GOOD Reason for Admission: diarrhea, shelley, ascending colon mass Hospital Course: 64-year-old female with history of CKD IV, anemia of chronic renal disease, initially presented with complaints of nausea and vomiting. On admission, received as needed ondansetron with resolution of nausea and vomiting. CT of abdomen/pelvis withw/o contrast showed evidence of possible ascending colon mass, with fecal impaction and large stool burden. She received a suppository and multiple laxatives; senna/docusate, Miralax, and lactulose with multiple bowel movements. She was seen by Gen surgeon, Dr Mahmood, who saw patient and recommended outpatient follow-up in his clinic for colonoscopy, with biopsy of possible colon mass if seen. Patient was eventually discharged home. Of note, on admission, creatinine was 4.7, received IV fluids with creatinine at time of discharge at 4.3, not far off from baseline creatinine Vital Signs/Physical Exam: Temp Pulse Resp BP Pulse Ox 97.7 F 49 L 16 125/64 100 11/10/24 08:00 11/10/24 09:13 11/10/24 08:00 11/10/24 09:13 11/10/24 08:00 Laboratory Data at Discharge: WBC 8.00 thou/uL (4.3-10.9) 11/09/24 19:04 Hgb 10.1 g/dL (12.0-15.0) L 11/09/24 19:04 Hct 29.3 % (36.0-45.0) L 11/09/24 19:04 Plt Count 280 thou/uL (152-406) 11/09/24 19:04 PT 12.6 SECONDS (9.4-12.5) H 11/07/24 16:43 INR 1.20 11/07/24 16:43 Sodium Cancelled 11/10/24 18:00 Potassium Cancelled 11/10/24 18:00 BUN Cancelled 11/10/24 18:00 Creatinine Cancelled 11/10/24 18:00 Glucose Cancelled 11/10/24 18:00 Uric Acid 4.9 mg/dL (2.6-6.0) 11/09/24 07:05 Phosphorus 3.7 mg/dL (2.5-4.9) 11/09/24 07:05 Magnesium 1.9 mg/dL (1.6-2.4) 11/09/24 19:04 Total Bilirubin 0.6 mg/dL (0.2-1.0) 11/07/24 16:43 AST 20 U/L (15-37) 11/07/24 16:43 ALT < 14 U/L (13-56) 11/07/24 16:43 Alkaline Phosphatase 107 U/L (45-117) 11/07/24 16:43 Triglycerides 97 mg/dL (<150) 11/08/24 06:17 Cholesterol 163 mg/dL (<200) 11/08/24 06:17 HDL Cholesterol 44 mg/dL (40-60) 11/08/24 06:17 Cholesterol/HDL Ratio 3.70 11/08/24 06:17 Lipase 30 U/L (13-75) 11/07/24 16:43 Home Medications: Atorvastatin Calcium 40 mg PO BEDTIME 05/19/20 Levothyroxine [Synthroid*] 0.125 mg PO DAILY 05/19/20 Linagliptin [Tradjenta] 5 mg PO DAILY 05/19/20 Losartan Potassium 25 mg PO DAILY 05/19/20 Vortioxetine Hydrobromide [Trintellix] 10 mg PO DAILY 05/19/20 ALPRAZolam [Xanax*] 1 mg PO TID 05/24/20 Insulin Detemir [Levemir Flextouch] 20 units SQ BIDWM 05/24/20 Trazodone [Desyrel*] 150 mg PO BEDTIME 05/24/20 glipiZIDE [Glipizide] 10 mg PO BIDWM 05/24/20 Zinc Sulfate [Zinc Sulfate*] 220 mg PO DAILY #14 cap 05/28/20 Cholecalciferol (Vitamin D3) [Vitamin D3] 25 mcg PO DAILY 05/30/20 Famotidine [Pepcid*] 20 mg PO DAILY 05/30/20 Amlodipine [Norvasc*] 5 mg PO DAILY #30 tab 06/03/20 Apixaban [Eliquis] 5 mg PO BID #60 tablet 06/03/20 Ascorbic Acid [Vitamin C*] 500 mg PO DAILY #30 06/03/20 Clopidogrel Bisulfate [Plavix*] 75 mg PO DAILY #30 tablet 06/03/20 predniSONE [Deltasone*] 10 mg PO DAILY #7 tab 06/03/20 hydrOXYzine HCL [Atarax*] 25 mg PO DAILY PRN 02/15/23 Sodium Bicarbonate 650 mg PO DAILY 30 Days #30 tab 03/02/23 Docusate/Senna [Senokot-S*] 1 tab PO BID 14 Days #28 tab 11/10/24 Lactulose 20 ml PO DAILY 14 Days #280 ml 11/10/24 New Medications: Lactulose 20 ml PO DAILY 14 Days #280 ml Docusate/Senna [Senokot-S*] 1 tab PO BID 14 Days #28 tab Physician Discharge Instructions: Follow up with Dr Mahmood within 1-2 weeks post discharge . Take meds as prescribed Followup: Hector Terrell DO [Primary Care Provider] - Vernon Mahmood MD [ACTIVE - CAN ADMIT] - 1-2 Weeks
== END 2024-11-10 11:30 | disposition home or self-care (01) | DRG 683 ==
LOC: ER 16:22 → ERHOLD 18:44 → 4TH 21:25
PROVIDERS: ADMIT Internal Medicine; ATTEND Internal Medicine
DX: N17.9 Acute kidney failure, unspecified (principal); E87.20 Acidosis, unspecified; I12.0 Hypertensive chronic kidney disease with stage 5 chronic kidney disease or end stage renal disease; R64 Cachexia; N18.5 Chronic kidney disease, stage 5; E11.22 Type 2 diabetes mellitus with diabetic chronic kidney disease; E11.65 Type 2 diabetes mellitus with hyperglycemia; E11.42 Type 2 diabetes mellitus with diabetic polyneuropathy; D63.1 Anemia in chronic kidney disease; K56.41 Fecal impaction; E66.9 Obesity, unspecified; E03.9 Hypothyroidism, unspecified; I69.328 Other speech and language deficits following cerebral infarction; F01.50 Vascular dementia, unspecified severity, without behavioral disturbance, psychotic disturbance, mood disturbance, and anxiety; K63.9 Disease of intestine, unspecified; R19.7 Diarrhea, unspecified; R11.2 Nausea with vomiting, unspecified; Z88.5 Allergy status to narcotic agent; Z79.02 Long term (current) use of antithrombotics/antiplatelets; Z79.4 Long term (current) use of insulin; Z86.16 Personal history of COVID-19; Z90.49 Acquired absence of other specified parts of digestive tract; Z68.26 Body mass index [BMI] 26.0-26.9, adult; Z79.890 Hormone replacement therapy; Z79.899 Other long term (current) drug therapy; Z79.84 Long term (current) use of oral hypoglycemic drugs; Z79.01 Long term (current) use of anticoagulants
CPT/HCPCS: 36415; 71045; 71250; 74176; 80048; 80061; 80076; 82550; 82947; 83605; 83690; 83735; 83880; 84100; 84439; 84443; 84484; 84550; 85025; 85610; 86704; 86706; 86803; 87045; 87046; 87324; 87425; 89055; 96374; 96375; 99284; J0696; J0744; J1644; J2405; J2470; J3475; J7030; J7040; J7120; Q5106

== ENCOUNTER 2024-11-10 16:29 | Emergency (ER) | payer OTHER ==
[2024-11-10 18:19] LABS: Absolute Basophils 0.1 K/uL (0-0.5); Absolute Eosinophils 0.1 K/uL (0-0.5); Absolute Lymphocytes (CBC) 1.7 K/uL (0.7-4.9); Absolute Monocytes 0.4 K/uL (0.1-1.3); Absolute Neutrophil 4.5 K/uL (1.8-8.0); Eosinophils % 2.2 % (0-4.4); Hematocrit 29.8 % (36.0-45.0); Lymphocytes % 24.8 % (15.3-44.8); MCH 29.4 pg (27.0-35.0); MCHC 33.5 g/dL (32.0-36.0); MCV 87.6 fL (80-100); MPV 9.2 fL (7.6-11.3); Monocytes % 5.3 % (3.3-12.3); Neutrophils % 66.7 % (41.7-73.7); Nucleated Red Blood Cells % 0.1 % (0-0); Platelets 287 thou/uL (152-406); Red Cell Distribution Width 13.5 % (12.1-15.2)
[2024-11-10 18:46] LABS: AST/SGOT 12 U/L (15-37); Albumin/Globulin Ratio 0.9 (1.1-1.8); Alkaline Phosphatase 85 U/L (45-117); Anion Gap 12.6 mEq/L (5.0-15.0); BUN Blood Urea Nitrogen 46 mg/dL (7-18); Bicarbonate 20 mEq/L (21-32); Bilirubin Total 0.3 mg/dL (0.2-1.0); Globulin 3.4 g/dL (2.3-3.5); Glomerular Filtration Rate 9 ml/min (=/>90); Glucose Level 149 mg/dL (74-106); Lipase 35 U/L (13-75); Potassium 3.6 mEq/L (3.5-5.1); Protein, Total 6.4 g/dL (6.4-8.2); Sodium Level 138 mEq/L (136-145)
[2024-11-10 18:47] LABS: ALT/SGPT < 14 U/L (13-56)
--- NOTE | 2024-11-10 19:02 | EDPHYS ---
Physician Documentation [facility] Name: Janis Henderson Age: 64 yrs Sex: Female : 1960 Arrival Date: 11/10/2024 Time: 16:29 Bed 16 Private MD: ED Physician Edward Horan HPI: 11/10 17:03 This 64 yrs old Female presents to ER via EMS with complaints of Diarrhea. cp 17:03 The patient presents to the emergency department with diarrhea, 1 times today. The cp patient has been recently been admitted at [facility], was discharged earlier today, for similar complaints. Historical: - Allergies: 16:49 Morphine; ph - PMHx: 16:49 Anxiety; chronic neck/back pain; COVID; CVA; speech deficit/mild weakness; Depression; ph Diabetes - NIDDM; Hypothyroidism; Hypertension; psoriasis; renal insufficiency; VASCULAR DEMENTIA; - PSHx: 16:49 Appendectomy; section; Cholecystectomy; ph - Immunization history:: Adult Immunizations unknown. - Infectious Disease History:: Denies. - Social history:: Smoking status: unknown. ROS: 17:05 Constitutional: Negative for body aches, chills, fever, cp 17:05 Eyes: Negative for injury, pain, redness, and discharge, cp 17:05 ENT: Negative for drainage from ear(s), ear pain, sore throat, difficulty swallowing, difficulty handling secretions, 17:05 Cardiovascular: Negative for chest pain, 17:05 Respiratory: Negative for cough, shortness of breath, wheezing, 17:05 Abdomen/GI: Positive for diarrhea, Negative for abdominal pain, 17:05 Back: Negative for pain at rest, pain with movement, 17:05 Neuro: Negative for altered mental status, 17:05 All other systems are negative, Exam: 17:10 Constitutional: The patient appears in no acute distress, alert, awake, cp non-diaphoretic, non-toxic, well developed, well nourished, 17:10 Head/Face: Normocephalic, atraumatic. cp 17:10 Eyes: Periorbital structures: appear normal, Conjunctiva: normal, no exudate, no injection, Sclera: no appreciated abnormality, Lids and lashes: appear normal, bilaterally, 17:10 ENT: External ear(s): are unremarkable, Nose: is normal, Mouth: Lips: moist, Oral mucosa: moist, Posterior pharynx: Airway: no evidence of obstruction, patent, 17:10 Chest/axilla: Inspection: normal, 17:10 Respiratory: the patient does not display signs of respiratory distress, Respirations: normal, no use of accessory muscles, no retractions, labored breathing, is not present, Breath sounds: are clear throughout, no decreased breath sounds, no stridor, no wheezing, 17:10 Abdomen/GI: Inspection: abdomen appears normal, Palpation: abdomen is soft and non-tender, in all quadrants, 17:10 Neuro: Orientation: to person, place \T\ time. Mentation: is normal, Motor: moves all fours, no focal deficits, Vital Signs: 16:50 BP 120 / 70; Pulse 55; Resp 18; Temp 97.8; Pulse Ox 100% on R/A; Weight 74.84 kg; ph Height 5 ft. 4 in. ; 18:15 BP 109 / 65; Pulse 55; Resp 18; Pulse Ox 100% on R/A; ph 20:02 BP 128 / 84; Pulse 84; Resp 19; Pulse Ox 100% on R/A; ay 16:50 Body Mass Index 28.32 (74.84 kg, 162.56 cm) ph MDM: 16:52 Medical Screening Exam initiated helen 18:13 Transition of care: Care assumed from Edward DIAZ. ED course: Patient signed out to 4 de. Patient was admitted here a few days ago for fecal impaction and suspected colon mass. She received several laxatives which resolved her fecal impaction. She was discharged this morning and is here now because she has had diarrhea. She is supposed to follow-up with Dr. Mahmood for a colonoscopy. 19:03 Data reviewed: vital signs, nurses notes, lab test result(s), and as a result, I will sb4 discharge patient. Counseling: I had a detailed discussion with the patient and/or guardian regarding the historical points, exam findings, and any diagnostic results supporting the discharge/admit diagnosis, lab results, the need for outpatient follow up, a general surgeon, a sewage plant attendant, to return to the emergency department if symptoms worsen or persist or if there are any questions or concerns that arise at home. ED course: Upon further discussion, patient called EMS due to an argument with her roommate. States that he got mad at her because she had diarrhea. This diarrhea is chronic in nature. Her labs reveal stable kidney function. She is safe for discharge home with Dr. Mahmood. 11/10 17:00 Order name: CBC with Diff; Complete Time: 18:21 cp 11/10 17: Order name: CMP; Complete Time: 18:47 cp 11/10 17: Order name: Lipase; Complete Time: 18:47 cp 11/10 16:00 Order name: Magnesium; Complete Time: 18:47 cp 11/10 17:00 Order name: IV Saline Lock; Complete Time: 18:10 cp 11/10 17:00 Order name: Labs collected and sent; Complete Time: 18:10 cp Administered Medications: 18:21 Not Given (Hemodynamic Parameters): [id number] mg IVP once; systolic pressure ph greater than 180 Disposition Summary: 11/10/24 19:01 Discharge Ordered Notes: Location: Home sb4 Problem: an ongoing problem sb4 Symptoms: have improved sb4 Condition: Stable sb4 Diagnosis - Acute stress reaction sb4 - Diarrhea, unspecified sb4 Followup: sb4 - With: Vernon Mahmood MD - When: 2 - 3 days - Reason: Further diagnostic work-up, Recheck today's complaints, Re-evaluation by your physician Discharge Instructions: - Discharge Summary Sheet sb4 - Food Choices to Help Relieve Diarrhea, Adult sb4 Forms: - Patient Portal Instructions sb4 - Leadership Thank You Letter sb4 Addendum: 11/14/2024 07:28 Co-signature as Attending Physician, Edward Horan MD I agree with the assessment and c wilson plan of care. Signatures: Dispatcher [employer] Edward Oliva MD MD cha Hall, Patricia, RN RN ph Edward Luu PA PA cp Brown, Sophia, PA-C PA-C sb4
--- NOTE | 2024-11-10 19:02 | ER ---
Nurse's Notes [facility] Name: Janis Henderson Age: 64 yrs Sex: Female : 1960 Arrival Date: 11/10/2024 Time: 16:29 Bed 16 Private MD: Diagnosis: Acute stress reaction;Diarrhea, unspecified Presentation: 11/10 16:48 Chief complaint: EMS states: Diarrhea that has been ongoing, seen in ED for same ph complaint last week and admitted, told that she needs a colostomy but none was placed at that time. Coronavirus screen: Vaccine status: Patient reports being unvaccinated. Ebola Screen: No symptoms or risks identified at this time. Initial Sepsis Screen: Does the patient meet any 2 criteria? No. Patient's initial sepsis screen is negative. Does the patient have a suspected source of infection? No. Patient's initial sepsis screen is negative. Risk Assessment: Do you want to hurt yourself or someone else? Patient reports no desire to harm self or others. Onset of symptoms was November 10, 2024. 16:48 Method Of Arrival: EMS: [facility] 16:48 Acuity: JUANCHO 3 ph Historical: - Allergies: 16:49 Morphine; ph - PMHx: 16:49 Anxiety; chronic neck/back pain; COVID; CVA; speech deficit/mild weakness; Depression; ph Diabetes - NIDDM; Hypothyroidism; Hypertension; psoriasis; renal insufficiency; VASCULAR DEMENTIA; - PSHx: 16:49 Appendectomy; section; Cholecystectomy; ph - Immunization history:: Adult Immunizations unknown. - Infectious Disease History:: Denies. - Social history:: Smoking status: unknown. Screenin:50 Abuse screen: Denies threats or abuse. Denies injuries from another. Nutritional ph screening: No deficits noted. Tuberculosis screening: No symptoms or risk factors identified. 17:48 [facility] ED Fall Risk Assessment (Adult) History of falling in the last 3 months, ph including since admission No falls in past 3 months (0 pts) Confusion or Disorientation No (0 pts) Intoxicated or Sedated No (0 pts) Impaired Gait No (0 pts) Mobility Assist Device Used No (0 pt) Altered Elimination Yes (1 pt) Score/Fall Risk Level 0 - 2 = Low Risk Oriented to surroundings, Maintained a safe environment, Hourly rounding (assess needs \T\ fall precautionary measures) done. Assessment: 17:47 General: Appears in no apparent distress. comfortable, Behavior is calm, cooperative. ph Pain: Denies pain. Neuro: Level of Consciousness is awake, alert, obeys commands, Oriented to person, place, time, situation. Cardiovascular: Capillary refill < 3 seconds in bilateral fingers Patient's skin is warm and dry. Respiratory: Airway is patent Respiratory effort is even, unlabored, Respiratory pattern is regular, symmetrical. GI: Abdomen is non-distended, Reports diarrhea. Derm: Skin is pink, warm \T\ dry. 20:03 Reassessment: Pt alert and oriented, VSS, no distress noted. ay Vital Signs: 16:50 BP 120 / 70; Pulse 55; Resp 18; Temp 97.8; Pulse Ox 100% on R/A; Weight 74.84 kg; ph Height 5 ft. 4 in. ; 18:15 BP 109 / 65; Pulse 55; Resp 18; Pulse Ox 100% on R/A; ph 20:02 BP 128 / 84; Pulse 84; Resp 19; Pulse Ox 100% on R/A; ay 16:50 Body Mass Index 28.32 (74.84 kg, 162.56 cm) ph ED Course: 16:46 Patient arrived in ED. ph 16:47 Emma White, RN is Primary Nurse. ph 16:48 Edward Luu PA is PHCP. cp 16:48 Edward Horan MD is Attending Physician. cp 16:49 Triage completed. ph 16:50 Arm band placed on Patient placed in an exam room, on a stretcher. ph 17:49 Patient has correct armband on for positive identification. Bed in low position. Call ph light in reach. Side rails up X 1. Pulse ox on. NIBP on. Door closed. Noise minimized. Warm blanket given. Pillow given. Cleaned of incontinence. 18:11 PHCP role handed off by Edward Luu PA sb4 18:11 Corinne Vyas PA-C is PHCP. sb4 18:15 Initial lab(s) drawn, by ca, sent to lab. Inserted saline lock: 22 gauge in left ph antecubital area, using aseptic technique. Blood collected. Flushed with 10 mL NS. 19:01 Vernon Mahmood MD is Referral Physician. sb4 20:04 No provider procedures requiring assistance completed. IV discontinued, intact, ay bleeding controlled, No redness/swelling at site. Pressure dressing applied. Administered Medications: 18:21 Not Given (Hemodynamic Parameters): [id number] mg IVP once; systolic pressure ph greater than 180 Medication: 16:50 VIS not applicable for this client. ph Outcome: 19:01 Discharge ordered by MD. stewart 20:04 Discharged to home via wheelchair, ay 20:04 Condition: stable 20:04 Discharge instructions given to patient, Instructed on discharge instructions, follow up and referral plans. Demonstrated understanding of instructions, follow-up care, 20:05 Patient left the ED. ay Signatures: Emma White RN RN ph Edward Luu PA PA cp Brown, Sophia PA-C PA-C Kevin Coelho RN RN ay Corrections: (The following items were deleted from the chart) 18:10 16:50 BP 207 / 0; Pulse 55bpm; Resp 18bpm; Pulse Ox 100% RA; Temp 97.8F; 74.84 kg; ph Height 5 ft. 4 in.; BMI: 28.3; ph
[2024-11-10 20:15] VITALS: TEMP 97.8; O2SAT 100
[2024-11-10 20:29] VITALS: BP 128/84
== END 2024-11-10 20:05 | disposition home or self-care (01) ==
LOC: ER 16:29
DX: R19.7 Diarrhea, unspecified (principal); F43.0 Acute stress reaction; E11.9 Type 2 diabetes mellitus without complications; I10 Essential (primary) hypertension
CPT/HCPCS: 36415; 80053; 83690; 83735; 85025; 99284